=== PATIENT | male | born 1975 | race Hispanic/Latino ===

== ENCOUNTER 2019-01-04 19:00 | Emergency (ER) | payer OTHER ==
--- OUTSIDE RECORDS SUMMARY | 2019-01-04 19:02 | XMS REPORT | Clinical Summary ---
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 Last Filed Vital Signs Not on file Plan of Treatment Health Maintenance Due Date Last Done Comments INFLUENZA VACCINE 12/31/2018 Results Not on fileafter 01/03/2018 RAHEEL Sumner [address] [place], [place] (Home) [id number] (Work) Advance Directives Patient has advance care planning documents on file. For more information, please contact:Tone [id number] SchaeferNew [facility] [address]
--- OUTSIDE RECORDS SUMMARY | 2019-01-04 19:29 | XMS REPORT | Continuity of Care Document ---
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 22:00:00 MARKETING LIAISON, Duration: 30 hr, Stop date: 08/02/18 3:59:00 MARKETING LIAISON, Replace Every: 24 hrNotes: Central line only Must use 1.2 micron filter AND Lipids should not be administered to patients who are allergic to soy, fish, egg or peanuts. Potassium 40 mEq, 2 tab, Inactive [facility] Chloride Route: PO, Drug 2019 Medical form: ERTAB, Center ONCE, Dosing Weight 48.182, kg, Start date: 07/31/18 7:48:00 MARKETING LIAISON, Stop date: 07/31/18 7:48:00 CSTNotes: (Same as: K-Dur 20) "Do Not Crush" Give with food and full glass of water For patients unable to swallow tablet, dissolve in one half glass of water. Allow about 2 minutes for the tablets to disintegrate. Stir before giving to prepare slurry and administer. Please exclude Patients with feeding tube less than 14 [place] (Dobhoff, J-tube etc) and pediatric and patients. NS (Bolus) IV 500 mL, 500 Inactive [facility] ml/hr, Infuse 2019 Medical Over: 1 hr, Center Route: IV, 500, Drug form: INJ, ONCE, Priority: STAT, Dosing Weight 48.182 kg, Start date: 07/30/18 22:22:00 MARKETING LIAISON, Stop date: 07/30/18 22:22:00 MARKETING LIAISON Adult Parenteral 1,800 mL, Rate: No Longer [facility] Nutrition Custom as directed, Active 2019 Medical - Central (TPN) Dosing Weight Center 1,800 mL 48.182, kg, Route: IV, Total Volume: 1,800 mL, Start Date: 07/30/18 22:00:00 MARKETING LIAISON, Duration: 30 hr, Stop date: 08/01/18 3:59:00 MARKETING LIAISON, Replace Every: 24 hrNotes: Central line only Must use 1.2 micron filter AND Lipids should not be administered to patients who are allergic to soy, fish, egg or peanuts. normal saline 1,000 mL, Rate: No Longer [place] 0.9% IV 1,000 mL 75 ml/hr, Active 2019 Medical Infuse over: Center 13.3 hr, Route: IV, Dosing Weight 48.182 kg, Total Volume: 1,000, Start date: 07/30/18 21:07:00 MARKETING LIAISON, Duration: 30 day, Stop date: 08/29/18 21:06:00 CDT, 1.48, m2 Adult Parenteral 1,800 mL, Rate: No Longer [facility] Nutrition Custom as directed, Active 2019 Medical - Central (TPN) Dosing Weight Center 1,800 mL 48.182, kg, Route: IV, Total Volume: 1,800 mL, Start Date: 07/29/18 22:00:00 MARKETING LIAISON, Duration: 30 hr, Stop date: 07/31/18 3:59:00 MARKETING LIAISON, Replace Every: 24 hrNotes: Central line only Must use 1.2 micron filter AND Lipids should not be administered to patients who are allergic to soy, fish, egg or peanuts. Adult Parenteral 1,800 mL, Rate: No Longer [facility] Nutrition Custom as directed, Active 2019 Medical - Central (TPN) Dosing Weight Center 1,800 mL 48.182, kg, Route: IV, Total Volume: 1,800 mL, Start Date: 07/28/18 22:00:00 MARKETING LIAISON, Duration: 30 hr, Stop date: 07/30/18 3:59:00 MARKETING LIAISON, Replace Every: 24 hrNotes: Central line only Must use 1.2 micron filter AND Lipids should not be administered to patients who are allergic to soy, fish, egg or peanuts. Adult Parenteral 1,800 mL, Rate: Inactive [facility] Nutrition Custom as directed, 2019 Medical - Central (TPN) Dosing Weight Center 1800 mL 48.182, kg, Route: IV, Total Volume: 1,800 mL, Start Date: 07/28/18 22:00:00 MARKETING LIAISON, Duration: 30 hr, Stop date: 07/30/18 3:59:00 MARKETING LIAISON Adult Parenteral 1,800 mL, Rate: No Longer [employer] [facility] Nutrition Custom as directed, Active 2019 Medical - Central (TPN) Dosing Weight Center 1,800 mL 48.182, kg, Route: IV, Total Volume: 1,800 mL, Start Date: 07/27/18 22:00:00 MARKETING LIAISON, Duration: 30 hr, Stop date: 07/29/18 3:59:00 MARKETING LIAISON, Replace Every: 24 hrNotes: Central line only Must use 1.2 micron filter AND Lipids should not be administered to patients who are allergic to soy, fish, egg or peanuts. Adult Parenteral 1,800 mL, Rate: No Longer [employer] [facility] Nutrition Custom as directed, Active 2019 Medical - Central (TPN) Dosing Weight Center 1,800 mL 48.182, kg, Route: IV, Total Volume: 1,800 mL, Start Date: 07/26/18 22:00:00 MARKETING LIAISON, Duration: 30 hr, Stop date: 07/28/18 3:59:00 MARKETING LIAISON, Replace Every: 24 hrNotes: Central line only Must use 1.2 micron filter AND Lipids should not be administered to patients who are allergic to soy, fish, egg or peanuts. GI cocktail 30 ml, Route: Inactive [place] (aluminum PO, Drug Form: 2018 Medical hydroxide/magnesi SUSP, Dosing Center um Weight 48.182, hydroxide/lidocai kg, ONCE, ne/simethicone) Routine, Start date: 07/26/18 20:43:00 MARKETING LIAISON, Stop date: 07/26/18 20:43:00 CSTNotes: G.I. Cocktail - aluminum hydroxide/magne sium hydroxide/lidoc giorgio/simethicon e Acetaminophen 325 1 tab, Route: No Longer [place] MG / Hydrocodone PO, Drug Form: Active 2018 Medical Bitartrate 10 MG TAB, Dosing Center Oral Tablet Weight 48.182, [[place] 10/325] kg, Q6H, PRN Pain Score 4-6, Start date: 07/26/18 20:43:00 MARKETING LIAISON, Duration: 30 day, Stop date: 08/25/18 20:42:00 CDTNotes: Do not exceed 4gm/day of acetaminophen. (Same as: [place] 325/10) Adult Parenteral 1,800 mL, Rate: No Longer [place] Nutrition Custom as directed, Active 2019 Medical - Central (TPN) Dosing Weight Center 1,800 mL 48.182, kg, Route: IV, Total Volume: 1,800 mL, Start Date: 07/25/18 22:00:00 MARKETING LIAISON, Duration: 30 hr, Stop date: 07/27/18 3:59:00 MARKETING LIAISON, Replace Every: 24 hrNotes: Central line only Must use 1.2 micron filter AND Lipids should not be administered to patients who are allergic to soy, fish, egg or peanuts. Tylenol 650 mg, 2 tab, No Longer [place] Route: PO, Drug Active 2019 Medical form: TAB, Q6H, Center Dosing Weight 48.182, kg, PRN Pain 1-3/Temp > 100.4 F, Start date: 07/25/18 21:39:00 MARKETING LIAISON, Duration: 30 day, Stop date: 08/24/18 21:38:00 CDTNotes: Do not exceed 4 gm/day. (Same as: Tylenol) Lovenox 40 mg, 0.4 mL, No Longer [place] Route: SUB-Q, Active 2019 Medical Drug form: INJ, Center [id number], Dosing Weight 48.182, kg, Start date: 07/25/18 17:00:00 MARKETING LIAISON, Duration: 30 day, Stop date: 09/22/18 17:00:00 CDTNotes: (Same as: Lovenox) Adult Parenteral 1,800 mL, Rate: No Longer [place] Nutrition Custom as directed, Active 2019 Medical - Central (TPN) Dosing Weight Center 1,800 mL 48.182, kg, Route: IV, Total Volume: 1,800 mL, Start Date: 07/24/18 22:00:00 MARKETING LIAISON, Duration: 30 hr, Stop date: 07/26/18 3:59:00 MARKETING LIAISON, Replace Every: 24 hrNotes: Central line only Must use 1.2 micron filter AND Lipids should not be administered to patients who are allergic to soy, fish, egg or peanuts. Fluoxetine 40 mg, 10 mL, No Longer [place] Route: PO, Drug Active 2019 Medical form: SOLN, Center Daily, Dosing Weight 52.273, kg, Start date: 07/24/18 9:00:00 MARKETING LIAISON, Stop date: 09/04/18 9:00:00 CDTNotes: (Same as: Prozac) Divalproex Sodium 500 mg, 1 tab, No Longer [place] 500 MG Enteric Route: PO, Drug Active 2019 Medical Coated Tablet form: ECTAB, [place] [Depakote] BID, Dosing Weight 52.273, kg, Start date: 07/24/18 9:00:00 MARKETING LIAISON, Duration: 30 day, Stop date: 08/22/18 17:00:00 CDTNotes: (Same as: Depakote Delayed Release) Do not confuse with the extended-releas e tablet. Delayed absorption enteric coated tablet. Do not crush Bupropion 300 mg, 2 tab, No Longer [place] Route: PO, Drug Active 2019 Medical form: ERTAB, [place] QAM, Dosing Weight 52.273, kg, Start date: 07/24/18 9:00:00 MARKETING LIAISON, Stop date: 09/07/18 9:00:00 CDTNotes: (Same as: Wellbutrin XL) "Do Not Crush" Sodium Chloride 1,000 mL, Rate: No Longer [place] 0.9% IV 1,000 mL 75 ml/hr, Active 2019 Medical Infuse over: [place] 13.3 hr, Route: IV, Dosing Weight 52.273 kg, Total Volume: 1,000, Start date: 07/23/18 23:36:00 MARKETING LIAISON, Duration: 30 day, Stop date: 08/22/18 23:35:00 CDT, 1.55, m2 Ketamine 225 mg, 22.5 Inactive [place] mL, Route: IV, 2019 Medical Drug form: Center SOLN, ONCE, Dosing Weight 52.273, kg, Start date: 07/23/18 20:09:00 MARKETING LIAISON, Stop date: 07/23/18 20:09:00 CSTNotes: (Same as: keTALAR) Zofran 4 mg, 2 mL, Inactive [place] Route: IVP, 2019 Medical Drug form: INJ, [place] ONCE, Dosing Weight 52.273, kg, Priority: STAT, Start date: 07/23/18 20:09:00 MARKETING LIAISON, Stop date: 07/23/18 20:09:00 CSTNotes: (Same as: Zofran) MEDICATION WASTE Product Size: 4 mg Product Wasted: ___ mg Aluminum 10 mL, PO, Active Hydroxide 40 QID-After 2019 [facility] MG/ML / Magnesium Meals, shake Hydroxide 40 well before MG/ML / using, # 180 Simethicone 4 mL, 0 Refill(s) MG/ML Oral Suspension [Maalox Plus] ibuprofen 600 mg 600 mg=1 tab, No Longer oral tablet PO, Q6H, PRN Active 2018 [facility] Pain, take with food not to exceed 3200 mg/day, # 30 tab, 0 Refill(s) Maalox Advanced 30 mL, Route: Inactive Regular Strength PO, Drug Form: 2018 [facility] SUSP SUSP, Dosing Weight 52.273, kg, ONCE, STAT, Start date: 07/23/18 13:12:00 MARKETING LIAISON, Stop date: 07/23/18 13:12:00 CSTNotes: (aluminum hydroxide-magne sium hyd-simethicone [id number]/5m l 30 ml ud JUNIOR) Acetaminophen 1,000 mg, 2 Inactive tab, Route: PO, 2018 [facility] Drug form: TAB, ONCE, Dosing Weight 52.273, kg, Priority: STAT, Start date: 07/23/18 12:13:00 MARKETING LIAISON, Stop date: 07/23/18 12:13:00 CSTNotes: Max acetaminophen 4000 mg/day (4 gm/day). (Same as: Tylenol Extra Strength) Potassium 40 mEq, 15 mL, Inactive [place] 1.33 Route: PO, Drug 2019 [place] MEQ/ML Oral form: LIQ, Solution ONCE, Dosing Weight 54.545, kg, Priority: STAT, Start date: 07/23/18 2:59:00 MARKETING LIAISON, Stop date: 07/23/18 2:59:00 MARKETING LIAISON Sodium Chloride 1,000 mL, Inactive 0.9% (Bolus) IV Infuse Over: 2018 [facility] hr, Route: IV, ONCE, Priority: STAT, Dosing Weight 54.545 kg, Start date: 07/23/18 2:49:00 MARKETING LIAISON, Stop date: 07/23/18 2:49:00 MARKETING LIAISON Depakote 1,000 mg, 4 Inactive tab, Route: PO, 2018 [facility] Drug form: ECTAB, ONCE, Dosing Weight 54.545, kg, Start date: 07/23/18 0:16:00 MARKETING LIAISON, Stop date: 07/23/18 0:16:00 CSTNotes: (Same as: Depakote Delayed Release) Do not confuse with the extended-releas e tablet. Delayed absorption, enteric coated tablet. Do not crush Sodium Chloride 1,000 mL, 1000 Inactive 0.9% (Bolus) IV ml/hr, Infuse 2018 [facility] Over: 1 hr, Route: IV, 1,000, Drug form: INJ, ONCE, Priority: STAT, Dosing Weight 54.545 kg, Start date: 07/22/18 19:17:00 MARKETING LIAISON, Stop date: 07/22/18 19:17:00 MARKETING LIAISON Saline Flush 0.9% 10 mL, Route: No Longer IVP, Drug Form: Active 2018 [facility] INJ, Dosing Weight 54.545, kg, PRN, PRN Line Flush, Start date: 07/22/18 19:17:00 MARKETING LIAISON, Duration: 30 day, Stop date: 08/21/18 20:16:00 CDTNotes: (Same as: BD Posiflush) Tylenol 1,000 mg, 2 Inactive tab, Route: PO, 2018 [facility] Drug form: TAB, ONCE, Dosing Weight 72.727, kg, Start date: 07/22/18 0:01:00 MARKETING LIAISON, Stop date: 07/22/18 0:01:00 CSTNotes: Max acetaminophen 4000 mg/day (4 gm/day). (Same as: Tylenol Extra Strength) d50 syringe 12.5 gm, 25 mL, No Longer Route: IVP, Active 2018 [facility] Drug Form: INJ, Dosing Weight 72.727, kg, ONCE, STAT, Start date: 07/21/18 23:51:00 MARKETING LIAISON, Stop date: 07/21/18 23:51:00 MARKETING LIAISON, 25 ml=12.5 gm Dextrose 50% 25 gm, Route: Inactive Syringe IVP, Dosing 2018 [facility] Weight 72.727, kg, ONCE, STAT, Start date: 07/21/18 23:32:00 MARKETING LIAISON, Stop date: 07/21/18 23:32:00 MARKETING LIAISON Depakote 125 mg, 1 tab, No Longer Route: PO, Drug Active 2018 [facility] form: ECTAB, ONCE, Dosing Weight 72.727, kg, Start date: 07/21/18 23:13:00 MARKETING LIAISON, Stop date: 07/21/18 23:13:00 CSTNotes: (Same as: Depakote Delayed Release) Do not confuse with the extended-releas e tablet. Delayed absorption, entereic coated tablet. Do not crush Saline Flush 0.9% 10 mL, Route: No Longer IVP, Drug Form: Active 2018 [facility] INJ, Dosing Weight 72.727, kg, PRN, PRN Line Flush, Start date: 07/21/18 18:35:00 MARKETING LIAISON, Duration: 30 day, Stop date: 08/20/18 19:34:00 CDTNotes: (Same as: BD Posiflush) Depakote 500 mg 500 mg, 1 tab, No Longer [place] oral enteric Route: PO, Drug Active 2018 Medical coated tablet form: ECTAB, Center Bedtime, Dosing Weight 54.545, kg, Start date: 07/16/18 21:00:00 MARKETING LIAISON, Duration: 30 day, Stop date: 08/14/18 21:00:00 CDTNotes: (Same as: Depakote Delayed Release) Do not confuse with the extended-releas e tablet. Delayed absorption enteric coated tablet. Rocephin 1 gm, Route: Inactive [place] IVPB, Drug 2019 Medical form: PDR/INJ, Center [id number], Dosing Weight 54.545, kg, Start date: 07/16/18 12:00:00 MARKETING LIAISON, Duration: 1 day, Stop date: 07/16/18 12:00:00 MARKETING LIAISON, ABX Indication: Urinary Tract InfectionNotes: (Same As: Rocephin). Use with 100 mL NS and infuse over 30 min MEDICATION WASTE Product Size: 1000 mg Product Wasted: ___ mg cefdinir 300 MG 300 mg=1 cap, Active [place] Oral Capsule PO, Q12H, X 7 2019 Medical day, # 14 cap, Center 0 Refill(s), Pharmacy: [place] [id number] Divalproex Sodium 500 mg=1 tab, Active [place] 500 MG Enteric PO, BID, 2019 Medical Coated Tablet Delayed Release [place] [Depakote] tablet, # 60 tab, 0 Refill(s), Pharmacy: [place] [id number] Morphine 2 mg, Route: Inactive [place] IVP, ONCE, 2019 Medical Dosing Weight Center 54.545, kg, Start date: 07/16/18 11:20:00 MARKETING LIAISON, Stop date: 07/16/18 11:20:00 MARKETING LIAISON Fluoxetine 40 mg, 2 cap, No Longer [place] Route: PO, Drug Active 2018 Medical form: CAP, Center Daily, Dosing Weight 54.545, kg, Start date: 07/16/18 9:00:00 MARKETING LIAISON, Duration: 30 day, Stop date: 08/14/18 9:00:00 CDTNotes: (Same as: ProzacJose De Jesusafem) Protonix 40 mg, 1 tab, No Longer [place] Route: PO, Drug Active 2019 Medical form: ECTAB, Center Daily, Dosing Weight 54.545, kg, Start date: 07/16/18 9:00:00 MARKETING LIAISON, Duration: 30 day, Stop date: 08/14/18 9:00:00 CDTNotes: Tablet should not be chewed or crushed. (Same as: Protonix) Divalproex Sodium 500 mg, 1 tab, Inactive [place] 500 MG Enteric Route: PO, Drug 2019 Medical Coated Tablet form: ECTAB, [place] [Depakote] Bedtime, Dosing Weight 54.545, kg, Start date: 07/16/18 0:00:00 MARKETING LIAISON, Duration: 30 day, Stop date: 08/14/18 21:00:00 CDTNotes: (Same as: Depakote Delayed Release) Do not confuse with the extended-releas e tablet. Delayed absorption enteric coated tablet. Protonix 40 mg, Route: Inactive [place] IVP, Drug form: 2019 Medical INJ, ONCE, Center Dosing Weight 54.545, kg, Start date: 07/15/18 23:05:00 MARKETING LIAISON, Stop date: 07/15/18 23:05:00 CSTNotes: For IV push reconstitute with 10 ml 0.9% sodium chloride and push over 2 minutes. (Same as: Protonix) Morphine 2 mg, 0.5 mL, No Longer [facility] Route: IVP, Active 2019 Medical Drug form: Center SOLN, Q4H, Dosing Weight 54.545, kg, PRN Pain Score 7-10, Start date: 07/15/18 23:05:00 MARKETING LIAISON, Duration: 30 day, Stop date: 08/14/18 23:04:00 CDTNotes: (Same as:MORPhine Sulfate) Oxycodone 10 mg, 2 tab, No Longer [facility] Hydrochloride 5 Route: PO, Drug Active 2019 Medical MG Oral Tablet form: TAB, Q6H, Center Dosing Weight 54.545, kg, PRN Pain Score 7-10, Start date: 07/15/18 23:04:00 MARKETING LIAISON, Duration: 30 day, Stop date: 08/14/18 23:03:00 CDTNotes: (Same as: Roxicodone) LR IV 1000 mL 1,000 mL, Rate: Inactive [place] 125 ml/hr, 2019 Medical Infuse over: 8 Center hr, Route: IV, Dosing Weight 54.545 kg, Total Volume: 1,000, Start date: 07/15/18 23:03:00 MARKETING LIAISON, Duration: 30 day, Stop date: 08/15/18 0:02:00 CDT, 1.58, m2 Glucagon 1 mg, Route: No Longer [facility] IM, Drug form: Active 2019 Medical PDR/INJ, PRN, Center Dosing Weight 54.545, kg, PRN Blood Glucose Results, Start date: 07/15/18 23:01:00 MARKETING LIAISON, Duration: 30 day, Stop date: 08/15/18 0:00:00 CDT Dextrose 50% 25 gm, 50 mL, No Longer [facility] Syringe Route: IVP, Active 2019 Medical Drug Form: INJ, Center Dosing Weight 54.545, kg, PRN, PRN Blood Glucose Results, Start date: 07/15/18 23:01:00 MARKETING LIAISON, Duration: 30 day, Stop date: 08/15/18 0:00:00 CDT Ondansetron 4 mg, 2 mL, No Longer [place] Route: IVP, Active 2019 Medical Drug form: INJ, Center Q6H, Dosing Weight 54.545, kg, PRN Nausea & Vomiting, Start date: 07/15/18 23:01:00 MARKETING LIAISON, Duration: 30 day, Stop date: 08/14/18 23:00:00 CDTNotes: (Same as: Julia) MEDICATION WASTE Product Size: 4 mg Product Wasted: ___ mg Valproic Acid 100 1,000 mg, 10 Inactive [place] MG/ML Injectable mL, Route: IV, 2019 Medical Solution ONCE, Dosing Center Weight 54.545, kg, Start date: 07/15/18 21:10:00 MARKETING LIAISON, Stop date: 07/15/18 21:10:00 CSTNotes: Dilute in at least 50ml D5W or NS. Infusion rate=20 mg/min (Same As: Depacon) Isolyte S PH 7.4 1,000 mL, Rate: No Longer [place] 1,000 mL 100 ml/hr, Active 2019 Medical Infuse over: 10 Center hr, Route: IV, Dosing Weight 54.545 kg, Total Volume: 1,000, Start date: 07/15/18 18:52:00 MARKETING LIAISON, Duration: 30 day, Stop date: 08/14/18 18:51:00 CDT, 1.58, d4Dsmge: (Same as: Isolyte S PH 7.4) Isolyte S PH-7.4 1,000 mL, 1000 Inactive [place] (Bolus) IV ml/hr, Infuse 2019 Medical Over: 1 hr, Center Route: IV, 1,000, Drug form: SOLN, ONCE, Dosing Weight 54.545 kg, Start date: 07/15/18 18:25:00 MARKETING LIAISON, Stop date: 07/15/18 18:25:00 CSTNotes: (Same as: Isolyte S PH 7.4) tramadol 50 mg=1 tab, Active [place] hydrochloride 50 PO, Q6H, PRN 2019 Medical MG Oral Tablet Pain, X 7 day, Center # 28 tab, 0 Refill(s) Divalproex Sodium 500 mg=1 tab, Active [place] 500 MG Enteric PO, Bedtime, 2019 Medical Coated Tablet Delayed Release [place] [Depakote] tablet, # 30 tab, 0 Refill(s) 24 HR Bupropion 300 mg=2 tab, Active [place] Hydrochloride 150 PO, QAM, # 60 2019 Medical MG Extended tab, 0 Center Release Tablet Refill(s) Ibuprofen 400 MG 800 mg=2 tab, Active [facility] Oral Tablet PO, Q8H, PRN 2019 Medical Pain Score 1-3, Center X 7 day, # 30 tab, 0 Refill(s) Oxycodone 10 mg=2 tab, Active [facility] Hydrochloride 5 PO, Q6H, PRN 2019 Medical MG Oral Tablet Pain Score Center 7-10, 0 Refill(s) TPN Electrolytes See Active [facility] intravenous Instructions, 2019 Medical solution Daily TPN, # 30 Center bag, 0 Refill(s), other FLUoxetine 20 40 mg=10 mL, Active [facility] mg/5 mL oral PO, Daily, # 2019 Medical solution 300 mL, 0 Center Refill(s) Adult Parenteral 1,800 mL, Rate: No Longer [facility] Nutrition Custom as directed, Active 2018 Medical - Central (TPN) Dosing Weight Center 1,800 mL 64.82, kg, Route: IV, Total Volume: 1,800 mL, Start Date: 07/10/18 22:00:00 MARKETING LIAISON, Duration: 30 hr, Stop date: 07/12/18 3:59:00 MARKETING LIAISON, Replace Every: 24 hrNotes: Central line only Must use 1.2 micron filter AND Lipids should not be administered to patients who are allergic to soy, fish, egg or peanuts. Prozac 40 mg, 10 mL, No Longer [facility] Route: PO, Drug Active 2018 Medical form: SOLN, Center Daily, Dosing Weight 64.82, kg, Start date: 07/10/18 9:00:00 MARKETING LIAISON, Duration: 30 day, Stop date: 08/08/18 9:00:00 CSTNotes: (Same as: Prozac) Adult Parenteral 1,800 mL, Rate: No Longer [facility] Nutrition Custom Titrate, Dosing Active 2019 Medical - Central (TPN) Weight 64.82, Center 1,800 mL kg, Route: IV, Total Volume: 1,800 mL, Start Date: 07/09/18 22:00:00 MARKETING LIAISON, Duration: 30 hr, Stop date: 07/11/18 3:59:00 MARKETING LIAISON, Replace Every: 24 hrNotes: Central line only Must use 1.2 micron filter AND Lipids should not be administered to patients who are allergic to soy, fish, egg or peanuts. Adult Parenteral 1,800 mL, Rate: No Longer [facility] Nutrition Custom Titrate, Dosing Active 2018 Medical - Central (TPN) Weight 64.82, Center 1,800 mL kg, Route: IV, Total Volume: 1,800 mL, Start Date: 07/08/18 22:00:00 MARKETING LIAISON, Duration: 30 hr, Stop date: 07/10/18 3:59:00 MARKETING LIAISON, Replace Every: 24 hrNotes: Central line only Must use 1.2 micron filter AND Lipids should not be administered to patients who are allergic to soy, fish, egg or peanuts. Adult Parenteral 1,800 mL, Rate: No Longer [facility] Nutrition Custom Titrate, Dosing Active 2018 Medical - Central (TPN) Weight 64.82, Center 1,800 mL kg, Route: IV, Total Volume: 1,800 mL, Start Date: 07/07/18 22:00:00 MARKETING LIAISON, Duration: 30 hr, Stop date: 07/09/18 3:59:00 MARKETING LIAISON, Replace Every: 24 hrNotes: Central line only Must use 1.2 micron filter AND Lipids should not be administered to patients who are allergic to soy, fish, egg or peanuts. Iohexol 100 mL, Route: Inactive [facility] IVP, Drug Form: 2019 Medical SOLN, Dosing Center Weight 64.82, kg, ONCALL, STAT, Start date: 07/07/18 21:22:00 MARKETING LIAISON, Duration: 1 doses or times, Dose=2.2ml/kg, Max [id number] -- "To be infused by Radiology Staff ONLY" Loperamide 1 mg, 5 mL, No Longer [facility] Route: PO, Drug Active 2018 Medical form: LIQ, Q8H, Center Dosing Weight 64.82, kg, PRN Loose Stools, Start date: 07/07/18 17:32:00 MARKETING LIAISON, Duration: 30 day, Stop date: 08/06/18 17:31:00 MARKETING LIAISON, 13 to 20 kg; Pediatric DosingNotes: Same as Imodium Saline Flush 0.9% 10 mL, Route: No Longer [place] IVP, Drug Form: Active 2019 Medical INJ, Dosing Center Weight 64.82, kg, Q8H, Start date: 07/07/18 16:00:00 MARKETING LIAISON, Duration: 30 day, Stop date: 08/06/18 8:00:00 CSTNotes: (Same as: BD Posiflush) Lidocaine 5 mL, Route: Inactive [place] Hydrochloride 10 INTRADERM, 2019 Medical MG/ML Injectable Dosing Weight Center Solution 64.82, kg, ONCALL, For PICC line insertion., Start date: 07/07/18 13:00:00 MARKETING LIAISON, Duration: 30 day, Stop date: 08/06/18 12:59:00 MARKETING LIAISON Saline Flush 0.9% 10 mL, Route: No Longer [place] IVP, Drug Form: Active 2019 Medical INJ, Dosing Center Weight 64.82, kg, PRN, PRN Line Flush, Start date: 07/07/18 12:48:00 MARKETING LIAISON, Duration: 30 day, Stop date: 08/06/18 12:47:00 CSTNotes: (Same as: BD Posiflush) Oxycodone 15 mg, 3 tab, No Longer [place] Hydrochloride 5 Route: PO, Drug Active 2019 Medical MG Oral Tablet form: TAB, Q6H, Center Dosing Weight 64.82, kg, PRN Pain Score 7-10, Start date: 07/07/18 12:23:00 MARKETING LIAISON, Duration: 30 day, Stop date: 08/06/18 12:22:00 CSTNotes: (Same as: Roxicodone) normal saline 1,000 mL, Rate: No Longer [place] 0.9% IV 1,000 mL 75 ml/hr, Active 2019 Medical Infuse over: Center 13.3 hr, Route: IV, Dosing Weight 64.82 kg, Total Volume: 1,000, Start date: 07/07/18 10:06:00 MARKETING LIAISON, Duration: 30 day, Stop date: 08/06/18 10:05:00 MARKETING LIAISON, 1.73, m2 Ketorolac 30 mg, 1 mL, Inactive [facility] Route: IVP, 2018 Medical Drug form: INJ, Center ONCE, Dosing Weight 64.82, kg, Start date: 07/07/18 4:05:00 MARKETING LIAISON, Stop date: 07/07/18 4:05:00 CSTNotes: (Same as:Toradol) IV bolus must be given >15 seconds. Give IM administration slowly and deeply into the muscle. Not for use > 4 days MEDICATION WASTE Product Size: 30 mg Product Wasted: 0 mg Saline Flush 0.9% 10 mL, Route: No Longer [facility] IVP, Drug Form: Active 2019 Medical INJ, Dosing Center Weight 64.82, kg, Q8H, Start date: 07/06/18 16:00:00 MARKETING LIAISON, Duration: 30 day, Stop date: 08/05/18 8:00:00 CSTNotes: Same as: BD Posiflush Sterile Magnesium Sulfate 2 gm, 50 mL, Inactive [facility] Route: IVPB, 2018 Medical Drug form: INJ, Center Q2H, Dosing Weight 64.82, kg, Total dose=4 gm, Priority: STAT, Start date: 07/06/18 12:00:00 MARKETING LIAISON, Duration: 2 doses or times, Stop date: 07/06/18 14:00:00 CSTNotes: WASTE: F/P - Sink; E - Municipal Trash Bin Lidocaine 5 mL, Route: Inactive [facility] Hydrochloride 10 INTRADERM, 2019 Medical MG/ML Injectable Dosing Weight Center Solution 64.82, kg, ONCALL, For PICC line insertion., Start date: 07/06/18 11:00:00 MARKETING LIAISON, Duration: 30 day, Stop date: 08/05/18 10:59:00 MARKETING LIAISON Saline Flush 0.9% 10 mL, Route: No Longer [facility] IVP, Drug Form: Active 2019 Medical INJ, Dosing Center Weight 64.82, kg, PRN, PRN Line Flush, Start date: 07/06/18 10:20:00 MARKETING LIAISON, Duration: 30 day, Stop date: 08/05/18 10:19:00 CSTNotes: Same as: BD Posiflush Sterile Calcium Chloride 1,000 mL, 1,000 Inactive [place] 0.0014 MEQ/ML / ml/hr, Infuse 2019 Medical Potassium Over: 1 hr, [place] Chloride 0.004 Route: IV, MEQ/ML / Sodium 1,000, Drug Chloride 0.103 form: INJ, MEQ/ML / Sodium ONCE, Priority: Lactate 0.028 STAT, Dosing MEQ/ML Injectable Weight 64.82 Solution kg, Start date: 07/06/18 6:54:00 MARKETING LIAISON, Stop date: 07/06/18 6:54:00 MARKETING LIAISON Magnesium Oxide 800 mg, 2 tab, Inactive [place] Route: PO, Drug 2019 Medical form: TAB, Center ONCE, Dosing Weight 64.82, kg, Start date: 07/06/18 6:53:00 MARKETING LIAISON, Stop date: 07/06/18 6:53:00 CSTNotes: (Same as: Mag-Ox 400) Magnesium oxide [id number] elemental magnesium Dose=____mg magnesium oxide (___mg elemental magnesium) vancomycin + 1.25 gm, Route: No Longer [place] Sodium Chloride IVPB, [id number], Active 2019 Medical 0.9% IV 250 mL Start date: [place] 07/06/18 5:00:00 MARKETING LIAISON, Duration: 30 day, Stop date: 08/04/18 17:00:00 MARKETING LIAISON, ABX Indication: BacteremiaNotes : TIME CRITICAL MEDICATION (Same As: Vancocin) Infusion rate 2001 mg: infuse over 2.5 hours For adult patients only: Round to nearest 250 mg per Medical Staff approval MEDICATION WASTE Product Size: 1000 mg Product Wasted: ___ mg Levaquin 750 mg, 1 tab, No Longer [place] Route: PO, Drug Active 2019 Medical form: TAB, Center [id number], Dosing Weight 64.82, kg, Start date: 07/05/18 21:00:00 MARKETING LIAISON, Duration: 7 day, Stop date: 07/11/18 21:00:00 MARKETING LIAISON, ABX Indication: Urinary Tract InfectionNotes: Do not give w/antacids, dairy pdt & minerals Take 1 hr before or 2 hr after dairy products Magnesium Oxide 800 mg, 2 tab, Inactive [facility] Route: PO, Drug 2019 Medical form: TAB, Center ONCE, Dosing Weight 64.82, kg, Priority: STAT, Start date: 07/05/18 18:02:00 MARKETING LIAISON, Stop date: 07/05/18 18:02:00 CSTNotes: (Same as: Mag-Ox 400) Magnesium oxide [id number] elemental magnesium Dose=____mg magnesium oxide (___mg elemental magnesium) vancomycin + 1.5 gm, Route: Inactive [facility] Sodium Chloride IVPB, ONCE, 2019 Medical 0.9% IV 250 mL Start date: Center 07/05/18 17:00:00 MARKETING LIAISON, Stop date: 07/05/18 17:00:00 MARKETING LIAISON, ABX Indication: BacteremiaNotes : TIME CRITICAL MEDICATION (Same As: Vancocin) Infusion rate 2001 mg: infuse over 2.5 hours For adult patients only: Round to nearest 250 mg per Medical Staff approval MEDICATION WASTE Product Size: 1000 mg Product Wasted: ___ mg cefepime 1 gm, Route: Inactive [facility] IVP, Drug form: 2019 Medical INJ, [id number], Center Dosing Weight 64.82, kg, (CrCl >/=50 ml/min), Start date: 07/05/18 16:00:00 MARKETING LIAISON, Duration: 7 day, Stop date: 07/12/18 8:00:00 MARKETING LIAISON, ABX Indication: Fever of Unknown Source 0-60 days of ageNotes: (Same As: Maxipime) MEDICATION WASTE Product Size: 1000 mg Product Wasted: ___ mg Flagyl 500 mg, 1 tab, Inactive [facility] Route: PO, Drug 2019 Medical form: TAB, Center ABXQ8H, Dosing Weight 64.82, kg, Start date: 07/05/18 16:00:00 MARKETING LIAISON, Duration: 7 day, Stop date: 07/12/18 8:00:00 MARKETING LIAISON, ABX Indication: Fever of Unknown Source 0-60 days of ageNotes: (Same as: Flagyl) Take with food/ avoid alcohol Vancomycin 1,000 mg, Inactive [facility] Route: IVPB, 2019 Medical Drug form: INJ, Center ONCE, Dosing Weight 64.82, kg, Start date: 07/05/18 15:43:00 MARKETING LIAISON, Stop date: 07/05/18 15:43:00 MARKETING LIAISON, ABX Indication: Fever of Unknown Source 0-60 days of ageNotes: TIME CRITICAL MEDICATION (Same As: Vancocin) Infusion rate 2001 mg: infuse over 2.5 hours For adult patients only: Round to nearest 250 mg per Medical Staff approval MEDICATION WASTE Product Size: 1000 mg Product Wasted: ___ mg Calcium Chloride 1,000 mL, 1,000 Inactive [place] 0.0014 MEQ/ML / ml/hr, Infuse 2019 Medical Potassium Over: 1 hr, [place] Chloride 0.004 Route: IV, MEQ/ML / Sodium 1,000, Drug Chloride 0.103 form: INJ, MEQ/ML / Sodium ONCE, Priority: Lactate 0.028 STAT, Dosing MEQ/ML Injectable Weight 64.82 Solution kg, Start date: 07/05/18 15:34:00 MARKETING LIAISON, Stop date: 07/05/18 15:34:00 MARKETING LIAISON Potassium 40 mEq, 2 tab, Inactive [place] Chloride Route: PO, Drug 2018 Medical form: ERTAB, Center ONCE, Dosing Weight 64.82, kg, Start date: 07/05/18 15:33:00 MARKETING LIAISON, Stop date: 07/05/18 15:33:00 CSTNotes: (Same as: K-Dur 20) "Do Not Crush" Give with food and full glass of water For patients unable to swallow tablet, dissolve in one half glass of water. Allow about 2 minutes for the tablets to disintegrate. Stir before giving to prepare slurry and administer. Please exclude Patients with feeding tube less than 14 [place] (Dobhoff, J-tube etc) and pediatric and patients. Magnesium Sulfate 2 gm, 50 mL, Inactive [place] Route: IVPB, 2019 Medical Drug form: INJ, Center Q2H, Dosing Weight 64.82, kg, Total dose=4 gm, Priority: STAT, Start date: 07/05/18 15:33:00 MARKETING LIAISON, Duration: 2 doses or times, Stop date: 07/05/18 17:53:00 CSTNotes: WASTE: F/P - Sink; E - Municipal Trash Bin Tylenol 325 mg, 1 tab, No Longer [place] Route: PO, Drug Active 2019 Medical form: TAB, Q6H, Center Dosing Weight 64.82, kg, PRN Pain 1-3/Temp > 100.4 F, Start date: 07/05/18 14:39:00 MARKETING LIAISON, Duration: 30 day, Stop date: 08/04/18 14:38:00 CSTNotes: Do not exceed 4 gm/day. (Same as: Tylenol) Wellbutrin XL 300 mg, 2 tab, No Longer [place] Route: PO, Drug Active 2019 Medical form: ERTAB, Center QAM, Dosing Weight 64.82, kg, Start date: 07/03/18 9:00:00 MARKETING LIAISON, Duration: 30 day, Stop date: 08/01/18 9:00:00 CSTNotes: (Same as: Wellbutrin XL) "Do Not Crush" Prozac 40 mg, 2 cap, No Longer [place] Route: PO, Drug Active 2019 Medical form: CAP, Center Daily, Dosing Weight 64.82, kg, Start date: 07/02/18 9:00:00 MARKETING LIAISON, Duration: 30 day, Stop date: 07/31/18 9:00:00 CSTNotes: (Same as: Prozac, Sarafem) Acetaminophen 325 2 tab, Route: No Longer [place] MG / Hydrocodone PO, Drug Form: Active 2019 Medical Bitartrate 10 MG TAB, Dosing Center Oral Tablet Weight 64.82, [[place] 10/325] kg, Q4H, PRN Pain Score 4-6, Start date: 07/01/18 18:19:00 MARKETING LIAISON, Duration: 30 day, Stop date: 07/31/18 18:18:00 CSTNotes: Do not exceed 4gm/day of acetaminophen. (Same as: [place] 325/10) Ibuprofen 400 MG 400 mg, 1 tab, No Longer [place] Oral Tablet Route: PO, Drug Active 2019 Medical form: TAB, Q4H, Center Dosing Weight 64.82, kg, PRN Pain Score 1-3, Start date: 07/01/18 2:16:00 MARKETING LIAISON, Duration: 30 day, Stop date: 07/31/18 2:15:00 CSTNotes: (Same as: Motrin) "Do Not Crush" Give with food. Lamictal 25 mg, 1 tab, No Longer [place] Route: PO, Drug Active 2018 Medical form: TAB, Center Daily, Dosing Weight 63.636, kg, Start date: 06/25/18 9:00:00 MARKETING LIAISON, Duration: 30 day, Stop date: 07/24/18 9:00:00 CSTNotes: (Same as:LaMICtal) Potassium 40 mEq, 30 mL, No Longer [place] Chloride Route: PO, Drug Active 2019 Medical form: LIQ, BID, Center Dosing Weight 63.636, kg, Start date: 06/25/18 9:00:00 MARKETING LIAISON, Duration: 2 day, Stop date: 06/26/18 17:00:00 CSTNotes: (Same as: Potassium Chloride) Risperdal 3 mg, 1 tab, No Longer [place] Route: PO, Drug Active 2018 Medical form: TAB, BID, Center Dosing Weight 63.636, kg, Start date: 06/24/18 17:00:00 MARKETING LIAISON, Duration: 30 day, Stop date: 07/24/18 9:00:00 CSTNotes: (Same as: Risperdal) Benztropine 1 mg, 1 tab, No Longer [place] Route: PO, Drug Active 2018 Medical form: TAB, BID, Center Dosing Weight 63.636, kg, Start date: 06/24/18 17:00:00 MARKETING LIAISON, Duration: 30 day, Stop date: 07/24/18 9:00:00 CSTNotes: (Same As: Cogentin) Zofran 4 mg, 2 mL, No Longer [place] Route: IVP, Active 2019 Medical Drug form: INJ, Center Q8H, Dosing Weight 63.636, kg, PRN Nausea, Start date: 06/24/18 16:12:00 MARKETING LIAISON, Duration: 30 day, Stop date: 07/24/18 16:11:00 CSTNotes: (Same as: Zofran) MEDICATION WASTE Product Size: 4 mg Product Wasted: ___ mg Divalproex Sodium 500 mg, 1 tab, No Longer [place] 500 MG Enteric Route: PO, Drug Active 2019 Medical Coated Tablet form: ECTAB, [place] [Depakote] Bedtime, Dosing Weight 63.636, kg, Start date: 06/23/18 21:00:00 MARKETING LIAISON, Duration: 30 day, Stop date: 07/22/18 21:00:00 MARKETING LIAISON, Delayed Release tabletNotes: (Same as: Depakote Delayed Release) Do not confuse with the extended-releas e tablet. Delayed absorption enteric coated tablet. Do not crush Potassium 20 mEq, 1 tab, Inactive [place] Chlor[facility] Route: PO, Drug 2019 Medical form: ERTAB, [place] ONCE, Dosing Weight 63.636, kg, Start date: 06/22/18 19:20:00 MARKETING LIAISON, Stop date: 06/22/18 19:20:00 CSTNotes: (Same as: K-Dur 20) "Do Not Crush" Give with food and full glass of water For patients unable to swallow tablet, dissolve in one half glass of water. Allow about 2 minutes for the tablets to disintegrate. Stir before giving to prepare slurry and administer. Please exclude Patients with feeding tube less than 14 [place] (Dobhoff, J-tube etc) and pediatric and patients. Dextrose 50% 25 gm, 50 mL, No Longer [place] Syringe Route: IVP, Active 2019 Medical Drug Form: INJ, Center Dosing Weight 63.636, kg, PRN, PRN Blood Glucose Results, Start date: 06/22/18 18:53:00 MARKETING LIAISON, Duration: 30 day, Stop date: 07/22/18 18:52:00 MARKETING LIAISON Glucagon 1 mg, Route: No Longer [place] IM, Drug form: Active 2019 Medical PDR/INJ, PRN, Center Dosing Weight 63.636, kg, PRN Blood Glucose Results, Start date: 06/22/18 18:53:00 MARKETING LIAISON, Duration: 30 day, Stop date: 07/22/18 18:52:00 MARKETING LIAISON Oxycodone 10 mg, 2 tab, No Longer [place] Hydrochloride 5 Route: PO, Drug Active 2019 Medical MG Oral Tablet form: TAB, Q6H, Center Dosing Weight 63.636, kg, PRN Pain Score 7-10, Start date: 06/22/18 16:25:00 MARKETING LIAISON, Duration: 30 day, Stop date: 07/22/18 16:24:00 MARKETING LIAISON Sodium Chloride 1,000 mL, Rate: No Longer [place] 0.9% IV 1,000 mL 75 ml/hr, Active 2019 Medical Infuse over: Center 13.3 hr, Route: IV, Dosing Weight 63.636 kg, Total Volume: 1,000, Start date: 06/22/18 16:13:00 MARKETING LIAISON, Duration: 30 day, Stop date: 07/22/18 16:12:00 MARKETING LIAISON, 1.71, m2 Risperidone 3 MG 3 mg=1 tab, PO, No Longer [place] Oral Tablet BID, # 60 tab, Active 2019 Medical [Risperdal] 0 Refill(s) Center lamotrigine 25 MG 25 mg=1 tab, No Longer [place] Oral Tablet PO, Daily, # 30 Active 2019 Medical [Lamictal] tab, 1 Center Refill(s) benztropine 1 mg 1 mg=1 tab, PO, No Longer [place] oral tablet BID, 0 Active 2019 Medical Refill(s) Center Acetaminophen 325 2 tab, Route: No Longer [place] MG / Hydrocodone PO, Drug Form: Active 2019 Medical Bitartrate 5 MG TAB, Dosing Center Oral Tablet Weight 63.636, [[place] 5/325] kg, Q6H, PRN Pain Score 4-6, Start date: 06/22/18 13:53:00 MARKETING LIAISON, Duration: 30 day, Stop date: 07/22/18 13:52:00 CSTNotes: (Same as: [place] 325/5) Do not exceed 4gm/day of acetaminophen. Isolyte S PH-7.4 1,000 mL, 999 Inactive [place] (Bolus) IV ml/hr, Route: 2019 Medical IV, ONCE, Center Dosing Weight 72.727 kg, Start date: 06/22/18 10:05:00 MARKETING LIAISON, Stop date: 06/22/18 10:05:00 MARKETING LIAISON Isolyte S PH-7.4 1,000 mL, 1000 Inactive [place] (Bolus) IV ml/hr, Infuse 2019 Medical Over: 1 hr, Center Route: IV, 1,000, Drug form: SOLN, ONCE, Dosing Weight 72.727 kg, Start date: 06/22/18 8:09:00 MARKETING LIAISON, Stop date: 06/22/18 8:09:00 CSTNotes: (Same as: Isolyte S PH 7.4) ketOROLAC 30 30 mg, Route: Inactive 09/25[facility] mg/mL injectable IVP, Drug form: 2018 Medical solution INJ, ONCE, Center Dosing Weight 72.727, kg, Priority: STAT, Start date: 09/24/17 23:02:00 CDT, Stop date: 09/24/17 23:02:00 CDT cefepime 1 gm, Route: Inactive 09/25[facility] IVPB, ONCE, 2018 Medical Dosing Weight Center 72.727, kg, Priority: STAT, Start date: 09/24/17 22:07:00 CDT, Stop date: 09/24/17 22:07:00 CDT, ABX Indication: Bacteremia Flagyl 500 mg, Route: Inactive 09/25[facility] IVPB, ONCE, 2018 Medical Dosing Weight Center 72.727, kg, Priority: STAT, Start date: 09/24/17 22:07:00 CDT, Stop date: 09/24/17 22:07:00 CDT, ABX Indication: ED - Suspected Sepsis Vancomycin 1,500 mg, No Longer [facility] Route: IVPB, Active 2018 Medical ONCE, Dosing Center Weight 72.727, kg, Priority: STAT, Start date: 09/24/17 22:07:00 CDT, Stop date: 09/24/17 22:07:00 CDT, ABX Indication: BacteremiaNotes : TIME CRITICAL MEDICATION (Same As: Vancocin) Infusion rate 2001 mg: infuse over 2.5 hours For adult patients only: Round to nearest 250 mg per Medical Staff approval MEDICATION WASTE Product Size: 1000 mg Product Wasted: ___ mg iodixanol 100 mL, Route: Inactive [facility] IVP, Drug Form: 2018 Medical SOLN, Dosing Center Weight 72.727, kg, ONCALL, STAT, Start date: 09/24/17 21:41:00 CDT, Duration: 1 doses or times, Dose=2.2ml/kg, Max [id number] -- "To be infused by Radiology Staff ONLY" Morphine 4 mg, Route: Inactive 09/25[facility] IVP, ONCE, 2018 Medical Dosing Weight Center 72.727, kg, Priority: STAT, Start date: 09/24/17 21:30:00 CDT, Stop date: 09/24/17 21:30:00 CDT naproxen 500 mg 500 mg=1 tab, No Longer [place] oral tablet PO, Q12H, PRN Active 2017 Medical Pain Score Center 6-10, # 40 tab, 0 Refill(s) Levetiracetam 500 500 mg=1 tab, Active [place] MG Oral Tablet PO, Q12H, # 60 2018 Medical tab, 0 Center Refill(s) Divalproex Sodium 500 mg=1 tab, Active [place] 500 MG Enteric PO, Q12H, 2018 Medical Coated Tablet Delayed Release Center [Depakote] tablet, # 60 tab, 0 Refill(s) acetaminophen 500 1,000 mg=2 tab, No Longer [place] mg oral tablet PO, Q6H, PRN Active 2018 Medical Pain Score 4-6, Center # 30 tab, 0 Refill(s) pantoprazole 40 40 mg=1 tab, Active [place] mg oral enteric PO, Before 2018 Medical coated tablet Dinner, # 30 Center tab, 0 Refill(s) gabapentin 300 MG 300 mg=1 cap, Active [place] Oral Capsule PO, Q8H, # 60 2018 Medical cap, 0 Center Refill(s) FLUoxetine 20 mg 40 mg=2 cap, Active [facility] oral capsule PO, Daily, # 60 2018 Medical cap, 0 Center Refill(s) buPROPion 150 300 mg=2 tab, Active [place] mg/24 hours (XL) PO, QAM, # 60 2018 Medical oral tablet, tab, 0 Center extended release Refill(s) Keppra 500 mg, 1 tab, No Longer [place] Route: PO, Drug Active 2018 Medical form: TAB, Center Q12H, Dosing Weight 68.182, kg, Start date: 07/17/17 21:00:00 MARKETING LIAISON, Duration: 30 day, Stop date: 08/16/17 9:00:00 CDTNotes: (Same as:Keppra) Valproic Acid 100 1,363.64 mg, Inactive [place] MG/ML Injectable Route: IM, 2018 Medical Solution ONCE, Dosing Center Weight 68.182, kg, PRN Seizure, Start date: 07/17/17 12:54:00 MARKETING LIAISON Wellbutrin XL 300 mg, 2 tab, No Longer [place] Route: PO, Drug Active 2018 Medical form: ERTAB, Center QAM, Dosing Weight 68.182, kg, Start date: 07/17/17 9:00:00 MARKETING LIAISON, Duration: 30 day, Stop date: 08/15/17 9:00:00 CDT Divalproex Sodium 500 mg, 2 tab, No Longer [place] 500 MG Enteric Route: PO, Drug Active 2018 Medical Coated Tablet form: ECTAB, [place] [Depakote] Q12H, Dosing Weight 68.182, kg, Start date: 07/16/17 21:00:00 MARKETING LIAISON, Duration: 30 day, Stop date: 08/15/17 9:00:00 CDT, Delayed Release tabletNotes: (Same as: Depakote Delayed Release) Do not confuse with the extended-releas e tablet. Delayed absorption, enteric coated tablet. Do not crush PHOS-NaK 1 pkt, Route: No Longer [place] PO, Drug Form: Active 2018 Medical PDR/REC, Dosing Center Weight 68.182, kg, TID-Before Meals, NOW, Start date: 07/16/17 18:16:00 MARKETING LIAISON, Duration: 30 day, Stop date: 08/15/17 16:30:00 CDTNotes: (Same as: Phos-NaK) Each 1.5 gm pkt has 250mg phosphorous. Mix w/2.5oz water and stir. Levetiracetam 1,000 mg, 2 Inactive [place] 1000 MG Oral tab, Route: PO, 2018 Medical Tablet [Keppra] Drug form: TAB, Center ONCE, Dosing Weight 68.182, kg, Start date: 07/16/17 11:26:00 MARKETING LIAISON, Stop date: 07/16/17 11:26:00 CSTNotes: (Same as:Keppra) Keppra 1,000 mg, Inactive [place] Route: IVPB, 2018 Medical ONCE, Dosing Center Weight 68.182, kg, Loading Dose, Start date: 07/16/17 11:05:00 MARKETING LIAISON, Stop date: 07/16/17 11:05:00 CSTNotes: Same as Keppra Mix with 100 mL NS, LR or D5W MEDICATION WASTE Product Size: 500 mg Product Wasted: ___ mg Ativan 1 mg, 0.5 mL, Inactive [place] Route: IM, Drug 2017 Medical form: INJ, Center ONCE, Dosing Weight 68.182, kg, Start date: 07/16/17 10:10:00 MARKETING LIAISON, Stop date: 07/16/17 10:10:00 CSTNotes: (Same as: Ativan) Prozac 40 mg, 2 cap, Inactive [place] Route: PO, Drug 2017 Medical form: CAP, Center Daily, Dosing Weight 68.182, kg, Start date: 07/16/17 9:00:00 MARKETING LIAISON, Duration: 30 day, Stop date: 08/14/17 9:00:00 CDTNotes: (Same as: Prozac, Sarafem) Melatonin 0.25 1 mg, 1 mL, No Longer [place] MG/ML Oral Route: PO, Drug Active 2017 Medical Solution Form: LIQ, Center Dosing Weight 68.182, kg, Bedtime, Start date: 07/16/17 4:00:00 MARKETING LIAISON, Duration: 30 day, Stop date: 08/14/17 21:00:00 CDT Benadryl 25 mg, 1 cap, No Longer [place] Route: PO, Drug Active 2017 Medical form: CAP, Center Bedtime, Dosing Weight 68.182, kg, PRN Insomnia, Start date: 07/16/17 3:28:00 MARKETING LIAISON, Duration: 30 day, Stop date: 08/15/17 3:27:00 CDTNotes: (Same as: Benadryl) Benadryl 10 mg, 0.2 mL, Inactive [place] Route: IVP, 2018 Medical Drug form: INJ, Center ONCE, Dosing Weight 68.182, kg, PRN Insomnia, Start date: 07/16/17 3:16:00 CSTNotes: (Same as: Benadryl) pantoprazole 40 mg, 1 tab, No Longer [place] Route: PO, Drug Active 2018 Medical form: ECTAB, Center Before Dinner, Dosing Weight 72.727, kg, Start date: 07/15/17 16:30:00 MARKETING LIAISON, Duration: 30 day, Stop date: 08/13/17 16:30:00 CDTNotes: Tablet should not be chewed or crushed. (Same as: Protonix) Nystatin 100 1 appl, Route: No Longer [place] UNT/MG Topical TOP, QSHIFT, Active 2017 Medical Powder Drug form: [place] PWDR, Start date: 07/15/17 16:00:00 MARKETING LIAISON, Duration: 30 day, Stop date: 08/14/17 8:00:00 CDTNotes: (Same as:Mycostatin, Nilstat) For external use only. Acetaminophen 325 1 tab, PO, Q6H, No Longer [place] MG / Hydrocodone NEEDED, 0 Active 2017 Medical Bitartrate 5 MG Refill(s) [place] Oral Tablet [[place] 5/325] Fluoxetine 40 mg, 2 cap, No Longer [place] Route: PO, Drug Active 2017 Medical form: CAP, [place] Daily, Dosing Weight 72.727, kg, Start date: 07/15/17 9:00:00 MARKETING LIAISON, Duration: 30 day, Stop date: 08/13/17 9:00:00 CDTNotes: (Same as: Prozac, Sarafem) Bupropion 150 mg, 1 tab, No Longer [place] Route: PO, Drug Active 2017 Medical form: ERTAB, [place] QAM, Dosing Weight 72.727, kg, Start date: 07/15/17 9:00:00 MARKETING LIAISON, Duration: 30 day, Stop date: 08/13/17 9:00:00 CDTNotes: (Do not crush) (Same As: Wellbutrin SR) Enoxaparin 30 mg, 0.3 mL, No Longer [place] Route: SUB-Q, Active 2017 Medical Drug form: INJ, [place] [id number], Dosing Weight 68.182, kg, Start date: 07/15/17 9:00:00 MARKETING LIAISON, Duration: 30 day, Stop date: 08/14/17 4:00:00 CDTNotes: (Same as: Lovenox) Magnesium Sulfate 2 gm, 50 mL, Inactive [facility] Route: IVPB, 2017 Medical Drug form: INJ, Center ONCE, Dosing Weight 68.182, kg, Total dose=2 gm, Start date: 07/15/17 8:11:00 MARKETING LIAISON, Stop date: 07/15/17 8:11:00 CSTNotes: WASTE: F/P - Sink; E - Municipal Trash Bin gabapentin 300 MG 300 mg, 1 cap, No Longer [place] Oral Capsule Route: PO, Drug Active 2018 Medical form: CAP, Q8H, Center Dosing Weight 72.727, kg, Start date: 07/15/17 8:00:00 MARKETING LIAISON, Duration: 30 day, Stop date: 08/14/17 8:00:00 CDTNotes: (Same as: Neurontin) Morphine 6 mg, 1.5 mL, Inactive [facility] Route: IVP, 2017 Medical Drug form: Center SOLN, ONCE, Dosing Weight 72.727, kg, Priority: STAT, Start date: 07/15/17 5:05:00 MARKETING LIAISON, Stop date: 07/15/17 5:05:00 CSTNotes: (Same as:MORPhine Sulfate) Enoxaparin 30 mg, Route: Inactive [place] SUB-Q, Drug 2017 Medical form: INJ, Center [id number], Dosing Weight 72.727, kg, Start date: 07/15/17 4:00:00 MARKETING LIAISON, Duration: 30 day, Stop date: 08/13/17 16:00:00 CDT Ondansetron 4 mg, 2 mL, No Longer [facility] Route: IVP, Active 2018 Medical Drug form: INJ, Center Q8H, Dosing Weight 72.727, kg, PRN Nausea & Vomiting, Start date: 07/15/17 3:22:00 MARKETING LIAISON, Duration: 30 day, Stop date: 08/14/17 3:21:00 CDTNotes: (Same as: Zofran) MEDICATION WASTE Product Size: 4 mg Product Wasted: ___ mg Naproxen 500 mg, 1 tab, No Longer [facility] Route: PO, Drug Active 2017 Medical form: TAB, Center Q12H, Dosing Weight 72.727, kg, Priority: NOW, Start date: 07/15/17 3:18:00 MARKETING LIAISON, Duration: 30 day, Stop date: 08/13/17 21:00:00 CDTNotes: (Same as: Naprosyn) Take with food. Acetaminophen 1,000 mg, 2 No Longer [place] tab, Route: PO, Active 2018 Medical Drug form: TAB, Center Q6H, Dosing Weight 72.727, kg, Priority: NOW, Start date: 07/15/17 3:18:00 MARKETING LIAISON, Stop date: 08/14/17 0:00:00 CDTNotes: Max acetaminophen 4000 mg/day (4 gm/day). (Same as: Tylenol Extra Strength) Isolyte S PH 7.4 1,000 mL, Rate: Inactive [place] 1000 mL 100 ml/hr, 2018 Medical Infuse over: 10 Center hr, Route: IV, Dosing Weight 72.727 kg, Total Volume: 1,000, Start date: 07/15/17 3:14:00 MARKETING LIAISON, Duration: 30 day, Stop date: 08/14/17 3:13:00 CDT, 1.83, m2 Magnesium Sulfate 2 gm, 50 mL, Inactive [place] Route: IVPB, 2018 Medical Drug form: INJ, Center ONCE, Dosing Weight 72.727, kg, Start date: 07/15/17 3:01:00 MARKETING LIAISON, Stop date: 07/15/17 3:01:00 CSTNotes: WASTE: F/P - Sink; E - Municipal Trash Bin Morphine 4 mg, Route: Inactive [place] IVP, ONCE, 2018 Medical Dosing Weight Center 72.727, kg, Priority: STAT, Start date: 07/15/17 2:03:00 MARKETING LIAISON, Stop date: 07/15/17 2:03:00 MARKETING LIAISON Zofran 4 mg, Route: Inactive [facility] IVP, Drug form: 2018 Medical INJ, ONCE, Center Dosing Weight 72.727, kg, Priority: STAT, Start date: 07/15/17 2:03:00 MARKETING LIAISON, Stop date: 07/15/17 2:03:00 MARKETING LIAISON Acetaminophen 325 1 tab, PO, Q6H, Inactive MG / Hydrocodone PRN Pain Score 2018 [facility] Bitartrate 5 MG 1-3, # 40 tab, Oral Tablet 0 Refill(s), [[place] 5/325] called to pharmacy pantoprazole 40 40 mg=1 tab, No Longer mg oral enteric PO, Before Active 2017 [facility] coated tablet Dinner, # 30 tab, 0 Refill(s), Pharmacy: [address] gabapentin 300 MG 300 mg=1 cap, No Longer Oral Capsule PO, Q8H, # 90 Active 2017 [facility] cap, 0 Refill(s), Pharmacy: [address] FLUoxetine 20 mg 40 mg=2 cap, No Longer oral capsule PO, Daily, # 60 Active 2017 [facility] cap, 0 Refill(s), Pharmacy: [address] buPROPion 150 150 mg=1 tab, No Longer mg/12 hours (SR) PO, QAM, 0 Active 2017 [facility] oral tablet, Refill(s) extended release buPROPion 12 hour 150 mg, 1 tab, Inactive sustained release Route: PO, Drug 2017 [facility] form: ERTAB, QAM, Dosing Weight 72.727, kg, Start date: 07/10/17 9:00:00 MARKETING LIAISON, Duration: 30 day, Stop date: 08/08/17 9:00:00 CSTNotes: (Do not crush) (Same As: Wellbutrin SR) Acetaminophen 325 1 tab, Route: No Longer MG / Hydrocodone PO, Drug Form: Active 2018 [facility] Bitartrate 5 MG TAB, Dosing Oral Tablet Weight 72.727, [[place] 5/325] kg, Q6H, PRN Pain Score 1-3, Start date: 07/09/17 10:32:00 MARKETING LIAISON, Duration: 30 day, Stop date: 08/08/17 10:31:00 CSTNotes: (Same as: [place] 325/5) Do not exceed 4gm/day of acetaminophen. Potassium 20 mEq, 15 mL, No Longer Chloride 1.33 Route: PO, Drug Active 2017 [facility] MEQ/ML Oral form: LIQ, BID, Solution Dosing Weight 72.727, kg, Start date: 07/04/17 17:00:00 MARKETING LIAISON, Duration: 3 doses or times, Stop date: 07/05/17 17:00:00 CSTNotes: (Same as: Potassium Chloride) Cathflo Activase 2 mg, 2 mL, Inactive 2 mg injection Route: INJ, 2017 [facility] Drug form: INJ, ONCE, Dosing Weight 72.727, kg, Start date: 07/03/17 16:55:00 MARKETING LIAISON, Stop date: 07/03/17 16:55:00 CSTNotes: "Syringe for catheter clearance or interventional radiology use. Reconstitute each vial of Cathflo Activase with 2.2 ml Sterile Water resulting in a 1 mg/ml solution. (Same as: Activase) MEDICATION WASTE Product Size: 2 mg Product Wasted: ___ mg Maxipime + Sodium 1 gm, Route: No Longer Chloride 0.9% IV IVPB, ABXQ8H, Active 2017 [facility] 100 mL Start date: 07/03/17 15:00:00 MARKETING LIAISON, Stop date: 07/26/17 15:00:00 MARKETING LIAISON, ABX Indication: Surgical ProphylaxisNote s: (Same As: Maxipime) MEDICATION WASTE Product Size: 1000 mg Product Wasted: ___ mg Wellbutrin SR 150 mg, 1 tab, Inactive Route: PO, Drug 2017 [facility] form: ERTAB, ONCE, Dosing Weight 72.727, kg, Start date: 07/03/17 14:26:00 MARKETING LIAISON, Stop date: 07/03/17 14:26:00 CSTNotes: (Do not crush) (Same As: Wellbutrin SR) Bupropion 150 mg, 1 tab, Inactive Route: PO, Drug 2017 [facility] form: ERTAB, ONCE, Dosing Weight 72.727, kg, Start date: 07/03/17 13:03:00 MARKETING LIAISON, Stop date: 07/03/17 13:03:00 CSTNotes: (Same as: Wellbutrin XL) "Do Not Crush" Cathflo Activase 2 mg, 2 mL, Inactive 2 mg injection Route: INJ, 2017 [facility] Drug form: INJ, ONCE, Dosing Weight 72.727, kg, Start date: 07/03/17 9:13:00 MARKETING LIAISON, Stop date: 07/03/17 9:13:00 CSTNotes: "Syringe for catheter clearance or interventional radiology use. Reconstitute each vial of Cathflo Activase with 2.2 ml Sterile Water resulting in a 1 mg/ml solution. (Same as: Activase) MEDICATION WASTE Product Size: 2 mg Product Wasted: ___ mg APAP/butalbital/c 1 tab, Route: No Longer affeine PO, Drug Form: Active 2018 [facility] TAB, Q6H, PRN Headache 1-5, Start date: 07/01/17 9:03:00 MARKETING LIAISON, Duration: 30 day, Stop date: 07/31/17 9:02:00 CSTNotes: (acetaminophen- butalbital-caff eine 325-50-40mg) Do not exceed 4 gm/day of acetaminophen. (Same as: Esgic, Fioricet) Benzocaine 15 MG 1 lozenge, No Longer / Menthol 3.6 MG Route: MUCOUS Active 2017 [facility] Lozenge [Cepacol MEM, Drug Form: Sore Throat Pain TYLOR, Dosing Relief 15/3.6] Weight 72.727, kg, Q4H, PRN Sore Throat, Start date: 07/01/17 8:57:00 MARKETING LIAISON, Duration: 30 day, Stop date: 07/31/17 8:56:00 CSTNotes: Same as: Cepacol Acetaminophen 325 1 tab, Route: No Longer MG / Hydrocodone PO, Drug Form: Active 2017 [facility] Bitartrate 10 MG TAB, Dosing Oral Tablet Weight 72.727, [[place] 10/325] kg, Q6H, PRN Pain Score 6-10, Start date: 07/01/17 8:54:00 MARKETING LIAISON, Duration: 30 day, Stop date: 07/31/17 8:53:00 CSTNotes: Do not exceed 4gm/day of acetaminophen. (Same as: [place] 325/10) Aspirin 325 MG / 1 cap, Route: Inactive butalbital 50 MG PO, Drug Form: 2018 [facility] / Caffeine 40 MG CAP, Dosing Oral Capsule Weight 72.727, [Fiorinal] kg, Q6H, PRN Headache 1-5, Start date: 07/01/17 8:54:00 MARKETING LIAISON, Duration: 30 day, Stop date: 07/31/17 8:53:00 MARKETING LIAISON Cathflo Activase 2 mg, Route: Inactive 2 mg injection INJ, ONCE, 2017 [facility] Dosing Weight 72.727, kg, Start date: 07/01/17 7:22:00 MARKETING LIAISON, Stop date: 07/01/17 7:22:00 MARKETING LIAISON vancomycin + 1,750 mg, No Longer Sodium Chloride Route: IVPB, Active 2017 [facility] 0.9% IV 500 mL [id number], Start date: 06/29/17 23:00:00 MARKETING LIAISON, Duration: 30 day, Stop date: 07/29/17 11:00:00 MARKETING LIAISON, ABX Indication: PneumoniaNotes: TIME CRITICAL MEDICATION (Same As: Vancocin) Infusion rate 2001 mg: infuse over 2.5 hours For adult patients only: Round to nearest 250 mg per Medical Staff approval MEDICATION WASTE Product Size: 1000 mg Product Wasted: ___ mg Ketorolac 15 mg, 1 mL, No Longer Route: IV, Drug Active 2017 [facility] form: INJ, Q6H, Dosing Weight 72.727, kg, Start date: 06/29/17 6:00:00 MARKETING LIAISON, Duration: 4 day, Stop date: 07/03/17 0:00:00 CSTNotes: (Same as:Toradol) IV bolus must be given >15 seconds. Give IM administration slowly and deeply into the muscle. Not for use > 4 days. Saline Flush 0.9% 10 mL, Route: No Longer IVP, Drug Form: Active 2017 [facility] INJ, Dosing Weight 72.727, kg, Q8H, Start date: 06/27/17 16:00:00 MARKETING LIAISON, Duration: 30 day, Stop date: 07/27/17 8:00:00 CSTNotes: (Same as: BD Posiflush) Saline Flush 0.9% 10 mL, Route: No Longer IVP, Drug Form: Active 2017 [facility] INJ, Dosing Weight 72.727, kg, PRN, PRN Line Flush, Start date: 06/27/17 12:50:00 MARKETING LIAISON, Duration: 30 day, Stop date: 07/27/17 12:49:00 CSTNotes: (Same as: BD Posiflush) Bentyl 20 mg, 1 tab, No Longer Route: PO, Drug Active 2017 [facility] form: TAB, QID, Dosing Weight 72.727, kg, PRN Cramps, Start date: 06/27/17 8:52:00 MARKETING LIAISON, Duration: 30 day, Stop date: 07/27/17 8:51:00 CSTNotes: (Same as: Bentyl) Fluconazole 400 mg, 200 mL, No Longer Route: IVPB, Active 2017 [facility] Drug form: INJ, [id number], Dosing Weight 72.727, kg, Priority: STAT, Start date: 06/26/17 20:03:00 MARKETING LIAISON, Duration: 30 day, Stop date: 07/25/17 20:03:00 CSTNotes: (Same as: Diflucan) Flagyl 500 mg, 100 mL, No Longer Route: IVPB, Active 2017 [facility] Drug form: INJ, [id number], Dosing Weight 72.727, kg, Priority: STAT, Start date: 06/26/17 20:03:00 MARKETING LIAISON, Duration: 30 day, Stop date: 07/26/17 12:03:00 MARKETING LIAISON, ABX Indication: Intra-abdominal InfectionNotes: (Same as: Flagyl) Avoid alcohol. cefepime 1 gm, Route: No Longer IVPB, Drug Active 2017 [facility] form: INJ, ABXQ6H, Dosing Weight 72.727, kg, (CrCl >/=50 ml/min), Priority: STAT, Start date: 06/26/17 20:03:00 MARKETING LIAISON, Duration: 30 day, Stop date: 07/26/17 14:03:00 MARKETING LIAISON, ABX Indication: PneumoniaNotes: (Same As: Maxipime) MEDICATION WASTE Product Size: 1000 mg Product Wasted: ___ mg buPROPion 12 hour 150 mg, 1 tab, No Longer sustained release Route: PO, Drug Active 2017 [facility] form: ERTAB, Daily-12N, Dosing Weight 72.727, kg, Start date: 06/26/17 12:00:00 MARKETING LIAISON, Duration: 30 day, Stop date: 07/25/17 12:00:00 CSTNotes: (Do not crush) (Same As: Wellbutrin SR) vancomycin 1.5 gm, 250 mL, No Longer Route: IVPB, Active 2017 [facility] Drug form: INJ, [id number], Start date: 06/26/17 10:00:00 MARKETING LIAISON, Stop date: 07/02/17 22:00:00 MARKETING LIAISON, ABX Indication: PneumoniaNotes: TIME CRITICAL MEDICATION Same as: Vancocin-NS (premixed) Infusion rate 2001 mg: infuse over 2.5 hours Acetaminophen 325 1 tab, Route: No Longer MG / Hydrocodone PO, Drug Form: Active 2017 [facility] Bitartrate 10 MG TAB, Dosing Oral Tablet Weight 72.727, [[place] 10/325] kg, Q8H, PRN Pain Score 6-10, Start date: 06/26/17 9:10:00 MARKETING LIAISON, Duration: 30 day, Stop date: 07/26/17 9:09:00 CSTNotes: Do not exceed 4gm/day of acetaminophen. (Same as: [place] 325/10) Vancomycin 1,000 mg, Inactive Route: IVPB, 2017 [facility] Drug form: INJ, [id number], Dosing Weight 72.727, kg, Start date: 06/26/17 9:00:00 MARKETING LIAISON, Duration: 5 day, Stop date: 06/30/17 21:00:00 MARKETING LIAISON, ABX Indication: Pneumonia Vancomyicn Dosing Vancomyicn No Longer Protocol Dosing Active 2017 [facility] Protocol, 1, Drug form: MISC, Route: MISC, ONCALL, 06/26/17 9:00:00 MARKETING LIAISON, Duration: 5 day, Stop date: 07/01/17 8:59:00 MARKETING LIAISON Sandostatin 100 microgram, No Longer 1 mL, Route: Active 2017 [facility] SUB-Q, Drug form: INJ, BID, Dosing Weight 72.727, kg, Start date: 06/25/17 17:00:00 MARKETING LIAISON, Duration: 30 day, Stop date: 07/25/17 9:00:00 CSTNotes: (Same As: SandoSTATIN). Refrigerate. MEDICATION WASTE Product Size: 100 microgram Product Wasted: ___ microgram olanzapine 5 mg, 1 tab, No Longer Route: PO, Drug Active 2017 [facility] form: TAB, BID, Dosing Weight 72.727, kg, PRN Anxiety, Start date: 06/25/17 13:35:00 MARKETING LIAISON, Duration: 30 day, Stop date: 07/25/17 13:34:00 CSTNotes: (Same as: ZyPREXA) Zosyn 3.375 gm, No Longer Route: IVPB, Active 2017 [facility] ABXQ8H, Dosing Weight 72.727, kg, CrCl >=20 ml/min infuse over 4 hours, Start date: 06/25/17 10:00:00 MARKETING LIAISON, Duration: 10 day, Stop date: 07/05/17 2:00:00 MARKETING LIAISON, ABX Indication: Intra-abdominal InfectionNotes: (Same as: Zosyn) Dosing based on Piperacillin component MEDICATION WASTE Product Size: 3375 mg Product Wasted: ___ mg Lorazepam 0.5 mg, 0.5 Inactive tab, Route: PO, 2017 [facility] Drug form: TAB, ONCE, Dosing Weight 72.727, kg, Priority: NOW, Start date: 06/24/17 22:21:00 MARKETING LIAISON, Stop date: 06/24/17 22:21:00 CSTNotes: (Same as: Ativan) Cathflo Activase 4 mg, 4 mL, Inactive 2 mg injection Route: INJ, 2017 [facility] Drug form: INJ, ONCE, Dosing Weight 72.727, kg, Start date: 06/24/17 15:01:00 MARKETING LIAISON, Stop date: 06/24/17 15:01:00 CSTNotes: "Syringe for catheter clearance or interventional radiology use. Reconstitute each vial of Cathflo Activase with 2.2 ml Sterile Water resulting in a 1 mg/ml solution. (Same as: Activase) MEDICATION WASTE Product Size: 2 mg Product Wasted: ___ mg Ketorolac 15 mg, 1 mL, No Longer Route: IVP, Active 2017 [facility] Drug form: INJ, Q6H, Dosing Weight 72.727, kg, PRN Pain Score 4-6, Start date: 06/24/17 13:51:00 MARKETING LIAISON, Duration: 4 day, Stop date: 06/28/17 13:50:00 CSTNotes: (Same as:Toradol) IV bolus must be given >15 seconds. Give IM administration slowly and deeply into the muscle. Not for use > 4 days. Potassium 20 mEq, 2 tab, Inactive Chloride Route: PO, Drug 2017 [facility] form: ERTAB, ONCE, Dosing Weight 72.727, kg, Start date: 06/24/17 13:24:00 MARKETING LIAISON, Stop date: 06/24/17 13:24:00 CSTNotes: (Same as: K-Dur 10) "Do Not Crush" With food and full glass of water Ativan 1 mg, 1 tab, No Longer Route: PO, Drug Active 2017 [facility] form: TAB, TID, Dosing Weight 72.727, kg, Start date: 06/23/17 13:00:00 MARKETING LIAISON, Duration: 30 day, Stop date: 07/23/17 9:00:00 CSTNotes: (Same as: Ativan) Buprenorphine 2 2 tab, Route: Inactive MG / Naloxone 0.5 SL, Drug Form: 2018 [facility] Sublingual FILM, Dosing Tablet Weight 72.727, kg, Q8H, Start date: 06/22/17 16:00:00 MARKETING LIAISON, Duration: 30 day, Stop date: 07/22/17 8:00:00 CSTNotes: (Same as: Suboxone) Non-formulary buprenorphine-nal 2 ea, Route: No Longer oxone SL, Drug Form: Active 2017 [facility] FILM, Q8H, Start date: 06/22/17 16:00:00 MARKETING LIAISON, Stop date: 07/22/17 8:00:00 CSTNotes: (Same as: Suboxone) Non-formulary Oxycodone 5 mg, 1 tab, No Longer Hydrochloride 5 Route: PO, Drug Active 2017 [facility] Oral Tablet form: TAB, Q6H, Dosing Weight 72.727, kg, Start date: 06/21/17 12:00:00 MARKETING LIAISON, Stop date: 06/23/17 6:00:00 CSTNotes: (Same as: Roxicodone) Haloperidol 5 mg, 1 mL, No Longer Route: IM, Drug Active 2017 [facility] form: INJ, Q6H, Dosing Weight 72.727, kg, PRN Agitation, Start date: 06/21/17 9:58:00 MARKETING LIAISON, Duration: 30 day, Stop date: 07/21/17 9:57:00 CSTNotes: (Same as: Haldol) Ativan 0.5 mg, 0.5 No Longer tab, Route: PO, Active 2017 [facility] Drug form: TAB, TID, Dosing Weight 72.727, kg, Start date: 06/21/17 9:55:00 MARKETING LIAISON, Stop date: 07/21/17 9:00:00 CSTNotes: (Same as: Ativan) Sodium Chloride 1,000 mL, 1,000 Inactive 0.9% (Bolus) IV ml/hr, Infuse 2017 [facility] Over: 1 hr, Route: IV, 1,000, Drug form: INJ, ONCE, Priority: STAT, Dosing Weight 72.727 kg, Start date: 06/20/17 15:13:00 MARKETING LIAISON, Stop date: 06/20/17 15:13:00 MARKETING LIAISON NS (Bolus) IV 1,000 mL, 1,000 No Longer ml/hr, Infuse Active 2017 [facility] Over: 1 hr, Route: IV, 1,000, Drug form: INJ, ONCE, Priority: STAT, Dosing Weight 72.727 kg, Start date: 06/20/17 15:12:00 MARKETING LIAISON, Stop date: 06/20/17 15:12:00 MARKETING LIAISON parenteral 1,610 mL, Rate: No Longer nutrition 65 ml/hr, Active 2017 [facility] solution 1,610 mL Infuse over: 24.8 hr, Route: IV, Dosing Weight 72.727 kg, Total Volume: 1,610, Start date: 06/19/17 22:00:00 MARKETING LIAISON, Duration: 30 day, Stop date: 07/19/17 21:59:00 MARKETING LIAISON, 1.83, [id number]: Per hospital policy, bag must be changed every 24hr. Oxycodone 5 mg, 1 tab, No Longer Hydrochloride 5 Route: PO, Drug Active 2017 [facility] Oral Tablet form: TAB, Q8H, Dosing Weight 72.727, kg, PRN Pain Score 4-6, Start date: 06/19/17 11:19:00 MARKETING LIAISON, Duration: 30 day, Stop date: 07/19/17 11:18:00 CSTNotes: (Same as: Roxicodone) Saline Flush 0.9% 10 mL, Route: No Longer IVP, Drug Form: Active 2017 [facility] INJ, Dosing Weight 72.727, kg, Q8H, Start date: 06/19/17 0:00:00 MARKETING LIAISON, Duration: 30 day, Stop date: 07/18/17 16:00:00 CSTNotes: (Same as: BD Posiflush) parenteral 2,042 mL, Rate: No Longer nutrition 83 ml/hr, Active 2017 [facility] solution 2,042 mL Infuse over: 24.6 hr, Route: IV, Dosing Weight 72.727 kg, Total Volume: 2,042, Start date: 06/18/17 22:00:00 MARKETING LIAISON, Duration: 30 day, Stop date: 07/18/17 21:59:00 MARKETING LIAISON, 1.83, [id number]: Per hospital policy, bag must be changed every 24hr. fat emulsion, 250 mL, 31.25 No Longer intravenous ml/hr, Route: Active 2017 [facility] IV, Drug Form: INJ, Q-M-W-F, Start date: 06/18/17 22:00:00 MARKETING LIAISON, Duration: 30 day, Stop date: 07/16/17 22:00:00 CSTNotes: (Same as: Intralipid, Liposyn) Infuse through a 1.2 micron filter Saline Flush 0.9% 10 mL, Route: No Longer IVP, Drug Form: Active 2017 [facility] INJ, Dosing Weight 72.727, kg, PRN, PRN Line Flush, Start date: 06/18/17 21:16:00 MARKETING LIAISON, Duration: 30 day, Stop date: 07/18/17 21:15:00 CSTNotes: (Same as: BD Posiflush) Lovenox 40 mg, 0.4 mL, No Longer Route: SUB-Q, Active 2017 [facility] Drug form: INJ, [id number], Dosing Weight 72.727, kg, Start date: 06/18/17 17:00:00 MARKETING LIAISON, Duration: 30 day, Stop date: 07/17/17 17:00:00 CSTNotes: (Same as: Lovenox) Ativan 0.5 mg, 0.25 No Longer mL, Route: IVP, 2017 [facility] Drug form: INJ, Q6H, Dosing Weight 72.727, kg, PRN as needed for anxiety, Start date: 06/18/17 12:53:00 MARKETING LIAISON, Duration: 30 day, Stop date: 07/18/17 12:52:00 CSTNotes: (Same as: Ativan) pantoprazole 40 mg, 1 tab, No Longer Route: PO, Drug Active 2017 [facility] form: ECTAB, Before Dinner, Dosing Weight 72.727, kg, Start date: 06/17/17 16:30:00 MARKETING LIAISON, Duration: 30 day, Stop date: 08/15/17 16:30:00 CDTNotes: Tablet should not be chewed or crushed. (Same as: Protonix) Neurontin 300 mg, 1 cap, No Longer Route: PO, Drug Active 2017 [facility] form: CAP, Q8H, Dosing Weight 72.727, kg, (CrCl > 60 ml/min), Start date: 06/17/17 16:00:00 MARKETING LIAISON, Duration: 30 day, Stop date: 08/16/17 8:00:00 CDTNotes: (Same as: Neurontin) Ibuprofen 400 MG 400 mg, 1 tab, No Longer Oral Tablet Route: PO, Drug Active 2017 [facility] form: TAB, Q6H, Dosing Weight 72.727, kg, PRN Pain 1-3/Temp > 100.4 F, Start date: 06/17/17 11:40:00 MARKETING LIAISON, Duration: 30 day, Stop date: 07/17/17 11:39:00 CSTNotes: (Same as: Motrin) "Do Not Crush" Give with food. Ketorolac 15 mg, 1 mL, No Longer Route: IVP, 2017 [facility] Drug form: INJ, Q8H, Dosing Weight 72.727, kg, PRN Pain Score 4-6, Start date: 06/17/17 11:39:00 MARKETING LIAISON, Duration: 4 day, Stop date: 06/21/17 11:38:00 CSTNotes: (Same as:Toradol) IV bolus must be given >15 seconds. Give IM administration slowly and deeply into the muscle. Not for use > 4 days. Barium Sulfate 450 ml, Route: No Longer PO, Drug Form: Active 2017 [facility] SUSP, Dosing Weight 72.727, kg, ONCALL, Start date: 06/16/17 19:00:00 MARKETING LIAISON, Duration: 1 doses or timesNotes: Same as Readi-Cat 2 Morphine 2 mg, 0.5 mL, Inactive Route: IVP, 2017 [facility] Drug form: SOLN, ONCE, Dosing Weight 72.727, kg, Start date: 06/16/17 18:04:00 MARKETING LIAISON, Stop date: 06/16/17 18:04:00 CSTNotes: (Same as:MORPhine Sulfate) D5W 1/2NS 1,000 1,000 mL, Rate: No Longer mL 75 ml/hr, Active 2017 [facility] Infuse over: 13.3 hr, Route: IV, Dosing Weight 72.727 kg, Total Volume: 1,000, Start date: 06/15/17 16:25:00 MARKETING LIAISON, Duration: 30 day, Stop date: 07/15/17 16:24:00 MARKETING LIAISON, 1.83, m2 propofol (ANES) Route: IV, Drug Inactive form: INJ, 2017 [facility] ONCE, Stop date: 06/15/17 10:34:00 MARKETING LIAISON lidocaine (ANES) Route: IV, Drug Inactive form: INJ, 2017 [facility] ONCE, Stop date: 06/15/17 10:34:00 MARKETING LIAISON succinylcholine Route: IV, Drug Inactive (ANES) form: INJ, 2017 [facility] ONCE, Stop date: 06/15/17 10:34:00 MARKETING LIAISON fentaNYL (ANES) Route: IV, Drug Inactive form: INJ, 2017 [facility] ONCE, Stop date: 06/15/17 10:30:00 MARKETING LIAISON midazolam (ANES) Route: IV, Drug Inactive form: SOLN, 2017 [facility] ONCE, Stop date: 06/15/17 10:30:00 MARKETING LIAISON Fentanyl 25 microgram, No Longer 0.5 mL, Route: Active 2017 [facility] IVP, Drug form: INJ, Q5Min, Dosing Weight 72.727, kg, PRN Pain Score 4-6, Priority: Routine, Start date: 06/15/17 10:14:00 MARKETING LIAISON, Duration: 4 doses or times, Stop date: Limited # of timesNotes: (Same as: Sublimaze) Preservative free. Oxycodone 5 mg, 1 tab, No Longer Route: PO, Drug Active 2017 [facility] form: TAB, Q4H, Dosing Weight 72.727, kg, PRN Pain Score 4-6, Start date: 06/15/17 10:14:00 MARKETING LIAISON, Duration: 30 day, Stop date: 07/15/17 10:13:00 CSTNotes: (Same as: Roxicodone) Morphine 2 mg, 0.5 mL, No Longer Route: IVP, [facility] 2017 [facility] Drug form: SOLN, Q5Min, Dosing Weight 72.727, kg, PRN Pain Score 4-6, Start date: 06/15/17 10:14:00 MARKETING LIAISON, Duration: 5 doses or times, Stop date: Limited # of timesNotes: (Same as:MORPhine Sulfate) Naloxone 0.4 mg, 1 mL, No Longer Route: IVP, 2017 [facility] Drug form: INJ, Q2MIN, Dosing Weight 72.727, kg, PRN Narcotic Reversal, Start date: 06/15/17 10:14:00 MARKETING LIAISON, Duration: 8 doses or times, Stop date: Limited # of timesNotes: Same as Narcan Flumazenil 0.2 mg, 2 mL, No Longer Route: IVP, Active 2017 [facility] Drug form: INJ, PRN, Dosing Weight 72.727, kg, PRN Benzodiazepine Reversal, Initial dose, Start date: 06/15/17 10:14:00 MARKETING LIAISON, Duration: 30 day, Stop date: 08/14/17 11:13:00 CDTNotes: (Same as: Romazicon) Lorazepam 0.5 mg, 0.25 No Longer mL, Route: IVP, Active 2017 [facility] Drug form: INJ, Q20Min, Dosing Weight 72.727, kg, PRN Anxiety, Start date: 06/15/17 10:14:00 MARKETING LIAISON, Duration: 3 doses or times, Stop date: Limited # of timesNotes: (Same as: Ativan) Hydromorphone 0.5 mg, 0.25 No Longer mL, Route: IVP, Active 2017 [facility] Drug form: INJ, Q5Min, Dosing Weight 72.727, kg, PRN Pain Score 7-10, Start date: 06/15/17 10:14:00 MARKETING LIAISON, Duration: 4 doses or times, Stop date: Limited # of timesNotes: Same as Dilaudid Ondansetron 4 mg, 2 mL, No Longer Route: IVP, Active 2017 [facility] Drug form: INJ, ONCE, Dosing Weight 72.727, kg, PRN Nausea & Vomiting, Start date: 06/15/17 10:14:00 CSTNotes: (Same as: Zofran) MEDICATION WASTE Product Size: 4 mg Product Wasted: ___ mg Labetalol 10 mg, 2 mL, No Longer Route: IVP, Active 2017 [facility] Drug form: INJ, Q5Min, Dosing Weight 72.727, kg, PRN Elevated BP, Start date: 06/15/17 10:14:00 MARKETING LIAISON, Duration: 5 doses or times, Stop date: Limited # of timesNotes: (Same as: Normodyne, Trandate) Push over 2 minutes Give bolus over 2-3 minutes. Lactated Ringers Route: IV, Inactive Injection IV Total Volume: 2017 [facility] (ANES) 1000 mL 1,000, Start date: 06/15/17 9:57:00 MARKETING LIAISON, Stop date: 06/15/17 10:57:00 MARKETING LIAISON Clindamycin 600 mg, 50 mL, No Longer Route: IVPB, Active 2017 [facility] Drug form: INJ, [id number], Dosing Weight 72.727, kg, Start date: 06/14/17 19:00:00 MARKETING LIAISON, Duration: 5 day, Stop date: 06/19/17 11:00:00 MARKETING LIAISON, ABX Indication: Skin/Soft Tissue Infection Wellbutrin XL 150 mg, 1 tab, No Longer Route: PO, Drug Active 2017 [facility] form: ERTAB, Daily, Dosing Weight 72.727, kg, Start date: 06/14/17 9:00:00 MARKETING LIAISON, Duration: 30 day, Stop date: 07/13/17 9:00:00 CSTNotes: (Same as: Wellbutrin XL) "Do Not Crush" Fluoxetine 40 mg, 2 cap, No Longer Route: PO, Drug Active 2017 [facility] form: CAP, Daily, Dosing Weight 72.727, kg, Start date: 06/14/17 9:00:00 MARKETING LIAISON, Duration: 30 day, Stop date: 08/12/17 9:00:00 CDTNotes: (Same as: Prozac, Sarafem) Ativan 1 mg, 0.5 mL, No Longer Route: IVP, 2017 [facility] Drug form: INJ, ONCE, Dosing Weight 72.727, kg, PRN Anxiety, Start date: 06/13/17 23:42:00 CSTNotes: (Same as: Ativan) ketOROLAC 15 15 mg, 1 mL, No Longer mg/mL injectable Route: IVP, 2017 [facility] solution Drug form: INJ, ONCE, Dosing Weight 72.727, kg, Start date: 06/13/17 23:33:00 MARKETING LIAISON, Stop date: 06/13/17 23:33:00 CSTNotes: (Same as:Toradol) IV bolus must be given >15 seconds. Give IM administration slowly and deeply into the muscle. Not for use > 4 days. Acetaminophen 650 mg, 2 tab, No Longer Route: PO, Drug Active 2017 [facility] form: TAB, Q6H, Dosing Weight 72.727, kg, PRN Pain Score 1-3, Start date: 06/13/17 19:12:00 [employer], Duration: 30 day, Stop date: 07/13/17 19:11:00 CSTNotes: Do not exceed 4 gm/day. (Same as: Tylenol) fentaNYL (ANES) Route: IV, Drug Inactive form: INJ, 2017 [facility] [facility], Stop date: 06/13/17 18:58:00 MARKETING LIAISON succinylcholine Route: IV, Drug Inactive (ANES) form: INJ, 2017 [facility] ONCE, Stop date: 06/13/17 18:58:00 MARKETING LIAISON propofol (ANES) Route: IV, Drug Inactive form: INJ, 2017 [facility] ONCE, Stop date: 06/13/17 18:58:00 MARKETING LIAISON midazolam (ANES) Route: IV, Drug Inactive form: SOLN, 2017 [facility] ONCE, Stop date: 06/13/17 18:58:00 MARKETING LIAISON Lactated Ringers Route: IV, Inactive Injection IV Total Volume: 2017 [facility] (ANES) 1000 mL 1,000, Start date: 06/13/17 18:24:00 MARKETING LIAISON, Stop date: 06/13/17 19:24:00 MARKETING LIAISON Carbamazepine 300 mg, 1 cap, No Longer Route: PO, Drug Active 2017 [facility] form: ERCAP, BID, Dosing Weight 72.727, kg, Start date: 06/13/17 17:00:00 MARKETING LIAISON, Stop date: 07/13/17 9:00:00 CSTNotes: Do not open, chew or crush. (Same As: Carbatrol) Hydroxyzine 25 mg, 1 tab, No Longer Route: PO, Drug Active 2017 [facility] form: TAB, BID, Dosing Weight 72.727, kg, PRN Anxiety, Start date: 06/13/17 16:58:00 MARKETING LIAISON, Duration: 30 day, Stop date: 07/13/17 16:57:00 CSTNotes: (Same as: Atarax) Avoid alcohol. Acetaminophen 325 1 tab, Route: Inactive MG / Hydrocodone PO, Drug Form: 2017 [facility] Bitartrate 5 MG TAB, Dosing Oral Tablet Weight 72.727, [Compton 5/325] kg, Q6H, PRN Pain Score 4-6, Start date: 06/13/17 15:13:00 MARKETING LIAISON, Duration: 1 day, Stop date: 06/14/17 15:12:00 CSTNotes: (Same as: [place] 325/5) Do not exceed 4gm/day of acetaminophen. Acetaminophen 325 1 tab, Route: Inactive MG / Hydrocodone PO, Drug Form: 2017 [facility] Bitartrate 5 MG TAB, Dosing Oral Tablet Weight 72.727, [Compton 5/325] kg, Q4H, PRN Pain Score 4-6, Start date: 06/13/17 11:52:00 MARKETING LIAISON, Duration: 30 day, Stop date: 07/13/17 11:51:00 CSTNotes: (Same as: [place] 325/5) Do not exceed 4gm/day of acetaminophen. Morphine 2 mg, 0.5 mL, Inactive Route: IV, Drug 2017 [facility] form: SOLN, Q6H, Dosing Weight 70.455, kg, PRN Pain Score 6-10, Start date: 06/13/17 8:41:00 MARKETING LIAISON, Duration: 30 day, Stop date: 07/13/17 8:40:00 CSTNotes: (Same as:MORPhine Sulfate) Motrin 400 mg, 1 tab, Inactive Route: PO, Drug 2017 [facility] form: TAB, ONCE, Dosing Weight 70.455, kg, Priority: STAT, Start date: 06/12/17 17:14:00 MARKETING LIAISON, Stop date: 06/12/17 17:14:00 CSTNotes: (Same as: Motrin) "Do Not Crush" Give with food. Lorazepam 0.5 mg, Route: Inactive IVP, Drug form: 2017 [facility] INJ, Q8H, Dosing Weight 70.455, kg, PRN Anxiety, Start date: 06/12/17 17:08:00 MARKETING LIAISON, Duration: 30 day, Stop date: 07/12/17 17:07:00 MARKETING LIAISON Benadryl 25 mg, Route: Inactive IM, ONCE, 2017 [facility] Dosing Weight 70.455, kg, Priority: STAT, Start date: 06/12/17 17:06:00 MARKETING LIAISON, Stop date: 06/12/17 17:06:00 MARKETING LIAISON Ativan 2 mg, Route: Inactive IM, Drug form: 2017 [facility] INJ, ONCE, Dosing Weight 70.455, kg, Priority: STAT, Start date: 06/12/17 17:06:00 MARKETING LIAISON, Stop date: 06/12/17 17:06:00 MARKETING LIAISON Ondansetron 4 mg, 2 mL, No Longer Route: IVP, Active 2017 [facility] Drug form: INJ, Q6H, Dosing Weight 70.455, kg, PRN Nausea & Vomiting, Start date: 06/12/17 16:14:00 MARKETING LIAISON, Duration: 30 day, Stop date: 08/11/17 16:13:00 CDTNotes: (Same as: Zofran) MEDICATION WASTE Product Size: 4 mg Product Wasted: ___ mg Ibuprofen 400 MG 400 mg=1 tab, No Longer Oral Tablet PO, Q6H, PRN Active 2017 [facility] Pain, X 10 day, # 30 tab, 0 Refill(s) clindamycin 150 150 mg=1 cap, No Longer mg oral capsule PO, Q6H, X 7 Active 2017 [facility] day, # 28 cap, 0 Refill(s) Ativan 1 mg, 0.5 mL, Inactive Route: IVP, 2017 [facility] Drug form: INJ, ONCE, Dosing Weight 70.455, kg, Priority: STAT, Start date: 06/12/17 10:28:00 MARKETING LIAISON, Stop date: 06/12/17 10:28:00 CSTNotes: (Same as: Ativan) ketOROLAC 30 30 mg, 1 mL, Inactive mg/mL injectable Route: IVP2017 [facility] solution Drug form: INJ, ONCE, Dosing Weight 70.455, kg, Priority: STAT, Start date: 06/12/17 10:28:00 MARKETING LIAISON, Stop date: 06/12/17 10:28:00 CSTNotes: (Same as:Toradol) IV bolus must be given >15 seconds. Give IM administration slowly and deeply into the muscle. Not for use > 4 days MEDICATION WASTE Product Size: 30 mg Product Wasted: ___ mg Calcium Chloride 1,000 mL, 1,000 Inactive 0.0014 MEQ/ML / ml/hr, Infuse 2017 [facility] Potassium Over: 1 hr, Chloride 0.004 Route: IV, MEQ/ML / Sodium 1,000, Drug Chloride 0.103 form: INJ, MEQ/ML / Sodium ONCE, Priority: Lactate 0.028 STAT, Dosing MEQ/ML Injectable Weight 70.455 Solution kg, Start date: 06/12/17 10:28:00 MARKETING LIAISON, Stop date: 06/12/17 10:28:00 MARKETING LIAISON Clindamycin 600 mg, 50 mL, Inactive Route: IVPB, 2017 [facility] Drug form: INJ, ONCE, Dosing Weight 70.455, kg, Priority: STAT, Start date: 06/12/17 10:27:00 MARKETING LIAISON, Stop date: 06/12/17 10:27:00 MARKETING LIAISON, ABX Indication: Skin/Soft Tissue Infection gabapentin 300 MG 600 mg=2 cap, No Longer [place] Oral Capsule PO, Q8H, # 30 Active 2017 Medical cap, 0 Center Refill(s) 24 HR Bupropion 300 mg=1 tab, No Longer [place] Hydrochloride 300 PO, Daily, do Active 2017 Medical MG Extended not crush or Center Release Tablet chew, # 60 tab, [Wellbutrin] 0 Refill(s) pantoprazole 40 40 mg=1 tab, No Longer [place] mg oral enteric PO, Before Active 2017 Medical coated tablet Dinner, # 30 Center tab, 0 Refill(s) naproxen 500 mg 500 mg=1 tab, No Longer [place] oral tablet PO, BID, with Active 2017 Medical food, # 25 tab, Center 0 Refill(s) FLUoxetine 20 mg 20 mg=1 cap, No Longer [place] oral capsule PO, Daily, # 60 Active 2017 Medical cap, 0 Center Refill(s) Naprosyn 500 mg, 2 tab, Inactive [place] Route: PO, Drug 2017 Medical form: TAB, BID, Center Dosing Weight 68.182, kg, Priority: Routine, Start date: 06/11/17 9:30:00 MARKETING LIAISON, Duration: 30 day, Stop date: 07/11/17 9:00:00 CSTNotes: (Same as: Naprosyn) Take with food. Prozac 20 mg, 1 cap, Inactive [place] Route: PO, Drug 2017 Medical form: CAP, Center Daily, Dosing Weight 68.182, kg, Start date: 06/11/17 9:00:00 MARKETING LIAISON, Duration: 30 day, Stop date: 07/10/17 9:00:00 CSTNotes: (Same as: Prozac, Saraf[place]) Morphine 2 mg, 0.5 mL, Inactive [place] Route: IVP, 2018 Medical Drug form: Center SOLN, Q4H, Dosing Weight 68.182, kg, PRN Pain Score 7-10, Start date: 06/11/17 8:08:00 MARKETING LIAISON, Duration: 30 day, Stop date: 07/11/17 8:07:00 CSTNotes: (Same as:MORPhine Sulfate) gabapentin 300 MG 300 mg, 1 cap, Inactive [facility] Oral Capsule Route: PO, Drug 2018 Medical form: CAP, Q8H, Center Dosing Weight 68.182, kg, (CrCl > 60 ml/min), Priority: NOW, Start date: 06/11/17 8:07:00 MARKETING LIAISON, Duration: 30 day, Stop date: 07/11/17 8:00:00 CSTNotes: (Same as: Neurontin) Naproxen 500 mg, 1 tab, Inactive [facility] Route: PO, Drug 2018 Medical form: TAB, BID, Center Dosing Weight 68.182, kg, Priority: NOW, Start date: 06/11/17 8:07:00 MARKETING LIAISON, Duration: 30 day, Stop date: 07/10/17 17:00:00 CSTNotes: (Same as: Naprosyn) Take with food. sugammadex 500 mg, 5 mL, No Longer [place] Route: IV, Drug Active 2018 Medical form: SOLN, [place] ONCALL, Start date: 06/10/17 15:00:00 MARKETING LIAISON, Duration: 1 doses or times, Stop date: 06/10/17 15:15:00 CSTNotes: (Same as: Bridion) Flumazenil 0.2 mg, Route: Inactive [facility] IVP, PRN, 2018 Medical Dosing Weight Center 68.182, kg, PRN Benzodiazepine Reversal, Initial dose, Start date: 06/10/17 14:59:00 MARKETING LIAISON, Duration: 30 day, Stop date: 07/10/17 14:58:00 MARKETING LIAISON Naloxone 0.4 mg, Route: Inactive [facility] IVP, Q2MIN, 2018 Medical Dosing Weight Center 68.182, kg, PRN Narcotic Reversal, Start date: 06/10/17 14:59:00 MARKETING LIAISON, Duration: 8 doses or times, Stop date: Limited # of times Labetalol 10 mg, Route: Inactive [place] IVP, Q5Min, 2018 Medical Dosing Weight Center 68.182, kg, PRN Elevated BP, Start date: 06/10/17 14:59:00 MARKETING LIAISON, Duration: 5 doses or times, Stop date: Limited # of times Ondansetron 4 mg, Route: Inactive [place] IVP, ONCE, 2017 Medical Dosing Weight Center 68.182, kg, PRN Nausea & Vomiting, Start date: 06/10/17 14:59:00 MARKETING LIAISON Ketorolac 30 mg, Route: Inactive [facility] IVP, ONCE, 2018 Medical Dosing Weight Center 68.182, kg, Start date: 06/10/17 14:59:00 MARKETING LIAISON, Stop date: 06/10/17 14:59:00 MARKETING LIAISON Morphine 2 mg, 1 mL, No Longer [place] Route: IVP, Active 2017 Medical Drug form: INJ, Center Q2H, Dosing Weight 68.182, kg, PRN Pain Score 7-10, Start date: 06/10/17 12:04:00 MARKETING LIAISON, Duration: 30 day, Stop date: 07/10/17 12:03:00 CSTNotes: (Same as:MORPhine Sulfate) Wellbutrin XL 300 mg, 2 tab, No Longer [place] Route: PO, Drug Active 2018 Medical form: ERTAB, Center Daily, Dosing Weight 68.182, kg, Start date: 06/10/17 9:00:00 MARKETING LIAISON, Duration: 30 day, Stop date: 07/09/17 9:00:00 CSTNotes: (Same as: Wellbutrin XL) "Do Not Crush" Dilaudid 0.5 mg, 0.25 Inactive [place] mL, Route: IVP, 2018 Medical Drug form: INJ, Center Q3H, Dosing Weight 68.182, kg, PRN Pain Score 7-10, Start date: 06/10/17 4:21:00 MARKETING LIAISON, Duration: 30 day, Stop date: 07/10/17 4:20:00 CSTNotes: Same as Dilaudid Acetaminophen 325 1 tab, Route: Inactive [place] MG / Hydrocodone PO, Drug Form: 2018 Medical Bitartrate 10 MG TAB, Dosing Center Oral Tablet Weight 68.182, [Com[place] 10/325] kg, Q4H, PRN Pain Score 1-3, Start date: 06/10/17 4:06:00 MARKETING LIAISON, Duration: 30 day, Stop date: 07/10/17 4:05:00 CSTNotes: Do not exceed 4gm/day of acetaminophen. (Same as: [place] 325/10) Oxycodone 5 mg, 1 tab, Inactive [place] Hydrochloride 5 Route: PO, Drug 2018 Medical MG Oral Tablet form: TAB, Q4H, Center Dosing Weight 68.182, kg, PRN Pain Score 4-6, Start date: 06/10/17 1:44:00 MARKETING LIAISON, Duration: 30 day, Stop date: 07/10/17 1:43:00 CSTNotes: (Same as: Roxicodone) Enoxaparin 30 mg, 0.3 mL, No Longer [place] Route: SUB-Q, Active 2018 Medical Drug form: INJ, Center [id number], Dosing Weight 68.182, kg, Start date: 06/10/17 0:00:00 MARKETING LIAISON, Duration: 30 day, Stop date: 07/09/17 12:00:00 CSTNotes: (Same as: Lovenox) Lactated Ringers 1,000 mL, Rate: No Longer [place] IV 1,000 mL 125 ml/hr, Active 2018 Medical Infuse over: 8 Center hr, Route: IV, Dosing Weight 68.182 kg, Total Volume: 1,000, Start date: 06/09/17 23:33:00 MARKETING LIAISON, Duration: 30 day, Stop date: 07/09/17 23:32:00 MARKETING LIAISON, 1.77, m2 Saline Flush 0.9% 10 ml, Route: No Longer [facility] IVP, Drug Form: Active 2018 Medical INJ, Dosing Center Weight 68.182, kg, PRN, PRN Line Flush, Start date: 06/09/17 23:33:00 MARKETING LIAISON, Duration: 30 day, Stop date: 07/09/17 23:32:00 CSTNotes: Same as: BD Posiflush Sterile Morphine 4 mg, Route: Inactive [facility] IVP, ONCE, 2018 Medical Dosing Weight Center 68.182, kg, Priority: STAT, Start date: 06/09/17 21:30:00 MARKETING LIAISON, Stop date: 06/09/17 21:30:00 MARKETING LIAISON Isolyte S PH-7.4 1,000 mL, Inactive [facility] (Bolus) IV Route: IV, Drug 2018 Medical Form: SOLN, Center Dosing Weight 68.182, kg, ONCE, Start date: 06/09/17 20:55:00 MARKETING LIAISON, Stop date: 06/09/17 20:55:00 CSTNotes: (Same as: Isolyte S PH 7.4) Isolyte S PH 7.4 1,000 mL, Rate: Inactive [place] 1,000 mL 100 ml/hr, 2018 Medical Infuse over: 10 Center hr, Route: IV, Dosing Weight 68.182 kg, Total Volume: 1,000, Start date: 06/09/17 20:55:00 MARKETING LIAISON, Duration: 30 day, Stop date: 07/09/17 20:54:00 MARKETING LIAISON, 1.77, f0Itoba: (Same as: Isolyte S PH 7.4) Ketamine 70 mg, 7 mL, Inactive [place] Route: IVP, 2018 Medical Drug form: INJ, Center ONCE, Dosing Weight 68.182, kg, Priority: STAT, Start date: 06/09/17 18:14:00 MARKETING LIAISON, Stop date: 06/09/17 18:14:00 MARKETING LIAISON Ondansetron 4 mg, Route: Inactive [facility] IVP, Drug form: 2018 Medical INJ, ONCE, Center Dosing Weight 68.182, kg, Priority: STAT, Start date: 06/09/17 15:56:00 MARKETING LIAISON, Stop date: 06/09/17 15:56:00 MARKETING LIAISON Morphine 4 mg, Route: Inactive [facility] IVP, ONCE, 2018 Medical Dosing Weight Center 68.182, kg, Priority: STAT, Start date: 06/09/17 15:56:00 MARKETING LIAISON, Stop date: 06/09/17 15:56:00 MARKETING LIAISON Methocarbamol 500 1,000 mg=2 tab, Active [place] MG Oral Tablet PO, QID, PRN 2017 Medical [Robaxin] Muscle Spasms, Center X 7 day, # 56 tab, 0 Refill(s) buPROPion 150 300 mg=2 tab, Active [place] mg/24 hours (XL) PO, Daily, # 60 2017 Medical oral tablet, tab, 0 Center extended release Refill(s) Acetaminophen 300 2 tab, PO, Q6H, Active [facility] MG / Codeine PRN Pain, X 7 2017 Medical Phosphate 30 MG day, # 56 tab, Center Oral Tablet 0 Refill(s) [Tylenol with Codeine #3] Docusate Sodium 100 mg=1 cap, Active [place] 100 MG Oral PO, Q12H, # 28 2017 Medical Capsule cap, 0 Center Refill(s) senna 8.6 mg oral 17.2 mg=2 tab, Active [place] tablet PO, Bedtime, X 2017 Medical 14 day, # 28 Center tab, 0 Refill(s) naproxen 500 mg 500 mg=1 tab, Active [facility] oral tablet PO, BID, 0 2017 Medical Refill(s) Center gabapentin 300 MG 600 mg=2 cap, Active [facility] Oral Capsule PO, Q8H, # 180 2017 Medical cap, 0 Center Refill(s) FLUoxetine 20 mg 20 mg=1 cap, Active [place] oral capsule PO, Daily, # 30 2017 Medical cap, 0 Center Refill(s) pantoprazole 40 40 mg=1 tab, Active [place] mg oral enteric PO, BID-Before 2017 Medical coated tablet Meals, # 60 Center tab, 0 Refill(s) Menactra 0.5 mL, Route: Inactive [place] IM, Dosing 2017 Medical Weight 75, kg, Center ONCALL, Start date: 05/26/17 8:00:00 MARKETING LIAISON, Duration: 30 day, Stop date: 06/25/17 7:59:00 MARKETING LIAISON, Pediatric Dosing Haemophilus 0.5 ml, Route: Inactive [facility] capsular IM, Drug Form: 2017 Medical oligosaccharide SUSP, Dosing Center 0.015 MG/ML / Weight 75, kg, Neisseria ONCE, Start meningitidis 0.25 date: 05/26/17 MG/ML Injectable 7:52:00 MARKETING LIAISON, Suspension Stop date: 05/26/17 7:52:00 MARKETING LIAISON Melatonin 3 mg, 1 tab, No Longer [facility] Route: PO, Drug Active 2017 Medical form: TAB, Center Bedtime, Dosing Weight 75, kg, Start date: 05/25/17 21:00:00 MARKETING LIAISON, Duration: 30 day, Stop date: 06/23/17 21:00:00 CSTNotes: (Same as: Melatonin) Ativan 2 mg, 1 mL, Inactive [facility] Route: IM, Drug 2016 Medical form: INJ, Center ONCE, Dosing Weight 75, kg, PRN Other -See Comment, Start date: 05/25/17 17:42:00 CSTNotes: (Same as: Ativan) Haldol 10 mg, 2 mL, Inactive [facility] Route: IM, Drug 2016 Medical form: INJ, Center ONCE, Dosing Weight 75, kg, PRN Other -See Comment, Start date: 05/25/17 17:42:00 CSTNotes: (Same as: Haldol) Tramadol 100 mg, 2 tab, Inactive [facility] Route: PO, Drug 2016 Medical form: TAB, Q6H, Center Dosing Weight 75, kg, PRN Pain Score 4-6, Start date: 05/25/17 11:45:00 MARKETING LIAISON, Duration: 30 day, Stop date: 06/24/17 11:44:00 CSTNotes: Not to exceed 400mg/day. (Same As: Ultram) Ativan 2 mg, 2 tab, No Longer [facility] Route: PO, Drug Active 2016 Medical form: TAB, TID, Center Dosing Weight 75, kg, PRN Anxiety, Start date: 05/25/17 11:43:00 MARKETING LIAISON, Stop date: 06/24/17 11:42:00 CSTNotes: (Same as: Ativan) Haldol 10 mg, 2 mL, Inactive [facility] Route: IM, Drug 2016 Medical form: INJ, Center ONCE, Dosing Weight 75, kg, Start date: 05/25/17 11:26:00 MARKETING LIAISON, Stop date: 05/25/17 11:26:00 CSTNotes: (Same as: Haldol) Hydroxyzine 50 mg, 1 cap, Inactive [facility] Route: PO, Drug 2016 Medical form: CAP, Center ONCE, Dosing Weight 75, kg, Start date: 05/25/17 10:58:00 MARKETING LIAISON, Stop date: 05/25/17 10:58:00 CSTNotes: (Same as: Vistaril) Levetiracetam 500 500 mg, Route: No Longer [place] MG Oral Tablet PO, Drug form: Active 2017 Medical [Keppra] TAB, Q24H, Center Dosing Weight 75, kg, Start date: 05/25/17 9:00:00 MARKETING LIAISON, Duration: 7 day, Stop date: 05/31/17 9:00:00 MARKETING LIAISON Wellbutrin 300 mg, 2 tab, No Longer [facility] Route: PO, Drug Active 2016 Medical form: ERTAB, Center Daily, Dosing Weight 75, kg, Start date: 05/25/17 9:00:00 MARKETING LIAISON, Stop date: 06/23/17 9:00:00 CSTNotes: (Same as: Wellbutrin XL) "Do Not Crush" Oxycodone 5 mg, 1 tab, Inactive [place] Hydrochloride 5 Route: PO, Drug 2017 Medical MG Oral Tablet form: TAB, Center ONCE, Dosing Weight 75, kg, Start date: 05/24/17 23:26:00 MARKETING LIAISON, Stop date: 05/24/17 23:26:00 CSTNotes: (Same as: Roxicodone) Haloperidol 5 mg, Route: Inactive [place] IV, ONCE, 2017 Medical Dosing Weight Center 75, kg, Start date: 05/24/17 22:09:00 MARKETING LIAISON, Stop date: 05/24/17 22:09:00 MARKETING LIAISON Levetiracetam 500 500 mg, 1 tab, Inactive [place] MG Oral Tablet Route: PO, Drug 2017 Medical [Keppra] form: TAB, Center Q12H, Dosing Weight 75, kg, Start date: 05/24/17 21:00:00 MARKETING LIAISON, Duration: 7 day, Stop date: 05/31/17 9:00:00 CSTNotes: (Same as:Keppra) gabapentin 300 MG 900 mg, 3 cap, No Longer [facility] Oral Capsule Route: PO, Drug Active 2017 Medical form: CAP, Q8H, Center Dosing Weight 75, kg, (CrCl > 60 ml/min), Start date: 05/24/17 16:00:00 MARKETING LIAISON, Duration: 30 day, Stop date: 06/23/17 8:00:00 CSTNotes: (Same as: Neurontin) Hydroxyzine 50 mg, 1 cap, No Longer [place] Route: PO, Drug Active 2016 Medical form: CAP, QID, Center Dosing Weight 75, kg, PRN Anxiety, Start date: 05/24/17 13:09:00 MARKETING LIAISON, Duration: 30 day, Stop date: 06/23/17 13:08:00 CSTNotes: (Same as: Vistaril) Ativan 2 mg, 1 mL, Inactive [place] Route: IVP, 2016 Medical Drug form: INJ, Center ONCE, Dosing Weight 75, kg, PRN Anxiety, Start date: 05/24/17 13:04:00 CSTNotes: (Same as: Ativan) Keppra 1,000 mg, Inactive [place] Route: IVPB, 2016 Medical ONCE, Dosing Center Weight 75, kg, Loading Dose, Start date: 05/24/17 8:05:00 MARKETING LIAISON, Stop date: 05/24/17 8:05:00 CSTNotes: Same as Keppra Mix with 100 mL NS, LR or D5W MEDICATION WASTE Product Size: 500 mg Product Wasted: ___ mg Isolyte S PH 7.4 1,000 mL, Rate: Inactive [place] 1,000 mL 100 ml/hr, 2016 Medical Infuse over: 10 Center hr, Route: IV, Dosing Weight 75 kg, Total Volume: 1,000, Start date: 05/24/17 0:01:00 MARKETING LIAISON, Duration: 30 day, Stop date: 06/23/17 0:00:00 MARKETING LIAISON, 1.86, [id number]: (Same as: Isolyte S PH 7.4) Tramadol 100 mg, 2 tab, No Longer [place] Route: NG, Drug Active 2016 Medical form: TAB, Q6H, Center Dosing Weight 75, kg, PRN Pain Score 6-10, Start date: 05/23/17 8:54:00 MARKETING LIAISON, Duration: 30 day, Stop date: 06/22/17 8:53:00 CSTNotes: Not to exceed 400mg/day. (Same As: Ultram) Acetaminophen 325 1 tab, Route: No Longer [place] MG / Hydrocodone PO, Drug Form: Active 2017 Medical Bitartrate 10 MG TAB, Dosing Center Oral Tablet Weight 75, kg, [[place] 10/325] Q6H, Start date: 05/22/17 14:30:00 MARKETING LIAISON, Duration: 30 day, Stop date: 06/21/17 14:00:00 CSTNotes: Do not exceed 4gm/day of acetaminophen. (Same as: [place] 325/10) Haldol 5 mg, 1 mL, No Longer [place] Route: IV, Drug Active 2016 Medical form: INJ, Q6H, Center Dosing Weight 75, kg, Start date: 05/22/17 12:00:00 MARKETING LIAISON, Stop date: 06/21/17 6:00:00 CSTNotes: (Same as: Haldol) Oxycodone 5 mg, 1 tab, Inactive [place] Hydrochloride 5 Route: PO, Drug 2017 Medical MG Oral Tablet form: TAB, Center ONCE, Dosing Weight 75, kg, PRN Pain Score 4-6, Start date: 05/21/17 19:27:00 CSTNotes: (Same as: Roxicodone) Seroquel 100 mg, 1 tab, No Longer [place] Route: PO, Drug Active 2016 Medical form: TAB, Center Bedtime, Dosing Weight 75, kg, Start date: 05/20/17 21:00:00 MARKETING LIAISON, Duration: 30 day, Stop date: 06/18/17 21:00:00 CSTNotes: (Same as: SEROquel) Fentanyl 50 microgram, 1 Inactive [place] mL, Route: IV, 2016 Medical Drug form: INJ, Center ONCE, Dosing Weight 75, kg, PRN Pain Score 7-10, Start date: 05/20/17 15:55:00 MARKETING LIAISON, Pediatric Dosing; For procedure; > 50 kgNotes: (Same as: Sublimaze) Preservative free. Tramadol 100 mg, 2 tab, No Longer [place] Route: NG, Drug Active 2016 Medical form: TAB, Q6H, Center Dosing Weight 75, kg, Start date: 05/20/17 12:00:00 MARKETING LIAISON, Duration: 30 day, Stop date: 06/19/17 6:00:00 CSTNotes: Not to exceed 400mg/day. (Same As: Ultram) Oxycodone 5 mg, 1 tab, Inactive [place] Hydrochloride 5 Route: NG, Drug 2017 Medical MG Oral Tablet form: TAB, Center ONCE, Dosing Weight 75, kg, Start date: 05/20/17 10:06:00 MARKETING LIAISON, Stop date: 05/20/17 10:06:00 CSTNotes: (Same as: Roxicodone) SEROquel 50 mg, 2 tab, No Longer [place] Route: PO, Drug Active 2016 Medical form: TAB, Center Daily, Start date: 05/20/17 9:00:00 MARKETING LIAISON, Duration: 30 day, Stop date: 06/18/17 9:00:00 CSTNotes: (Same as: SEROquel) cefepime 1 gm, Route: Inactive [place] IVPB, ABXQ8H, 2017 Medical Dosing Weight Center 75, kg, (CrCl >/=50 ml/min), Start date: 05/20/17 9:00:00 MARKETING LIAISON, Duration: 4 day, Stop date: 05/24/17 1:00:00 MARKETING LIAISON, ABX Indication: Intra-abdominal Infection Flagyl 500 mg, 100 mL, No Longer [place] Route: IVPB, Active 2016 Medical Drug form: INJ, Center [id number], Dosing Weight 75, kg, Start date: 05/20/17 9:00:00 MARKETING LIAISON, Duration: 4 day, Stop date: 05/24/17 1:00:00 MARKETING LIAISON, ABX Indication: Intra-abdominal InfectionNotes: (Same as: Flagyl) Avoid alcohol. Seroquel 50 mg, Route: Inactive [place] PO, Drug form: 2017 Medical TAB, QAM, Center Dosing Weight 75, kg, Priority: STAT, Start date: 05/20/17 8:39:00 MARKETING LIAISON, Duration: 30 day, Stop date: 06/18/17 9:00:00 MARKETING LIAISON Haldol 5 mg, 1 mL, No Longer [place] Route: IV, Drug Active 2016 Medical form: INJ, Q6H, Center Dosing Weight 75, kg, PRN Anxiety, Start date: 05/20/17 8:36:00 MARKETING LIAISON, Duration: 30 day, Stop date: 06/19/17 8:35:00 CSTNotes: (Same as: Haldol) PHOS-NaK 2 pkt, Route: No Longer [place] PO, Drug Form: Active 2017 Medical PDR/REC, Dosing Center Weight 75, kg, Q8H, Start date: 05/20/17 8:34:00 MARKETING LIAISON, Duration: 30 day, Stop date: 06/19/17 8:00:00 CSTNotes: (Same as: Phos-NaK) Each 1.5 gm pkt has 250mg phosphorous. Mix w/2.5oz water and stir. Isolyte S PH-7.4 1,000 mL, 1000 Inactive [place] (Bolus) IV ml/hr, Route: 2017 Medical IV, Drug Form: Center SOLN, Dosing Weight 75, kg, ONCE, Start date: 05/20/17 8:33:00 MARKETING LIAISON, Stop date: 05/20/17 8:33:00 CSTNotes: (Same as: Isolyte S PH 7.4) Melatonin 3 mg, 1 tab, No Longer [place] Route: PO, Drug Active 2016 Medical form: TAB, Center Bedtime, Dosing Weight 75, kg, PRN Sleep, Start date: 05/19/17 22:57:00 MARKETING LIAISON, Duration: 30 day, Stop date: 06/18/17 22:56:00 CSTNotes: (Same as: Melatonin) Dilaudid 0.5 mg, 0.25 Inactive [place] mL, Route: IVP, 2017 Medical Drug form: INJ, Center ONCE, Dosing Weight 75, kg, Priority: STAT, Start date: 05/19/17 22:57:00 MARKETING LIAISON, Stop date: 05/19/17 22:57:00 CSTNotes: Same as Dilaudid pantoprazole 40 mg, 1 tab, No Longer [place] Route: PO, Drug Active 2016 Medical form: ECTAB, Center BID-Before Meals, Dosing Weight 75, kg, Start date: 05/19/17 16:30:00 MARKETING LIAISON, Duration: 30 day, Stop date: 06/18/17 8:00:00 CSTNotes: Tablet should not be chewed or crushed. (Same as: Protonix) Valium 5 mg, 1 mL, Inactive [place] Route: IVP2016 Medical Drug form: INJ, Center ONCE, Dosing Weight 75, kg, Priority: Routine, Start date: 05/19/17 16:00:00 MARKETING LIAISON, Stop date: 05/19/17 16:00:00 CSTNotes: (Same as: Valium) WASTE: F/P - Black; E - White/Blue gabapentin 300 MG 600 mg, 2 cap, No Longer [facility] Oral Capsule Route: PO, Drug Active 2016 Medical form: CAP, Q8H, Center Dosing Weight 75, kg, (CrCl > 60 ml/min), Start date: 05/19/17 16:00:00 MARKETING LIAISON, Duration: 30 day, Stop date: 06/18/17 8:00:00 CSTNotes: (Same as: Neurontin) Valium 5 mg, 1 mL, Inactive [place] Route: IVP2016 Medical Drug form: INJ, Center ONCE, Dosing Weight 75, kg, Priority: STAT, Start date: 05/19/17 14:32:00 MARKETING LIAISON, Stop date: 05/19/17 14:32:00 CSTNotes: (Same as: Valium) WASTE: F/P - Black; E - White/Blue Geodon 20 mg, Route: Inactive [place] IM, Drug form: 2017 Medical PDR/INJ, ONCE, Center Dosing Weight 75, kg, Start date: 05/19/17 14:23:00 MARKETING LIAISON, Stop date: 05/19/17 14:23:00 CSTNotes: Reconstitute with 1.2 ml of sterile water. Final concentration=2 0 mg/1ml. Maximum 40 mg/24 hours (Same As: Geodon). MEDICATION WASTE Product Size: 20 mg Product Wasted: ___ mg Valium 5 mg, 1 mL, Inactive [facility] Route: IVP2016 Medical Drug form: INJ, Center ONCE, Dosing Weight 75, kg, Priority: STAT, Start date: 05/19/17 14:22:00 MARKETING LIAISON, Stop date: 05/19/17 14:22:00 CSTNotes: (Same as: Valium) sterile water 20 mL, Route: No Longer [place] MISC, Drug Active 2016 Medical Form: INJ, Center ONCALL, PRN Other -See Comment, Start date: 05/19/17 14:19:00 MARKETING LIAISON, Stop date: 05/20/17 14:18:00 MARKETING LIAISON Ativan 4 mg, 2 mL, Inactive [place] Route: IVP, 2016 Medical Drug form: INJ, Center ONCE, Dosing Weight 75, kg, Priority: STAT, Start date: 05/19/17 14:18:00 MARKETING LIAISON, Stop date: 05/19/17 14:18:00 CSTNotes: (Same as: Ativan) Geodon 40 mg, Route: Inactive [place] IM, Drug form: 2017 Medical PDR/INJ, ONCE, Center Dosing Weight 75, kg, Priority: STAT, Start date: 05/19/17 14:17:00 MARKETING LIAISON, Stop date: 05/19/17 14:17:00 CSTNotes: Reconstitute with 1.2 ml of sterile water. Final concentration=2 0 mg/1ml. Maximum 40 mg/24 hours (Same As: Geodon). MEDICATION WASTE Product Size: 20 mg Product Wasted: ___ mg Haloperidol 5 mg, 1 mL, Inactive [place] Route: IM, Drug 2016 Medical form: INJ, Center ONCE, Dosing Weight 75, kg, Priority: STAT, Start date: 05/19/17 13:59:00 MARKETING LIAISON, Stop date: 05/19/17 13:59:00 CSTNotes: (Same as: Haldol) Ketorolac 15 mg, 1 mL, No Longer [place] Route: IVP, Active 2016 Medical Drug form: INJ, Center Q6H, Dosing Weight 75, kg, Start date: 05/19/17 12:00:00 MARKETING LIAISON, Stop date: 05/20/17 6:00:00 CSTNotes: (Same as:Toradol) IV bolus must be given >15 seconds. Give IM administration slowly and deeply into the muscle. Not for use > 4 days. Tramadol 100 mg, 2 tab, Inactive [place] Route: PO, Drug 2016 Medical form: TAB, Q6H, Center Dosing Weight 75, kg, Start date: 05/19/17 12:00:00 MARKETING LIAISON, Duration: 30 day, Stop date: 06/18/17 6:00:00 CSTNotes: Not to exceed 400mg/day. (Same As: Ultram) Oxycodone 5 mg, 1 tab, Inactive [place] Hydrochloride 5 Route: PO, Drug 2016 Medical MG Oral Tablet form: TAB, Q4H, Center Dosing Weight 75, kg, Priority: NOW, Start date: 05/19/17 9:38:00 MARKETING LIAISON, Duration: 30 day, Stop date: 06/18/17 8:00:00 CSTNotes: (Same as: Roxicodone) Ativan 2 mg, 1 mL, Inactive [place] Route: IVP, 2016 Medical Drug form: INJ, Center ONCE, Dosing Weight 75, kg, Start date: 05/19/17 9:20:00 MARKETING LIAISON, Stop date: 05/19/17 9:20:00 CSTNotes: (Same as: Ativan) Protonix 40 mg, Route: Inactive [place] IVP, Drug form: 2016 Medical INJ, BID, Center Dosing Weight 75, kg, Patient is NPO, Start date: 05/19/17 9:00:00 MARKETING LIAISON, Duration: 30 day, Stop date: 06/17/17 17:00:00 CSTNotes: For IV push reconstitute with 10 ml 0.9% sodium chloride and push over 2 minutes. (Same as: Protonix) Isolyte S PH 7.4 1,000 mL, Rate: No Longer [place] 1,000 mL 100 ml/hr, Active 2016 Medical Infuse over: 10 Center hr, Route: IV, Dosing Weight 75 kg, Total Volume: 1,000, Start date: 05/19/17 7:53:00 MARKETING LIAISON, Duration: 30 day, Stop date: 06/18/17 7:52:00 MARKETING LIAISON, 1.86, [id number]: (Same as: Isolyte S PH 7.4) Isolyte S PH-7.4 1,000 mL, 0 Inactive [place] (Bolus) IV ml/hr, Route: 2016 Medical IV, Drug Form: Center SOLN, Dosing Weight 75, kg, ONCE, STAT, Start date: 05/19/17 7:37:00 MARKETING LIAISON, Stop date: 05/19/17 7:37:00 CSTNotes: (Same as: Isolyte S PH 7.4) Dilaudid 0.5 mg, 0.25 Inactive [place] mL, Route: IVP, 2016 Medical Drug form: INJ, Center ONCE, Dosing Weight 75, kg, Priority: STAT, Start date: 05/19/17 5:25:00 MARKETING LIAISON, Stop date: 05/19/17 5:25:00 CSTNotes: Same as Dilaudid Flagyl 500 mg, 100 mL, Inactive [place] Route: IVPB, 2016 Medical Drug form: INJ, Center [id number], Dosing Weight 75, kg, Start date: 05/19/17 4:00:00 MARKETING LIAISON, Duration: 7 day, Stop date: 05/25/17 20:00:00 MARKETING LIAISON, ABX Indication: Intra-abdominal InfectionNotes: (Same as: Flagyl) Avoid alcohol. cefepime 2 gm, Route: Inactive [place] IVPB, [id number], 2016 Medical Dosing Weight Center 75, kg, (CrCl 30 - 49 ml/min, [employer] infection or neutropenic fever), Start date: 05/19/17 4:00:00 MARKETING LIAISON, Duration: 7 day, Stop date: 05/25/17 16:00:00 MARKETING LIAISON, ABX Indication: Intra-abdominal InfectionNotes: (Same as: Maxipime) MEDICATION WASTE Product Size: 2000 mg Product Wasted: ___ mg Dilaudid 1 mg, 0.5 mL, Inactive [facility] Route: IVP, 2016 Medical Drug form: INJ, Center ONCE, Dosing Weight 75, kg, Priority: STAT, Start date: 05/19/17 3:44:00 MARKETING LIAISON, Stop date: 05/19/17 3:44:00 CSTNotes: Same as Dilaudid Demerol HCl 12.5 mg, Route: Inactive [place] IV, ONCE, 2016 Medical Dosing Weight Center 75, kg, Start date: 05/19/17 3:20:00 MARKETING LIAISON, Stop date: 05/19/17 3:20:00 MARKETING LIAISON Naloxone 0.4 mg, Route: Inactive [place] IVP, Q2MIN, 2016 Medical Dosing Weight Center 75, kg, PRN Narcotic Reversal, Start date: 05/19/17 3:14:00 MARKETING LIAISON, Duration: 8 doses or times, Stop date: Limited # of times Midazolam 1 mg, Route: Inactive [facility] IVP, Q5Min, 2017 Medical Dosing Weight Center 75, kg, PRN Anxiety, Start date: 05/19/17 3:14:00 MARKETING LIAISON, Duration: 2 doses or times, Stop date: Limited # of times Ondansetron 4 mg, Route: Inactive [facility] IVP, ONCE, 2017 Medical Dosing Weight Center 75, kg, PRN Nausea & Vomiting, Start date: 05/19/17 3:14:00 MARKETING LIAISON Fentanyl 25 microgram, Inactive [facility] Route: IVP, 2017 Medical Q5Min, Dosing Center Weight 75, kg, PRN Pain Score 4-6, Priority: Routine, Start date: 05/19/17 3:14:00 MARKETING LIAISON, Duration: 4 doses or times, Stop date: Limited # of times Flumazenil 0.2 mg, Route: Inactive [facility] IVP, PRN, 2016 Medical Dosing Weight Center 75, kg, PRN Benzodiazepine Reversal, Initial dose, Start date: 05/19/17 3:14:00 MARKETING LIAISON, Duration: 30 day, Stop date: 06/18/17 3:13:00 MARKETING LIAISON Hydromorphone 0.5 mg, Route: Inactive [facility] IVP, Q5Min, 2017 Medical Dosing Weight Center 75, kg, PRN Pain Score 7-10, Start date: 05/19/17 3:14:00 MARKETING LIAISON, Duration: 4 doses or times, Stop date: Limited # of times Acetaminophen 1,000 mg, Inactive [facility] Route: PO, Drug 2017 Medical form: TAB, Center ONCE, Dosing Weight 75, kg, PRN Pain Score 1-3, Start date: 05/19/17 3:14:00 MARKETING LIAISON glycopyrrolate Route: IV, Drug Inactive [facility] (ANES) form: INJ, 2017 Medical ONCE, Stop Center date: 05/19/17 3:01:00 MARKETING LIAISON neostigmine Route: IV, Drug Inactive 05/19[facility] (ANES) form: INJ, 2016 Medical ONCE, Stop Center date: 05/19/17 3:01:00 MARKETING LIAISON Isolyte S PH 7.4 1,000 mL, Rate: Inactive [place] 1,000 mL 75 ml/hr, 2016 Medical Infuse over: Center 13.3 hr, Route: IV, Dosing Weight 75 kg, Total Volume: 1,000, Start date: 05/19/17 2:55:00 MARKETING LIAISON, Duration: 30 day, Stop date: 06/18/17 2:54:00 MARKETING LIAISON, 1.86, [id number]: (Same as: Isolyte S PH 7.4) famotidine (ANES) Route: IV, Drug Inactive [place] form: INJ, 2016 Medical ONCE, Stop Center date: 05/19/17 2:45:00 MARKETING LIAISON ondansetron Route: IV, Drug Inactive [place] (ANES) form: INJ, 2016 Medical ONCE, Stop Center date: 05/19/17 2:20:00 MARKETING LIAISON rocuronium (ANES) Route: IV, Drug Inactive [place] form: INJ, 2016 Medical ONCE, Stop Center date: 05/19/17 0:40:00 MARKETING LIAISON dexamethasone Route: IV, Drug Inactive [place] (ANES) form: INJ, 2016 Medical ONCE, Stop Center date: 05/19/17 0:35:00 MARKETING LIAISON lidocaine (ANES) Route: IV, Drug Inactive [place] form: INJ, 2016 Medical ONCE, Stop Center date: 05/19/17 0:15:00 MARKETING LIAISON propofol (ANES) Route: IV, Drug Inactive [place] form: INJ, 2016 Medical ONCE, Stop Center date: 05/19/17 0:15:00 MARKETING LIAISON succinylcholine Route: IV, Drug Inactive [place] (ANES) form: INJ, 2016 Medical ONCE, Stop Center date: 05/19/17 0:15:00 MARKETING LIAISON fentaNYL (ANES) Route: IV, Drug Inactive [place] form: INJ, 2016 Medical ONCE, Stop Center date: 05/19/17 0:15:00 MARKETING LIAISON acetaminophen Route: IV, Drug No Longer [place] (ANES) 10 mg form: INJ, Active 2016 Medical Start date: Center 05/18/17 23:56:00 MARKETING LIAISON, Stop date: 05/19/17 0:56:00 MARKETING LIAISON ceFAZolin (ANES) Route: IV, Drug Inactive [place] form: INJ, 2017 Medical ONCE, Stop Center date: 05/18/17 23:40:00 MARKETING LIAISON metroNIDAZOLE Route: IV, Drug No Longer [place] (ANES) 5 mg form: INJ, Active 2017 Medical Start date: [place] 05/18/17 23:36:00 MARKETING LIAISON, Stop date: 05/19/17 0:36:00 MARKETING LIAISON Sodium Chloride Route: IV, Drug No Longer [place] 0.9% IV (ANES) form: INJ, Active 2016 Medical 100 mL + Start date: [place] dexmedetomidine 05/18/17 (ANES) 200 23:33:00 MARKETING LIAISON, microgram Stop date: 05/19/17 0:33:00 MARKETING LIAISON Sodium Chloride Route: IV, No Longer [place] 0.9% IV (ANES) Total Volume: Active 2017 Medical 1000 mL 1,000, Start Center date: 05/18/17 23:15:00 MARKETING LIAISON, Stop date: 05/19/17 0:15:00 MARKETING LIAISON Lactated Ringers Route: IV, No Longer [place] Injection IV Total Volume: Active 2016 Medical (ANES) 1000 mL 1,000, Start Center date: 05/18/17 23:00:00 MARKETING LIAISON, Stop date: 05/19/17 0:00:00 MARKETING LIAISON Isolyte S PH-7.4 1,000 mL, Inactive [place] (Bolus) IV Route: IV, Drug 2016 Medical Form: SOLN, [place] Dosing Weight 75, kg, ONCE, STAT, Start date: 05/18/17 20:16:00 MARKETING LIAISON, Stop date: 05/18/17 20:16:00 CSTNotes: (Same as: Isolyte S PH 7.4) NS (Bolus) IV 500 mL, 500 Inactive [place] ml/hr, Infuse 2017 Medical Over: 1 hr, Center Route: IV, ONCE, Priority: STAT, Dosing Weight 75 kg, Start date: 05/18/17 20:14:00 MARKETING LIAISON, Stop date: 05/18/17 20:14:00 MARKETING LIAISON Versed 3 mg, 3 mL, No Longer [place] Route: IVP, Active 2017 Medical Drug form: INJ, Center ONCALL, Dosing Weight 75, kg, Start date: 05/18/17 20:00:00 MARKETING LIAISON, Duration: 1 doses or times, Stop date: 05/19/17 6:00:00 CSTNotes: (Same as: Versed) MEDICATION WASTE Product Size: 2 mg Product Wasted: ___ mg Haloperidol 5 mg, 1 mL, No Longer [place] Route: IV, Drug Active 2016 Medical form: INJ, Center ONCALL, Dosing Weight 75, kg, Start date: 05/18/17 19:00:00 MARKETING LIAISON, Duration: 1 doses or times, Stop date: 05/19/17 10:00:00 CSTNotes: (Same as: Haldol) Hydromorphone 1 mg, Route: Inactive [place] IVP, ONCE, 2016 Medical Dosing Weight Center 75, kg, Priority: STAT, Start date: 05/18/17 14:44:00 MARKETING LIAISON, Stop date: 05/18/17 14:44:00 MARKETING LIAISON ondansetron Route: IV, Drug Inactive [place] (ANES) form: INJ, 2016 Medical ONCE, Stop Center date: 05/18/17 13:55:00 MARKETING LIAISON famotidine (ANES) Route: IV, Drug Inactive [place] form: INJ, 2016 Medical ONCE, Stop Center date: 05/18/17 13:55:00 MARKETING LIAISON acetaminophen Route: IV, Drug Inactive [place] (ANES) form: INJ, 2016 Medical ONCE, Stop Center date: 05/18/17 13:55:00 MARKETING LIAISON dexamethasone Route: IV, Drug Inactive [place] (ANES) form: INJ, 2016 Medical ONCE, Stop Center date: 05/18/17 13:34:00 MARKETING LIAISON fentaNYL (ANES) Route: IV, Drug Inactive [place] form: INJ, 2016 Medical ONCE, Stop Center date: 05/18/17 13:34:00 MARKETING LIAISON succinylcholine Route: IV, Drug Inactive [place] (ANES) form: INJ, 2016 Medical ONCE, Stop Center date: 05/18/17 13:34:00 MARKETING LIAISON propofol (ANES) Route: IV, Drug Inactive [place] form: INJ, 2016 Medical ONCE, Stop Center date: 05/18/17 13:34:00 MARKETING LIAISON lidocaine (ANES) Route: IV, Drug Inactive [facility] form: INJ, 2016 Medical ONCE, Stop Center date: 05/18/17 13:34:00 MARKETING LIAISON midazolam (ANES) Route: IV, Drug Inactive [facility] form: SOLN, 2016 Medical ONCE, Stop Center date: 05/18/17 13:34:00 MARKETING LIAISON Ondansetron 4 mg, 2 mL, Inactive [facility] Route: IVP2016 Medical Drug form: INJ, Center ONCE, Dosing Weight 75, kg, PRN Nausea & Vomiting, Start date: 05/18/17 13:12:00 CSTNotes: (Same as: Zofran) MEDICATION WASTE Product Size: 4 mg Product Wasted: ___ mg Meperidine 12.5 mg, 0.25 Inactive [facility] mL, Route: IVP, 2016 Medical Drug form: INJ, Center Q30Min, Dosing Weight 75, kg, PRN Other -See Comment, For shivering, Start date: 05/18/17 13:12:00 MARKETING LIAISON, Duration: 2 doses or times, Stop date: Limited # of timesNotes: (Same as: Demerol) "Use Precaution in Elderly, Seizure disorders, and Renal impairment" Naloxone 0.4 mg, 1 mL, Inactive [facility] Route: IVP2016 Medical Drug form: INJ, Center Q2MIN, Dosing Weight 75, kg, PRN Narcotic Reversal, Start date: 05/18/17 13:12:00 MARKETING LIAISON, Duration: 8 doses or times, Stop date: Limited # of timesNotes: Same as Narcan Flumazenil 0.2 mg, 2 mL, Inactive [facility] Route: IVP2016 Medical Drug form: INJ, Center PRN, Dosing Weight 75, kg, PRN Benzodiazepine Reversal, Initial dose, Start date: 05/18/17 13:12:00 MARKETING LIAISON, Duration: 30 day, Stop date: 06/17/17 13:11:00 CSTNotes: (Same as: Romazicon) Oxycodone 5 mg, 1 tab, Inactive [facility] Route: PO, Drug 2016 Medical form: TAB, Q4H, Center Dosing Weight 75, kg, PRN Pain Score 4-6, Start date: 05/18/17 13:12:00 MARKETING LIAISON, Duration: 30 day, Stop date: 06/17/17 13:11:00 CSTNotes: (Same as: Roxicodone) Labetalol 10 mg, 2 mL, Inactive [facility] Route: IVP, 2016 Medical Drug form: INJ, Center Q5Min, Dosing Weight 75, kg, PRN Elevated BP, Start date: 05/18/17 13:12:00 MARKETING LIAISON, Duration: 5 doses or times, Stop date: Limited # of times Hydralazine 10 mg, 0.5 mL, Inactive [facility] Route: IVP2016 Medical Drug form: INJ, Center Q20Min, Dosing Weight 75, kg, PRN Elevated BP, Start date: 05/18/17 13:12:00 MARKETING LIAISON, Duration: 2 doses or times, Stop date: Limited # of timesNotes: (Same as: Apresoline) Hydromorphone 0.5 mg, 0.25 Inactive [facility] mL, Route: IVP2016 Medical Drug form: INJ, Center Q5Min, Dosing Weight 75, kg, PRN Pain Score 7-10, Start date: 05/18/17 13:12:00 MARKETING LIAISON, Duration: 4 doses or times, Stop date: Limited # of timesNotes: Same as Dilaudid Lactated Ringers Route: IV, Inactive [place] Injection IV Total Volume: 2017 Medical (ANES) 1000 mL 1,000, Start Center date: 05/18/17 12:40:00 MARKETING LIAISON, Stop date: 05/18/17 13:40:00 MARKETING LIAISON Wellbutrin XL 300 mg, 2 tab, No Longer [place] Route: PO, Drug Active 2016 Medical form: ERTAB, Center Daily, Dosing Weight 75, kg, Start date: 05/18/17 9:00:00 MARKETING LIAISON, Duration: 30 day, Stop date: 06/16/17 9:00:00 CSTNotes: (Same as: Wellbutrin XL) "Do Not Crush" Ativan 1 mg, 1 tab, No Longer [place] Route: PO, Drug Active 2016 Medical form: TAB, TID, Center Dosing Weight 75, kg, PRN Anxiety, Start date: 05/17/17 15:22:00 MARKETING LIAISON, Duration: 30 day, Stop date: 06/16/17 15:21:00 CSTNotes: (Same as: Ativan) Naproxen 500 mg, 1 tab, No Longer [place] Route: PO, Drug Active 2016 Medical form: TAB, BID, Center Dosing Weight 75, kg, Start date: 05/16/17 17:00:00 MARKETING LIAISON, Duration: 30 day, Stop date: 06/15/17 9:00:00 CSTNotes: (Same as: Naprosyn) Take with food. gabapentin 300 MG 300 mg, 1 cap, No Longer [place] Oral Capsule Route: PO, Drug Active 2016 Medical form: CAP, Q8H, Center Dosing Weight 75, kg, (CrCl > 60 ml/min), Start date: 05/16/17 16:00:00 MARKETING LIAISON, Duration: 30 day, Stop date: 06/15/17 8:00:00 CSTNotes: (Same as: Neurontin) Tylenol 650 mg, 2 tab, No Longer [place] Route: PO, Drug Active 2016 Medical form: TAB, Q6H, Center Dosing Weight 75, kg, Start date: 05/15/17 18:00:00 MARKETING LIAISON, Duration: 30 day, Stop date: 06/14/17 12:00:00 CSTNotes: Do not exceed 4 gm/day. (Same as: Tylenol) Lovenox 30 mg, 0.3 mL, No Longer [place] Route: SUB-Q, Active 2016 Medical Drug form: INJ, Center [id number], Dosing Weight 75, kg, Start date: 05/15/17 16:00:00 MARKETING LIAISON, Duration: 30 day, Stop date: 06/14/17 4:00:00 CSTNotes: (Same as: Lovenox) Wellbutrin 300 mg, 2 tab, No Longer [place] Route: PO, Drug Active 2016 Medical form: ERTAB, Center Daily, Dosing Weight 75, kg, Start date: 05/15/17 9:00:00 MARKETING LIAISON, Stop date: 06/13/17 9:00:00 CSTNotes: (Same as: Wellbutrin XL) "Do Not Crush" Prozac 20 mg, 1 cap, No Longer [place] Route: PO, Drug Active 2016 Medical form: CAP, Center Daily, Dosing Weight 75, kg, Start date: 05/15/17 9:00:00 MARKETING LIAISON, Stop date: 06/13/17 9:00:00 CSTNotes: (Same as: Prozac, Sarafem) CeleBREX 200 mg, 1 cap, No Longer [place] Route: PO, Drug Active 2016 Medical form: CAP, Center Q12H, Dosing Weight 75, kg, Priority: Routine, Start date: 05/15/17 9:00:00 MARKETING LIAISON, Duration: 48 hr, Stop date: 05/16/17 21:00:00 CSTNotes: NSAID. Please check indication. Not for seizure. (Same As: CeleBREX) remove patch 2 patch, Route: No Longer [place] TOP, Daily, Active 2016 Medical Drug form: Center ERFILM, Start date: 05/15/17 8:00:00 MARKETING LIAISON, Duration: 30 day, Stop date: 06/13/17 8:00:00 CSTNotes: Remove patch 12 hours after application each day. Docusate 100 mg, 1 cap, No Longer [place] Route: PO, Drug Active 2016 Medical form: CAP, Center Q12H, Dosing Weight 75, kg, Start date: 05/14/17 21:00:00 MARKETING LIAISON, Duration: 30 day, Stop date: 06/13/17 9:00:00 CSTNotes: (Same as: Colace) (Do Not Crush) sennosides, GROUP HOME 17.2 mg, 2 tab, No Longer [place] Route: PO, Drug Active 2016 Medical Form: TAB, Center Dosing Weight 75, kg, Bedtime, Start date: 05/14/17 21:00:00 MARKETING LIAISON, Duration: 30 day, Stop date: 06/12/17 21:00:00 CSTNotes: (Same as: Senokot) Lidocaine 1 patch, Route: No Longer [place] Hydrochloride TOP, Q24H, Drug Active 2016 Medical 0.05 MG/MG form: FILM, Center Transdermal Patch Start date: [Lidoderm] 05/14/17 20:00:00 MARKETING LIAISON, Duration: 30 day, Stop date: 06/12/17 20:00:00 CSTNotes: Apply only once for up to 12 hours in a 24-hour period (12 hours on and 12 hours off). (Same as: Lidoderm) Oxycodone 5 mg, 1 tab, No Longer [place] Hydrochloride 5 Route: PO, Drug Active 2016 Medical MG Oral Tablet form: TAB, Q4H, Center Dosing Weight 75, kg, PRN Pain Score 4-6, Start date: 05/14/17 19:30:00 MARKETING LIAISON, Duration: 30 day, Stop date: 06/13/17 19:29:00 CSTNotes: (Same as: Roxicodone) Oxycodone 10 mg, 2 tab, No Longer [place] Hydrochloride 5 Route: PO, Drug Active 2016 Medical MG Oral Tablet form: TAB, Q4H, Center Dosing Weight 75, kg, PRN Pain Score 7-10, Start date: 05/14/17 19:29:00 MARKETING LIAISON, Duration: 30 day, Stop date: 06/13/17 19:28:00 CSTNotes: (Same as: Roxicodone) celecoxib 200 mg, 1 cap, Inactive [place] Route: PO, Drug 2016 Medical form: CAP, Center Q12H, Dosing Weight 75, kg, Priority: NOW, Start date: 05/14/17 19:28:00 MARKETING LIAISON, Duration: 48 hr, Stop date: 05/16/17 9:00:00 CSTNotes: NSAID. Please check indication. Not for seizure. (Same As: CeleBREX) Ketorolac 30 mg, Route: Inactive [place] IVP, ONCE, 2016 Medical Dosing Weight Center 75, kg, Priority: NOW, Start date: 05/14/17 19:28:00 MARKETING LIAISON, Stop date: 05/14/17 19:28:00 MARKETING LIAISON pregabalin 100 mg, 1 cap, No Longer [place] Route: PO, Drug Active 2016 Medical form: CAP, Q8H, Center Dosing Weight 75, kg, Priority: NOW, Start date: 05/14/17 19:28:00 MARKETING LIAISON, Duration: 48 hr, Stop date: 05/16/17 19:00:00 CSTNotes: (Same as: Lyrica) Tramadol 100 mg, 2 tab, No Longer [place] Route: PO, Drug Active 2016 Medical form: TAB, Q6H, Center Dosing Weight 75, kg, Priority: NOW, Start date: 05/14/17 19:28:00 MARKETING LIAISON, Duration: 30 day, Stop date: 06/13/17 14:00:00 CSTNotes: Not to exceed 400mg/day. (Same As: Ultram) Morphine 2 mg, Route: Inactive [facility] IVP, Q5Min, 2016 Medical Dosing Weight Center 75, kg, PRN Pain Score 4-6, Start date: 05/14/17 19:10:00 MARKETING LIAISON, Duration: 5 doses or times, Stop date: Limited # of times Acetaminophen 1,000 mg, Inactive [facility] Route: PO, Drug 2016 Medical form: TAB, Center ONCE, Dosing Weight 75, kg, PRN Pain Score 1-3, Start date: 05/14/17 19:10:00 MARKETING LIAISON Flumazenil 0.2 mg, Route: Inactive [facility] IVP, PRN, 2016 Medical Dosing Weight Center 75, kg, PRN Benzodiazepine Reversal, Initial dose, Start date: 05/14/17 19:10:00 MARKETING LIAISON, Duration: 30 day, Stop date: 06/13/17 19:09:00 MARKETING LIAISON Naloxone 0.4 mg, Route: Inactive 05/15[facility] IVP, Q2MIN, 2016 Medical Dosing Weight Center 75, kg, PRN Narcotic Reversal, Start date: 05/14/17 19:10:00 MARKETING LIAISON, Duration: 8 doses or times, Stop date: Limited # of times Hydromorphone 0.5 mg, Route: Inactive [facility] IVP, Q5Min, 2016 Medical Dosing Weight Center 75, kg, PRN Pain Score 7-10, Start date: 05/14/17 19:10:00 MARKETING LIAISON, Duration: 4 doses or times, Stop date: Limited # of times Ketorolac 30 mg, Route: Inactive 05/15[facility] IVP, ONCE, 2016 Medical Dosing Weight Center 75, kg, Start date: 05/14/17 19:10:00 MARKETING LIAISON, Stop date: 05/14/17 19:10:00 MARKETING LIAISON Meperidine 12.5 mg, Route: Inactive 05/15[facility] IVP, Q30Min, 2016 Medical Dosing Weight Center 75, kg, PRN Other -See Comment, For shivering, Start date: 05/14/17 19:10:00 MARKETING LIAISON, Duration: 2 doses or times, Stop date: Limited # of times Promethazine 6.25 mg, Route: Inactive [place] IVPB, ONCE, 2016 Medical Dosing Weight Center 75, kg, PRN Nausea & Vomiting, Start date: 05/14/17 19:10:00 MARKETING LIAISON Ondansetron 4 mg, Route: Inactive [facility] IVP, ONCE, 2016 Medical Dosing Weight Center 75, kg, PRN Nausea & Vomiting, Start date: 05/14/17 19:10:00 MARKETING LIAISON Dilaudid 0.5 mg, Route: Inactive [facility] IVP, ONCE, 2016 Medical Dosing Weight Center 75, kg, Priority: STAT, Start date: 05/14/17 18:59:00 MARKETING LIAISON, Stop date: 05/14/17 18:59:00 MARKETING LIAISON Hydromorphone 0.5 mg, Route: Inactive [facility] IVP, ONCE, 2016 Medical Dosing Weight Center 75, kg, Priority: STAT, Start date: 05/14/17 18:23:00 MARKETING LIAISON, Stop date: 05/14/17 18:23:00 MARKETING LIAISON Hydromorphone 0.5 mg, Route: Inactive [facility] IVP, ONCE, 2016 Medical Dosing Weight Center 75, kg, Priority: STAT, Start date: 05/14/17 17:51:00 MARKETING LIAISON, Stop date: 05/14/17 17:51:00 MARKETING LIAISON lidocaine (ANES) Route: IV, Drug Inactive [place] form: INJ, 2016 Medical ONCE, Stop Center date: 05/14/17 17:37:00 MARKETING LIAISON propofol (ANES) Route: IV, Drug Inactive [place] form: INJ, 2016 Medical ONCE, Stop Center date: 05/14/17 17:00:00 MARKETING LIAISON fentaNYL (ANES) Route: IV, Drug Inactive [facility] form: INJ, 2016 Medical ONCE, Stop Center date: 05/14/17 17:00:00 MARKETING LIAISON Haldol 5 mg, 1 mL, No Longer [place] Route: IM, Drug Active 2016 Medical form: INJ, Q6H, Center Dosing Weight 75, kg, PRN Anxiety, Start date: 05/14/17 16:37:00 MARKETING LIAISON, Duration: 30 day, Stop date: 06/13/17 16:36:00 CSTNotes: (Same as: Haldol) Sodium Chloride Route: IV, Inactive Chin 0.9% IV (ANES) Total Volume: 2017 Medical 500 mL 500, Start Center date: 05/14/17 15:22:00 MARKETING LIAISON, Stop date: 05/14/17 16:22:00 MARKETING LIAISON D5W 1/2NS + KCL 1,000 mL, Rate: Inactive Chin 20mEq/L 1000ml 100 ml/hr, 2017 Medical ([facility]) 1,000 mL Infuse over: 10 Center hr, Route: IV, Dosing Weight 75 kg, Total Volume: 1,000, Start date: 05/14/17 15:09:00 MARKETING LIAISON, Duration: 30 day, Stop date: 06/13/17 15:08:00 MARKETING LIAISON, 1.86, [id number]: PREMIX IV - Do Not Alter WASTE: F/P - Sink; E - Municipal Trash Bin Iohexol 100 mL, Route: Inactive [facility] IVP, Drug Form: 2016 Medical SOLN, Dosing Center Weight 75, kg, ONCALL, STAT, Start date: 05/14/17 14:31:00 MARKETING LIAISON, Duration: 1 doses or times, Dose=2.2ml/kg, Max [id number]=[id number] -- "To be infused by Radiology Staff ONLY" Ativan 2 mg, 1 mL, Inactive [place] Route: IV, Drug 2016 Medical form: INJ, Center ONCE, Dosing Weight 75, kg, Start date: 05/14/17 13:15:00 MARKETING LIAISON, Stop date: 05/14/17 13:15:00 CSTNotes: (Same as: Ativan) Fentanyl 25 microgram, Inactive [place] 0.5 mL, Route: 2017 Medical IV, Drug form: Center INJ, ONCE, Dosing Weight 75, kg, PRN Pain Score 7-10, Start date: 05/14/17 11:12:00 MARKETING LIAISON, Pediatric Dosing; For procedure; > 50 kgNotes: (Same as: Sublimaze) Preservative free. Protonix 40 mg, 1 tab, No Longer [place] Route: PO, Drug Active 2016 Medical form: ECTAB, Center Daily, Dosing Weight 75, kg, Start date: 05/14/17 9:00:00 MARKETING LIAISON, Duration: 30 day, Stop date: 06/12/17 9:00:00 CSTNotes: Tablet should not be chewed or crushed. (Same as: Protonix) Effexor 150 mg, 2 tab, Inactive [facility] Route: PO, Drug 2016 Medical form: TAB, Center Daily, Dosing Weight 75, kg, Start date: 05/14/17 9:00:00 MARKETING LIAISON, Duration: 30 day, Stop date: 06/12/17 9:00:00 CSTNotes: (Same As: Effexor) Oxycodone 5 mg, 1 tab, No Longer [facility] Hydrochloride 5 Route: PO, Drug Active 2016 Medical MG Oral Tablet form: TAB, Q4H, Center Dosing Weight 75, kg, PRN Pain Score 4-6, Start date: 05/13/17 20:26:00 MARKETING LIAISON, Duration: 30 day, Stop date: 06/12/17 20:25:00 CSTNotes: (Same as: Roxicodone) Versed 1 mg, Route: Inactive [facility] IVP, ONCE, 2016 Medical Dosing Weight Center 75, kg, Priority: STAT, Start date: 05/13/17 17:09:00 MARKETING LIAISON, Stop date: 05/13/17 17:09:00 MARKETING LIAISON Dilaudid 1 mg, Route: Inactive [facility] IVP, ONCE, 2016 Medical Dosing Weight Center 75, kg, Priority: STAT, Start date: 05/13/17 17:09:00 MARKETING LIAISON, Stop date: 05/13/17 17:09:00 MARKETING LIAISON Wellbutrin 150 mg, 2 tab, No Longer [facility] Route: PO, Drug Active 2016 Medical form: TAB, BID, Center Dosing Weight 75, kg, Start date: 05/13/17 17:00:00 MARKETING LIAISON, Duration: 30 day, Stop date: 06/12/17 9:00:00 CSTNotes: (Same As: Wellbutrin) Tramadol 50 mg, 1 tab, No Longer [facility] Route: PO, Drug Active 2016 Medical form: TAB, Q4H, Center Dosing Weight 75, kg, PRN Pain Score 4-6, Start date: 05/13/17 16:49:00 MARKETING LIAISON, Duration: 30 day, Stop date: 06/12/17 16:48:00 CSTNotes: Not to exceed 400mg/day. (Same As: Ultram) Protonix 40 mg, PO, No Longer [facility] Daily, # 30 Active 2017 Medical tab, 0 Center Refill(s) Wellbutrin 150 mg, PO, No Longer [facility] BID, 0 Active 2016 Medical Refill(s) Center Effexor 150 mg, PO, No Longer [facility] Daily, 0 Active 2016 Medical Refill(s) Center Tramadol 50 mg, PO, No Longer [facility] Q4-6H, PRN Active 2017 Medical Pain, # 20 tab, Center 0 Refill(s) Ondansetron 4 mg, 2 mL, No Longer [place] Route: IVP, Active 2016 Medical Drug form: INJ, Center Q6H, Dosing Weight 75, kg, PRN Nausea & Vomiting, Start date: 05/13/17 16:47:00 MARKETING LIAISON, Duration: 30 day, Stop date: 06/12/17 16:46:00 CSTNotes: (Same as: Zofran) MEDICATION WASTE Product Size: 4 mg Product Wasted: ___ mg Acetaminophen 650 mg, 2 tab, No Longer [place] Route: PO, Drug Active 2016 Medical form: TAB, Q4H, Center Dosing Weight 75, kg, PRN Pain 1-3/Temp > 100.4 F, Start date: 05/13/17 16:47:00 MARKETING LIAISON, Duration: 30 day, Stop date: 06/12/17 16:46:00 CSTNotes: Do not exceed 4 gm/day. (Same as: Tylenol) Oxycodone 5 mg, 5 mL, Inactive [place] Hydrochloride 1 Route: PO, Drug 2017 Medical MG/ML Oral form: LIQ, Center Solution ONCE, Dosing Weight 75, kg, Start date: 05/13/17 15:06:00 MARKETING LIAISON, Stop date: 05/13/17 15:06:00 CSTNotes: (Same as: 'Roxicodone) Hydromorphone 0.5 mg, 0.25 Inactive [facility] mL, Route: IV, 2016 Medical Drug form: INJ, Center Q20Min, Dosing Weight 75, kg, PRN Pain Score 7-10, Start date: 05/13/17 15:06:00 MARKETING LIAISON, Duration: 2 doses or times, Stop date: Limited # of timesNotes: Same as Dilaudid Acetaminophen 1,000 mg, Inactive [facility] Route: IVPB2016 Medical Drug form: INJ, Center ONCE, Dosing Weight 75, kg, PRN Pain Score 1-3, Start date: 05/13/17 14:25:00 MARKETING LIAISON Oxycodone 5 mg, 5 mL, Inactive [facility] Route: PO, Drug 2016 Medical form: LIQ, Q4H, Center Dosing Weight 75, kg, PRN Pain Score 4-6, Start date: 05/13/17 14:07:00 MARKETING LIAISON, Stop date: 05/14/17 0:00:00 CSTNotes: (Same as: 'Roxicodone) Ondansetron 4 mg, 2 mL, Inactive [facility] Route: IVP2016 Medical Drug form: INJ, Center ONCE, Dosing Weight 75, kg, PRN Nausea & Vomiting, Start date: 05/13/17 13:34:00 CSTNotes: (Same as: Zofran) MEDICATION WASTE Product Size: 4 mg Product Wasted: ___ mg Hydromorphone 0.5 mg, Route: Inactive [facility] IVP, Q5Min, 2016 Medical Dosing Weight Center 75, kg, PRN Pain Score 7-10, Start date: 05/13/17 13:34:00 MARKETING LIAISON, Duration: 4 doses or times, Stop date: Limited # of times Flumazenil 0.2 mg, 2 mL, Inactive [facility] Route: IVP2016 Medical Drug form: INJ, Center PRN, Dosing Weight 75, kg, PRN Benzodiazepine Reversal, Initial dose, Start date: 05/13/17 13:34:00 MARKETING LIAISON, Stop date: 05/14/17 6:00:00 CSTNotes: (Same as: Romazicon) Naloxone 0.4 mg, 1 mL, Inactive [facility] Route: IVP2016 Medical Drug form: INJ, Center Q2MIN, Dosing Weight 75, kg, PRN Narcotic Reversal, Start date: 05/13/17 13:34:00 MARKETING LIAISON, Duration: 8 doses or times, Stop date: 05/14/17 6:00:00 CSTNotes: Same as Narcan Oxycodone 5 mg, Route: Inactive 05/13[facility] PO, Drug form: 2017 Medical TAB, Q4H, Center Dosing Weight 75, kg, PRN Pain Score 4-6, Start date: 05/13/17 13:34:00 MARKETING LIAISON, Duration: 30 day, Stop date: 06/12/17 13:33:00 MARKETING LIAISON Ondansetron 4 mg, 2 mL, Inactive 05/13[facility] Route: IVP, 2016 Medical Drug form: INJ, Center ONCE, Dosing Weight 75, kg, Priority: STAT, Start date: 05/13/17 10:37:00 MARKETING LIAISON, Stop date: 05/13/17 10:37:00 CSTNotes: (Same as: Julia) MEDICATION WASTE Product Size: 4 mg Product Wasted: _0_ mg Morphine 4 mg, 1 mL, Inactive 05/13[facility] Route: IVP, 2016 Medical Drug form: Center SOLN, ONCE, Dosing Weight 75, kg, Priority: STAT, Start date: 05/13/17 10:37:00 MARKETING LIAISON, Stop date: 05/13/17 10:37:00 CSTNotes: (Same as:MORPhine Sulfate) Protonix 40 mg, Route: Inactive 05/13[facility] IVP, Drug form: 2017 Medical INJ, ONCE, Center Dosing Weight 75, kg, Priority: STAT, Start date: 05/13/17 9:36:00 MARKETING LIAISON, Stop date: 05/13/17 9:36:00 CSTNotes: For IV push reconstitute with 10 ml 0.9% sodium chloride and push over 2 minutes. (Same as: Protonix) Allergies, Adverse Reactions, Alerts Substance Category Reaction Severity Reaction Status Date Comments Source type Reported penicillins Assertion Drug Active [facility] allergy [facility] aspirin Assertion Drug Active [facility] Immunizations Immunization Date Site Status Last Comments Source Given Updated diphtheria/pertus Left completed [facility] sis, acel/tetanus 9 [facility] pneumococcal 12/25/201 Right completed [facility] 13-valent vaccine 7 [facility] haemophilus b Left completed [facility] conjugate (PRP-T) 7 [facility] meningococcal Right completed [facility] conjugate vaccine 7 [facility] pneumococcal Right completed [facility] 23-valent vaccine 7 [facility] Results Order Name Results Value Reference Date Interpretation Comments Source Range CHEM PANEL Phosphorus 3.2 2.5 - 4.5 08/20 [facility]2018 [facility] CHEM PANEL Magnesium 1.8 1.8 - 2.4 08/20 [facility] ELECTROLYT AGAP 11.0 10.0 - 08/20 [facility] 20.0 [facility] ELECTROLYT Calcium Lvl 8.6 8.5 - 10.5 08/[address] ELECTROLYT Sodium Lvl 137 135 - 145 08/20 [facility]2018 [facility] ELECTROLYT Potassium 4.0 3.5 - 5.1 08/20 [facility] ELECTROLYT BUN 18 7 - 22 08/[address] ELECTROLYT Creatinine 0.71 0.50 - 08/20 [facility] Lvl 1.40 [facility] ELECTROLYT Glucose Lvl 52 70 - 99 08/[address] ELECTROLYT Chloride Lvl 105 95 - 109 08/[address] ELECTROLYT CO2 25 24 - 32 08/[address] ELECTROLYT eGFR 117 08/20 Result [facility] Comment: The Medical eGFR is Center calculated using the CKD-EPI formula. In most young, healthy individuals the eGFR will be >90 mL/min/1.73m2 . The eGFR declines with age. An eGFR of 60-89 may be normal in some populations, particularly the elderly, for whom the CKD-EPI formula has not been extensively validated. Use of the eGFR is not recommended in the following populations:< br/>
Tanna viduals with unstable creatinine concentration s, including patients and those with serious co-morbid conditions.<b r/>
Patie nts with extremes in muscle mass or diet.

The data above are obtained from the National Kidney Disease Education Program (NKDEP) which additionally recommends that when the eGFR is used in patients with extremes of body mass index for purposes of drug dosing, the eGFR should be multiplied by the estimated BMI. TOXICOLOGY Vanco Tr TND 0500 08/20 [facility] TOXICOLOGY Vanco Tr 17.7 08/20 [facility] CHEM PANEL Phosphorus 3.4 2.5 - 4.5 08/19 [facility] CHEM PANEL Magnesium 1.8 1.8 - 2.4 08/19 [facility] ELECTROLYT AGAP 10.4 10.0 - 08/19 [facility] 20.0 [facility] ELECTROLYT eGFR 115 08/19 Result [facility] Comment: The Medical eGFR is Center calculated using the CKD-EPI formula. In most young, healthy individuals the eGFR will be >90 mL/min/1.73m2 . The eGFR declines with age. An eGFR of 60-89 may be normal in some populations, particularly the elderly, for whom the CKD-EPI formula has not been extensively validated. Use of the eGFR is not recommended in the following populations:< br/>
Tanna viduals with unstable creatinine concentration s, including patients and those with serious co-morbid conditions.<b r/>
Patie nts with extremes in muscle mass or diet.

The data above are obtained from the National Kidney Disease Education Program (NKDEP) which additionally recommends that when the eGFR is used in patients with extremes of body mass index for purposes of drug dosing, the eGFR should be multiplied by the estimated BMI. ELECTROLYT Calcium Lvl 8.6 8.5 - 10.5 08/19 [facility] ELECTROLYT Sodium Lvl 139 135 - 145 08/19 [facility] ELECTROLYT Creatinine 0.73 0.50 - 08/19 [facility] Lvl 1.40 [facility] ELECTROLYT CO2 29 24 - 32 08/19 [facility]2018 [facility] ELECTROLYT Potassium 3.4 3.5 - 5.1 08/19 [facility] ELECTROLYT Chloride Lvl 103 95 - 109 08/19 [facility] ELECTROLYT Glucose Lvl 80 70 - 99 08/19 [facility] ELECTROLYT BUN 20 7 - 22 08/19 [facility] HEMATOLOGY Segs 55.3 45.0 - 08/19 [place] 75.0 [facility] HEMATOLOGY Lymphocytes 21.7 20.0 - 08/19 [place] 40.0 [facility] HEMATOLOGY Lymphocytes 1.8 1.0 - 5.5 08/19 [facility] HEMATOLOGY Eosinophils 3.8 0.0 - 4.0 08/19 [facility] HEMATOLOGY Basophils 1.7 0.0 - 1.0 08/19 [facility] HEMATOLOGY Neutrophils 4.6 1.5 - 8.1 08/19 [facility] HEMATOLOGY Monocytes 17.5 2.0 - 12.0 08/19 [facility]2018 [facility] HEMATOLOGY Eosinophils 0.3 0.0 - 0.5 08/19 [facility] HEMATOLOGY Basophils # 0.1 0.0 - 0.2 08/19 [facility] HEMATOLOGY Monocytes # 1.4 0.0 - 0.8 08/19 [facility] HEMATOLOGY Hct 20.8 42.0 - 08/19 [place] 54.0 [facility] HEMATOLOGY Hgb 7.0 14.0 - 08/19 Result [facility] . Comment: Medical Critical Center Result(s) called to Jacqui Winslow at 08/19/2018 05:42 by Tata. Read back OK. HEMATOLOGY WBC 8.3 3.7 - 10.4 08/19 [facility] HEMATOLOGY RBC 2.31 4.70 - 08/19 [place] 6.10 [facility] HEMATOLOGY Platelet 496 133 - 450 08/19 [facility] HEMATOLOGY RDW 17.0 11.5 - 08/19 [facility] 14.5 [facility] HEMATOLOGY MCV 90.1 80.0 - 08/19 [facility] 94.0 [facility] HEMATOLOGY MCH 30.2 27.0 - 08/19 [place] 31.0 [facility] HEMATOLOGY MCHC 33.5 32.0 - 08/19 [place] 36.0 2019 [facility] HEMATOLOGY MPV 8.7 7.4 - 10.4 08/19 [facility]2018 [facility] CHEM PANEL Magnesium 1.8 1.8 - 2.4 08/18 [facility] CHEM PANEL Phosphorus 3.6 2.5 - 4.5 08/18 [facility] CHEM PANEL eGFR 116 08/18 Result Comment: The Medical eGFR is Center calculated using the CKD-EPI formula. In most young, healthy individuals the eGFR will be >90 mL/min/1.73m2 . The eGFR declines with age. An eGFR of 60-89 may be normal in some populations, particularly the elderly, for whom the CKD-EPI formula has not been extensively validated. Use of the eGFR is not recommended in the following populations:< br/>
Tanna viduals with unstable creatinine concentration s, including patients and those with serious co-morbid conditions.<b r/>
Patie nts with extremes in muscle mass or diet.

The data above are obtained from the National Kidney Disease Education Program (NKDEP) which additionally recommends that when the eGFR is used in patients with extremes of body mass index for purposes of drug dosing, the eGFR should be multiplied by the estimated BMI. CHEM PANEL AGAP 8.5 10.0 - 08/18 [facility] 20.0 [facility] CHEM PANEL CO2 29 24 - 32 08/18 2018 [facility] CHEM PANEL Chloride Lvl 105 95 - 109 08/18 2018 [facility] CHEM PANEL Calcium Lvl 8.7 8.5 - 10.5 08/18 2018 [facility] CHEM PANEL BUN 19 7 - 22 08/18 2018 [facility] CHEM PANEL Potassium 3.5 3.5 - 5.1 08/18 [facility] CHEM PANEL Sodium Lvl 139 135 - 145 08/18 2018 [facility] CHEM PANEL Glucose Lvl 50 70 - 99 08/18 Result Comment: Medical Critical Center Result(s) called to Danita feng 08/18/2018 06:31 byJP. Read back OK. CHEM PANEL Creatinine 0.72 0.50 - 08/18 [facility] Lvl 1.40 [facility] HEMATOLOGY MCHC 34.7 32.0 - 08/18 [place] 36.0 [facility] HEMATOLOGY MPV 8.6 7.4 - 10.4 08/18 [facility] HEMATOLOGY Platelet 539 133 - 450 08/18 [facility] HEMATOLOGY RDW 17.4 11.5 - 08/18 [place] 14.5 /2019 [facility] HEMATOLOGY Hct 20.1 42.0 - 08/18 [place] 54.0 /2019 [facility] HEMATOLOGY Hgb 7.0 14.0 - 08/18 Result [facility] 18.0 Comment: Medical Critical Center Result(s) called to Taisha feng 08/18/2018 06:07 by RM. Read back OK. HEMATOLOGY RBC 2.22 4.70 - 08/18 [place] 6.10 [facility] HEMATOLOGY MCH 31.5 27.0 - 08/18 [place] 31.0 [facility] HEMATOLOGY MCV 90.7 80.0 - 08/18 [place] 94.0 [facility] HEMATOLOGY WBC 9.7 3.7 - 10.4 08/18 [facility] HEMATOLOGY Segs 61.6 45.0 - 08/18 [place] 75.0 [facility] HEMATOLOGY Eosinophils 3.8 0.0 - 4.0 08/18 [facility] HEMATOLOGY Monocytes 13.7 2.0 - 12.0 08/18 [facility] HEMATOLOGY Lymphocytes 19.1 20.0 - 08/18 [place] 40.0 [facility] HEMATOLOGY Basophils # 0.2 0.0 - 0.2 08/18 [facility] HEMATOLOGY Basophils 1.8 0.0 - 1.0 08/18 [facility] HEMATOLOGY Eosinophils 0.4 0.0 - 0.5 08/18 [facility] /2018 [facility] HEMATOLOGY Monocytes # 1.3 0.0 - 0.8 08/18 [facility] HEMATOLOGY Lymphocytes 1.9 1.0 - 5.5 08/18 [facility] HEMATOLOGY Neutrophils 6.0 1.5 - 8.1 08/18 [facility] TOXICOLOGY Vanco Tr TND 0500 08/18 [facility]2018 [facility] TOXICOLOGY Vanco Tr 11.4 08/18 [facility]2018 [facility] MOLECULAR vanB Not Detected Not 08/17 [facility] DIAGNOSTIC Vancomycin (08/17/18 10:12 AM) [facility] MOLECULAR Stephane Not Detected Not 08/17 [facility] DIAGNOSTIC Vancomycin (08/17/18 10:12 AM) Detected [facility] MOLECULAR mecA Not Detected Not 08/17 [facility] DIAGNOSTIC Methicillin (08/17/18 10:12 AM) Detected [facility] MOLECULAR Listeria Not Detected Not 08/17 [facility] DIAGNOSTIC spp. (08/17/18 10:12 AM) Detected [facility] MOLECULAR Streptococcu Not Detected Not 08/17 [facility] DIAGNOSTIC s spp. (08/17/18 10:12 AM) Detected [facility] MOLECULAR Staphylococc Detected Not 08/17 [facility] DIAGNOSTIC us spp. *ABN* Detected /2018 [facility] (08/17/18 10:12 AM) [place] MOLECULAR E. faecium Not Detected Not 08/17 [facility] DIAGNOSTIC (08/17/18 10:12 AM) Detected [facility] MOLECULAR E. faecalis Not Detected Not 08/17 [facility] DIAGNOSTIC (08/17/18 10:12 AM) Detected [facility] MOLECULAR S. Not Detected Not 08/17 [facility] DIAGNOSTIC lugdunensis (08/17/18 10:12 AM) Detected [facility] MOLECULAR S. pyogenes Not Detected Not 08/17 [facility] DIAGNOSTIC (08/17/18 10:12 AM) Detected [facility] MOLECULAR S. Not Detected Not 08/17 [facility] DIAGNOSTIC pneumoniae (08/17/18 10:12 AM) Detected [facility] MOLECULAR S. Not Detected Not 08/17 [facility] DIAGNOSTIC agalactiae (08/17/18 10:12 AM) Detected [facility] MOLECULAR S. anginosus Not Detected Not 08/17 [facility] DIAGNOSTIC grp (08/17/18 10:12 AM) Detected [facility] MOLECULAR S. Not Detected Not 08/17 [facility] DIAGNOSTIC epidermidis (08/17/18 10:12 AM) Detected [facility] MOLECULAR S. aureus Not Detected Not 08/17 [facility] DIAGNOSTIC (08/17/18 10:12 AM) Detected [facility] HEMATOLOGY MPV 8.9 7.4 - 10.4 08/17 [facility] /2018 [facility] HEMATOLOGY Platelet 578 133 - 450 08/17 [place] /2018 [facility] HEMATOLOGY MCV 91.3 80.0 - 08/17 [place] 94.0 /2018 [facility] HEMATOLOGY MCHC 33.5 32.0 - 08/17 [place] 36.0 [facility] HEMATOLOGY RDW 17.1 11.5 - 08/17 [facility] 14.5 /2019 [facility] HEMATOLOGY MCH 30.6 27.0 - 08/17 [place] 31.0 /2019 [facility] HEMATOLOGY WBC 15.2 3.7 - 10.4 08/17 /2018 [facility] HEMATOLOGY Hct 20.9 42.0 - 08/17 [place] 54.0 /2019 [facility] HEMATOLOGY RBC 2.28 4.70 - 08/17 [place] 6.10 /2019 [facility] HEMATOLOGY Hgb 7.0 14.0 - 08/17 Result [facility] 18.0 Comment: Medical Critical Center Result(s) called to Nick Correa_ ping 08/17/2018 06:17 by . Read back OK. HEMATOLOGY Segs 73.7 45.0 - 08/17 [place] 75.0 /2019 [facility] HEMATOLOGY Lymphocytes 15.4 20.0 - 08/17 [place] 40.0 [facility] HEMATOLOGY Eosinophils 1.4 0.0 - 4.0 08/17 /2018 [facility] HEMATOLOGY Monocytes 8.5 2.0 - 12.0 08/17 [facility] HEMATOLOGY Lymphocytes 2.3 1.0 - 5.5 08/17 [facility] # /2018 [facility] HEMATOLOGY Basophils 1.0 0.0 - 1.0 08/17 [facility] HEMATOLOGY Neutrophils 11.2 1.5 - 8.1 08/17 [facility] /2018 [facility] HEMATOLOGY Basophils # 0.2 0.0 - 0.2 08/17 [facility] HEMATOLOGY Eosinophils 0.2 0.0 - 0.5 08/17 [facility] /2019 [facility] HEMATOLOGY Monocytes # 1.3 0.0 - 0.8 08/17 [facility] URINE AND UA Leuk Est Negative Negative 08/16 [facility] (08/16/18 5:25 PM) [facility] URINE AND UA Nitrite Negative Negative 08/16 [facility] (08/16/18 5:25 PM) /2018 [facility] URINE AND UA WBC 2 0 - 5 08/16 [facility] /2018 [facility] URINE AND UA RBC <1 0 - 2 08/16 [facility] URINE AND UA Sq Epi Occasional Few /LPF 08/16 [facility] STOOL /LPF /2018 [facility] URINE AND UA Ketones Negative Negative 08/16 [facility] STOOL *NA* /2018 [facility] (08/16/18 5:25 PM) Center URINE AND UA Glucose Negative Negative 08/16 [facility] STOOL *NA* [facility] (08/16/18 5:25 PM) Center URINE AND UA Bili Negative Negative 08/16 [facility] *NA* [facility] (08/16/18 5:25 PM) [place] URINE AND UA <1.0 0.1 - 1.0 08/16 [facility] Urobilinogen /2018 [facility] URINE AND UA Blood Negative Negative 08/16 [facility] (08/16/18 5:25 PM) /2018 [facility] URINE AND UA Color Light Yellow Yellow 08/16 [facility] *NA* [facility] (08/16/18 5:25 PM) [place] URINE AND UA pH 8.0 5.0 - 8.0 08/16 [facility] /2018 [facility] URINE AND UA Protein Negative Negative 08/16 [facility] (08/16/18 5:25 PM) [facility] URINE AND UA Turbidity Clear Clear 08/16 [facility] (08/16/18 5:25 PM) [facility] URINE AND UA Spec Grav 1.009 <=1.030 08/16 [facility] /[address] [place] [address] CHEM PANEL Lactic Acid 1.6 0.5 - 2.2 08/16 [facility]2018 [facility] CHEM PANEL Lactic Acid 1.3 0.5 - 2.2 08/[address] CHEM PANEL Lactic Acid 2.5 0.5 - 2.2 08/13 [facility] /[address] [place] [address] HEMATOLOGY PB Smear Peripheral 08/13 [facility] Path blood /2018 Medical smear Center shows hypochromi c normocytic anemia with anisopoiki locytosis, mild polychroma lizbeth, leukocytos is with reactive PMNs, and marked thrombocyt osis (platelet coint 1,059k) Impression : marked thrombocyt osis, most consistent with transient (reactive) thrombocyt osis in this 43 y/o male with candidemia . Platelet count on 08/06/2018 (7 days prior) was 556k CPT: 74698 URINE AND UA Leuk Est Negative Negative 08/05 [facility] (08/05/18 5:54 PM) /2018 [facility] URINE AND UA Hyal Cast 1 0 - 2 08/05 [facility] /2018 [facility] URINE AND UA RBC 14 0 - 2 08/05 [facility] URINE AND UA Mucus Few /LPF None Seen 08/05 [facility] STOOL /LPF /2018 [facility] URINE AND Micro? Performed 08/05 [facility] (08/05/18 5:54 PM) [facility] URINE AND UA WBC 11 0 - 5 08/05 [facility] [address] [place] [address] URINE AND UA Nitrite Negative Negative 08/05 [facility] (08/05/18 5:54 PM) [facility] URINE AND UA <1.0 0.1 - 1.0 08/05 [facility] Urobilinogen /2018 [facility] URINE AND UA Ketones Negative Negative 08/05 [facility] *NA* /2018 [facility] (08/05/18 5:54 PM) [place] URINE AND UA Blood Moderate Negative 08/05 [facility] *ABN* [facility] (08/05/18 5:54 PM) [place] URINE AND UA Bili Negative Negative 08/05 [facility] *NA* /2018 [facility] (08/05/18 5:54 PM) [place] URINE AND UA Glucose Negative Negative 08/05 [facility] *NA* [facility] (08/05/18 5:54 PM) [place] URINE AND UA Protein 30 mg/dL Negative 08/05 [facility] mg/dL [facility] URINE AND UA Spec Grav 1.018 <=1.030 08/05 [facility] [address] [place] [address] URINE AND UA pH 5.0 5.0 - 8.0 08/05 [facility] /[address] [place] [address] URINE AND UA Turbidity Slight Clear 08/05 [facility] *ABN* [facility] (08/05/18 5:54 PM) [place] URINE AND UA Color Yellow Yellow 08/05 [facility] *NA* /2018 [facility] (08/05/18 5:54 PM) [place] HEMATOLOGY Atypical 1.0 <=0.0 % 08/05 [facility] Lymphs [facility] HEMATOLOGY Metamyelocyt 1.0 0.0 - 1.0 08/05 [facility] es [facility] HEMATOLOGY Bands 2.0 0.0 - 11.0 08/[address] CHEM PANEL Procalcitoni 1.29 0.00 - 08/03 [facility] n Lvl 0.10 [facility] URINE CHEM U Osmolality 781 300 - 800 08/03 [facility] [address] [place] [address] CHEM PANEL Osmolality 280 280 - 300 08/[address] URINE CHEM U Sodium 5 08/[address] TOXICOLOGY Valproic 77 50 - 100 07/30 [facility] Acid Lvl /2018 [facility] CHEM PANEL Osmolality 289 280 - 300 07/[address] IMMUNOLOGY Prealbumin 15.9 18.0 - 07/30 [place] 45.0 /2018 [facility] IMMUNOLOGY C-REACTIVE 84.2 <=2.9 mg/L 07/30 [facility] PROTEIN [address] URINE CHEM U Osmolality 962 300 - 800 07/[address] URINE CHEM U Sodium 40 07/[address] IMMUNOLOGY C-REACTIVE 97.6 <=2.9 mg/L 07/[address] CHEM PANEL Bili Total 0.4 0.2 - 1.3 07/[address] CHEM PANEL B/C Ratio 24 6 - 25 07/[address] CHEM PANEL Globulin 4.0 2.7 - 4.2 07/[address] CHEM PANEL A/G Ratio 0.9 0.7 - 1.6 07/[address] CHEM PANEL Total 7.7 6.4 - 8.4 07/[address] CHEM PANEL Albumin Lvl 3.7 3.5 - 5.0 07/[address] CHEM PANEL ALT 51 0 - 65 07/[address] CHEM PANEL AST 28 0 - 37 07/[address] CHEM PANEL Alk Phos 70 39 - 136 07/[address] DRUG U Samira Scr Negative Negative 07/24 [place] SCREEN *NA* Medical (07/23/18 9:17 PM) Center DRUG U Cannab Scr Negative Negative 07/24 [place] SCREEN *NA* Medical (07/23/18 9:17 PM) Center DRUG U Cocaine Positive Negative 07/24 [facility] SCREEN Scr *ABN* Medical (07/23/18 9:17 PM) Center DRUG U Benzodiaz Negative Negative 07/24 [facility] SCREEN Scr *NA* Medical (07/23/18 9:17 PM) Center DRUG U Negative Negative 07/24 [facility] SCREEN Phencyclidin *NA* Medical e Scr (07/23/18 9:17 PM) Center DRUG U Opiate Scr Negative Negative 07/24 [place] SCREEN *NA* /2018 [facility] (07/23/18 9:17 PM) [place] DRUG UDS Note See Note 07/24 [place] SCREEN (07/23/18 9:17 PM) /2018 [facility] DRUG U Amph Scr Negative Negative 07/24 [facility] SCREEN *NA* /2018 [facility] (07/23/18 9:17 PM) [place] CHEM PANEL AST 25 0 - 37 07/[address] CHEM PANEL ALT 49 0 - 65 07/[address] CHEM PANEL Albumin Lvl 4.0 3.5 - 5.0 07/[address] CHEM PANEL Total 8.0 6.4 - 8.4 07/24 [facility] Protein 2018 [facility] CHEM PANEL Bili 0.2 0.0 - 1.0 07/24 [facility] Indirect /[address] [place] [address] CHEM PANEL Alk Phos 67 39 - 136 07/[address] CHEM PANEL Bili Direct 0.1 0.0 - 0.3 07/[address] CHEM PANEL Bili Total 0.3 0.2 - 1.3 07/[address] CHEM PANEL Globulin 4.0 2.7 - 4.2 07/[address] CHEM PANEL A/G Ratio 1.0 0.7 - 1.6 07/[address] TOXICOLOGY Etoh (%) <0.003 % 07/[address] TOXICOLOGY Ethanol Lvl <3.0 mg/dL 07/[address] TOXICOLOGY Salicylate <1.7 0.0 - 30.0 07/24 [facility] /[address] [place] [address] TOXICOLOGY Acetaminoph <2 - 07/24 [facility] (07/23/18 6:41 PM) /2018 [facility] CARDIAC Total CK 129 12 - 191 07/23 [facility] HEMATOLOGY MCHC 32.1 32.0 - 07/23 36.0 /2018 [place] HEMATOLOGY Platelet 584 133 - 450 07/23 [facility] HEMATOLOGY MPV 8.0 7.4 - 10.4 07/23 [facility] HEMATOLOGY RDW 16.2 11.5 - 07/23 14.5 /2018 [facility] HEMATOLOGY WBC 11.2 3.7 - 10.4 07/23 /2018 [facility] HEMATOLOGY RBC 3.40 4.70 - 07/23 MH 6.10 /2018 [facility] HEMATOLOGY Hgb 10.1 14.0 - 07/23 MH 18.0 /2018 [facility] HEMATOLOGY Hct 31.5 42.0 - 07/23 [facility] 54.0 /2018 [facility] HEMATOLOGY MCV 92.8 80.0 - 07/23 [facility] 94.0 /2018 [facility] HEMATOLOGY MCH 29.8 27.0 - 07/23 [facility] 31.0 /2018 [facility] HEMATOLOGY Eosinophils 0.1 0.0 - 0.5 07/23 MH # /2019 [facility] HEMATOLOGY Basophils # 0.1 0.0 - 0.2 07/23 MH /2018 [facility] HEMATOLOGY Segs 73.0 45.0 - 07/23 MH 75.0 /2018 [facility] HEMATOLOGY Eosinophils 0.8 0.0 - 4.0 07/23 /2018 [facility] HEMATOLOGY Monocytes 9.6 2.0 - 12.0 07/23 /2018 [facility] HEMATOLOGY Lymphocytes 15.8 20.0 - 07/23 MH 40.0 [facility] HEMATOLOGY Neutrophils 8.2 1.5 - 8.1 07/23 MH # /2019 [facility] HEMATOLOGY Basophils 0.8 0.0 - 1.0 07/23 MH /2018 [facility] HEMATOLOGY Monocytes # 1.1 0.0 - 0.8 07/23 MH /2018 [facility] HEMATOLOGY Lymphocytes 1.8 1.0 - 5.5 07/23 MH # /2018 [facility] TOXICOLOGY Salicylate <1.7 0.0 - 30.0 07/23 Lvl /2018 [facility] TOXICOLOGY Acetaminoph <2 10 - 20 07/23 Lvl (07/23/18 3:54 AM) [facility] DRUG U Cannab Scr Negative Negative 07/23 SCREEN *NA* /2018 [facility] (07/22/18 10:35 PM) DRUG U Opiate Scr Negative Negative 07/23 SCREEN *NA* [facility] (07/22/18 10:35 PM) DRUG U Cocaine Positive Negative 07/23 SCREEN Scr *ABN* [facility] (07/22/18 10:35 PM) DRUG U Negative Negative 07/23 SCREEN Phencyclidin *NA* [facility] e Scr (07/22/18 10:35 PM) DRUG U Benzodiaz Negative Negative 07/23 SCREEN Scr *NA* [facility] (07/22/18 10:35 PM) DRUG U Samira Scr Negative Negative 07/23 [facility] SCREEN *NA* /2018 [facility] (07/22/18 10:35 PM) DRUG U Amph Scr Positive Negative 07/23 [facility] SCREEN *ABN* [facility] (07/22/18 10:35 PM) DRUG UDS Note See Note 07/23 [facility] SCREEN (07/22/18 10:35 PM) /2018 [facility] URINE AND UA Glucose Negative Negative 07/23 [facility] (07/22/18 10:35 PM) [place] URINE AND UA Hyal Cast 6 0 - 2 07/23 [facility] STOOL /2018 [place] URINE AND UA Mucus Few /LPF None Seen 07/23 [facility] STOOL /LPF /2018 [facility] URINE AND UA RBC 1 0 - 2 07/23 [facility] /2018 [facility] URINE AND UA pH 6.0 5.0 - 8.0 07/23 [facility] /2018 [facility] URINE AND UA Protein Trace Negative 07/23 [facility] *ABN* [place] (07/22/18 10:35 PM) URINE AND UA Turbidity Clear Clear 07/23 [facility] (07/22/18 10:35 PM) [place] URINE AND UA Spec Grav >=1.030 <=1.030 07/23 [facility] *ABN* /2018 [facility] (07/22/18 10:35 PM) URINE AND UA Color Yellow Yellow 07/23 [facility] *NA* /2018 [facility] (07/22/18 10:35 PM) URINE AND UA Nitrite Negative Negative 07/23 [facility] (07/22/18 10:35 PM) [place] URINE AND UA WBC 2 0 - 5 07/23 [facility] [place] URINE AND UA Leuk Est Negative Negative 07/23 [facility] (07/22/18 10:35 PM) [facility] URINE AND UA Sq Epi None Seen Few 07/23 [facility] (07/22/18 10:35 PM) [place] URINE AND UA Ketones Trace Negative 07/23 [facility] *ABN* [place] (07/22/18 10:35 PM) URINE AND UA Bili Small Negative 07/23 [facility] *ABN* [place] (07/22/18 10:35 PM) URINE AND UA 0.2 0.1 - 1.0 07/23 [facility] Urobilinogen /2018 [facility] URINE AND UA Blood Negative Negative 07/23 [facility] (07/22/18 10:35 PM) [facility] ELECTROLYT AGAP 12.1 10.0 - 07/23 ES 20.0 [facility] ELECTROLYT B/C Ratio 24 6 - 25 07/23 [facility] ELECT[facility]OLYT Globulin 4.3 2.7 - 4.2 07/23 [place] [facility] A/G Ratio 1.0 0.7 - 1.6 07/23 [place] ELECT[facility]OLYT Bili Total 0.6 0.2 - 1.3 07/23 [place] ELECTROLYT ALT 48 0 - 65 07/23 [facility] ELECTROLYT AST 20 0 - 37 07/23 [facility] ELECT[facility]OLYT Alk Phos 70 39 - 136 07/23 [facility] ELECTROLYT Total 8.5 6.4 - 8.4 07/23 [facility] ELECTROLYT Albumin Lvl 4.2 3.5 - 5.0 07/23 [facility] ELECTROLYT eGFR 73 07/23 Comment: The [facility] eGFR is calculated using the CKD-EPI formula. In most young, healthy individuals the eGFR will be >90 mL/min/1.73m2 . The eGFR declines with age. An eGFR of 60-89 may be normal in some populations, particularly the elderly, for whom the CKD-EPI formula has not been extensively validated. Use of the eGFR is not recommended in the following populations:< br/>
Tanna viduals with unstable creatinine concentration s, including patients and those with serious co-morbid conditions.<b r/>
Patie nts with extremes in muscle mass or diet.

The data above are obtained from the National Kidney Disease Education Program (NKDEP) which additionally recommends that when the eGFR is used in patients with extremes of body mass index for purposes of drug dosing, the eGFR should be multiplied by the estimated BMI. ELECTROLYT Potassium 3.1 3.5 - 5.1 07/23 ES Lvl [facility] ELECTROLYT Chloride Lvl 102 95 - 109 07/23 [facility] ELECTROLYT CO2 30 24 - 32 07/23 [facility] ELECTROLYT Calcium Lvl 9.4 8.5 - 10.5 07/23 [facility] ELECTROLYT Glucose Lvl 104 70 - 99 07/23 [facility] ELECTROLYT Creatinine 1.22 0.50 - 07/23 ES Lvl 1.40 /2018 [facility] ELECTROLYT BUN 29 7 - 22 07/23 ES /2018 [facility] ELECTROLYT Sodium Lvl 141 135 - 145 07/23 ES [facility] HEMATOLOGY PT 13.3 12.0 - 07/23 MH 14.7 /2018 [place] HEMATOLOGY INR 1.03 0.85 - 07/23 MH 1.17 /2018 [place] HEMATOLOGY MPV 8.4 7.4 - 10.4 07/23 [place] HEMATOLOGY RDW 16.6 11.5 - 07/23 MH 14.5 /2018 [place] HEMATOLOGY Platelet 550 133 - 450 07/23 [place] HEMATOLOGY WBC 16.3 3.7 - 10.4 07/23 [place] HEMATOLOGY Hct 33.4 42.0 - 07/23 54.0 /2018 [place] HEMATOLOGY MCH 30.5 27.0 - 07/23 MH 31.0 /2018 [place] HEMATOLOGY MCV 92.8 80.0 - 07/23 94.0 [place] HEMATOLOGY MCHC 32.9 32.0 - 07/23 36.0 [place] HEMATOLOGY Hgb 11.0 14.0 - 07/23 MH 18.0 /2018 [place] HEMATOLOGY RBC 3.59 4.70 - 07/23 MH 6.10 /2018 [place] HEMATOLOGY PTT 20.4 22.9 - 07/23 35.8 /2018 [facility] HEMATOLOGY Schistocyte 1-3 per HPF None Seen 07/23 (07/22/18 10:29 PM) /2018 [facility] HEMATOLOGY Basophils # 0.1 0.0 - 0.2 07/23 [place] HEMATOLOGY Monocytes # 1.2 0.0 - 0.8 07/23 [place] HEMATOLOGY Segs 81.5 45.0 - 07/23 MH 75.0 /2018 [place] HEMATOLOGY Lymphocytes 10.1 20.0 - 07/23 MH 40.0 [place] HEMATOLOGY Eosinophils 0.3 0.0 - 4.0 07/23 [place] HEMATOLOGY Monocytes 7.5 2.0 - 12.0 07/23 [place] HEMATOLOGY Basophils 0.6 0.0 - 1.0 07/23 [place] HEMATOLOGY Lymphocytes 1.6 1.0 - 5.5 07/23 MH # /2018 [place] HEMATOLOGY Neutrophils 13.3 1.5 - 8.1 07/23 MH # /2018 [facility] TOXICOLOGY Valproic 13 50 - 100 07/23 Acid Lvl /2018 [facility] TOXICOLOGY Valproic <3 50 - 100 07/22 Acid Lvl /2018 [facility] URINE AND UA RBC 1 0 - 2 07/22 STOOL [place] URINE AND UA <=1.0 0.1 - 1.0 07/22 [facility] Urobilinogen mg/dL /2018 [facility] URINE AND UA Blood Negative Negative 07/22 [facility] (07/21/18 8:57 PM) [place] URINE AND UA Bili Negative Negative 07/22 [facility] *NA* /2018 [facility] (07/21/18 8:57 PM) URINE AND UA Nitrite Negative Negative 07/22 [facility] (07/21/18 8:57 PM) [place] URINE AND UA Spec Grav 1.029 <=1.030 07/22 [facility]OL [place] URINE AND UA Turbidity Clear Clear 07/22 [facility] (07/21/18 8:57 PM) [place] URINE AND UA pH 6.0 5.0 - 8.0 07/22 [facility] [place] URINE AND UA Ketones 20 mg/dL Negative 07/22 [facility] mg/dL [place] URINE AND UA Glucose Negative Negative 07/22 [facility] *NA* [facility] (07/21/18 8:57 PM) URINE AND UA Protein 30 mg/dL Negative 07/22 [facility] mg/dL [facility] URINE AND UA WBC 3 0 - 5 07/22 [facility]OL [place] URINE AND UA Leuk Est Negative Negative 07/22 [facility] (07/21/18 8:57 PM) [place] URINE AND UA Sq Epi Few /LPF Few /LPF 07/22 ST[facility]OL [place] URINE AND UA Color Laura 07/22 STOOL [facility] CHEM PANEL Lipase Lvl 97 73 - 393 07/22 [facility] CHEM PANEL A/G Ratio 1.0 0.7 - 1.6 07/22 [facility] CHEM PANEL Globulin 4.3 2.7 - 4.2 07/22 [facility] CHEM PANEL B/C Ratio 21 6 - 25 07/22 [facility] CHEM PANEL AGAP 15.2 10.0 - 07/22 MH 20.0 [facility] CHEM PANEL eGFR 78 07/22 Result Comment: The [facility] eGFR is calculated using the CKD-EPI formula. In most young, healthy individuals the eGFR will be >90 mL/min/1.73m2 . The eGFR declines with age. An eGFR of 60-89 may be normal in some populations, particularly the elderly, for whom the CKD-EPI formula has not been extensively validated. Use of the eGFR is not recommended in the following populations:< br/>
Tanna viduals with unstable creatinine concentration s, including patients and those with serious co-morbid conditions.<b r/>
Patie nts with extremes in muscle mass or diet.

The data above are obtained from the National Kidney Disease Education Program (NKDEP) which additionally recommends that when the eGFR is used in patients with extremes of body mass index for purposes of drug dosing, the eGFR should be multiplied by the estimated BMI. CHEM PANEL AST 24 0 - 37 07/22 [facility] CHEM PANEL Albumin Lvl 4.1 3.5 - 5.0 07/22 [facility] CHEM PANEL Alk Phos 65 39 - 136 07/22 [facility] CHEM PANEL Bili Total 0.4 0.2 - 1.3 07/22 [facility] CHEM PANEL ALT 44 0 - 65 07/22 [facility] CHEM PANEL Total 8.4 6.4 - 8.4 07/22 [facility] CHEM PANEL Creatinine 1.16 0.50 - 07/22 MH Lvl 1.40 [facility] CHEM PANEL Glucose Lvl 66 70 - 99 07/22 [facility] CHEM PANEL BUN 24 7 - 22 07/22 [facility] CHEM PANEL Calcium Lvl 9.2 8.5 - 10.5 07/22 [facility] CHEM PANEL CO2 25 24 - 32 07/22 [facility] CHEM PANEL Chloride Lvl 102 95 - 109 07/22 [facility] CHEM PANEL Potassium 3.2 3.5 - 5.1 07/22 [facility] Lvl /2018 [facility] CHEM PANEL Sodium Lvl 139 135 - 145 07/22 [facility] HEMATOLOGY MPV 8.4 7.4 - 10.4 07/22 [facility] HEMATOLOGY MCV 93.8 80.0 - 07/22 MH 94.0 /2018 [facility] HEMATOLOGY MCH 30.7 27.0 - 07/22 MH 31.0 [facility] HEMATOLOGY Hct 31.4 42.0 - 07/22 MH 54.0 /2019 [facility] Hgb 10.3 14.0 - 07/22 MH 18.0 2019 [facility] Platelet 625 133 - 450 07/22 [facility] RDW 16.1 11.5 - 07/22 14.5 /2018 [facility] MCHC 32.7 32.0 - 07/22 MH 36.0 [facility] RBC 3.35 4.70 - 07/22 MH 6.10 [facility] WBC 10.7 3.7 - 10.4 07/22 [facility] Neutrophils 7.3 1.5 - 8.1 07/22 [facility] HEMATOLOGY Basophils 0.3 0.0 - 1.0 07/22 [facility] Monocytes # 1.6 0.0 - 0.8 07/22 [facility] Lymphocytes 1.8 1.0 - 5.5 07/22 [facility] Eosinophils 0.1 0.0 - 4.0 07/22 [facility] Monocytes 14.5 2.0 - 12.0 07/22 [facility] Segs 68.0 45.0 - 07/22 75.0 [facility] Lymphocytes 17.1 20.0 - 07/22 40.0 [facility] CHEM PANEL eGFR 107 07/17 Result Comment: The Medical eGFR is Center calculated using the CKD-EPI formula. In most young, healthy individuals the eGFR will be >90 mL/min/1.73m2 . The eGFR declines with age. An eGFR of 60-89 may be normal in some populations, particularly the elderly, for whom the CKD-EPI formula has not been extensively validated. Use of the eGFR is not recommended in the following populations:< br/>
Tanna viduals with unstable creatinine concentration s, including patients and those with serious co-morbid conditions.<b r/>
Patie nts with extremes in muscle mass or diet.

The data above are obtained from the National Kidney Disease Education Program (NKDEP) which additionally recommends that when the eGFR is used in patients with extremes of body mass index for purposes of drug dosing, the eGFR should be multiplied by the estimated BMI. CHEM PANEL BUN 23 7 - 22 07/17 [facility] CHEM PANEL Sodium Lvl 138 135 - 145 07/17 [facility] CHEM PANEL Creatinine 0.88 0.50 - 02 [place] Lvl 1.40 /2018 [facility] CHEM PANEL Potassium 3.9 3.5 - 5.1 07/17 [facility] Lvl /2018 [facility] CHEM PANEL Calcium Lvl 7.9 8.5 - 10.5 07/17 [facility]2018 [facility] CHEM PANEL Glucose Lvl 60 70 - 99 07/17 2018 [facility] CHEM PANEL CO2 25 24 - 32 07/17 2018 [facility] CHEM PANEL Chloride Lvl 105 95 - 109 07/17 2018 [facility] CHEM PANEL AGAP 11.9 10.0 - 07/17 [place] 20.0 [facility] CHEM PANEL Magnesium 2.4 1.8 - 2.4 07/17 [facility] Lvl /2018 [facility] CHEM PANEL Phosphorus 3.5 2.5 - 4.5 07/17 2018 [facility] HEMATOLOGY MPV 7.9 7.4 - 10.4 07/17 [facility] HEMATOLOGY RDW 16.2 11.5 - 07/17 [place] 14.5 /2019 [facility] HEMATOLOGY MCHC 33.6 32.0 - 07/17 [place] 36.0 2019 [facility] HEMATOLOGY MCH 30.6 27.0 - 07/17 [place] 31.0 2019 [facility] HEMATOLOGY MCV 91.2 80.0 - 07/17 [place] 94.0 2019 [facility] HEMATOLOGY Platelet 572 133 - 450 07/17 [facility] HEMATOLOGY Hgb 8.4 14.0 - 07/17 [place] 18.0 2019 [facility] HEMATOLOGY RBC 2.74 4.70 - 07/17 [place] 6.10 /2019 [facility] HEMATOLOGY Hct 24.9 42.0 - 02 [place] 54.0 /2019 [facility] HEMATOLOGY WBC 8.4 3.7 - 10.4 07/17 [facility] /2018 [facility] HEMATOLOGY Basophils # 0.1 0.0 - 0.2 07/17 [facility] /2018 [facility] HEMATOLOGY Lymphocytes 1.8 1.0 - 5.5 07/17 [place] # /2019 [facility] HEMATOLOGY Monocytes # 1.0 0.0 - 0.8 07/17 /2018 [facility] HEMATOLOGY Lymphocytes 21.7 20.0 - 07/17 [place] 40.0 /2019 [facility] HEMATOLOGY Segs 64.7 45.0 - 07/17 [facility] 75.0 [facility] HEMATOLOGY Eosinophils 0.4 0.0 - 4.0 07/17 [facility] HEMATOLOGY Basophils 1.6 0.0 - 1.0 07/17 [facility]2018 [facility] HEMATOLOGY Neutrophils 5.4 1.5 - 8.1 07/17 [facility] # [facility] HEMATOLOGY Monocytes 11.6 2.0 - 12.0 07/17 [facility] ANEMIA Ferritin Lvl 9 22 - 275 07/16 [facility] ANEMIA UIBC 355 110 - 370 07/16 [facility] ANEMIA % [place] 9 12 - 57 07/16 [facility] ANEMIA TIBC 388 228 - 428 07/16 [facility] ANEMIA Iron 33 45 - 160 07/16 [facility] ANEMIA Vitamin B12 603 254 - 1320 07/16 [facility] ANEMIA Folate Lvl 28.9 >=3.0 07/16 [facility] ng/mL [facility] CHEM PANEL Magnesium 2.5 1.8 - 2.4 07/16 [facility] CHEM PANEL Phosphorus 4.6 2.5 - 4.5 07/16 [facility] ELECTROLYT AGAP 13.0 10.0 - 07/16 [facility] ES 20.0 [facility] ELECTROLYT eGFR 81 07/16 Result [facility] Comment: The Medical eGFR is Center calculated using the CKD-EPI formula. In most young, healthy individuals the eGFR will be >90 mL/min/1.73m2 . The eGFR declines with age. An eGFR of 60-89 may be normal in some populations, particularly the elderly, for whom the CKD-EPI formula has not been extensively validated. Use of the eGFR is not recommended in the following populations:< br/>
Tanna viduals with unstable creatinine concentration s, including patients and those with serious co-morbid conditions.<b r/>
Patie nts with extremes in muscle mass or diet.

The data above are obtained from the National Kidney Disease Education Program (NKDEP) which additionally recommends that when the eGFR is used in patients with extremes of body mass index for purposes of drug dosing, the eGFR should be multiplied by the estimated BMI. ELECTROLYT Calcium Lvl 8.5 8.5 - 10.5 07/16 [facility] /2018 [facility] ELECTROLYT Chloride Lvl 104 95 - 109 07/16 [facility]2018 [facility] ELECTROLYT CO2 26 24 - 32 07/16 [facility]2018 [facility] ELECTROLYT Potassium 4.0 3.5 - 5.1 07/16 [facility] Lvl /2018 [facility] ELECTROLYT Creatinine 1.12 0.50 - 07/16 [facility] ES Lvl 1.40 /2018 [facility] ELECTROLYT Sodium Lvl 139 135 - 145 07/16 [facility]2018 [facility] ELECTROLYT Glucose Lvl 75 70 - 99 07/16 [facility]2018 [facility] ELECTROLYT BUN 27 7 - 22 07/16 [facility]2018 [facility] HEMATOLOGY MCH 30.8 27.0 - 07/16 [facility] 31.0 [facility] HEMATOLOGY MCHC 33.7 32.0 - 07/16 [facility] 36.0 [facility] HEMATOLOGY Hgb 9.3 14.0 - 07/16 [facility] 18.0 [facility] HEMATOLOGY Hct 27.5 42.0 - 07/16 [facility] 54.0 2019 [facility] HEMATOLOGY MCV 91.4 80.0 - 07/16 [facility] 94.0 2019 [facility] HEMATOLOGY Platelet 651 133 - 450 07/16 [facility]2018 [facility] HEMATOLOGY RDW 16.6 11.5 - 07/16 [place] 14.5 /2019 [facility] HEMATOLOGY MPV 8.3 7.4 - 10.4 07/16 2018 [facility] HEMATOLOGY RBC 3.00 4.70 - 07/16 [place] 6.10 2019 [facility] HEMATOLOGY WBC 11.3 3.7 - 10.4 07/16 [facility]2018 [facility] HEMATOLOGY Basophils # 0.1 0.0 - 0.2 07/16 [facility]2018 [facility] HEMATOLOGY Monocytes # 1.3 0.0 - 0.8 07/16 [facility] Medicine2018 [facility] HEMATOLOGY Lymphocytes 3.3 1.0 - 5.5 07/16 [facility] # /2018 [facility] HEMATOLOGY Neutrophils 6.7 1.5 - 8.1 07/16 [place] # /2018 [facility] HEMATOLOGY Monocytes 11.7 2.0 - 12.0 07/[address] HEMATOLOGY Basophils 0.5 0.0 - 1.0 07/16 [facility] HEMATOLOGY Segs 58.9 45.0 - 07/16 [place] 75.0 [facility] HEMATOLOGY Lymphocytes 28.9 20.0 - 07/16 [facility] 40.0 [facility] DRUG U Opiate Scr Positive Negative 07/16 [place] SCREEN *ABN* /2018 Medical (07/15/18 10:32 PM) Center DRUG U Cannab Scr Negative Negative 07/16 [place] SCREEN *NA* Medical (07/15/18 10:32 PM) Center DRUG U Cocaine Negative Negative 07/16 [facility] SCREEN Scr *NA Medical (07/15/18 10:32 PM) Center DRUG U Benzodiaz Negative Negative 07/16 [facility] SCREEN Scr *NA Medical (07/15/18 10:32 PM) Center DRUG U Samira Scr Negative Negative 07/16 [facility] SCREEN *NA* Medical (07/15/18 10:32 PM) Center DRUG U Amph Scr Positive Negative 07/16 [facility] SCREEN *ABN* [facility] (07/15/18 10:32 PM) Center DRUG UDS Note See Note 07/16 [place] SCREEN (07/15/18 10:32 PM) /2018 [facility] DRUG U Negative Negative 07/16 [facility] SCREEN Phencyclidin *NA Medical e Scr (07/15/18 10:32 PM) [place] URINE AND UA Bacteria Many /HPF None Seen 07/16 [facility] STOOL /HPF [address] [place] [address] URINE AND UA Mucus Few /LPF None Seen 07/16 [facility] STOOL /LPF /2018 [facility] URINE AND UA Sq Epi Rare /LPF Few /LPF 07/16 [facility] STOOL /[address] [place] [address] URINE AND Micro? Performed 07/16 [facility] (07/15/18 9:55 PM) /2018 [facility] URINE AND UA RBC 0-2 /HPF 0 - 2 07/16 [facility] STOOL /2018 [facility] URINE AND UA WBC 21-50 /HPF None Seen 07/16 [facility] STOOL /HPF /[address] [place] [address] URINE AND UA Leuk Est Trace Negative 07/16 [facility] STOOL *ABN* Medical (07/15/18 9:55 PM) Center URINE AND UA Nitrite Positive Negative 07/16 [facility] STOOL *ABN* [facility] (07/15/18 9:55 PM) [place] URINE AND UA Ketones Negative Negative 07/16 [facility] STOOL *NA* [facility] (07/15/18 9:55 PM) [place] URINE AND UA Bili Negative Negative 07/16 [facility] STOOL *NA* [facility] (07/15/18 9:55 PM) [place] URINE AND UA Blood Negative Negative 07/16 [facility] (07/15/18 9:55 PM) [facility] URINE AND UA Spec Grav >=1.030 <=1.030 07/16 [facility] *ABN* [facility] (07/15/18 9:55 PM) [place] URINE AND UA pH 6.0 5.0 - 8.0 07/16 [facility] URINE AND UA Protein Trace Negative 07/16 [facility] *ABN* [facility] (07/15/18 9:55 PM) [place] URINE AND UA 0.2 0.1 - 1.0 07/16 [facility] Urobilinogen /2018 [facility] URINE AND UA Color Dark Yellow Yellow 07/16 [facility] (07/15/18 9:55 PM) [facility] URINE AND UA Glucose Negative Negative 07/16 [facility] (07/15/18 9:55 PM) /2018 [facility] URINE AND UA Turbidity Slight Cloudy Clear 07/16 [facility] (07/15/18 9:55 PM) [facility] CHEM PANEL Lactic Acid 1.0 0.5 - 2.2 07/16 [facility] Lvl [facility] CHEM PANEL Ammonia <10.0 <=45.0 07/16 [facility] uMol/L uMol/L [facility] CARDIAC Total CK 54 12 - 191 07/15 [facility] ENZYMES [facility] CHEM PANEL eGFR 88 07/15 Result [facility] Comment: The Medical eGFR is Center calculated using the CKD-EPI formula. In most young, healthy individuals the eGFR will be >90 mL/min/1.73m2 . The eGFR declines with age. An eGFR of 60-89 may be normal in some populations, particularly the elderly, for whom the CKD-EPI formula has not been extensively validated. Use of the eGFR is not recommended in the following populations:< br/>
Tanna viduals with unstable creatinine concentration s, including patients and those with serious co-morbid conditions.<b r/>
Patie nts with extremes in muscle mass or diet.

The data above are obtained from the National Kidney Disease Education Program (NKDEP) which additionally recommends that when the eGFR is used in patients with extremes of body mass index for purposes of drug dosing, the eGFR should be multiplied by the estimated BMI. CHEM PANEL CO2 25 24 - 32 07/[address] CHEM PANEL Chloride Lvl 102 95 - 109 07/[address] CHEM PANEL Calcium Lvl 9.6 8.5 - 10.5 07/[address] CHEM PANEL Sodium Lvl 140 135 - 145 07/[address] CHEM PANEL Potassium 3.7 3.5 - 5.1 07/15 [facility] /2018 [facility] CHEM PANEL Glucose Lvl 89 70 - 99 07/[address] CHEM PANEL BUN 27 7 - 22 07/[address] CHEM PANEL Creatinine 1.05 0.50 - 07/15 [facility] 1.40 [facility] CHEM PANEL AGAP 16.7 10.0 - 07/15 [facility] 20.0 2018 [facility] CHEM PANEL Lipase Lvl 108 73 - 393 07/[address] CHEM PANEL A/G Ratio 0.9 0.7 - 1.6 07/[address] CHEM PANEL Globulin 4.2 2.7 - 4.2 07/[address] CHEM PANEL Alk Phos 63 39 - 136 07/[address] CHEM PANEL Bili Direct 0.1 0.0 - 0.3 07/[address] CHEM PANEL AST 17 0 - 37 07/[address] CHEM PANEL ALT 22 0 - 65 07/[address] CHEM PANEL Bili Total 0.3 0.2 - 1.3 07/[address] CHEM PANEL Albumin Lvl 3.9 3.5 - 5.0 07/[address] CHEM PANEL Bili 0.2 0.0 - 1.0 07/[address] CHEM PANEL Total 8.1 6.4 - 8.4 07/15 [facility] Protein [address] CHEM PANEL Phosphorus 3.8 2.5 - 4.5 07/15 [facility] /2018 [facility] CHEM PANEL Magnesium 2.3 1.8 - 2.4 07/15 [facility] /2018 [facility] CHEM PANEL Lactic Acid 2.7 0.5 - 2.2 07/15 [facility] WB /2018 [facility] HEMATOLOGY WBC 11.2 3.7 - 10.4 07/15 [facility] /2019 [facility] HEMATOLOGY RBC 3.27 4.70 - 07/15 [place] 6.10 /2018 [facility] HEMATOLOGY Hct 29.7 42.0 - 07/15 [place] 54.0 /2019 [facility] HEMATOLOGY MCV 90.8 80.0 - 07/15 [facility] 94.0 /2019 [facility] HEMATOLOGY MCH 30.3 27.0 - 07/15 [facility] 31.0 /2019 [facility] HEMATOLOGY Hgb 9.9 14.0 - 07/15 [facility] 18.0 /2019 [facility] HEMATOLOGY RDW 16.8 11.5 - 07/15 [facility] 14.5 /2019 [facility] HEMATOLOGY MCHC 33.3 32.0 - 07/15 [facility] 36.0 /2019 [facility] HEMATOLOGY Platelet 680 133 - 450 07/15 [facility] /2019 [facility] HEMATOLOGY MPV 8.2 7.4 - 10.4 07/15 [facility] /[address] [place] [address] HEMATOLOGY Basophils # 0.1 0.0 - 0.2 07/15 [facility] /2019 [facility] HEMATOLOGY Lymphocytes 2.3 1.0 - 5.5 07/15 [facility] /2019 [facility] HEMATOLOGY Monocytes # 1.0 0.0 - 0.8 07/15 [facility] /[address] [place] [address] HEMATOLOGY Neutrophils 7.9 1.5 - 8.1 07/15 [facility] /2018 [facility] HEMATOLOGY Basophils 0.9 0.0 - 1.0 07/15 [facility] /2019 [facility] HEMATOLOGY Segs 70.0 45.0 - 07/15 [facility] 75.0 /2019 [facility] HEMATOLOGY Lymphocytes 20.3 20.0 - 07/15 [facility] 40.0 /2019 [facility] HEMATOLOGY Monocytes 8.8 2.0 - 12.0 07/15 [facility] /[address] [place] [address] TOXICOLOGY Acetaminoph <2 10 - 20 07/15 [facility] (07/15/18 5:46 PM) /2018 [facility] TOXICOLOGY Salicylate <1.7 0.0 - 30.0 07/15 [facility] /2018 [facility] TOXICOLOGY Valproic 44 50 - 100 02/13 [facility] Acid [facility] TOXICOLOGY Ethanol Lvl <3.0 mg/dL 07/15 [facility] TOXICOLOGY Etoh (%) <0.003 % 07/15 [facility]2018 [facility] CHEM PANEL Phosphorus 4.0 2.5 - 4.5 07/08 [facility]2018 [facility] CHEM PANEL Magnesium 2.4 1.8 - 2.4 07/08 [facility] CHEM PANEL eGFR 107 07/08 [facility] Comment: The [facility] eGFR is Center calculated using the CKD-EPI formula. In most young, healthy individuals the eGFR will be >90 mL/min/1.73m2 . The eGFR declines with age. An eGFR of 60-89 may be normal in some populations, particularly the elderly, for whom the CKD-EPI formula has not been extensively validated. Use of the eGFR is not recommended in the following populations:< br/>
Tanna viduals with unstable creatinine concentration s, including patients and those with serious co-morbid conditions.<b r/>
Patie nts with extremes in muscle mass or diet.

The data above are obtained from the National Kidney Disease Education Program (NKDEP) which additionally recommends that when the eGFR is used in patients with extremes of body mass index for purposes of drug dosing, the eGFR should be multiplied by the estimated BMI. CHEM PANEL Potassium 3.9 3.5 - 5.1 07/08 [facility] CHEM PANEL Chloride Lvl 106 95 - 109 07/08 [facility]2018 [facility] CHEM PANEL CO2 27 24 - 32 07/[address] CHEM PANEL Calcium Lvl 8.1 8.5 - 10.5 07/[address] CHEM PANEL Creatinine 0.88 0.50 - 02 [facility] Lvl 1.40 [facility] CHEM PANEL Sodium Lvl 139 135 - 145 07/[address] CHEM PANEL Glucose Lvl 80 70 - 99 07/[address] CHEM PANEL BUN 11 7 - 22 07/[address] CHEM PANEL AGAP 9.9 10.0 - 02 [facility] 20.0 [facility] HEMATOLOGY Basophils # 0.1 0.0 - 0.2 07/08 [facility] /2018 [facility] HEMATOLOGY Lymphocytes 2.4 1.0 - 5.5 02/ [facility] # /2019 [facility] HEMATOLOGY Eosinophils 0.2 0.0 - 0.5 02/ [facility] # /2019 [facility] HEMATOLOGY Monocytes # 0.9 0.0 - 0.8 02/ [facility] /2018 [facility] HEMATOLOGY Basophils 0.7 0.0 - 1.0 02/ [facility] /2018 [facility] HEMATOLOGY Neutrophils 3.9 1.5 - 8.1 02/ [facility] # /2019 [facility] HEMATOLOGY Segs 52.6 45.0 - 02/ [place] 75.0 /2019 [facility] HEMATOLOGY Lymphocytes 32.0 20.0 - 02/06 [place] 40.0 /2019 [facility] HEMATOLOGY Eosinophils 2.1 0.0 - 4.0 02/ [facility] /2018 [facility] HEMATOLOGY Monocytes 12.6 2.0 - 12.0 02/ [facility] /2018 [facility] HEMATOLOGY Platelet 456 133 - 450 02 [facility] /2018 [facility] HEMATOLOGY MPV 9.2 7.4 - 10.4 07/08 [facility] /2018 [facility] HEMATOLOGY MCHC 33.0 32.0 - 02 [place] 36.0 /2019 [facility] HEMATOLOGY RDW 17.1 11.5 - 02/ [place] 14.5 /2019 [facility] HEMATOLOGY Hgb 8.6 14.0 - 02/ [place] 18.0 /2019 [facility] HEMATOLOGY Hct 26.0 42.0 - 02/ [place] 54.0 /2019 [facility] HEMATOLOGY WBC 7.4 3.7 - 10.4 07/08 [facility] HEMATOLOGY RBC 2.83 4.70 - 02 [place] 6.10 /2019 [facility] HEMATOLOGY MCV 92.1 80.0 - 02/ [place] 94.0 /2019 [facility] HEMATOLOGY MCH 30.4 27.0 - 02/06 [place] 31.0 2019 [facility] IMMUNOLOGY Prealbumin 15.7 18.0 - 02/ [place] 45.0 /2019 [facility] CHEM PANEL Magnesium 2.2 1.8 - 2.4 07/07 [facility] Lvl /2019 [facility] CHEM PANEL Phosphorus 3.3 2.5 - 4.5 02 [facility] /2018 [facility] ELECTROLYT AGAP 10.6 10.0 - 02 [facility] ES 20.0 /2019 [facility] ELECTROLYT eGFR 99 02 Result [facility] Comment: The Medical eGFR is Center calculated using the CKD-EPI formula. In most young, healthy individuals the eGFR will be >90 mL/min/1.73m2 . The eGFR declines with age. An eGFR of 60-89 may be normal in some populations, particularly the elderly, for whom the CKD-EPI formula has not been extensively validated. Use of the eGFR is not recommended in the following populations:< br/>
Tanna viduals with unstable creatinine concentration s, including patients and those with serious co-morbid conditions.<b r/>
Patie nts with extremes in muscle mass or diet.

The data above are obtained from the National Kidney Disease Education Program (NKDEP) which additionally recommends that when the eGFR is used in patients with extremes of body mass index for purposes of drug dosing, the eGFR should be multiplied by the estimated BMI. ELECTROLYT CO2 29 24 - 32 07/[address] ELECTROLYT Calcium Lvl 8.0 8.5 - 10.5 07/[address] ELECTROLYT Potassium 3.6 3.5 - 5.1 07/07 [facility] [address] [place] [address] ELECTROLYT Chloride Lvl 103 95 - 109 07/[address] ELECTROLYT Creatinine 0.95 0.50 - 07/07 [facility] Lvl 1.40 [facility] ELECTROLYT Sodium Lvl 139 135 - 145 07/[address] ELECTROLYT BUN 11 7 - 22 07/[address] ELECTROLYT Glucose Lvl 76 70 - 99 07/[address] HEMATOLOGY Monocytes # 1.5 0.0 - 0.8 07/[address] HEMATOLOGY Lymphocytes 1.7 1.0 - 5.5 07/[address] HEMATOLOGY Neutrophils 4.4 1.5 - 8.1 07/[address] HEMATOLOGY Bands 2.0 0.0 - 11.0 07/[address] HEMATOLOGY Segs 54.0 45.0 - 07/07 [facility] 75.0 [facility] HEMATOLOGY Eosinophils 0.1 0.0 - 0.5 07/[address] HEMATOLOGY Basophils # 0.2 0.0 - 0.2 07/07 [facility] HEMATOLOGY Eosinophils 1.0 0.0 - 4.0 07/07 [facility] HEMATOLOGY Atypical 0.0 <=0.0 % 07/07 [facility] Lymphs [facility] HEMATOLOGY Basophils 2.0 0.0 - 1.0 07/07 [facility] HEMATOLOGY Anisocyte 1+ None Seen 07/07 [facility] *ABN* /2018 [facility] (07/07/18 5:27 AM) [place] HEMATOLOGY Schistocyte 1-3 per HPF None Seen 07/07 [facility] (07/07/18 5:27 AM) [facility] HEMATOLOGY Target Cell Slight 07/07 [facility] HEMATOLOGY Lymphocytes 22.0 20.0 - 07/07 [facility] 40.0 [facility] HEMATOLOGY Monocytes 19.0 2.0 - 12.0 07/07 [facility] HEMATOLOGY Plt Morph Normal 07/07 [facility] (07/07/18 5:27 AM) [facility] HEMATOLOGY RBC 2.77 4.70 - 07/07 [facility] 6.10 [facility] HEMATOLOGY MCV 91.1 80.0 - 07/07 [facility] 94.0 [facility] HEMATOLOGY MCH 31.1 27.0 - 07/07 [facility] 31.0 [facility] HEMATOLOGY Hgb 8.6 14.0 - 07/07 [facility] 18.0 [facility] HEMATOLOGY Hct 25.2 42.0 - 07/07 [facility] 54.0 2019 [facility] HEMATOLOGY MCHC 34.1 32.0 - 07/07 [facility] 36.0 [facility] HEMATOLOGY RDW 17.7 11.5 - 02 [facility] 14.5 [facility] HEMATOLOGY Platelet 430 133 - 450 07/07 [facility] HEMATOLOGY MPV 8.9 7.4 - 10.4 07/07 [facility] HEMATOLOGY WBC 7.8 3.7 - 10.4 07/07 [facility] CHEM PANEL Magnesium 0.9 1.8 - 2.4 07/06 Result [facility] Lvl Comment: Medical Critical Center Result(s) called to Maribel Marquez at 07/06/2018 11:59 by NT. Read back OK. CHEM PANEL Phosphorus 2.9 2.5 - 4.5 07/[address] CHEM PANEL eGFR 92 07/06 Result Comment: The Medical eGFR is Center calculated using the CKD-EPI formula. In most young, healthy individuals the eGFR will be >90 mL/min/1.73m2 . The eGFR declines with age. An eGFR of 60-89 may be normal in some populations, particularly the elderly, for whom the CKD-EPI formula has not been extensively validated. Use of the eGFR is not recommended in the following populations:< br/>
Tanna viduals with unstable creatinine concentration s, including patients and those with serious co-morbid conditions.<b r/>
Patie nts with extremes in muscle mass or diet.

The data above are obtained from the National Kidney Disease Education Program (NKDEP) which additionally recommends that when the eGFR is used in patients with extremes of body mass index for purposes of drug dosing, the eGFR should be multiplied by the estimated BMI. CHEM PANEL Calcium Lvl 7.6 8.5 - 10.5 07/[address] CHEM PANEL Potassium 3.4 3.5 - 5.1 07/06 [facility] [address] [place] [address] CHEM PANEL Chloride Lvl 102 95 - 109 07/[address] CHEM PANEL CO2 32 24 - 32 07/[address] CHEM PANEL BUN 14 7 - 22 07/[address] CHEM PANEL Creatinine 1.01 0.50 - 07/06 [facility] 1.40 [facility] CHEM PANEL Sodium Lvl 139 135 - 145 07/[address] CHEM PANEL Glucose Lvl 81 70 - 99 07/[address] CHEM PANEL AGAP 8.4 10.0 - 02 [facility] 20.0 [facility] CHEM PANEL Lactic Acid 1.6 0.5 - 2.2 07/06 [facility]2018 [facility] HEMATOLOGY Platelet 440 133 - 450 07/[address] HEMATOLOGY MPV 9.1 7.4 - 10.4 07/[address] HEMATOLOGY RDW 17.5 11.5 - 02 [facility] 14.5 [facility] HEMATOLOGY MCHC 33.3 32.0 - 02 [facility] [place] 36.0 /2019 [facility] HEMATOLOGY Hct 27.6 42.0 - 07/06 [place] 54.0 /2019 [facility] HEMATOLOGY Hgb 9.2 14.0 - 07/06 [place] 18.0 /2019 [facility] HEMATOLOGY MCH 30.6 27.0 - / [place] 31.0 /2019 [facility] HEMATOLOGY MCV 91.7 80.0 - 07/06 [place] 94.0 /2019 [facility] HEMATOLOGY WBC 9.5 3.7 - 10.4 07/06 [facility] HEMATOLOGY RBC 3.01 4.70 - 07/06 [place] 6.10 /2019 [facility] HEMATOLOGY Basophils # 0.1 0.0 - 0.2 07/06 [facility] HEMATOLOGY Monocytes # 1.5 0.0 - 0.8 07/06 [facility] HEMATOLOGY Lymphocytes 0.5 1.0 - 5.5 07/06 [place] # /2018 [facility] HEMATOLOGY Neutrophils 7.4 1.5 - 8.1 07/06 [place] # /2018 [facility] HEMATOLOGY Eosinophils 0.1 0.0 - 4.0 07/06 [facility] HEMATOLOGY Monocytes 16.1 2.0 - 12.0 07/06 [facility] HEMATOLOGY Basophils 0.8 0.0 - 1.0 07/06 [facility] HEMATOLOGY Lymphocytes 5.5 20.0 - 07/06 [place] 40.0 /2019 [facility] HEMATOLOGY Segs 77.5 45.0 - 07/06 [place] 75.0 /2018 [facility] Culture: No Growth 07/06 [facility] Urine /2018 [facility] MOLECULAR C difficile Negative Negative 07/06 [facility] DIAGNOSTIC DNA (07/05/18 6:43 PM) /2018 [facility] URINE AND UA Blood Negative Negative 07/06 [facility] STOOL (07/05/18 6:43 PM) /2018 [facility] URINE AND UA Protein 50 mg/dL Negative 07/06 [facility] STOOL mg/dL /2018 [facility] URINE AND UA Glucose Negative Negative 07/06 [facility] STOOL mg/dL mg/dL /2018 [facility] URINE AND UA Ketones Trace Negative 07/06 [facility] STOOL mg/dL mg/dL /2018 [facility] URINE AND UA Bili Negative Negative 07/06 [facility] STOOL *NA* /2018 [facility] (07/05/18 6:43 PM) [place] URINE AND UA Color Yellow Yellow 07/06 [facility] STOOL *NA* /2018 [facility] (07/05/18 6:43 PM) [place] URINE AND UA <=1.0 0.1 - 1.0 07/06 [facility] Urobilinogen mg/dL /2018 [facility] URINE AND UA Spec Grav 1.034 <=1.030 07/06 [facility] [address] [place] [address] URINE AND UA Turbidity Clear Clear 07/06 [facility] (07/05/18 6:43 PM) /2018 [facility] URINE AND UA pH 6.5 5.0 - 8.0 07/06 [facility] /[address] [place] [address] URINE AND UA Bacteria Occasional None Seen 07/06 [facility] STOOL /HPF /HPF /2018 [facility] URINE AND UA Leuk Est Moderate Negative 07/06 [facility] *ABN* [facility] (07/05/18 6:43 PM) [place] URINE AND UA RBC 1 0 - 2 07/[address] URINE AND UA Nitrite Negative Negative 07/06 [facility] (07/05/18 6:43 PM) /2018 [facility] URINE AND UA WBC 44 0 - 5 07/[address] URINE AND UA Sq Epi None Seen 07/06 [facility] /[address] [place] [address] URINE AND UA Mucus Many /LPF None Seen 07/06 [facility] /LPF /[address] [place] [address] CHEM PANEL Bili Direct <0.1 0.0 - 0.3 07/[address] CHEM PANEL Bili Total 0.2 0.2 - 1.3 07/[address] CHEM PANEL Bili Unable to 0.0 - 1.0 07/05 [facility] Indirect [facility] [address] [place] [address] CHEM PANEL Globulin 3.0 2.7 - 4.2 07/[address] CHEM PANEL Albumin Lvl 2.9 3.5 - 5.0 07/[address] CHEM PANEL A/G Ratio 1.0 0.7 - 1.6 07/[address] CHEM PANEL AST 13 0 - 37 07/[address] CHEM PANEL ALT 11 0 - 65 07/[address] CHEM PANEL Alk Phos 37 39 - 136 07/[address] CHEM PANEL Total 5.9 6.4 - 8.4 07/05 [facility] Protein [address] HEMATOLOGY Eosinophils 0.2 0.0 - 0.5 07/03 [facility] # /2018 [facility] CHEM PANEL Bili Total 0.3 0.2 - 1.3 06/25 [facility]2018 [facility] CHEM PANEL AST 10 0 - 37 06/[address] CHEM PANEL Alk Phos 59 39 - 136 06/[address] CHEM PANEL Albumin Lvl 3.4 3.5 - 5.0 06/25 [facility]2018 [facility] CHEM PANEL Globulin 3.5 2.7 - 4.2 06/[address] CHEM PANEL A/G Ratio 1.0 0.7 - 1.6 06/25 [facility]2018 [facility] CHEM PANEL Total 6.9 6.4 - 8.4 06/25 [facility] Protein [facility] CHEM PANEL B/C Ratio 12 6 - 25 06/25 [facility]2018 [facility] CHEM PANEL ALT 17 0 - 65 06/[address] MOLECULAR C difficile Negative Negative 06/24 [facility] DIAGNOSTIC DNA (06/24/18 9:54 AM) /[address] [place] [address] URINE AND Fecal None Seen 06/23 [facility] STOOL Leukocyte (06/23/18 1:30 AM) /[address] [place] [address] Culture: Normal Enteric Diya Isolated 06/23 [facility] Stool No Salmonella, Shigella, Or Campylobacter Isolated [facility] DRUG U Cannab Scr Negative Negative 06/22 [facility] SCREEN *NA [facility] (06/22/18 1:10 PM) Center DRUG U Benzodiaz Negative Negative 06/22 [facility] SCREEN Scr *NA [facility] (06/22/18 1:10 PM) Center DRUG U Cocaine Negative Negative 06/22 [facility] SCREEN Scr *NA Medical (06/22/18 1:10 PM) Center DRUG U Opiate Scr Positive Negative 06/22 [facility] SCREEN *ABN* Medical (06/22/18 1:10 PM) Center DRUG U Negative Negative 06/22 [facility] SCREEN Phencyclidin *NA Medical e Scr (06/22/18 1:10 PM) Center DRUG U Samira Scr Negative Negative 06/22 [facility] SCREEN *NA* Medical (06/22/18 1:10 PM) Center DRUG U Amph Scr Negative Negative 06/22 [facility] SCREEN *NA Medical (06/22/18 1:10 PM) Center DRUG UDS Note See Note 06/22 [facility] SCREEN (06/22/18 1:10 PM) /2018 [facility] URINE CHEM U Osmolality 813 300 - 800 06/[address] URINE CHEM U Sodium 33 06/22 39 [address] CHEM PANEL Osmolality 282 280 - 300 06/[address] CARDIAC Total CK 567 12 - 191 06/22 [facility] ENZYMES 2018 [facility] CHEM PANEL Globulin 5.0 2.7 - 4.2 06/[address] CHEM PANEL A/G Ratio 1.0 0.7 - 1.6 06/[address] CHEM PANEL Bili 0.3 0.0 - 1.0 06/22 [facility] Indirect 2018 [facility] CHEM PANEL Bili Direct 0.1 0.0 - 0.3 06/[address] CHEM PANEL Alk Phos 81 39 - 136 06/[address] CHEM PANEL Bili Total 0.4 0.2 - 1.3 06/[address] CHEM PANEL Albumin Lvl 4.8 3.5 - 5.0 06/[address] CHEM PANEL ALT 19 0 - 65 06/[address] CHEM PANEL AST 24 0 - 37 06/[address] CHEM PANEL Total 9.8 6.4 - 8.4 06/[address] TOXICOLOGY Acetaminoph <2 10 - 20 06/22 [facility] Lvl (06/22/18 9:11 AM) /2018 [facility] TOXICOLOGY Etoh (%) <0.003 % 06/[address] TOXICOLOGY Ethanol Lvl <3.0 mg/dL 06/[address] TOXICOLOGY Salicylate 2.5 0.0 - 30.0 06/22 [facility] /[address] [place] [address] IMMUNOLOGY CDC HIV 4th Negative Negative 06/22 [facility] GEN *NA* /2018 [facility] (06/22/18 6:51 AM) [place] BLOOD BANK Antibody Negative 09/25 [facility] RESULTS Scrn (09/24/17 10:50 PM) /2017 [facility] BLOOD BANK ABO/Rh O POS 09/25 [facility] RESULTS /2017 [facility] CHEM PANEL Lactic Acid 1.2 0.5 - 2.2 09/25 [facility] CHEM PANEL eGFR 102 09/25 Result Comment: The Medical eGFR is Center calculated using the CKD-EPI formula. In most young, healthy individuals the eGFR will be >90 mL/min/1.73m2 . The eGFR declines with age. An eGFR of 60-89 may be normal in some populations, particularly the elderly, for whom the CKD-EPI formula has not been extensively validated. Use of the eGFR is not recommended in the following populations:< br/>
Tanna viduals with unstable creatinine concentration s, including patients and those with serious co-morbid conditions.<b r/>
Patie nts with extremes in muscle mass or diet.

The data above are obtained from the National Kidney Disease Education Program (NKDEP) which additionally recommends that when the eGFR is used in patients with extremes of body mass index for purposes of drug dosing, the eGFR should be multiplied by the estimated BMI. CHEM PANEL Creatinine 0.93 0.50 - 09/25 [facility] Lvl 1.40 [facility] CHEM PANEL Chloride Lvl 103 95 - 109 09/[address] CHEM PANEL Sodium Lvl 138 135 - 145 09/[address] CHEM PANEL Calcium Lvl 8.7 8.5 - 10.5 09/[address] CHEM PANEL CO2 25 24 - 32 09/[address] CHEM PANEL Potassium 4.3 3.5 - 5.1 09/25 [facility] CHEM PANEL BUN 14 7 - 22 09/25 [facility]2017 [facility] CHEM PANEL Glucose Lvl 68 70 - 99 09/25 [facility]2017 [facility] CHEM PANEL AGAP 14.3 10.0 - 09/25 [facility] 20.0 [facility] CHEM PANEL Lipase Lvl 253 73 - 393 09/25 [facility]2017 [facility] CHEM PANEL Total 7.6 6.4 - 8.4 09/25 [facility] Protein [facility] CHEM PANEL Bili Direct <0.1 0.0 - 0.3 09/25 [facility]2017 [facility] CHEM PANEL Bili UNABLE TO 0.0 - 1.0 09/25 [facility] Indirect CALCULATE [facility] CHEM PANEL Bili Total 0.2 0.2 - 1.3 09/[address] CHEM PANEL Alk Phos 94 39 - 136 09/25 [facility] CHEM PANEL ALT 49 0 - 65 09/25 [facility] CHEM PANEL AST 34 0 - 37 09/25 2017 [facility] CHEM PANEL A/G Ratio 0.8 0.7 - 1.6 09/25 2017 [facility] CHEM PANEL Albumin Lvl 3.4 3.5 - 5.0 09/25 [facility] CHEM PANEL Globulin 4.2 2.7 - 4.2 09/25 [facility] HEMATOLOGY MPV 7.5 7.4 - 10.4 09/25 [facility] HEMATOLOGY Hct 33.3 42.0 - 09/25 54.0 [facility] HEMATOLOGY Platelet 916 133 - 450 09/25 [facility] HEMATOLOGY Hgb 10.4 14.0 - 09/25 18.0 [facility] HEMATOLOGY WBC 6.9 3.7 - 10.4 09/25 [facility] HEMATOLOGY RBC 4.22 4.70 - 09/25 [place] 6.10 [facility] HEMATOLOGY MCH 24.7 27.0 - 09/25 31.0 [facility] HEMATOLOGY MCHC 31.3 32.0 - 09/25 36.0 [facility] HEMATOLOGY RDW 22.1 11.5 - 09/25 14.5 [facility] HEMATOLOGY MCV 79.0 80.0 - 09/25 94.0 [facility] HEMATOLOGY PTT 28.7 22.9 - 09/25 35.8 [facility] HEMATOLOGY PT 12.7 12.0 - 09/25 [place] 14.7 [facility] HEMATOLOGY INR 0.95 0.85 - 09/25 [place] 1.17 [facility] HEMATOLOGY Estimated % 10.3 0.0 - 7.5 09/25 Result [facility] Lysis Comment: Medical "Significant Center Findings called to Trell Gregorio at 09/25/2017 00:07 by RM. Read Back OK." HEMATOLOGY Max 70 52 - 71 09/25 [facility] Amplitude [facility] HEMATOLOGY G-value 11.6 5.0 - 11.6 09/25 [facility] HEMATOLOGY Angle Rapid 83 64 - 80 09/25 [facility] HEMATOLOGY [place] 0.4 09/25 [facility] HEMATOLOGY ACT (TEG) 97 86 - 118 09/25 [facility] HEMATOLOGY K-time Rapid 0.8 0.6 - 2.3 09/25 [facility] HEMATOLOGY R-time Rapid 0.5 0.4 - 0.7 09/25 2017 [facility] HEMATOLOGY Basophils # 0.1 0.0 - 0.2 09/25 [facility] HEMATOLOGY Eosinophils 0.2 0.0 - 0.5 09/25 [facility] HEMATOLOGY Monocytes # 0.6 0.0 - 0.8 09/25 [facility] HEMATOLOGY Lymphocytes 3.6 1.0 - 5.5 09/25 [facility] HEMATOLOGY Schistocyte 1-3 per HPF None Seen 09/25 [facility] (09/24/17 10:44 PM) [facility] HEMATOLOGY Hypochrom 1+ None Seen 09/25 [facility] (09/24/17 10:44 PM) [facility] HEMATOLOGY Microcyte 1+ None Seen 09/25 [facility] *ABN* /2017 [facility] (09/24/17 10:44 PM) [place] HEMATOLOGY Anisocyte 1+ None Seen 09/25 [facility] *ABN* [facility] (09/24/17 10:44 PM) [place] HEMATOLOGY Monocytes 8.3 2.0 - 12.0 09/25 [facility] HEMATOLOGY Basophils 0.9 0.0 - 1.0 09/25 [facility] HEMATOLOGY Eosinophils 2.7 0.0 - 4.0 09/25 [facility] HEMATOLOGY Segs-Bands # 2.5 1.5 - 8.1 09/25 [facility] HEMATOLOGY Lymphocytes 52.1 20.0 - 09/25 [place] 40.0 [facility] HEMATOLOGY Segs 36.0 45.0 - 09/25 [place] 75.0 [facility] HEMATOLOGY Plt Morph Normal 09/25 [facility] (09/24/17 10:44 PM) /2017 [facility] CHEM PANEL Phosphorus 1.4 2.5 - 4.5 07/16 Result Comment: [facility] Result(s) called to Judy Fields at 07/16/2017 12:47 byRC. Read back OK. CHEM PANEL Magnesium 2.4 1.8 - 2.4 07/16 [facility] ELECTROLYT AGAP 11.2 10.0 - 07/16 [facility] 20.0 [facility] ELECTROLYT eGFR 122 07/16 Result [facility] Comment: The Medical eGFR is Center calculated using the CKD-EPI formula. In most young, healthy individuals the eGFR will be >90 mL/min/1.73m2 . The eGFR declines with age. An eGFR of 60-89 may be normal in some populations, particularly the elderly, for whom the CKD-EPI formula has not been extensively validated. Use of the eGFR is not recommended in the following populations:< br/>
Tanna viduals with unstable creatinine concentration s, including patients and those with serious co-morbid conditions.<b r/>
Patie nts with extremes in muscle mass or diet.

The data above are obtained from the National Kidney Disease Education Program (NKDEP) which additionally recommends that when the eGFR is used in patients with extremes of body mass index for purposes of drug dosing, the eGFR should be multiplied by the estimated BMI. ELECTROLYT Calcium Lvl 8.5 8.5 - 10.5 07/16 [facility] ELECTROLYT CO2 25 24 - 32 07/16 [facility] ELECTROLYT Sodium Lvl 142 135 - 145 07/16 [facility]2017 [facility] ELECTROLYT Potassium 4.2 3.5 - 5.1 07/16 [facility] ELECTROLYT Chloride Lvl 110 95 - 109 07/16 [facility]2017 [facility] ELECTROLYT BUN 8 7 - 22 07/16 [facility] ELECTROLYT Glucose Lvl 96 70 - 99 07/16 [facility] ELECTROLYT Creatinine 0.64 0.50 - 07/16 [facility] Lvl 1.40 [facility] HEMATOLOGY Platelet 719 133 - 450 07/16 [facility]2017 [facility] HEMATOLOGY MPV 7.7 7.4 - 10.4 07/16 [facility]2017 [facility] HEMATOLOGY RDW 18.1 11.5 - 07/16 [facility] 14.5 [facility] HEMATOLOGY MCHC 32.0 32.0 - 07/16 [facility] [place] 36.0 [facility] HEMATOLOGY MCH 26.0 27.0 - 07/16 [place] 31.0 [facility] HEMATOLOGY MCV 81.2 80.0 - 07/16 [place] 94.0 /2017 [facility] HEMATOLOGY Hct 28.3 42.0 - 07/16 [place] 54.0 /2017 [facility] HEMATOLOGY RBC 3.49 4.70 - 07/16 [place] 6.10 /2017 [facility] HEMATOLOGY WBC 10.0 3.7 - 10.4 07/16 /2017 [facility] HEMATOLOGY Hgb 9.1 14.0 - 07/16 [place] 18.0 [facility] HEMATOLOGY Basophils # 0.2 0.0 - 0.2 07/16 [facility] /2017 [facility] HEMATOLOGY Eosinophils 0.5 0.0 - 0.5 07/16 [facility] # /2017 [facility] HEMATOLOGY Lymphocytes 9.3 20.0 - 07/16 [place] 40.0 [facility] HEMATOLOGY Segs 74.3 45.0 - 07/16 [place] 75.0 [facility] HEMATOLOGY Monocytes # 1.0 0.0 - 0.8 07/16 /2017 [facility] HEMATOLOGY Lymphocytes 0.9 1.0 - 5.5 07/16 [facility] # /2017 [facility] HEMATOLOGY Basophils 1.7 0.0 - 1.0 07/16 [facility] HEMATOLOGY Segs-Bands # 7.4 1.5 - 8.1 07/16 [facility] /[address] [place] [address] HEMATOLOGY Eosinophils 5.1 0.0 - 4.0 07/[address] HEMATOLOGY Monocytes 9.6 2.0 - 12.0 07/[address] [place] [address] PARATHYROI Ca Ion WB 1.01 1.05 - 07/16 [facility] D PROFILE . [facility] PARATHYROI Ca Norm WB 1.07 1.05 - 07/16 [facility] D PROFILE . [facility] BLOOD BANK Antibody Negative 07/15 [facility] RESULTS Scrn (07/15/17 2:41 AM) [facility] BLOOD BANK ABO/Rh O POS 07/15 [facility] RESULTS [facility] CHEM PANEL Phosphorus 3.5 2.5 - 4.5 07/[address] CHEM PANEL Magnesium 1.5 1.8 - 2.4 07/15 [facility] Lvl /2017 [facility] CHEM PANEL Lactic Acid 1.1 0.5 - 2.2 07/15 [facility] WB [facility] ELECTROLYT AGAP 12.5 10.0 - 07/15 [facility] 20.0 [facility] ELECTROLYT Calcium Lvl 8.2 8.5 - 10.5 07/[address] ELECTROLYT Creatinine 0.78 0.50 - 07/15 [facility] Lvl 1.40 [facility] ELECTROLYT Sodium Lvl 141 135 - 145 07/[address] ELECTROLYT Potassium 3.5 3.5 - 5.1 07/15 [facility] /2017 [facility] ELECTROLYT Glucose Lvl 100 70 - 99 07/[address] ELECTROLYT BUN 8 7 - 22 07/[address] ELECTROLYT Chloride Lvl 107 95 - 109 07/[address] ELECTROLYT CO2 25 24 - 32 07/[address] ELECTROLYT eGFR 113 07/15 [facility] Comment: The Medical eGFR is Center calculated using the CKD-EPI formula. In most young, healthy individuals the eGFR will be >90 mL/min/1.73m2 . The eGFR declines with age. An eGFR of 60-89 may be normal in some populations, particularly the elderly, for whom the CKD-EPI formula has not been extensively validated. Use of the eGFR is not recommended in the following populations:< br/>
Tanna viduals with unstable creatinine concentration s, including patients and those with serious co-morbid conditions.<b r/>
Patie nts with extremes in muscle mass or diet.

The data above are obtained from the National Kidney Disease Education Program (NKDEP) which additionally recommends that when the eGFR is used in patients with extremes of body mass index for purposes of drug dosing, the eGFR should be multiplied by the estimated BMI. HEMATOLOGY Lymphocytes 16.8 20.0 - 07/15 [facility] 40.0 [facility] HEMATOLOGY Eosinophils 5.4 0.0 - 4.0 07/[address] HEMATOLOGY Monocytes 7.8 2.0 - 12.0 07/[address] HEMATOLOGY Basophils 1.1 0.0 - 1.0 07/[address] HEMATOLOGY Lymphocytes 1.8 1.0 - 5.5 07/15 [place] # /2018 [facility] HEMATOLOGY Segs-Bands # 7.3 1.5 - 8.1 07/15 [facility] HEMATOLOGY Monocytes # 0.8 0.0 - 0.8 07/15 [facility] HEMATOLOGY Eosinophils 0.6 0.0 - 0.5 07/15 [facility] # /2018 [facility] HEMATOLOGY Basophils # 0.1 0.0 - 0.2 07/15 [facility] HEMATOLOGY Segs 68.9 45.0 - 07/15 [place] 75.0 [facility] HEMATOLOGY MCV 80.6 80.0 - 07/15 [place] 94.0 [facility] HEMATOLOGY Hct 27.0 42.0 - 07/15 [place] 54.0 [facility] HEMATOLOGY Hgb 8.8 14.0 - 07/15 [facility] 18.0 [facility] HEMATOLOGY MCH 26.2 27.0 - 07/15 [place] 31.0 [facility] HEMATOLOGY MCHC 32.5 32.0 - 07/15 [place] 36.0 [facility] HEMATOLOGY MPV 6.8 7.4 - 10.4 07/15 [facility] HEMATOLOGY Platelet 805 133 - 450 07/15 [facility] HEMATOLOGY RDW 18.3 11.5 - 07/15 [facility] 14.5 [facility] HEMATOLOGY RBC 3.36 4.70 - 07/15 [place] 6.10 [facility] HEMATOLOGY WBC 10.6 3.7 - 10.4 07/15 [facility] ELECTROLYT AGAP 12.4 10.0 - 07/06 [facility] 20.0 [facility] ELECTROLYT eGFR 126 07/06 Result ES /2017 Comment: The [facility] eGFR is calculated using the CKD-EPI formula. In most young, healthy individuals the eGFR will be >90 mL/min/1.73m2 . The eGFR declines with age. An eGFR of 60-89 may be normal in some populations, particularly the elderly, for whom the CKD-EPI formula has not been extensively validated. Use of the eGFR is not recommended in the following populations:< br/>
Tanna viduals with unstable creatinine concentration s, including patients and those with serious co-morbid conditions.<b r/>
Patie nts with extremes in muscle mass or diet.

The data above are obtained from the National Kidney Disease Education Program (NKDEP) which additionally recommends that when the eGFR is used in patients with extremes of body mass index for purposes of drug dosing, the eGFR should be multiplied by the estimated BMI. ELECTROLYT Calcium Lvl 8.4 8.5 - 10.5 07/06 [facility] ELECTROLYT Sodium Lvl 140 135 - 145 07/06 [facility] ELECTROLYT Creatinine 0.60 0.50 - 02/ [facility] Lvl 1.40 /2017 [facility] ELECTROLYT Potassium 3.4 3.5 - 5.1 07/06 [facility] Lvl /2017 [facility] ELECTROLYT Chloride Lvl 107 95 - 109 07/06 [facility] ELECTROLYT CO2 24 24 - 32 07/06 [facility] ELECTROLYT Glucose Lvl 92 70 - 99 07/06 [facility] ELECTROLYT BUN 6 7 - 22 07/06 [facility] HEMATOLOGY Segs-Bands # 5.3 1.5 - 8.1 07/06 [facility] HEMATOLOGY Lymphocytes 1.5 1.0 - 5.5 07/06 [facility] HEMATOLOGY Monocytes # 1.0 0.0 - 0.8 07/06 [facility] HEMATOLOGY Eosinophils 0.6 0.0 - 0.5 07/06 [facility] HEMATOLOGY Basophils # 0.1 0.0 - 0.2 07/06 [facility] HEMATOLOGY Eosinophils 7.0 0.0 - 4.0 07/06 [facility] HEMATOLOGY Basophils 1.2 0.0 - 1.0 07/06 [facility] HEMATOLOGY Monocytes 11.7 2.0 - 12.0 07/06 [facility] HEMATOLOGY Segs 62.4 45.0 - 02 MH 75.0 /2017 [facility] HEMATOLOGY Lymphocytes 17.7 20.0 - 02 40.0 /2017 [facility] HEMATOLOGY WBC 8.5 3.7 - 10.4 07/06 [facility] HEMATOLOGY RDW 18.4 11.5 - 02 14.5 /2017 [facility] HEMATOLOGY MPV 8.1 7.4 - 10.4 07/06 [facility] Platelet 864 133 - 450 07/06 [facility] HEMATOLOGY MCH 26.0 27.0 - 02 MH 31.0 /2017 [facility] HEMATOLOGY MCV 81.5 80.0 - 02/ MH 94.0 /2017 [facility] HEMATOLOGY Hct 26.1 42.0 - 02/ MH 54.0 /2017 [facility] HEMATOLOGY Hgb 8.3 14.0 - 02/ MH 18.0 /2017 [facility] HEMATOLOGY RBC 3.21 4.70 - 02/ MH 6.10 /2017 [facility] HEMATOLOGY MCHC 31.9 32.0 - 02/ MH 36.0 /2017 [facility] CHEM PANEL eGFR 126 / Result Comment: The [facility] eGFR is calculated using the CKD-EPI formula. In most young, healthy individuals the eGFR will be >90 mL/min/1.73m2 . The eGFR declines with age. An eGFR of 60-89 may be normal in some populations, particularly the elderly, for whom the CKD-EPI formula has not been extensively validated. Use of the eGFR is not recommended in the following populations:< br/>
Tanna viduals with unstable creatinine concentration s, including patients and those with serious co-morbid conditions.<b r/>
Patie nts with extremes in muscle mass or diet.

The data above are obtained from the National Kidney Disease Education Program (NKDEP) which additionally recommends that when the eGFR is used in patients with extremes of body mass index for purposes of drug dosing, the eGFR should be multiplied by the estimated BMI. CHEM PANEL CO2 23 24 - 32 07/05 [facility] CHEM PANEL Chloride Lvl 108 95 - 109 07/05 [facility] CHEM PANEL Calcium Lvl 8.1 8.5 - 10.5 07/05 [facility] CHEM PANEL Potassium 3.4 3.5 - 5.1 / Lvl /2017 [facility] CHEM PANEL Sodium Lvl 139 135 - 145 07/05 [facility] CHEM PANEL Creatinine 0.60 0.50 - 02/ Lvl 1.40 /2017 [facility] CHEM PANEL BUN 5 7 - 22 07/05 [facility] CHEM PANEL Glucose Lvl 93 70 - 99 07/05 [facility] CHEM PANEL AGAP 11.4 10.0 - 07/05 [facility] 20.0 [facility] HEMATOLOGY PTT 33.7 22.9 - 02 MH 35.8 /2017 [facility] HEMATOLOGY INR 1.21 0.85 - 07/05 1.17 [facility] HEMATOLOGY PT 15.4 12.0 - 07/05 [facility] 14.7 /2017 [facility] BLOOD BANK ABO/Rh O POS 07/04 RESULTS /2017 [facility] BLOOD BANK Antibody Negative 07/04 RESULTS Scrn (07/04/17 11:22 AM) [facility] ELECTROLYT Potassium 3.2 3.5 - 5.1 07/04 ES Lvl /2017 [facility] ELECTROLYT Sodium Lvl 140 135 - 145 07/04 ES /2017 [facility] ELECTROLYT Chloride Lvl 109 95 - 109 07/04 ES /2017 [facility] ELECTROLYT Calcium Lvl 8.2 8.5 - 10.5 07/04 ES /2017 [facility] ELECTROLYT CO2 24 24 - 32 07/04 ES /2017 [facility] ELECTROLYT AGAP 10.2 10.0 - 07/04 ES 20.0 [facility] ELECTROLYT eGFR 126 07/04 Result Comment: The [facility] eGFR is calculated using the CKD-EPI formula. In most young, healthy individuals the eGFR will be >90 mL/min/1.73m2 . The eGFR declines with age. An eGFR of 60-89 may be normal in some populations, particularly the elderly, for whom the CKD-EPI formula has not been extensively validated. Use of the eGFR is not recommended in the following populations:< br/>
Tanna viduals with unstable creatinine concentration s, including patients and those with serious co-morbid conditions.<b r/>
Patie nts with extremes in muscle mass or diet.

The data above are obtained from the National Kidney Disease Education Program (NKDEP) which additionally recommends that when the eGFR is used in patients with extremes of body mass index for purposes of drug dosing, the eGFR should be multiplied by the estimated BMI. ELECTROLYT Glucose Lvl 101 70 - 99 07/04 ES /2017 [facility] ELECTROLYT BUN 8 7 - 22 07/04 ES /2017 [facility] ELECTROLYT Creatinine 0.60 0.50 - 07/04 ES Lvl 1.40 [facility] BLOOD BANK RBC product Product available 07/04 RESULTS (07/04/17 8:35 AM) /2017 [facility] HEMATOLOGY Eosinophils 0.7 0.0 - 0.5 07/04 # /2018 [facility] HEMATOLOGY Basophils # 0.2 0.0 - 0.2 /2017 [facility] HEMATOLOGY Basophils 1.6 0.0 - 1.0 07/04 /2017 [facility] HEMATOLOGY Segs-Bands # 6.9 1.5 - 8.1 07/04 /2017 [facility] HEMATOLOGY Lymphocytes 1.0 1.0 - 5.5 07/04 MH # /2017 [facility] HEMATOLOGY Monocytes # 0.5 0.0 - 0.8 07/04 /2017 [facility] HEMATOLOGY Segs 75.2 45.0 - 02/ MH 75.0 /2017 [facility] HEMATOLOGY Eosinophils 7.1 0.0 - 4.0 07/04 /2017 [facility] HEMATOLOGY Lymphocytes 10.4 20.0 - 07/04 MH 40.0 /2017 [facility] HEMATOLOGY Monocytes 5.7 2.0 - 12.0 07/04 [facility] HEMATOLOGY Platelet 652 133 - 450 07/04 /2017 [facility] HEMATOLOGY RDW 18.8 11.5 - 07/04 14.5 /2017 [facility] MPV 8.9 7.4 - 10.4 07/04 /2017 [facility] MCHC 31.7 32.0 - 07/04 36.0 /2017 [facility] HEMATOLOGY RBC 2.70 4.70 - 07/04 6.10 /2017 [facility] WBC 9.1 3.7 - 10.4 07/04 /2017 [facility] HEMATOLOGY Hct 23.2 42.0 - 07/04 54.0 /2017 [facility] HEMATOLOGY Hgb 7.4 14.0 - 07/04 18.0 /2017 [facility] MCV 86.1 80.0 - 07/04 MH 94.0 /2017 [facility] HEMATOLOGY MCH 27.3 27.0 - 07/04 MH 31.0 /2017 [facility] HEMATOLOGY INR 1.37 0.85 - 07/04 1.17 /2017 [facility] HEMATOLOGY PT 16.9 12.0 - 07/04 MH 14.7 /2017 [facility] HEMATOLOGY PTT 35.0 22.9 - 07/04 MH 35.8 /2017 [facility] MOLECULAR C difficile Negative Negative 07/03 DIAGNOSTIC DNA (07/03/17 9:19 AM) /2017 [facility] HEMATOLOGY Segs-Bands # 7.0 1.5 - 8.1 07/01 [facility] HEMATOLOGY Eosinophils 1.0 0.0 - 0.5 07/01 # /2017 [facility] HEMATOLOGY Basophils 1.5 0.0 - 1.0 07/01 [facility] HEMATOLOGY Eosinophils 9.7 0.0 - 4.0 07/01 [facility] HEMATOLOGY Monocytes # 0.4 0.0 - 0.8 07/01 [facility] HEMATOLOGY Lymphocytes 1.3 1.0 - 5.5 07/01 MH # /2017 [facility] HEMATOLOGY Basophils # 0.1 0.0 - 0.2 07/01 [facility] HEMATOLOGY Monocytes 4.1 2.0 - 12.0 07/01 [facility] HEMATOLOGY Lymphocytes 13.4 20.0 - 07/01 MH 40.0 [facility] HEMATOLOGY Segs 71.3 45.0 - 07/01 MH 75.0 /2017 [facility] HEMATOLOGY MPV 8.8 7.4 - 10.4 07/01 [facility] HEMATOLOGY Platelet 497 133 - 450 07/01 [facility] HEMATOLOGY RDW 17.8 11.5 - 07/01 MH 14. [facility] HEMATOLOGY MCHC 32.7 32.0 - 07/01 MH 36.0 [facility] HEMATOLOGY MCH 27.1 27.0 - 07/01 MH 31.0 [facility] HEMATOLOGY MCV 82.9 80.0 - 07/01 MH 94.0 [facility] HEMATOLOGY Hct 25.6 42.0 - 07/01 MH 54.0 [facility] HEMATOLOGY RBC 3.08 4.70 - 07/01 MH 6.10 [facility] HEMATOLOGY Hgb 8.4 14.0 - 07/01 MH 18.0 [facility] HEMATOLOGY WBC 9.8 3.7 - 10.4 07/01 [facility] TOXICOLOGY Vanco Tr TND 1030 07/01 [facility] TOXICOLOGY Vanco Tr 12.9 07/01 [facility] CHEM PANEL ASPARTATE 19 0 - 37 06/30 [facility] CHEM PANEL Alk Phos 82 39 - 136 06/30 [facility] CHEM PANEL Bili Total 0.2 0.2 - 1.3 06/30 [facility] CHEM PANEL Albumin Lvl 2.2 3.5 - 5.0 06/30 [facility] CHEM PANEL Total 6.3 6.4 - 8.4 06/30 [facility] CHEM PANEL ALT 21 0 - 65 06/30 [facility] CHEM PANEL B/C Ratio 16 6 - 25 06/30 [facility] CHEM PANEL Globulin 4.1 2.7 - 4.2 06/30 [facility] CHEM PANEL A/G Ratio 0.5 0.7 - 1.6 06/30 [facility] HEMATOLOGY Bands 6.0 0.0 - 11.0 06/30 [facility] HEMATOLOGY RBC Morph Normal 06/30 (06/30/17 6:45 AM) [facility] HEMATOLOGY Plt Morph Normal 06/30 (06/30/17 6:45 AM) [facility] HEMATOLOGY Atypical 0.0 <=0.0 % 06/30 Lymphs [facility] CHEM PANEL B/C Ratio 16 6 - 25 06/29 [facility] CHEM PANEL Globulin 3.7 2.7 - 4.2 06/29 [facility] CHEM PANEL A/G Ratio 0.6 0.7 - 1.6 06/29 [facility] CHEM PANEL Bili Total 0.3 0.2 - 1.3 06/29 [facility] CHEM PANEL ASPARTATE 26 0 - 37 06/29 TRANSAMINASE [facility] CHEM PANEL Alk Phos 81 39 - 136 06/29 [facility] CHEM PANEL Total 6.0 6.4 - 8.4 06/29 Protein [facility] CHEM PANEL ALANINE 27 0 - 65 06/29 AMINOTRANSFE [facility] RASE CHEM PANEL Albumin Lvl 2.3 3.5 - 5.0 06/29 [facility] HEMATOLOGY HJ Body Slight None Seen 06/29 *ABN* [facility] (06/29/17 5:16 AM) HEMATOLOGY Plt Morph Normal 06/29 (06/29/17 5:16 AM) [facility] HEMATOLOGY RBC Morph Normal 06/29 (06/29/17 5:16 AM) [facility] HEMATOLOGY Bands 21.0 0.0 - 11.0 06/29 [facility] TOXICOLOGY Vanco Tr TND [id number] 06/29 [facility] TOXICOLOGY Vanco Tr 10.8 06/29 [facility] CHEM PANEL Albumin Lvl 2.1 3.5 - 5.0 06/28 [facility] CHEM PANEL ASPARTATE 29 0 - 37 06/28 TRANSAMINASE [facility] CHEM PANEL ALANINE 27 0 - 65 06/28 AMINOTRANSFE [facility] RASE CHEM PANEL Bili Total 0.3 0.2 - 1.3 06/28 [facility] CHEM PANEL Alk Phos 83 39 - 136 06/28 [facility] CHEM PANEL Total 5.9 6.4 - 8.4 06/28 Protein /2017 [facility] CHEM PANEL A/G Ratio 0.6 0.7 - 1.6 06/28 [facility] CHEM PANEL Globulin 3.8 2.7 - 4.2 06/28 [facility] CHEM PANEL B/C Ratio 14 6 - 25 06/28 [facility] HEMATOLOGY RBC Morph Normal 06/28 (06/28/17 5:32 AM) [facility] HEMATOLOGY Bands 20.0 0.0 - 11.0 06/28 [facility] HEMATOLOGY Plt Morph Normal 06/28 (06/28/17 5:32 AM) [facility] MOLECULAR Stephane Not Detected Not 06/28 DIAGNOSTIC Vancomycin (06/27/17 6:09 PM) Detected [facility] Resistance MOLECULAR vanB Not Detected Not 06/28 DIAGNOSTIC Vancomycin (06/27/17 6:09 PM) [facility] Resistance MOLECULAR Streptococcu Not Detected Not 06/28 DIAGNOSTIC s spp. (06/27/17 6:09 PM) Detected [facility] MOLECULAR mecA Detected Not 06/28 DIAGNOSTIC Methicillin *ABN* Detected [facility] Resistance (06/27/17 6:09 PM) MOLECULAR Listeria Not Detected Not 06/28 DIAGNOSTIC spp. (06/27/17 6:09 PM) Detected [facility] MOLECULAR S. Not Detected Not 06/28 DIAGNOSTIC pneumoniae (06/27/17 6:09 PM) [facility] MOLECULAR E. faecalis Not Detected Not 06/28 DIAGNOSTIC (06/27/17 6:09 PM) [facility] MOLECULAR S. pyogenes Not Detected Not 06/28 DIAGNOSTIC (06/27/17 6:09 PM) [facility] MOLECULAR S. Not Detected Not 06/28 DIAGNOSTIC agalactiae (06/27/17 6:09 PM) Detected [facility] MOLECULAR Staphylococc Detected Not 06/28 DIAGNOSTIC us spp. *ABN* Detected [facility] (06/27/17 6:09 PM) MOLECULAR E. faecium Not Detected Not 06/28 DIAGNOSTIC (06/27/17 6:09 PM) Detected [facility] MOLECULAR S. aureus Not Detected Not 06/28 DIAGNOSTIC (06/27/17 6:09 PM) [facility] MOLECULAR S. anginosus Not Detected Not 06/28 DIAGNOSTIC grp (06/27/17 6:09 PM) [facility] MOLECULAR S. Detected Not 06/28 DIAGNOSTIC epidermidis *ABN* Detected [facility] (06/27/17 6:09 PM) MOLECULAR S. Not Detected Not 06/28 DIAGNOSTIC lugdunensis (06/27/17 6:09 PM) [facility] TOXICOLOGY Vanco Tr TND [id number] 06/27 [facility] TOXICOLOGY Vanco Tr <0.8 06/27 [facility] URINE AND UA Sq Epi None Seen 06/25 [facility] [place] URINE AND UA WBC <1 0 - 5 06/25 [facility] [place] URINE AND UA RBC <1 0 - 2 06/25 STOOL [facility] URINE AND UA Mucus Few /LPF None Seen 06/25 STOOL /LPF [facility] URINE AND UA <=1.0 0.1 - 1.0 06/25 ST[facility]OL Urobilinogen [facility] URINE AND UA Color Ltyellow 06/25 STOOL [facility] URINE AND UA Ketones Negative Negative 06/25 STOOL mg/dL mg/dL [facility] URINE AND UA Bili Negative Negative 06/25 STOOL *NA* /2017 [facility] (06/25/17 5:21 AM) URINE AND UA Nitrite Negative Negative 06/25 STOOL (06/25/17 5:21 AM) [facility] URINE AND UA Leuk Est Negative Negative 06/25 STOOL (06/25/17 5:21 AM) [facility] URINE AND UA Blood Negative Negative 06/25 STOOL (06/25/17 5:21 AM) [facility] URINE AND UA Spec Grav 1.005 <=1.030 06/25 STOOL [facility] URINE AND UA Turbidity Clear Clear 06/25 STOOL (06/25/17 5:21 AM) [facility] URINE AND UA Protein Negative Negative 06/25 STOOL mg/dL mg/dL [facility] URINE AND UA pH 6.0 5.0 - 8.0 06/25 STOOL [facility] URINE AND UA Glucose Negative Negative 06/25 STO[facility] mg/dL mg/dL [facility] CHEM PANEL Magnesium 2.2 1.8 - 2.4 06/15 Lvl [facility] CHEM PANEL Phosphorus 4.7 2.5 - 4.5 06/15 [facility] CHEM PANEL Lactic Acid 1.3 0.5 - 2.2 06/12 [facility] HEMATOLOGY Hypochrom 1+ None Seen 06/12 (06/12/17 11:12 AM) [facility] HEMATOLOGY MCHC 31.9 32.0 - 06/11 [place] 36.0 [facility] HEMATOLOGY MCV 86.5 80.0 - 06/11 [place] 94.0 [facility] HEMATOLOGY Hct 35.2 42.0 - 06/11 [place] 54.0 [facility] HEMATOLOGY MPV 7.5 7.4 - 10.4 06/11 [facility] HEMATOLOGY RDW 17.3 11.5 - 06/11 [place] 14.5 [facility] HEMATOLOGY Platelet 808 133 - 450 06/11 [facility] HEMATOLOGY Hgb 11.2 14.0 - 06/11 [place] 18.0 [facility] HEMATOLOGY WBC 7.4 3.7 - 10.4 06/11 [facility] HEMATOLOGY RBC 4.06 4.70 - 06/11 [place] 6.10 [facility] HEMATOLOGY MCH 27.6 27.0 - 06/11 [place] 31.0 [facility] ELECTROLYT AGAP 12.6 10.0 - 06/10 [place] ES 20. [facility] ELECTROLYT eGFR 116 06/10 [facility] Comment: The Medical eGFR is Center calculated using the CKD-EPI formula. In most young, healthy individuals the eGFR will be >90 mL/min/1.73m2 . The eGFR declines with age. An eGFR of 60-89 may be normal in some populations, particularly the elderly, for whom the CKD-EPI formula has not been extensively validated. Use of the eGFR is not recommended in the following populations:< br/>
Tanna viduals with unstable creatinine concentration s, including patients and those with serious co-morbid conditions.<b r/>
Patie nts with extremes in muscle mass or diet.

The data above are obtained from the National Kidney Disease Education Program (NKDEP) which additionally recommends that when the eGFR is used in patients with extremes of body mass index for purposes of drug dosing, the eGFR should be multiplied by the estimated BMI. ELECTROLYT Sodium Lvl 142 135 - 145 06/10 [facility] ELECT[facility]OLYT Glucose Lvl 91 70 - 99 06/10 [facility] ELECTROLYT BUN 11 7 - 22 06/10 [facility] ELECTROLYT Calcium Lvl 9.0 8.5 - 10.5 06/10 [facility] ELECTROLYT Creatinine 0.73 0.50 - 06/10 [facility] ES Lvl 1.40 /2017 [facility] ELECTROLYT Potassium 3.6 3.5 - 5.1 06/10 [facility] ES Lvl /2017 [facility] ELECTROLYT CO2 23 24 - 32 06/10 [facility] /2017 [facility] ELECTROLYT Chloride Lvl 110 95 - 109 06/10 [facility] HEMATOLOGY MCHC 32.9 32.0 - 06/10 [facility] 36.0 [facility] HEMATOLOGY Platelet 894 133 - 450 06/10 [facility] HEMATOLOGY RDW 17.5 11.5 - 06/10 [facility] 14.5 /2017 [facility] HEMATOLOGY MPV 7.0 7.4 - 10.4 06/10 [facility] HEMATOLOGY Hct 32.5 42.0 - 06/10 [place] 54.0 [facility] HEMATOLOGY Hgb 10.7 14.0 - 06/10 [place] 18.0 [facility] HEMATOLOGY MCH 28.3 27.0 - 06/10 [place] 31.0 [facility] HEMATOLOGY MCV 86.0 80.0 - 06/10 [place] 94.0 [facility] HEMATOLOGY WBC 9.8 3.7 - 10.4 06/10 [facility] HEMATOLOGY RBC 3.78 4.70 - 06/10 [place] 6.10 [facility] HEMATOLOGY Segs 56.3 45.0 - 06/10 [place] 75.0 [facility] HEMATOLOGY Lymphocytes 28.1 20.0 - 06/10 [place] 40.0 [facility] HEMATOLOGY Segs-Bands # 5.5 1.5 - 8.1 06/10 [facility] HEMATOLOGY Lymphocytes 2.8 1.0 - 5.5 06/10 [place] # /2017 [facility] HEMATOLOGY Eosinophils 1.3 0.0 - 4.0 06/10 [facility] HEMATOLOGY Basophils 1.3 0.0 - 1.0 06/10 [facility] HEMATOLOGY Monocytes 13.0 2.0 - 12.0 06/10 [facility] HEMATOLOGY Monocytes # 1.3 0.0 - 0.8 06/10 [facility] HEMATOLOGY Eosinophils 0.1 0.0 - 0.5 06/10 [place] # /2017 [facility] HEMATOLOGY Basophils # 0.1 0.0 - 0.2 06/10 [facility] [address] [place] [address] URINE AND UA Color Yellow Yellow 06/09 [facility] STOOL *NA* [facility] (06/09/17 5:58 PM) [place] URINE AND UA Spec Grav 1.010 <=1.030 06/09 [facility] URINE AND UA pH 8.5 5.0 - 8.0 06/09 [facility] [address] [place] [address] URINE AND UA Protein Trace Negative 06/09 [facility] STOOL *ABN* [facility] (06/09/17 5:58 PM) [place] URINE AND UA Turbidity Slight Cloudy Clear 06/09 [facility] (06/09/17 5:58 PM) [facility] URINE AND UA Glucose Negative Negative 06/09 [facility] (06/09/17 5:58 PM) [facility] URINE AND UA 1.0 0.1 - 1.0 06/09 [facility] Urobilinogen /2017 [facility] URINE AND UA Nitrite Negative Negative 06/09 [facility] (06/09/17 5:58 PM) [facility] URINE AND UA Bili Negative Negative 06/09 [facility] STOOL *NA* [facility] (06/09/17 5:58 PM) [place] URINE AND UA Blood Negative Negative 06/09 [facility] (06/09/17 5:58 PM) [facility] URINE AND UA Ketones Negative Negative 06/09 [facility] STOOL *NA* [facility] (06/09/17 5:58 PM) [place] URINE AND UA Leuk Est Negative Negative 06/09 [facility] (06/09/17 5:58 PM) Medical [place] URINE AND UA Mucus Moderate None Seen 06/09 [facility] STOOL /LPF /LPF [facility] URINE AND UA Bacteria Few /HPF None Seen 06/09 [facility] /HPF [facility] URINE AND UA Sq Epi Occasional Few /LPF 06/09 [facility] STOOL /LPF /2017 [facility] URINE AND UA WBC 0-2 /HPF None Seen 06/09 [facility] STOOL /HPF /2017 [facility] URINE AND UA RBC 0-2 /HPF 0 - 2 06/09 [facility] STOOL [facility] BLOOD BANK ABO/Rh O POS 06/09 [facility] RESULTS [facility] BLOOD BANK Antibody Negative 06/09 [facility] RESULTS Scrn (06/09/17 4:54 PM) [facility] CARDIAC CK MB <0.5 0.5 - 3.6 06/09 [facility] ENZYMES /2017 [facility] CARDIAC CK MB Index <0.6 0.0 - 2.5 06/09 [facility] ENZYMES [facility] CARDIAC Total CK 78 12 - 191 06/09 [facility] ENZYMES [facility] CHEM PANEL Lactic Acid 2.0 0.5 - 2.2 06/09 [facility] Lvl [facility] ELECTROLYT AGAP 15.4 10.0 - 06/09 [facility] ES 20. [facility] ELECTROLYT eGFR 110 06/09 Result [facility] Comment: The [facility] eGFR is Center calculated using the CKD-EPI formula. In most young, healthy individuals the eGFR will be >90 mL/min/1.73m2 . The eGFR declines with age. An eGFR of 60-89 may be normal in some populations, particularly the elderly, for whom the CKD-EPI formula has not been extensively validated. Use of the eGFR is not recommended in the following populations:< br/>
Tanna viduals with unstable creatinine concentration s, including patients and those with serious co-morbid conditions.<b r/>
Patie nts with extremes in muscle mass or diet.

The data above are obtained from the National Kidney Disease Education Program (NKDEP) which additionally recommends that when the eGFR is used in patients with extremes of body mass index for purposes of drug dosing, the eGFR should be multiplied by the estimated BMI. ELECTROLYT Chloride Lvl 104 95 - 109 06/09 [facility] ELECTROLYT Sodium Lvl 140 135 - 145 06/09 [facility] ELECTROLYT Potassium 3.4 3.5 - 5.1 06/09 [facility] ELECTROLYT CO2 24 24 - 32 06/09 [facility] ELECTROLYT Calcium Lvl 9.2 8.5 - 10.5 06/09 [facility] ELECTROLYT Glucose Lvl 100 70 - 99 06/09 [facility] ES [facility] ELECTROLYT BUN 8 7 - 22 06/09 [facility] ES /2017 [facility] ELECTROLYT Creatinine 0.84 0.50 - 06/09 [facility] ES Lvl 1.40 [facility] HEMATOLOGY Platelet 995 133 - 450 06/[address] HEMATOLOGY MPV 7.1 7.4 - 10.4 06/09 [facility] /[address] [place] [address] HEMATOLOGY RDW 17.6 11.5 - 06/09 [place] 14.5 [facility] HEMATOLOGY MCV 85.5 80.0 - 06/09 [place] 94.0 /2017 [facility] HEMATOLOGY Hct 34.6 42.0 - 06/09 [place] 54.0 [facility] HEMATOLOGY MCHC 32.8 32.0 - 06/09 [facility] 36.0 [facility] HEMATOLOGY MCH 28.0 27.0 - 06/09 [facility] 31.0 [facility] HEMATOLOGY Hgb 11.3 14.0 - 06/09 [facility] 18.0 [facility] HEMATOLOGY RBC 4.05 4.70 - 06/09 [place] 6.10 [facility] HEMATOLOGY WBC 9.9 3.7 - 10.4 06/09 [facility] HEMATOLOGY Basophils 2.9 0.0 - 1.0 06/09 [facility] HEMATOLOGY Segs 51.8 45.0 - 06/09 [facility] 75.0 [facility] HEMATOLOGY Lymphocytes 30.8 20.0 - 06/09 [facility] 40.0 [facility] HEMATOLOGY Monocytes 13.9 2.0 - 12.0 06/09 [facility] HEMATOLOGY Eosinophils 0.6 0.0 - 4.0 06/09 [facility] HEMATOLOGY Monocytes # 1.4 0.0 - 0.8 06/09 [facility] [address] [place] [address] HEMATOLOGY Eosinophils 0.1 0.0 - 0.5 06/09 [facility] # /2017 [facility] HEMATOLOGY Basophils # 0.3 0.0 - 0.2 06/[address] HEMATOLOGY Segs-Bands # 5.1 1.5 - 8.1 06/[address] HEMATOLOGY Lymphocytes 3.1 1.0 - 5.5 06/09 [facility] # /2017 [facility] CHEM PANEL Magnesium 2.4 1.8 - 2.4 05/25 [facility] CHEM PANEL Lactic Acid 1.0 0.5 - 2.2 05/25 [facility] HEMATOLOGY Segs-Bands # 6.5 1.5 - 8.1 05/25 [facility] HEMATOLOGY Monocytes # 1.0 0.0 - 0.8 05/25 [facility] HEMATOLOGY Basophils 1.3 0.0 - 1.0 05/25 [facility] [address] [place] [address] HEMATOLOGY Eosinophils 3.9 0.0 - 4.0 05/25 [facility] HEMATOLOGY Lymphocytes 2.0 1.0 - 5.5 05/25 [facility] # /2016 [facility] HEMATOLOGY Basophils # 0.1 0.0 - 0.2 05/25 [facility] HEMATOLOGY Eosinophils 0.4 0.0 - 0.5 05/25 [facility] HEMATOLOGY Lymphocytes 19.9 20.0 - 05/25 [place] 40.0 [facility] HEMATOLOGY Segs 64.7 45.0 - 05/25 [place] 75.0 [facility] HEMATOLOGY Monocytes 10.2 2.0 - 12.0 05/25 [facility] HEMATOLOGY MCH 29.1 27.0 - 05/25 [place] 31.0 [facility] HEMATOLOGY RDW 18.0 11.5 - 05/25 [place] 14.5 [facility] HEMATOLOGY Platelet 682 133 - 450 05/25 [facility] HEMATOLOGY MPV 7.3 7.4 - 10.4 05/25 [facility] [address] [place] [address] HEMATOLOGY WBC 10.1 3.7 - 10.4 05/25 [facility] HEMATOLOGY RBC 3.54 4.70 - 05/25 [place] 6.10 [facility] HEMATOLOGY Hgb 10.3 14.0 - 05/25 [place] 18.0 [facility] HEMATOLOGY MCV 86.2 80.0 - 05/25 [place] 94.0 [facility] HEMATOLOGY MCHC 33.8 32.0 - 05/25 [place] 36.0 [facility] HEMATOLOGY Hct 30.5 42.0 - 05/25 [place] 54.0 [facility] DRUG U Propoxyph Negative Negative 05/24 [facility] SCREEN Scr *NA* /2016 [facility] (05/24/17 1:30 PM) Center DRUG UDS Note See Note 05/24 [facility] [place] SCREEN (05/24/17 1:30 PM) /2016 [facility] DRUG U Methadone Negative Negative 05/24 [place] SCREEN Scr *NA* Medical (05/24/17 1:30 PM) Center DRUG U Phencyc Negative Negative 05/24 [facility] SCREEN Scr *NA* Medical (05/24/17 1:30 PM) Center DRUG U Benzodia Positive Negative 05/24 [place] SCREEN Scr *ABN* [facility] (05/24/17 1:30 PM) Center DRUG U Samira Scr Negative Negative 05/24 [place] SCREEN *NA* /2016 [facility] (05/24/17 1:30 PM) Center DRUG U Amph Scr Negative Negative 05/24 [place] SCREEN *NA* Medical (05/24/17 1:30 PM) Center DRUG U Cocaine Negative Negative 05/24 [facility] SCREEN Scr *NA* Medical (05/24/17 1:30 PM) Center DRUG U Opiate Scr Positive Negative 05/24 [place] SCREEN *ABN* [facility] (05/24/17 1:30 PM) Center DRUG U Cannab Scr Negative Negative 05/24 [place] SCREEN *NA* /2016 [facility] (05/24/17 1:30 PM) [place] URINE AND UA Sq Epi None Seen 05/24 [facility] URINE AND UA <=1.0 0.1 - 1.0 05/24 [facility] Urobilinogen mg/dL [facility] URINE AND UA Protein Negative Negative 05/24 [facility] STOOL mg/dL mg/dL [facility] URINE AND UA pH 7.0 5.0 - 8.0 05/24 [facility] URINE AND UA Spec Grav 1.006 <=1.030 05/24 [facility] URINE AND UA Turbidity Clear Clear 05/24 [facility] STOOL (05/24/17 1:30 PM) /2016 [facility] URINE AND UA Color Light Yellow Yellow 05/24 [facility] STOOL *NA* [facility] (05/24/17 1:30 PM) [place] URINE AND UA Hyal Cast 1 0 - 2 05/24 [facility] URINE AND UA Nitrite Negative Negative 05/24 [facility] STOOL (05/24/17 1:30 PM) /2016 [facility] URINE AND UA Blood Negative Negative 05/24 [facility] STOOL (05/24/17 1:30 PM) [facility] URINE AND UA Bili Negative Negative 05/24 [facility] STOOL *NA* /2016 [facility] (05/24/17 1:30 PM) Center URINE AND UA Ketones Negative Negative 05/24 [facility] STOOL mg/dL mg/dL [facility] URINE AND UA Glucose Negative Negative 05/24 [facility] STOOL mg/dL mg/dL [facility] URINE AND UA Amorph Occasional None Seen 05/24 [facility] STOOL Magalys /HPF /HPF /2016 [facility] URINE AND UA Mucus Few /LPF None Seen 05/24 [facility] STOOL /LPF /2016 [facility] URINE AND UA Leuk Est Negative Negative 05/24 [facility] STOOL (05/24/17 1:30 PM) /2016 [facility] URINE AND UA Bacteria Occasional None Seen 05/24 [facility] STOOL /HPF /HPF /2016 [facility] URINE AND UA WBC 1 0 - 5 05/24 [facility] /[address] [place] [address] ENDOCRINOL Prolactin 33.8 05/24 [facility] OGY Lvl [facility] BLOOD BANK ABO/Rh O POS 05/24 [facility] RESULTS /2016 [facility] BLOOD BANK Antibody Negative 05/24 [facility] RESULTS Scrn (05/24/17 8:40 AM) /2016 [facility] CHEM PANEL Lactic Acid 1.0 0.5 - 2.2 05/24 [facility] Lvl [facility] HEMATOLOGY MCHC 33.5 32.0 - 05/24 [place] 36.0 [facility] HEMATOLOGY RDW 18.5 11.5 - 05/24 [place] 14.5 [facility] HEMATOLOGY Platelet 616 133 - 450 05/24 [facility] HEMATOLOGY Hct 31.2 42.0 - 05/24 [place] 54.0 [facility] HEMATOLOGY Hgb 10.4 14.0 - 05/24 [place] 18.0 [facility] HEMATOLOGY RBC 3.49 4.70 - 05/24 [place] 6.10 [facility] HEMATOLOGY MCH 29.9 27.0 - 05/24 [place] 31.0 [facility] HEMATOLOGY MCV 89.3 80.0 - 05/24 [place] 94.0 [facility] HEMATOLOGY MPV 7.0 7.4 - 10.4 05/24 [place] [facility] HEMATOLOGY WBC 10.2 3.7 - 10.4 05/24 [facility] HEMATOLOGY Lymphocytes 23.7 20.0 - 12/23 [place] 40.0 [facility] HEMATOLOGY Segs 58.9 45.0 - 05/24 [place] 75.0 [facility] HEMATOLOGY Monocytes 10.8 2.0 - 12.0 05/24 [facility] HEMATOLOGY Eosinophils 5.4 0.0 - 4.0 05/24 [facility] HEMATOLOGY Segs-Bands # 6.0 1.5 - 8.1 05/24 [facility] HEMATOLOGY Basophils 1.2 0.0 - 1.0 05/24 /2016 [facility] HEMATOLOGY Basophils # 0.1 0.0 - 0.2 05/24 [facility] HEMATOLOGY Eosinophils 0.5 0.0 - 0.5 05/24 [facility] HEMATOLOGY Monocytes # 1.1 0.0 - 0.8 05/24 [facility] HEMATOLOGY Lymphocytes 2.4 1.0 - 5.5 05/24 [facility] CHEM PANEL eGFR 122 05/23 [facility] Comment: The Medical eGFR is Center calculated using the CKD-EPI formula. In most young, healthy individuals the eGFR will be >90 mL/min/1.73m2 . The eGFR declines with age. An eGFR of 60-89 may be normal in some populations, particularly the elderly, for whom the CKD-EPI formula has not been extensively validated. Use of the eGFR is not recommended in the following populations:< br/>
Tanna viduals with unstable creatinine concentration s, including patients and those with serious co-morbid conditions.<b r/>
Patie nts with extremes in muscle mass or diet.

The data above are obtained from the National Kidney Disease Education Program (NKDEP) which additionally recommends that when the eGFR is used in patients with extremes of body mass index for purposes of drug dosing, the eGFR should be multiplied by the estimated BMI. CHEM PANEL Glucose Lvl 100 70 - 99 05/23 [facility] CHEM PANEL Creatinine 0.65 0.50 - 05/23 [facility] Lvl 1.40 [facility] CHEM PANEL BUN 7 7 - 22 05/23 [facility] CHEM PANEL Potassium 3.9 3.5 - 5.1 05/23 [facility] Lvl /2016 [facility] CHEM PANEL Sodium Lvl 138 135 - 145 05/23 [facility] CHEM PANEL Calcium Lvl 8.5 8.5 - 10.5 05/23 2016 [facility] CHEM PANEL CO2 26 24 - 32 05/23 [facility] CHEM PANEL Chloride Lvl 105 95 - 109 05/23 2016 [facility] CHEM PANEL AGAP 10.9 10.0 - 05/23 [place] 20.0 [facility] CHEM PANEL Phosphorus 3.3 2.5 - 4.5 05/23 [facility] HEMATOLOGY RDW 18.4 11.5 - 05/23 [place] 14.5 [facility] HEMATOLOGY Platelet 611 133 - 450 05/23 [facility] HEMATOLOGY MCH 28.9 27.0 - 05/23 [place] 31.0 [facility] HEMATOLOGY MCHC 33.1 32.0 - 05/23 [place] 36.0 [facility] HEMATOLOGY MPV 7.6 7.4 - 10.4 05/23 [facility] HEMATOLOGY RBC 3.32 4.70 - 05/23 [place] 6.10 [facility] HEMATOLOGY Hgb 9.6 14.0 - 05/23 [place] 18.0 [facility] HEMATOLOGY MCV 87.4 80.0 - 05/23 [place] 94.0 [facility] HEMATOLOGY Hct 29.0 42.0 - 05/23 [place] 54.0 [facility] HEMATOLOGY WBC 11.9 3.7 - 10.4 05/23 [facility] HEMATOLOGY Basophils # 0.1 0.0 - 0.2 05/23 [facility] HEMATOLOGY Anisocyte 1+ None Seen 05/23 [place] *ABN* /2016 [facility] (05/23/17 10:00 AM) [place] HEMATOLOGY Lymphocytes 1.6 1.0 - 5.5 05/23 [place] # /2016 [facility] HEMATOLOGY Segs-Bands # 8.6 1.5 - 8.1 05/23 2016 [facility] HEMATOLOGY Monocytes # 1.1 0.0 - 0.8 05/23 2016 [facility] HEMATOLOGY Eosinophils 0.5 0.0 - 0.5 05/23 [place] # /2016 [facility] HEMATOLOGY Segs 72.5 45.0 - 05/23 [place] 75.0 [facility] HEMATOLOGY Lymphocytes 13.6 20.0 - 05/23 [place] 40.0 [facility] HEMATOLOGY Monocytes 9.1 2.0 - 12.0 05/23 [facility] HEMATOLOGY Basophils 0.7 0.0 - 1.0 05/23 [facility] HEMATOLOGY Eosinophils 4.1 0.0 - 4.0 05/23 [facility] CHEM PANEL Lactic Acid 1.2 0.5 - 2.2 05/23 [facility] ELECTROLYT Potassium 5.3 3.5 - 5.1 05/22 [facility] ELECTROLYT Sodium Lvl 141 135 - 145 05/22 [facility] ELECTROLYT Calcium Lvl 8.1 8.5 - 10.5 05/22 [facility] ELECTROLYT CO2 22 24 - 32 05/22 [facility] ELECTROLYT Chloride Lvl 108 95 - 109 05/22 [facility] ELECTROLYT eGFR 119 05/22 [facility] Comment: The Medical eGFR is Center calculated using the CKD-EPI formula. In most young, healthy individuals the eGFR will be >90 mL/min/1.73m2 . The eGFR declines with age. An eGFR of 60-89 may be normal in some populations, particularly the elderly, for whom the CKD-EPI formula has not been extensively validated. Use of the eGFR is not recommended in the following populations:< br/>
Tanna viduals with unstable creatinine concentration s, including patients and those with serious co-morbid conditions.<b r/>
Patie nts with extremes in muscle mass or diet.

The data above are obtained from the National Kidney Disease Education Program (NKDEP) which additionally recommends that when the eGFR is used in patients with extremes of body mass index for purposes of drug dosing, the eGFR should be multiplied by the estimated BMI. ELECTROLYT Creatinine 0.69 0.50 - 05/22 [facility] Lvl 1.40 [facility] ELECTROLYT BUN 5 7 - 22 05/22 [facility] ELECTROLYT Glucose Lvl 81 70 - 99 05/22 [facility] ELECTROLYT AGAP 16.3 10.0 - 05/22 [facility] 20.0 [facility] HEMATOLOGY Anti-Xa Low 0.26 05/20 [facility] CHEM PANEL Phosphorus 1.8 2.5 - 4.5 05/20 [facility] CHEM PANEL Magnesium 2.5 1.8 - 2.4 05/20 [facility] ELECTROLYT AGAP 14.2 10.0 - 05/20 [facility] ES 20.0 [facility] ELECTROLYT eGFR 115 05/20 Result [facility] Comment: The Medical eGFR is Center calculated using the CKD-EPI formula. In most young, healthy individuals the eGFR will be >90 mL/min/1.73m2 . The eGFR declines with age. An eGFR of 60-89 may be normal in some populations, particularly the elderly, for whom the CKD-EPI formula has not been extensively validated. Use of the eGFR is not recommended in the following populations:< br/>
Tanna viduals with unstable creatinine concentration s, including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 likelihood to intentionally create further medical complications. - Recommend 1:1 sitter and careful evaluation of the hospital room to decrease patient's ability to self harm. Today the patient's wound was assessed and deemed stable with proper wet-to- dry dressing care. He was given his post-splenectomy vaccines, wound care teaching and supplies, and minimal narcotic-bas ed pain control and encouraged to follow up with psychiatry for opioid dependence management and his other psychiatric diagnoses. He states that he has confirmed that he can stay with his mother and is ready to go home. He is afebrile and tolerating a diet, therefore he has been deemed ready for discharge. Discharge Medications: 1. Pain: Tylenol #3, Robaxin, Gabapentin 2. Psych: Wellbutrin, Prozac 3. Bowel reg: Docusate, senna 4. Home PPI: Pantoprazole Discharge Diet: Regular Discharge Activity: OOBAT Wound Care Instructions: Wet-to-dry, daily dressings Drain Care Instructions: None Disposition: Home Follow up Appointments: Follow Up 1. Kailyn Guzman, Trauma Surgery, 2 weeks 2. Psychiatry, 1 week Nikolas Currie MD MSO [id number] Page [id number] ATTENDING ADDENDUM: I have personally seen and examined this patient with Dr. Currie. Furthermore I have reviewed the resident's note and I agree with the above exam, assesment, and plan. I have reviewed all relavent imaging and interpretted it myself. Appreciate psychiatry recommendations. Will d/c home as patient remains medically stable. Patient exhibited understanding of dressing changes with wet to dry. Can follow up in our clinic in 1-2 weeks. RamosValdez Iliana [id number] Extracted from:Title: Brief Trauma Progress Note Author: Nikolas Currie MD Date: 05/26/17 Follow Up 1. Kailyn Guzman, Trauma Surgery, 2 weeks 2. Psychiatry, as needed DISPO - Home with mother Extracted from:Title: Neurology consult note Author: Caleb Cabezas MD Date: 05/24/17 Impression and Plan New onset seizure vs pseudoseizure: - No known prior h/o seizures - Post-ictal confusion noted, no focal neurological deficits - Rec full seizure w/u as follows: - MRI without contrast (seizure protocol) - UDS, UA, and CXR - EEG routine - No indication for AED at this time. Even if this was a seizure (rather than a pseudoseizure), there is no indication to start AED after the first seziure, unless anomalies on MRI or EEG). If pt re quires AEDs in the future would avoid Keppra as can provoke psychosis: consider tegretol instead (it will also act as a mood stabilizer) Thank you for this interesting consult. Please page neurology consult service for any further questions or concerns. Neurology will cont to follow at this time Case discussed with neurology attending, Dr. Dori Cabezas MD Internal Medicine PGY3 Neurology attending: I have personally interviewed and examined the patient with the resident. I have personally reviewed the labs and imaging. I agree with the details as presented in the note, including the history, examination and plan, that I edited. I have spent 80 min, more than half on edcuatio abotu seizures and pseudo seizures and in coordinating care for these conditions Extracted from:Title: History and Physical Author: Milagro Valentine MD Date: 05/13/17 42-year-old with history ofpsychiatric disorder requiresmultiple hospitalizations due to ingestion of razors. Most recently hospitalized at an outside facility where he underwent ex lap. Returns post 1 day of discharge due to the recent swallowing of razors. He was successfully had removal through EGD today 1.Foreign body in stomach Removed via EGD. Continue pain medicationweanopioids as tolerated wet to dry dressings to wound. Ordered: Admit/Condition, 05/13/17 16:47:00 MARKETING LIAISON, Status: Out Patient with Observation Services, Acute, Expected LOS: 1 Midnight, Michael Gonzalez MD, Admit MD Review /Approve Yes 2.Suicidal ideation Psych response consulted please follow-up with recommendations 3.Psychiatric disorder Sitter ordered at this time resumption of home meds continued scds pending psych response evaluation Plan of Care No Data Provided for This Section Social History Social History Date Source Social History TypeResponse 07/15/2017 [facility] Substance Abuse Use: Current. Type: Marijuana. Recreational Drug Route: Inhaled. Alcohol Past Smoking Status Current every day smoker; Type: Cigarettes; Previous treatment: None; Exposure to Tobacco Smoke self; Cigarette Smoking Last 365 Days Yes; Reg Smoking Cessation Counseling Yes entered on: 07/23/18 Social History TypeResponse 07/15/2017 [facility] Substance Abuse Use: Current. Type: Marijuana. Recreational Drug Route: Inhaled. Alcohol Past Smoking Status Current every day smoker; Type: Cigarettes; Previous treatment: None; Exposure to Tobacco Smoke self; Cigarette Smoking Last 365 Days Yes; Reg Smoking Cessation Counseling Yes entered on: 07/23/18 Social History TypeResponse 07/15/2017 [facility] Substance Abuse Use: Current. Type: Marijuana. Recreational Drug Route: Inhaled. Alcohol Past Smoking Status Current every day smoker; Type: Cigarettes; Previous treatment: None; Exposure to Tobacco Smoke self; Cigarette Smoking Last 365 Days Yes; Reg Smoking Cessation Counseling Yes entered on: 07/23/18 Family History No Data Provided for This Section Advance Directives No Data Provided for This Section Functional Status No Data Provided for This Section
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
--- OUTSIDE RECORDS SUMMARY | 2019-01-04 19:32 | XMS REPORT | Summary of Care ---
:1975 Author Organization [facility] Address [address] [place], [place] [address]- Encounter HQ Amandantr_nestor(FIN) [phone] Date(s): 07/22/18 - 07/23/18 [facility] [address] [place] [address]- [phone] Discharge Disposition: Home or Self Care Attending Physician: Joey Orozco MD Vital Signs Most recent to oldest 1 2 3 [Reference Range]: Height 162.56 cm (07/22/18 5:18 PM) Temperature Oral [96.4-99.1 98.0 DegF 98.5 DegF 97.9 DegF DegF] (07/23/18 9:40 AM) (07/23/18 6:43 AM) (07/23/18 4:10 AM) Blood Pressure [90-140/60-90 130/90 mmHg 130/86 mmHg 111/72 mmHg mmHg] (07/23/18 9:40 AM) (07/23/18 8:27 AM) (07/23/18 6:43 AM) Respiratory Rate [14-20 BRMIN] 18 BRMIN 18 BRMIN 18 BRMIN (07/23/18 9:40 AM) (07/23/18 8:27 AM) (07/23/18 6:43 AM) Peripheral Pulse Rate [60-100 80 bpm 78 bpm 68 bpm bpm] (07/23/18 9:40 AM) (07/23/18 8:27 AM) (07/23/18 6:43 AM) Weight 54.545 kg (07/22/18 5:18 PM) Body Mass Index 20.64 m2 (07/22/18 5:18 PM) Problem List Condition Effective Dates Status [...] Substance Reaction Severity Status penicillins Active Medications Depakote 1,000 mg, 4 tab, Route: PO, Drug form: ECTAB, ONCE, Dosing Weight 54.545, kg, Start date: 07/23/18 0:16:00 BRAKE SPECIALIST, Stop date: 07/23/18 0:16:00 BRAKE SPECIALIST Notes: (Same as: Depakote Delayed Release) Do not confuse with the extended- release tablet. Delayed absorption, enteric coated tablet. Do not crush Start Date: 07/23/18 Stop Date: 07/23/18 Status: Completedpotassium chloride 20 mEq/15 mL oral liquid 40 mEq, 15 mL, Route: PO, Drug form: LIQ, ONCE, Dosing Weight 54.545, kg, Priority: STAT, Start date: 07/23/18 2:59:00 BRAKE SPECIALIST, Stop date: 07/23/18 2:59:00 BRAKE SPECIALIST Start Date: 07/23/18 Stop Date: 07/23/18 Status: CompletedSaline Flush 0.9% 10 mL, Route: IVP, Drug Form: INJ, Dosing Weight 54.545, kg, PRN, PRN Line Flush , Start date: 07/22/18 19:17:00 BRAKE SPECIALIST, Duration: 30 day, Stop date: 08/21/18 20:16 :00 CDT Notes: (Same as: BD Posiflush) Start Date: 07/22/18 Stop Date: 07/23/18 Status: DiscontinuedSodium Chloride 0.9% (Bolus) IV 1,000 mL, Infuse Over: 1 hr, Route: IV, ONCE, Priority: STAT, Dosing Weight 54.545 kg, Start date: 07/23/18 2:49:00 BRAKE SPECIALIST, Stop date: 07/23/18 2:49:00 BRAKE SPECIALIST Start Date: 07/23/18 Stop Date: 07/23/18 Status: CompletedSodium Chloride 0.9% (Bolus) IV 1,000 mL, 1000 ml/hr, Infuse Over: 1 hr, Route: IV, 1,000, Drug form: INJ, ONCE , Priority: STAT, Dosing Weight 54.545 kg, Start date: 07/22/18 19:17:00 BRAKE SPECIALIST, Stop date: 07/22/18 19:17:00 BRAKE SPECIALIST Start Date: 07/22/18 Stop Date: 07/22/18 Status: Completed Results ELECTROLYTES Most recent to oldest [Reference Range]: 1 2 Sodium Lvl [135-145 mEq/L] 141 mEq/L (07/22/18 10:29 PM) Potassium Lvl [3.5-5.1 mEq/L] 3.1 mEq/L *LOW* (07/22/18 10:29 PM) Chloride Lvl [95-109 mEq/L] 102 mEq/L (07/22/18 10:29 PM) CO2 [24-32 mEq/L] 30 mEq/L (07/22/18 10:29 PM) AGAP [10.0-20.0 mEq/L] 12.1 mEq/L (07/22/18 10:29 PM) CHEM PANEL Most recent to oldest [Reference Range]: 1 2 Creatinine Lvl [0.50-1.40 mg/dL] 1.22 mg/dL (07/22/18 10:29 PM) eGFR 73 mL/min/1.73m2 1 *NA* (07/22/18 10:29 PM) BUN [7-22 mg/dL] 29 mg/dL *HI* (07/22/18 10:29 PM) B/C Ratio [6-25] 24 (07/22/18 10:29 PM) Glucose Lvl [70-99 mg/dL] 104 mg/dL *HI* (07/22/18 10:29 PM) Total Protein [6.4-8.4 g/dL] 8.5 g/dL *HI* (07/22/18 10:29 PM) Albumin Lvl [3.5-5.0 g/dL] 4.2 g/dL (07/22/18 10:29 PM) Globulin [2.7-4.2 g/dL] 4.3 g/dL *HI* (07/22/18 10:29 PM) A/G Ratio [0.7-1.6] 1.0 (07/22/18 10:29 PM) Calcium Lvl [8.5-10.5 mg/dL] 9.4 mg/dL (07/22/18 10:29 PM) ALT [0-65 unit/L] 48 unit/L (07/22/18 10:29 PM) AST [0-37 unit/L] 20 unit/L (07/22/18 10:29 PM) Alk Phos [39-136 unit/L] 70 unit/L (07/22/18 10:29 PM) Bili Total [0.2-1.3 mg/dL] 0.6 mg/dL (07/22/18 10:29 PM) 1Result Comment: The eGFR is calculated [...] eGFR should be multiplied by the estimated BMI.CARDIAC ENZYMES Most recent to oldest [Reference Range]: 1 2 Total CK [12-191 unit/L] 129 unit/L (07/23/18 3:54 AM) DRUG SCREEN Most recent to oldest [Reference Range]: 1 2 U Amph Scr [Negative] Positive *ABN* (07/22/18 10:35 PM) U Samira Scr [Negative] Negative *NA* (07/22/18 10:35 PM) U Benzodiaz Scr [Negative] Negative *NA* (07/22/18 10:35 PM) U Cannab Scr [Negative] Negative *NA* (07/22/18 10:35 PM) U Cocaine Scr [Negative] Positive *ABN* (07/22/18 10:35 PM) U Opiate Scr [Negative] Negative *NA* (07/22/18 10:35 PM) U Phencyclidine Scr [Negative] Negative *NA* (07/22/18 10:35 PM) UDS Note See Note (07/22/18 10:35 PM) TOXICOLOGY Most recent to oldest [Reference Range]: 1 2 Acetaminoph Lvl [10-20] <2 (07/23/18 3:54 AM) Valproic Acid Lvl [50-100 ug/ml] 13 ug/ml *LOW* (07/22/18 10:29 PM) Salicylate Lvl [0.0-30.0 mg/dL] <1.7 mg/dL (07/23/18 3:54 AM) URINE AND STOOL Most recent to oldest [Reference Range]: 1 2 UA Turbidity [Clear] Clear (07/22/18 10:35 PM) UA Color [Yellow] Yellow *NA* (07/22/18 10:35 PM) UA pH [5.0-8.0] 6.0 (07/22/18 10:35 PM) UA Spec Grav [<=1.030] >=1.030 *ABN* (07/22/18 10:35 PM) UA Glucose [Negative] Negative (07/22/18 10:35 PM) UA Blood [Negative] Negative (07/22/18 10:35 PM) UA Ketones [Negative] Trace *ABN* (07/22/18 10:35 PM) UA Protein [Negative] Trace *ABN* (07/22/18 10:35 PM) UA Urobilinogen [0.1-1.0 EU/dL] 0.2 EU/dL (07/22/18 10:35 PM) UA Bili [Negative] Small *ABN* (07/22/18 10:35 PM) UA Leuk Est [Negative] Negative (07/22/18 10:35 PM) UA Nitrite [Negative] Negative (07/22/18 10:35 PM) UA WBC [0-5 /HPF] 2 /HPF (07/22/18 10:35 PM) UA RBC [0-2 /HPF] 1 /HPF (07/22/18 10:35 PM) UA Sq Epi [Few] None Seen (07/22/18 10:35 PM) UA Hyal Cast [0-2 /LPF] 6 /LPF *HI* (07/22/18 10:35 PM) UA Mucus [None Seen /LPF] Few /LPF *NA* (07/22/18 10:35 PM) HEMATOLOGY Most recent to oldest [Reference Range]: 1 2 WBC [3.7-10.4 K/CMM] 11.2 K/CMM 16.3 K/CMM *HI* *HI* (07/23/18 3:54 AM) (07/22/18 10:29 PM) RBC [4.70-6.10 M/CMM] 3.40 M/CMM 3.59 M/CMM *LOW* *LOW* (07/23/18 3:54 AM) (07/22/18 10:29 PM) Hgb [14.0-18.0 g/dL] 10.1 g/dL 11.0 g/dL *LOW* *LOW* (07/23/18 3:54 AM) (07/22/18 10:29 PM) Hct [42.0-54.0 %] 31.5 % 33.4 % *LOW* *LOW* (07/23/18 3:54 AM) (07/22/18 10:29 PM) MCV [80.0-94.0 fL] 92.8 fL 92.8 fL (07/23/18 3:54 AM) (07/22/18 10:29 PM) MCH [27.0-31.0 pg] 29.8 pg 30.5 pg (07/23/18 3:54 AM) (07/22/18 10:29 PM) MCHC [32.0-36.0 g/dL] 32.1 g/dL 32.9 g/dL (07/23/18 3:54 AM) (07/22/18 10:29 PM) RDW [11.5-14.5 %] 16.2 % 16.6 % *HI* *HI* (07/23/18 3:54 AM) (07/22/18 10:29 PM) MPV [7.4-10.4 fL] 8.0 fL 8.4 fL (07/23/18 3:54 AM) (07/22/18 10:29 PM) Platelet [133-450 K/CMM] 584 K/CMM 550 K/CMM *HI* *HI* (07/23/18 3:54 AM) (07/22/18 10:29 PM) Segs [45.0-75.0 %] 73.0 % 81.5 % (07/23/18 3:54 AM) *HI* (07/22/18 10:29 PM) Lymphocytes [20.0-40.0 %] 15.8 % 10.1 % *LOW* *LOW* (07/23/18 3:54 AM) (07/22/18 10:29 PM) Monocytes [2.0-12.0 %] 9.6 % 7.5 % (07/23/18 3:54 AM) (07/22/18 10:29 PM) Eosinophils [0.0-4.0 %] 0.8 % 0.3 % (07/23/18 3:54 AM) (07/22/18 10:29 PM) Basophils [0.0-1.0 %] 0.8 % 0.6 % (07/23/18 3:54 AM) (07/22/18 10:29 PM) Neutrophils # [1.5-8.1 K/CMM] 8.2 K/CMM 13.3 K/CMM *HI* *HI* (07/23/18 3:54 AM) (07/22/18 10:29 PM) Lymphocytes # [1.0-5.5 K/CMM] 1.8 K/CMM 1.6 K/CMM (07/23/18 3:54 AM) (07/22/18 10:29 PM) Monocytes # [0.0-0.8 K/CMM] 1.1 K/CMM 1.2 K/CMM *HI* *HI* (07/23/18 3:54 AM) (07/22/18 10:29 PM) Eosinophils # [0.0-0.5 K/CMM] 0.1 K/CMM (07/23/18 3:54 AM) Basophils # [0.0-0.2 K/CMM] 0.1 K/CMM 0.1 K/CMM (07/23/18 3:54 AM) (07/22/18 10:29 PM) Schistocyte [None Seen] 1-3 per HPF (07/22/18 10:29 PM) PT [12.0-14.7 seconds] 13.3 seconds (07/22/18 10:29 PM) INR [0.85-1.17] 1.03 (07/22/18 10:29 PM) PTT [22.9-35.8 seconds] 20.4 seconds *LOW* (07/22/18 10:29 PM) Immunizations Given and Recorded Vaccine Date [...]
--- OUTSIDE RECORDS SUMMARY | 2019-01-04 19:32 | XMS REPORT | Summary of Care ---
:1975 Author Organization [facility] Address [address] [place] [id number] Encounter HQ Kim_nestor(FIN) [id number] Date(s): 07/23/18 - 07/23/[address] [address]- Encounter Diagnosis Generalized abdominal discomfort (Discharge Diagnosis) - 07/23/18 Colostomy care (Discharge Diagnosis) - 07/23/18 Discharge Disposition: Home or Self Care Attending Physician: Bryant Perry MD Vital Signs Most recent to oldest [Reference Range]: 1 2 Height 162.56 cm (07/23/18 11:46 AM) Temperature Oral [96.4-99.1 DegF] 98.3 DegF 98.1 DegF (07/23/18 2:31 PM) (07/23/18 11:46 AM) Blood Pressure [90-140/60-90 mmHg] 123/86 mmHg 110/76 mmHg (07/23/18 2:31 PM) (07/23/18 11:46 AM) Respiratory Rate [14-20 BRMIN] 18 BRMIN 20 BRMIN (07/23/18 2:31 PM) (07/23/18 11:46 AM) Peripheral Pulse Rate [60-100 bpm] 72 bpm 81 bpm (07/23/18 2:31 PM) (07/23/18 11:46 AM) Weight 52.273 kg (07/23/18 11:46 AM) Body Mass Index 19.78 m2 (07/23/18 11:46 AM) Problem List Condition Effective Dates Status Health [...] Substance Reaction Severity Status penicillins Active Medications acetaminophen 1,000 mg, 2 tab, Route: PO, Drug form: TAB, ONCE, Dosing Weight 52.273, kg, Priority: STAT, 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 (Same as: Tylenol Extra Strength) Start Date: 07/23/18 Stop Date: 07/23/18 Status: Completedibuprofen 600 mg oral tablet 600 mg=1 tab, PO, Q6H, PRN Pain, take with food not to exceed 3200 mg/day, # 30 tab, 0 Refill(s) Start Date: 07/23/18 Stop Date: 07/24/18 Status: DiscontinuedMaalox Advanced Regular Strength oral suspension 10 mL, PO, QID-After Meals, shake well before using, # 180 mL, 0 Refill(s) Start Date: 07/23/18 Stop Date: 08/01/18 Status: OrderedMaalox Advanced Regular Strength SUSP 30 mL, Route: PO, Drug Form: SUSP, Dosing Weight 52.273, kg, ONCE, STAT, Start date: 07/23/18 13:12:00 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
--- OUTSIDE RECORDS SUMMARY | 2019-01-04 19:33 | XMS REPORT | Summary of Care ---
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 date: 05/19/17 10:00: 00 ALMOND SORTER Notes: (Same as: Haldol) Start Date: 05/18/17 Stop Date: 05/20/17 Status: Discontinuedhydromorphone 0.5 mg, Route: IVP, ONCE, Dosing Weight 75, kg, Priority: STAT, Start date: 18:23:00 ALMOND SORTER, Stop date: 05/14/17 18:23:00 ALMOND SORTER Start Date: 05/14/17 Stop Date: 05/14/17 Status: Completedhydromorphone 0.5 mg, 0.25 mL, Route: IV, Drug form: INJ, Q20Min, Dosing Weight 75, kg, PRN Pain Score 7-10, Startdate: 05/13/17 15:06:00 ALMOND SORTER, Duration: 2 doses or times, Stop date: Limited # of times Notes: Same as Dilaudid Start Date: 05/13/17 Stop Date: 05/13/17 Status: Completedhydromorphone 1 mg, Route: IVP, ONCE, Dosing Weight 75, kg, Priority: STAT, Start date: 14:44:00 ALMOND SORTER, Stop date: 05/18/17 14:44:00 ALMOND SORTER Start Date: 05/18/17 Stop Date: 05/18/17 Status: Completedhydromorphone 0.5 mg, Route: IVP, ONCE, Dosing Weight 75, kg, Priority: STAT, Start date: 17:51:00 ALMOND SORTER, Stop date: 05/14/17 17:51:00 ALMOND SORTER Start Date: 05/14/17 Stop Date: 05/14/17 Status: CompletedhydrOXYzine 50 mg, 1 cap, Route: PO, Drug form: CAP, ONCE, Dosing Weight 75, kg, Start date : 05/25/17 10:58:00 ALMOND SORTER, Stop date: 05/25/17 10:58:00 ALMOND SORTER Notes: (Same as: Vistaril) Start Date: 05/25/17 Stop Date: 05/25/17 Status: DiscontinuedhydrOXYzine 50 mg, 1 cap, Route: PO, Drug form: CAP, QID, Dosing Weight 75, kg, PRN Anxiety , Start date: 05/24/17 13:09:00 ALMOND SORTER, Duration: 30 day, Stop date: 06/23/17 13:08 :00 ALMOND SORTER Notes: (Same as: Vistaril) Start Date: 05/24/17 Stop Date: 05/26/17 Status: DiscontinuedIsolyte S PH 7.4 1,000 mL 1,000 mL, Rate: 100 ml/hr, Infuse over: 10 hr, Route: IV, Dosing Weight 75 kg, Total Volume: 1,000, Start date: 05/24/17 0:01:00 ALMOND SORTER, Duration: 30 day, Stop date: 06/23/17 0:00:00 ALMOND SORTER, 1.86, m2 Notes: (Same as: Isolyte S PH 7.4) Start Date: 05/24/17 Stop Date: 05/24/17 Status: DiscontinuedIsolyte S PH 7.4 1,000 mL 1,000 mL, Rate: 75 ml/hr, Infuse over: 13.3 hr, Route: IV, Dosing Weight 75 kg, Total Volume: 1,000,Start date: 05/19/17 2:55:00 ALMOND SORTER, Duration: 30 day, Stop date: 06/18/17 2:54:00 ALMOND SORTER, 1.86, m2 Notes: (Same as: Isolyte S PH 7.4) Start Date: 05/19/17 Stop Date: 05/19/17 Status: DiscontinuedIsolyte S PH 7.4 1,000 mL 1,000 mL, Rate: 100 ml/hr, Infuse over: 10 hr, Route: IV, Dosing Weight 75 kg, Total Volume: 1,000, Start date: 05/19/17 7:53:00 ALMOND SORTER, Duration: 30 day, Stop date: 06/18/17 7:52:00 ALMOND SORTER, 1.86, m2 Notes: (Same as: Isolyte S PH 7.4) Start Date: 05/19/17 Stop Date: 05/20/17 Status: DiscontinuedIsolyte S PH-7.4 (Bolus) IV 1,000 mL, Route: IV, Drug Form: SOLN, Dosing Weight 75, kg, ONCE, STAT, Start date: 05/18/17 20:16:00 ALMOND SORTER, Stop date: 05/18/17 20:16:00 ALMOND SORTER Notes: (Same as: Isolyte S PH 7.4) Start Date: 05/18/17 Stop Date: 05/18/17 Status: CompletedIsolyte S PH-7.4 (Bolus) IV 1,000 mL, 0 ml/hr, Route: IV, Drug Form: SOLN, Dosing Weight 75, kg, ONCE, STAT , Start date: 05/19/17 7:37:00 ALMOND SORTER, Stop date: 05/19/17 7:37:00 ALMOND SORTER Notes: (Same as: Isolyte S PH 7.4) Start Date: 05/19/17 Stop Date: 05/19/17 Status: CompletedIsolyte S PH-7.4 (Bolus) IV 1,000 mL, 1000 ml/hr, Route: IV, Drug Form: SOLN, Dosing Weight 75, kg, ONCE, Start date: 05/20/17 8:33:00 ALMOND SORTER, Stop date: 05/20/17 8:33:00 ALMOND SORTER Notes: (Same as: Isolyte S PH 7.4) Start Date: 05/20/17 Stop Date: 05/20/17 Status: CompletedKeppra + Sodium Chloride 0.9% IV 100 mL 1,000 mg, Route: IVPB, ONCE, Dosing Weight 75, kg, Loading Dose, Start date: 8:05:00 ALMOND SORTER, Stop date: 05/24/17 8:05:00 ALMOND SORTER Notes: Same as KeppraMix with 100 mL NS, LR or D5W MEDICATION WASTE Product Size: 500 mgProduct Wasted: ___ mg Start Date: 05/24/17 Stop Date: 05/24/17 Status: CompletedKeppra 500 mg oral tablet 500 mg, 1 tab, Route: PO, Drug form: TAB, Q12H, Dosing Weight 75, kg, Start date : 05/24/17 21:00:00 ALMOND SORTER, Duration: 7 day, Stop date: 05/31/17 9:00:00 ALMOND SORTER Notes: (Same as:Keppra) Start Date: 05/24/17 Stop Date: 05/24/17 Status: CanceledKeppra 500 mg oral tablet 500 mg, Route: PO, Drug form: TAB, Q24H, Dosing Weight 75, kg, Start date: 05/25 9:00:00 ALMOND SORTER, Duration: 7 day, Stop date: 05/31/17 9:00:00 ALMOND SORTER Start Date: 05/25/17 Stop Date: 05/24/17 Status: CanceledketOROLAC 30 mg, Route: IVP, ONCE, Dosing Weight 75, kg, Priority: NOW, Start date: 19:28:00 ALMOND SORTER, Stop date: 05/14/17 19:28:00 ALMOND SORTER Start Date: 05/14/17 Stop Date: 05/14/17 Status: DeletedketOROLAC 15 mg, 1 mL, Route: IVP, Drug form: INJ, Q6H, Dosing Weight 75, kg, Start date: 05/19/17 12:00:00 ALMOND SORTER, Stop date: 05/20/17 6:00:00 ALMOND SORTER Notes: (Same as:Toradol) IV bolus must be given >15 seconds. Give IM administration slowly and deeply into the muscle. Not for use > 4 days. Start Date: 05/19/17 Stop Date: 05/20/17 Status: CompletedLactated Ringers Injection IV (ANES) 1000 mL Route: IV, Total Volume: 1,000, Start date: 05/18/17 12:40:00 ALMOND SORTER, Stop date: 13:40:00 ALMOND SORTER Start Date: 05/18/17 Stop Date: 05/18/17 Status: CompletedLactated Ringers Injection IV (ANES) 1000 mL Route: IV, Total Volume: 1,000, Start date: 05/18/17 23:00:00 ALMOND SORTER, Stop date: 0:00:00 ALMOND SORTER Start Date: 05/18/17 Stop Date: 05/19/17 Status: Completedlidocaine (ANES) Route: IV, Drug form: INJ, ONCE, Stop date: 05/18/17 13:34:00 ALMOND SORTER Start Date: 05/18/17 Stop Date: 05/18/17 Status: Completedlidocaine (ANES) Route: IV, Drug form: INJ, ONCE, Stop date: 05/19/17 0:15:00 ALMOND SORTER Start Date: 05/19/17 Stop Date: 05/19/17 Status: Completedlidocaine (ANES) Route: IV, Drug form: INJ, ONCE, Stop date: 05/14/17 17:37:00 ALMOND SORTER Start Date: 05/14/17 Stop Date: 05/14/17 Status: CompletedLidoderm 5% topical film (patch) 1 patch, Route: TOP, Q24H, Drug form: FILM, Start date: 05/14/17 20:00:00 ALMOND SORTER, Duration: 30 day, Stop date: 06/12/17 20:00:00 ALMOND SORTER Notes: Apply only once for up to 12 hours in [id number] period (12 hours on and 12 hours off).(Same as: Lidoderm) Start Date: 05/14/17 Stop Date: 05/18/17 Status: DiscontinuedLidoderm 5% topical film (patch) 1 patch, Route: TOP, Q24H, Drug form: FILM, Start date: 05/14/17 20:00:00 ALMOND SORTER, Duration: 30 day, Stop date: 06/12/17 20:00:00 ALMOND SORTER Notes: Apply only once for up to 12 hours in [id number] period (12 hours on and 12 hours off).(Same as: Lidoderm)"Remove old patch before application of new patch" Start Date: 05/14/17 Stop Date: 05/18/17 Status: DiscontinuedLovenox 30 mg, 0.3 mL, Route: SUB-Q, Drug form: INJ, [id number], Dosing Weight 75, kg, Start date: 05/15/17 16:00:00 ALMOND SORTER, Duration: 30 day, Stop date: 06/14/17 4:00: 00 ALMOND SORTER Notes: (Same as: Lovenox) Start Date: 05/15/17 Stop Date: 05/26/17 Status: Discontinuedmelatonin 3 mg, 1 tab, Route: PO, Drug form: TAB, Bedtime, Dosing Weight 75, kg, PRN Sleep , Start date: 05/19/17 22:57:00 ALMOND SORTER, Duration: 30 day, Stop date: 06/18/17 22:56 :00 ALMOND SORTER Notes: (Same as: Melatonin) Start Date: 05/19/17 Stop Date: 05/25/17 Status: Discontinuedmelatonin 3 mg, 1 tab, Route: PO, Drug form: TAB, Bedtime, Dosing Weight 75, kg, Start date: 05/25/17 21:00:00CST, Duration: 30 day, Stop date: 06/23/17 21:00:00 ALMOND SORTER Notes: (Same as: Melatonin) Start Date: 05/25/17 Stop Date: 05/26/17 Status: DiscontinuedMenactra 0.5 mL, Route: IM, Dosing Weight 75, kg, ONCALL, Start date: 05/26/17 8:00:00 ALMOND SORTER, Duration: 30 day,Stop date: 06/25/17 7:59:00 ALMOND SORTER, Pediatric Dosing Start Date: 05/26/17 Stop Date: 05/26/17 Status: DeletedmetroNIDAZOLE (ANES) 5 mg Route: IV, Drug form: INJ, Start date: 05/18/17 23:36:00 ALMOND SORTER, Stop date: 0:36:00 ALMOND SORTER Start Date: 05/18/17 Stop Date: 05/19/17 Status: Completedmidazolam (ANES) Route: IV, Drug form: SOLN, ONCE, Stop date: 05/18/17 13:34:00 ALMOND SORTER Start Date: 05/18/17 Stop Date: 05/18/17 Status: Completedmorphine Sulfate 4 mg, 1 mL, Route: IVP, Drug form: SOLN, ONCE, Dosing Weight 75, kg, Priority: STAT, Start date: 05/13/17 10:37:00 ALMOND SORTER, Stop date: 05/13/17 10:37:00 ALMOND SORTER Notes: (Same as:MORPhine Sulfate) Start Date: 05/13/17 Stop Date: 05/13/17 Status: Completednaproxen 500 mg, 1 tab, Route: PO, Drug form: TAB, BID, Dosing Weight 75, kg, Start date : 05/16/17 17:00:00 ALMOND SORTER, Duration: 30 day, Stop date: 06/15/17 9:00:00 ALMOND SORTER Notes: (Same as: Naprosyn) Take with food. Start Date: 05/16/17 Stop Date: 05/26/17 Status: Discontinuednaproxen 500 mg oral tablet 500 mg=1 tab, PO, BID, 0 Refill(s) Start Date: 05/26/17 Status: Orderedneostigmine (ANES) Route: IV, Drug form: INJ, ONCE, Stop date: 05/19/17 3:01:00 ALMOND SORTER Start Date: 05/19/17 Stop Date: 05/19/17 Status: CompletedNorco 10/325 oral tablet 1 tab, Route: PO, Drug Form: TAB, Dosing Weight 75, kg, Q6H, Start date: 14:30:00 ALMOND SORTER, Duration: 30 day, Stop date: 06/21/17 14:00:00 ALMOND SORTER Notes: Do not exceed 4gm/day of acetaminophen. (Same as: [place] 325/10) Start Date: 05/22/17 Stop Date: 05/26/17 Status: DiscontinuedNS (Bolus) IV 500 mL, 500 ml/hr, Infuse Over: 1 hr, Route: IV, ONCE, Priority: STAT, Dosing Weight 75 kg, Start date: 05/18/17 20:14:00 ALMOND SORTER, Stop date: 05/18/17 20:14:00 ALMOND SORTER Start Date: 05/18/17 Stop Date: 05/18/17 Status: DiscontinuedOmnipaque 350mg/ml 100 mL, Route: IVP, Drug Form: SOLN, Dosing Weight 75, kg, ONCALL, STAT, Start date: 05/14/17 14:31:00 ALMOND SORTER, Duration: 1 doses or times, Dose=2.2ml/kg, Max [id number] -- "To be infused by Radiology Staff ONLY" Start Date: 05/14/17 Stop Date: 05/14/17 Status: Completedondansetron 4 mg, 2 mL, Route: IVP, Drug form: INJ, ONCE, Dosing Weight 75, kg, Priority: STAT, Start date: 05/13/17 10:37:00 ALMOND SORTER, Stop date: 05/13/17 10:37:00 ALMOND SORTER Notes: (Same as: Julia) MEDICATION WASTE Product Size: 4 mgProduct Wasted: _0_ mg Start Date: 05/13/17 Stop Date: 05/13/17 Status: Completedondansetron 4 mg, 2 mL, Route: IVP, Drug form: INJ, Q6H, Dosing Weight 75, kg, PRN Nausea & amp; Vomiting, Start date: 05/13/17 16:47:00 ALMOND SORTER, Duration: 30 day, Stop date: 06/12/17 16:46:00 ALMOND SORTER Notes: (Same as: Julia) MEDICATION WASTE Product Size: 4 mgProduct Wasted: ___ mg Start Date: 05/13/17 Stop Date: 05/26/17 Status: Discontinuedondansetron (ANES) Route: IV, Drug form: INJ, ONCE, Stop date: 05/18/17 13:55:00 ALMOND SORTER Start Date: 05/18/17 Stop Date: 05/18/17 Status: Completedondansetron (ANES) Route: IV, Drug form: INJ, ONCE, Stop date: 05/19/17 2:20:00 ALMOND SORTER Start Date: 05/19/17 Stop Date: 05/19/17 Status: CompletedoxyCODONE 5 mg immediate release 5 mg, 1 tab, Route: PO, Drug form: TAB, Q4H, Dosing Weight 75, kg, PRN Pain Score 4-6, Start date: 05/14/17 19:30:00 ALMOND SORTER, Duration: 30 day, Stop date: 06/13 19:29:00 ALMOND SORTER Notes: (Same as: Roxicodone) Start Date: 05/14/17 Stop Date: 05/21/17 Status: DiscontinuedoxyCODONE 5 mg immediate release 10 mg, 2 tab, Route: PO, Drug form: TAB, Q4H, Dosing Weight 75, kg, PRN Pain Score 7-10, Start date:05/14/17 19:29:00 ALMOND SORTER, Duration: 30 day, Stop date: 06/13 19:28:00 ALMOND SORTER Notes: (Same as: Roxicodone) Start Date: 05/14/17 Stop Date: 05/15/17 Status: DiscontinuedoxyCODONE 5 mg oral tablet 5 mg, 1 tab, Route: PO, Drug form: TAB, ONCE, Dosing Weight 75, kg, PRN Pain Score 4-6, Start date: 05/21/17 19:27:00 ALMOND SORTER Notes: (Same as: Roxicodone) Start Date: 05/21/17 Stop Date: 05/21/17 Status: CompletedoxyCODONE 5 mg oral tablet 5 mg, 1 tab, Route: NG, Drug form: TAB, ONCE, Dosing Weight 75, kg, Start date: 05/20/17 10:06:00 ALMOND SORTER, Stop date: 05/20/17 10:06:00 ALMOND SORTER Notes: (Same as: Roxicodone) Start Date: 05/20/17 Stop Date: 05/20/17 Status: CompletedoxyCODONE 5 mg oral tablet 5 mg, 1 tab, Route: PO, Drug form: TAB, ONCE, Dosing Weight 75, kg, Start date: 05/24/17 23:26:00 ALMOND SORTER, Stop date: 05/24/17 23:26:00 ALMOND SORTER Notes: (Same as: Roxicodone) Start Date: 05/24/17 Stop Date: 05/24/17 Status: CompletedoxyCODONE 5 mg oral tablet 5 mg, 1 tab, Route: PO, Drug form: TAB, Q4H, Dosing Weight 75, kg, PRN Pain Score 4-6, Start date: 05/13/17 20:26:00 ALMOND SORTER, Duration: 30 day, Stop date: 06/12 20:25:00 ALMOND SORTER Notes: (Same as: Roxicodone) Start Date: 05/13/17 Stop Date: 05/14/17 Status: DiscontinuedoxyCODONE 5 mg oral tablet 5 mg, 1 tab, Route: PO, Drug form: TAB, Q4H, Dosing Weight 75, kg, Priority: NOW , Start date: 05/19/17 9:38:00 ALMOND SORTER, Duration: 30 day, Stop date: 06/18/17 8:00: 00 ALMOND SORTER Notes: (Same as: Roxicodone) Start Date: 05/19/17 Stop Date: 05/19/17 Status: DiscontinuedoxyCODONE 5 mg/5 mL oral solution 5 mg, 5 mL, Route: PO, Drug form: LIQ, ONCE, Dosing Weight 75, kg, Start date: 05/13/17 15:06:00 ALMOND SORTER, Stop date: 05/13/17 15:06:00 ALMOND SORTER Notes: (Same as: 'Roxicodone) Start Date: 05/13/17 Stop Date: 05/13/17 Status: Discontinuedpantoprazole 40 mg, 1 tab, Route: PO, Drug form: ECTAB, BID-Before Meals, Dosing Weight 75, kg, Start date: 05/19/17 16:30:00 ALMOND SORTER, Duration: 30 day, Stop date: 06/18/17 8: 00:00 ALMOND SORTER Notes: Tablet should not be chewed or crushed.(Same as: Protonix) Start Date: 05/19/17 Stop Date: 05/26/17 Status: Discontinuedpantoprazole 40 mg oral enteric coated tablet 40 mg=1 tab, PO, BID-Before Meals, # 60 tab, 0 Refill(s) Start Date: 05/26/17 Stop Date: 06/25/17 Status: OrderedPHOS-NaK 2 pkt, Route: PO, Drug Form: PDR/REC, Dosing Weight 75, kg, Q8H, Start date: 8:34:00 ALMOND SORTER, Duration: 30 day, Stop date: 06/19/17 8:00:00 ALMOND SORTER Notes: (Same as: Phos-NaK) Each 1.5 gm pkt has 250mg phosphorous. Mix w/2.5oz water and stir. Start Date: 05/20/17 Stop Date: 05/24/17 Status: Discontinuedpregabalin 100 mg, 1 cap, Route: PO, Drug form: CAP, Q8H, Dosing Weight 75, kg, Priority: NOW, Start date: 05/14/17 19:28:00 ALMOND SORTER, Duration: 48 hr, Stop date: 05/16/17 19: 00:00 ALMOND SORTER Notes: (Same as: Lyrica) Start Date: 05/14/17 Stop Date: 05/16/17 Status: Discontinuedpropofol (ANES) Route: IV, Drug form: INJ, ONCE, Stop date: 05/18/17 13:34:00 ALMOND SORTER Start Date: 05/18/17 Stop Date: 05/18/17 Status: Completedpropofol (ANES) Route: IV, Drug form: INJ, ONCE, Stop date: 05/19/17 0:15:00 ALMOND SORTER Start Date: 05/19/17 Stop Date: 05/19/17 Status: Completedpropofol (ANES) Route: IV, Drug form: INJ, ONCE, Stop date: 05/14/17 17:00:00 ALMOND SORTER Start Date: 05/14/17 Stop Date: 05/14/17 Status: CompletedProtonix 40 mg, PO, Daily, # 30 tab, 0 Refill(s) Start Date: 05/13/17 Stop Date: 05/26/17 Status: DiscontinuedProtonix 40 mg, Route: IVP, Drug form: INJ, ONCE, Dosing Weight 75, kg, Priority: STAT, Start date: 05/13/17 9:36:00 ALMOND SORTER, Stop date: 05/13/17 9:36:00 ALMOND SORTER Notes: For IV push reconstitute with 10 ml 0.9% sodium chloride and push over 2 minutes. (Same as: Protonix) Start Date: 05/13/17 Stop Date: 05/13/17 Status: CompletedProtonix 40 mg, Route: IVP, Drug form: INJ, BID, Dosing Weight 75, kg, Patient is NPO, Start date: 05/19/17 9:00:00 ALMOND SORTER, Duration: 30 day, Stop date: 06/17/17 17:00: 00 ALMOND SORTER Notes: For IV push reconstitute with 10 ml 0.9% sodium chloride and push over 2 minutes. (Same as: Protonix) Start Date: 05/19/17 Stop Date: 05/19/17 Status: DiscontinuedProtonix 40 mg, 1 tab, Route: PO, Drug form: ECTAB, Daily, Dosing Weight 75, kg, Start date: 05/14/17 9:00:00CST, Duration: 30 day, Stop date: 06/12/17 9:00:00 ALMOND SORTER Notes: Tablet should not be chewed or crushed.(Same as: Protonix) Start Date: 05/14/17 Stop Date: 05/19/17 Status: DiscontinuedPROzac 20 mg, 1 cap, Route: PO, Drug form: CAP, Daily, Dosing Weight 75, kg, Start date : 05/15/17 9:00:00 ALMOND SORTER, Stop date: 06/13/17 9:00:00 ALMOND SORTER Notes: (Same as: Prozac, Sarafem) Start Date: 05/15/17 Stop Date: 05/26/17 Status: Discontinuedremove patch 2 patch, Route: TOP, Daily, Drug form: ERFILM, Start date: 05/15/17 8:00:00 ALMOND SORTER , Duration: 30 day, Stop date: 06/13/17 8:00:00 ALMOND SORTER Notes: Remove patch 12 hours after application each day. Start Date: 05/15/17 Stop Date: 05/26/17 Status: DiscontinuedRobaxin 500 mg oral tablet 1,000 mg=2 tab, PO, QID, PRN Muscle Spasms, X 7 day, # 56 tab, 0 Refill(s) Start Date: 05/26/17 Stop Date: 06/02/17 Status: Orderedrocuronium (ANES) Route: IV, Drug form: INJ, ONCE, Stop date: 05/19/17 0:40:00 ALMOND SORTER Start Date: 05/19/17 Stop Date: 05/19/17 Status: Completedsenna 17.2 mg, 2 tab, Route: PO, Drug Form: TAB, Dosing Weight 75, kg, Bedtime, Start date: 05/14/17 21:00:00 ALMOND SORTER, Duration: 30 day, Stop date: 06/12/17 21:00:00 ALMOND SORTER Notes: (Same as: Senokot) Start Date: 05/14/17 Stop Date: 05/26/17 Status: Discontinuedsenna 8.6 mg oral tablet 17.2 mg=2 tab, PO, Bedtime, X 14 day, # 28 tab, 0 Refill(s) Start Date: 05/26/17 Stop Date: 06/09/17 Status: OrderedSEROquel 50 mg, 2 tab, Route: PO, Drug form: TAB, Daily, Start date: 05/20/17 9:00:00 ALMOND SORTER , Duration: 30 day, Stop date: 06/18/17 9:00:00 ALMOND SORTER Notes: (Same as: SEROquel) Start Date: 05/20/17 Stop Date: 05/26/17 Status: DiscontinuedSEROquel 100 mg, 1 tab, Route: PO, Drug form: TAB, Bedtime, Dosing Weight 75, kg, Start date: 05/20/17 21:00:00 ALMOND SORTER, Duration: 30 day, Stop date: 06/18/17 21:00:00 ALMOND SORTER Notes: (Same as: SEROquel) Start Date: 05/20/17 Stop Date: 05/26/17 Status: DiscontinuedSEROquel 50 mg, Route: PO, Drug form: TAB, QAM, Dosing Weight 75, kg, Priority: STAT, Start date: 05/20/17 8:39:00 ALMOND SORTER, Duration: 30 day, Stop date: 06/18/17 9:00:00 ALMOND SORTER Start Date: 05/20/17 Stop Date: 05/20/17 Status: DeletedSodium Chloride 0.9% IV (ANES) 100 mL + dexmedetomidine (ANES) 200 microgram Route: IV, Drug form: INJ, Start date: 05/18/17 23:33:00 ALMOND SORTER, Stop date: 0:33:00 ALMOND SORTER Start Date: 05/18/17 Stop Date: 05/19/17 Status: CompletedSodium Chloride 0.9% IV (ANES) 1000 mL Route: IV, Total Volume: 1,000, Start date: 05/18/17 23:15:00 ALMOND SORTER, Stop date: 0:15:00 ALMOND SORTER Start Date: 05/18/17 Stop Date: 05/19/17 Status: CompletedSodium Chloride 0.9% IV (ANES) 500 mL Route: IV, Total Volume: 500, Start date: 05/14/17 15:22:00 ALMOND SORTER, Stop date: 16:22:00 ALMOND SORTER Start Date: 05/14/17 Stop Date: 05/14/17 Status: Completedsterile water 20 mL, Route: MISC, Drug Form: INJ, ONCALL, PRN Other -See Comment, Start date: 05/19/17 14:19:00 ALMOND SORTER, Stop date: 05/20/17 14:18:00 ALMOND SORTER Start Date: 05/19/17 Stop Date: 05/20/17 Status: Completedsuccinylcholine (ANES) Route: IV, Drug form: INJ, ONCE, Stop date: 05/18/17 13:34:00 ALMOND SORTER Start Date: 05/18/17 Stop Date: 05/18/17 Status: Completedsuccinylcholine (ANES) Route: IV, Drug form: INJ, ONCE, Stop date: 05/19/17 0:15:00 ALMOND SORTER Start Date: 05/19/17 Stop Date: 05/19/17 Status: Completedtramadol 100 mg, 2 tab, Route: PO, Drug form: TAB, Q6H, Dosing Weight 75, kg, PRN Pain Score 4-6, Start date:05/25/17 11:45:00 ALMOND SORTER, Duration: 30 day, Stop date: 11:44:00 ALMOND SORTER Notes: Not to exceed 400mg/day. (Same As: Ultram) Start Date: 05/25/17 Stop Date: 05/25/17 Status: Discontinuedtramadol 100 mg, 2 tab, Route: PO, Drug form: TAB, Q6H, Dosing Weight 75, kg, Priority: NOW, Start date: 05/14/17 19:28:00 ALMOND SORTER, Duration: 30 day, Stop date: 06/13/17 14 :00:00 ALMOND SORTER Notes: Not to exceed 400mg/day. (Same As: Ultram) Start Date: 05/14/17 Stop Date: 05/15/17 Status: Discontinuedtramadol 100 mg, 2 tab, Route: NG, Drug form: TAB, Q6H, Dosing Weight 75, kg, Start date : 05/20/17 12:00:00 ALMOND SORTER, Duration: 30 day, Stop date: 06/19/17 6:00:00 ALMOND SORTER Notes: Not to exceed 400mg/day. (Same As: Ultram) Start Date: 05/20/17 Stop Date: 05/23/17 Status: Discontinuedtramadol 50 mg, 1 tab, Route: PO, Drug form: TAB, Q4H, Dosing Weight 75, kg, PRN Pain Score 4-6, Start date: 05/13/17 16:49:00 ALMOND SORTER, Duration: 30 day, Stop date: 06/12 16:48:00 ALMOND SORTER Notes: Not to exceed 400mg/day. (Same As: Ultram) Start Date: 05/13/17 Stop Date: 05/14/17 Status: Discontinuedtramadol 100 mg, 2 tab, Route: PO, Drug form: TAB, Q6H, Dosing Weight 75, kg, Start date : 05/19/17 12:00:00 ALMOND SORTER, Duration: 30 day, Stop date: 06/18/17 6:00:00 ALMOND SORTER Notes: Not to exceed 400mg/day. (Same As: Ultram) Start Date: 05/19/17 Stop Date: 05/19/17 Status: Discontinuedtramadol 50 mg, PO, Q4-6H, PRN Pain, # 20 tab, 0 Refill(s) Start Date: 05/13/17 Stop Date: 05/26/17 Status: Discontinuedtramadol 100 mg, 2 tab, Route: NG, Drug form: TAB, Q6H, Dosing Weight 75, kg, PRN Pain Score 6-10, Start date: 05/23/17 8:54:00 ALMOND SORTER, Duration: 30 day, Stop date: 06/22 8:53:00 ALMOND SORTER Notes: Not to exceed 400mg/day. (Same As: Ultram) Start Date: 05/23/17 Stop Date: 05/24/17 Status: DiscontinuedTylenol 650 mg, 2 tab, Route: PO, Drug form: TAB, Q6H, Dosing Weight 75, kg, Start date : 05/15/17 18:00:00 ALMOND SORTER, Duration: 30 day, Stop date: 06/14/17 12:00:00 ALMOND SORTER Notes: Do not exceed 4 gm/day. (Same as: Tylenol) Start Date: 05/15/17 Stop Date: 05/26/17 Status: DiscontinuedTylenol with Codeine #3 oral tablet 2 tab, PO, Q6H, PRN Pain, X 7 day, # 56 tab, 0 Refill(s) Start Date: 05/26/17 Stop Date: 06/02/17 Status: OrderedValium 5 mg, 1 mL, Route: IVP, Drug form: INJ, ONCE, Dosing Weight 75, kg, Priority: Routine, Start date: 05/19/17 16:00:00 ALMOND SORTER, Stop date: 05/19/17 16:00:00 ALMOND SORTER Notes: (Same as: Valium)WASTE: F/P - Black; E - White/Blue Start Date: 05/19/17 Stop Date: 05/19/17 Status: DeletedValium 5 mg, 1 mL, Route: IVP, Drug form: INJ, ONCE, Dosing Weight 75, kg, Priority: STAT, Start date: 05/19/17 14:32:00 ALMOND SORTER, Stop date: 05/19/17 14:32:00 ALMOND SORTER Notes: (Same as: Valium)WASTE: F/P - Black; E - White/Blue Start Date: 05/19/17 Stop Date: 05/19/17 Status: CompletedValium 5 mg, 1 mL, Route: IVP, Drug form: INJ, ONCE, Dosing Weight 75, kg, Priority: STAT, Start date: 05/19/17 14:22:00 ALMOND SORTER, Stop date: 05/19/17 14:22:00 ALMOND SORTER Notes: (Same as: Valium) Start Date: 05/19/17 Stop Date: 05/19/17 Status: DeletedVersed 1 mg, Route: IVP, ONCE, Dosing Weight 75, kg, Priority: STAT, Start date: 17:09:00 ALMOND SORTER, Stop date: 05/13/17 17:09:00 ALMOND SORTER Start Date: 05/13/17 Stop Date: 05/13/17 Status: CompletedVersed 3 mg, 3 mL, Route: IVP, Drug form: INJ, ONCALL, Dosing Weight 75, kg, Start date : 05/18/17 20:00:00 ALMOND SORTER, Duration: 1 doses or times, Stop date: 05/19/17 6:00: 00 ALMOND SORTER Notes: (Same as: Farazed) MEDICATION WASTE Product Size: 2 mgProduct Wasted: ___ mg Start Date: 05/18/17 Stop Date: 05/24/17 Status: DiscontinuedWellbutrin 150 mg, PO, BID, 0 Refill(s) Start Date: 05/13/17 Stop Date: 05/26/17 Status: DiscontinuedWellbutrin 300 mg, 2 tab, Route: PO, Drug form: ERTAB, Daily, Dosing Weight 75, kg, Start date: 05/15/17 9:00:00 ALMOND SORTER, Stop date: 06/13/17 9:00:00 ALMOND SORTER Notes: (Same as: Wellbutrin XL)"Do Not Crush" Start Date: 05/15/17 Stop Date: 05/18/17 Status: DiscontinuedWellbutrin 150 mg, 2 tab, Route: PO, Drug form: TAB, BID, Dosing Weight 75, kg, Start date : 05/13/17 17:00:00 ALMOND SORTER, Duration: 30 day, Stop date: 06/12/17 9:00:00 ALMOND SORTER Notes: (Same As: Wellbutrin) Start Date: 05/13/17 Stop Date: 05/14/17 Status: DiscontinuedWellbutrin 300 mg, 2 tab, Route: PO, Drug form: ERTAB, Daily, Dosing Weight 75, kg, Start date: 05/25/17 9:00:00 ALMOND SORTER, Stop date: 06/23/17 9:00:00 ALMOND SORTER Notes: (Same as: Wellbutrin XL)"Do Not Crush" Start Date: 05/25/17 Stop Date: 05/26/17 Status: DiscontinuedWellbutrin XL 300 mg, 2 tab, Route: PO, Drug form: ERTAB, Daily, Dosing Weight 75, kg, Start date: 05/18/17 9:00:00 ALMOND SORTER, Duration: 30 day, Stop date: 06/16/17 9:00:00 ALMOND SORTER Notes: (Same as: Wellbutrin XL)"Do Not Crush" Start Date: 05/18/17 Stop Date: 05/25/17 Status: Discontinued Results BLOOD BANK RESULTS Most recent to oldest [Reference Range]: 1 2 3 ABO/Rh O POS O POS *Unknown* *Unknown* (05/24/17 8:40 AM) (05/13/17 10:12 AM) Antibody Scrn Negative Negative (05/24/17 8:40 AM) (05/13/17 10:12 AM) ELECTROLYTES Most recent to oldest 1 2 3 [Reference Range]: Sodium Lvl [135-145 mEq/L] 138 mEq/L 141 mEq/L 141 mEq/L (05/23/17 10:00 AM) (05/22/17 12:46 AM) (05/20/17 4:28 AM) Potassium Lvl [3.5-5.1 3.9 mEq/L 5.3 mEq/L 4.2 mEq/L mEq/L] (05/23/17 10:00 AM) *HI* (05/20/17 4:28 AM) (05/22/17 12:46 AM) Chloride Lvl [95-109 mEq/L] 105 mEq/L 108 mEq/L 109 mEq/L (05/23/17 10:00 AM) (05/22/17 12:46 AM) (05/20/17 4:28 AM) CO2 [24-32 mEq/L] 26 mEq/L 22 mEq/L 22 mEq/L (05/23/17 10:00 AM) *LOW* *LOW* (05/22/17 12:46 AM) (05/20/17 4:28 AM) AGAP [10.0-20.0 mEq/L] 10.9 mEq/L 16.3 mEq/L 14.2 mEq/L (05/23/17 10:00 AM) (05/22/17 12:46 AM) (05/20/17 4:28 AM) CHEM PANEL Most recent to oldest 1 2 3 [Reference Range]: Creatinine Lvl [0.50-1.40 0.65 mg/dL 0.69 mg/dL 0.74 mg/dL mg/dL] (05/23/17 10:00 AM) (05/22/17 12:46 AM) (05/20/17 4:28 AM) eGFR 122 mL/min/1.73m2 1 119 mL/min/1.73m2 2 115 mL/min/1.73m2 3 *NA* *NA* *NA* (05/23/17 10:00 AM) (05/22/17 12:46 AM) (05/20/17 4:28 AM) BUN [7-22 mg/dL] 7 mg/dL 5 mg/dL 6 mg/dL (05/23/17 10:00 AM) *LOW* *LOW* (05/22/17 12:46 AM) (05/20/17 4:28 AM) B/C Ratio [6-25] 10 (05/15/17 4:12 AM) Glucose Lvl [70-99 mg/dL] 100 mg/dL 81 mg/dL 123 mg/dL *HI* (05/22/17 12:46 AM) *HI* (05/23/17 10:00 AM) (05/20/17 4:28 AM) Total Protein [6.4-8.4 6.5 g/dL g/dL] (05/15/17 4:12 AM) Albumin Lvl [3.5-5.0 g/dL] 3.1 g/dL *LOW* (05/15/17 4:12 AM) Globulin [2.7-4.2 g/dL] 3.4 g/dL (05/15/17 4:12 AM) A/G Ratio [0.7-1.6] 0.9 (05/15/17 4:12 AM) Calcium Lvl [8.5-10.5 8.5 mg/dL 8.1 mg/dL 7.7 mg/dL mg/dL] (05/23/17 10:00 AM) *LOW* *LOW* (05/22/17 12:46 AM) (05/20/17 4:28 AM) Phosphorus [2.5-4.5 mg/dL] 3.3 mg/dL 1.8 mg/dL 2.7 mg/dL (05/23/17 10:00 AM) *LOW* (05/19/17 5:54 AM) (05/20/17 4:28 AM) Magnesium Lvl [1.8-2.4 2.4 mg/dL 2.5 mg/dL 2.0 mg/dL mg/dL] (05/25/17 3:11 AM) *HI* (05/19/17 5:54 AM) (05/20/17 4:28 AM) ALT [0-65 unit/L] 58 unit/L (05/15/17 4:12 AM) AST [0-37 unit/L] 27 unit/L (05/15/17 4:12 AM) Alk Phos [39-136 unit/L] 74 unit/L (05/15/17 4:12 AM) Bili Total [0.2-1.3 mg/dL] 0.3 mg/dL (05/15/17 4:12 AM) Lactic Acid Lvl [0.5-2.2 1.0 mMol/L 1.0 mMol/L 1.2 mMol/L mMol/L] (05/25/17 3:11 AM) (05/24/17 2:07 AM) (05/23/17 2:41 AM) 1Result Comment: The eGFR is calculated using [...] eGFR should be multiplied by the estimated BMI.2Result Comment: The eGFR is calculated using the CKD-EPI formula. In most young, healthy individualsthe eGFR will be >90 mL/min/1.73m2. [...] eGFR should be multiplied by the estimated BMI.3Result Comment: The eGFR is calculated using the CKD-EPI formula. In most young, healthy individualsthe eGFR will be >90 mL/min/1.73m2. [...] eGFR should be multiplied by the estimated BMI.DRUG SCREEN Most recent to oldest [Reference Range]: 1 2 3 U Methadone Scr [Negative] Negative *NA* (05/24/17 1:30 PM) U Propoxyph Scr [Negative] Negative *NA* (05/24/17 1:30 PM) U Amph Scr [Negative] Negative *NA* (05/24/17 1:30 PM) U Samira Scr [Negative] Negative *NA* (05/24/17 1:30 PM) U Benzodia Scr [Negative] Positive *ABN* (05/24/17 1:30 PM) U Cocaine Scr [Negative] Negative *NA* (05/24/17 1:30 PM) U Opiate Scr [Negative] Positive *ABN* (05/24/17 1:30 PM) U Phencyc Scr [Negative] Negative *NA* (05/24/17 1:30 PM) U Cannab Scr [Negative] Negative *NA* (05/24/17 1:30 PM) UDS Note See Note (05/24/17 1:30 PM) TOXICOLOGY Most recent to oldest [Reference Range]: 1 2 3 Acetaminoph Lvl [10-20] <2 (05/13/17 10:12 AM) Salicylate Lvl [0.0-30.0 mg/dL] 1.9 mg/dL (05/13/17 10:12 AM) ENDOCRINOLOGY Most recent to oldest [Reference Range]: 1 2 3 Prolactin Lvl 33.8 ng/mL *NA* (05/24/17 9:18 AM) URINE AND STOOL Most recent to oldest [Reference Range]: 1 2 3 UA Turbidity [Clear] Clear (05/24/17 1:30 PM) UA Color [Yellow] Light Yellow *NA* (05/24/17 1:30 PM) UA pH [5.0-8.0] 7.0 (05/24/17 1:30 PM) UA Spec Grav [<=1.030] 1.006 (05/24/17 1:30 PM) UA Glucose [Negative mg/dL] Negative mg/dL *NA* (05/24/17 1:30 PM) UA Blood [Negative] Negative (05/24/17 1:30 PM) UA Ketones [Negative mg/dL] Negative mg/dL *NA* (05/24/17 1:30 PM) UA Protein [Negative mg/dL] Negative mg/dL (05/24/17 1:30 PM) UA Urobilinogen [0.1-1.0 mg/dL] <=1.0 mg/dL *NA* (05/24/17 1:30 PM) UA Bili [Negative] Negative *NA* (05/24/17 1:30 PM) UA Leuk Est [Negative] Negative (05/24/17 1:30 PM) UA Nitrite [Negative] Negative (05/24/17 1:30 PM) UA WBC [0-5 /HPF] 1 /HPF (05/24/17 1:30 PM) UA Bacteria [None Seen /HPF] Occasional /HPF *NA* (05/24/17 1:30 PM) UA Sq Epi None Seen *NA* (05/24/17 1:30 PM) UA Hyal Cast [0-2 /LPF] 1 /LPF (05/24/17 1:30 PM) UA Amorph Magalys [None Seen /HPF] Occasional /HPF *NA* (05/24/17 1:30 PM) UA Mucus [None Seen /LPF] Few /LPF *NA* (05/24/17 1:30 PM) HEMATOLOGY Most recent to oldest 1 2 3 [Reference Range]: WBC [3.7-10.4 K/CMM] 10.1 K/CMM 10.2 K/CMM 11.9 K/CMM (05/25/17 3:11 AM) (05/24/17 2:07 AM) *HI* (05/23/17 10:00 AM) RBC [4.70-6.10 M/CMM] 3.54 M/CMM 3.49 M/CMM 3.32 M/CMM *LOW* *LOW* *LOW* (05/25/17 3:11 AM) (05/24/17 2:07 AM) (05/23/17 10:00 AM) Hgb [14.0-18.0 g/dL] 10.3 g/dL 10.4 g/dL 9.6 g/dL *LOW* *LOW* *LOW* (05/25/17 3:11 AM) (05/24/17 2:07 AM) (05/23/17 10:00 AM) Hct [42.0-54.0 %] 30.5 % 31.2 % 29.0 % *LOW* *LOW* *LOW* (05/25/17 3:11 AM) (05/24/17 2:07 AM) (05/23/17 10:00 AM) MCV [80.0-94.0 fL] 86.2 fL 89.3 fL 87.4 fL (05/25/17 3:11 AM) (05/24/17 2:07 AM) (05/23/17 10:00 AM) MCH [27.0-31.0 pg] 29.1 pg 29.9 pg 28.9 pg (05/25/17 3:11 AM) (05/24/17 2:07 AM) (05/23/17 10:00 AM) MCHC [32.0-36.0 g/dL] 33.8 g/dL 33.5 g/dL 33.1 g/dL (05/25/17 3:11 AM) (05/24/17 2:07 AM) (05/23/17 10:00 AM) RDW [11.5-14.5 %] 18.0 % 18.5 % 18.4 % *HI* *HI* *HI* (05/25/17 3:11 AM) (05/24/17 2:07 AM) (05/23/17 10:00 AM) Platelet [133-450 K/CMM] 682 K/CMM 616 K/CMM 611 K/CMM *HI* *HI* *HI* (05/25/17 3:11 AM) (05/24/17 2:07 AM) (05/23/17 10:00 AM) MPV [7.4-10.4 fL] 7.3 fL 7.0 fL 7.6 fL *LOW* *LOW* (05/23/17 10:00 AM) (05/25/17 3:11 AM) (05/24/17 2:07 AM) Segs [45.0-75.0 %] 64.7 % 58.9 % 72.5 % (05/25/17 3:11 AM) (05/24/17 2:07 AM) (05/23/17 10:00 AM) Lymphocytes [20.0-40.0 %] 19.9 % 23.7 % 13.6 % *LOW* (05/24/17 2:07 AM) *LOW* (05/25/17 3:11 AM) (05/23/17 10:00 AM) Monocytes [2.0-12.0 %] 10.2 % 10.8 % 9.1 % (05/25/17 3:11 AM) (05/24/17 2:07 AM) (05/23/17 10:00 AM) Eosinophils [0.0-4.0 %] 3.9 % 5.4 % 4.1 % (05/25/17 3:11 AM) *HI* *HI* (05/24/17 2:07 AM) (05/23/17 10:00 AM) Basophils [0.0-1.0 %] 1.3 % 1.2 % 0.7 % *HI* *HI* (05/23/17 10:00 AM) (05/25/17 3:11 AM) (05/24/17 2:07 AM) Segs-Bands # [1.5-8.1 6.5 K/CMM 6.0 K/CMM 8.6 K/CMM K/CMM] (05/25/17 3:11 AM) (05/24/17 2:07 AM) *HI* (05/23/17 10:00 AM) Lymphocytes # [1.0-5.5 2.0 K/CMM 2.4 K/CMM 1.6 K/CMM K/CMM] (05/25/17 3:11 AM) (05/24/17 2:07 AM) (05/23/17 10:00 AM) Monocytes # [0.0-0.8 K/CMM] 1.0 K/CMM 1.1 K/CMM 1.1 K/CMM *HI* *HI* *HI* (05/25/17 3:11 AM) (05/24/17 2:07 AM) (05/23/17 10:00 AM) Eosinophils # [0.0-0.5 0.4 K/CMM 0.5 K/CMM 0.5 K/CMM K/CMM] (05/25/17 3:11 AM) (05/24/17 2:07 AM) (05/23/17 10:00 AM) Basophils # [0.0-0.2 K/CMM] 0.1 K/CMM 0.1 K/CMM 0.1 K/CMM (05/25/17 3:11 AM) (05/24/17 2:07 AM) (05/23/17 10:00 AM) RBC Morph Normal (05/19/17 5:54 AM) Anisocyte [None Seen] 1+ *ABN* (05/23/17 10:00 AM) Plt Morph Normal (05/19/17 5:54 AM) PT [12.0-14.7 seconds] 12.6 seconds (05/13/17 10:12 AM) INR [0.85-1.17] 0.94 (05/13/17 10:12 AM) PTT [22.9-35.8 seconds] 28.8 seconds (05/13/17 10:12 AM) Anti-Xa Low Molecular 0.26 IU/mL Heparin *NA* (05/20/17 10:11 AM) Immunizations Given and Recorded Vaccine Date Status Refusal Reason pneumococcal 13-valent vaccine 05/26/17 Given haemophilus b conjugate (PRP-T) vaccine 05/26/17 Given meningococcal conjugate vaccine 05/26/17 Given pneumococcal 23-valent vaccine 10/09/16 Given Procedures Procedure Date Related Diagnosis Body Site Colonoscopy Social History Social History Type Response Substance Abuse Use: Past. Alcohol Previous treatment: None. Smoking Status Current every day smoker; Type: Cigarettes; Exposure to Tobacco Smoke None; Cigarette Smoking Last 365 Days Yes; Reg Smoking Cessation Counseling No Assessment and Plan Extracted from: Title: Trauma Discharge Summary Author: Nikolas Currie MD Date: 05/26/17 [facility] [place] Discharge Summary Patient Name: Raheel Lee Date [...] by GI with EGD. Recently discharged from [facility] in [facility] after he ingested razor blades and [...] he may be voluntaril y/involuntarily transferred to [facility]. On 05/18, during the night the patient [...] he expressed "seizure-like" activity after he became frustrated with his care and stating that his pain was not being addressed. Neurology was consulted and his workup was negative. He repeatedly became verbally abusive to staff and attempted to leave the facility o n two different occassions. On 05/25 the patient attempted to escape through the ceiling tiles in a breakroom and was retrieved by security back to his room. Psychiatry was called to re-evaluate the patient. On final evaluation psychiatry stated: [...] wound care teaching and supplies, and minimal narcotic-based pa in control and encouraged to follow up with [...] Psychiatry, 1 week Nikolas Currie MD MSO [id number] Page [id number] ATTENDING ADDENDUM: I have personally seen and [...] up in our clinic in 1-2 weeks. Amita Barrientos [id number] Extracted from: Title: Brief Trauma Progress Note Author: Nikolas Currie MD Date: Follow Up 1. Kailyn Guzman, Trauma Surgery, 2 weeks 2. Psychiatry, as needed DISPO - Home with mother Extracted from: Title: Neurology consult note Author: Caleb Cabezas MD [...] anomalies on MRI or EEG). If pt requi res AEDs in the future would avoid Keppra [...] in coordinating care for these conditions Extracted from: Title: History and Physical Author: Milagro Valentine MD [...] dressings to wound. Ordered: Admit/Condition, 05/13/17 16:47:00 ALMOND SORTER, Status: Out Patient with Observation Services, Acute, Expected LOS: 1 Midnight, Michael Gonzalez MD, Admit MD Review /Approve Yes 2.Suicidal ideation Psych response consulted please follow-up with recommendations 3.Psychiatric disorder Sitter ordered at this time resumption of home meds continued scds pending psych response evaluation
--- OUTSIDE RECORDS SUMMARY | 2019-01-04 19:33 | XMS REPORT | Summary of Care ---
:1975 Author Organization [facility] Address [address] [place] [id number]- Encounter HQ Encntr_alirebeca(FIN) [id number] Date(s): 06/09/17 - 06/11/[address] Professional Services provided by [facility] [address]- Discharge Disposition: Home or Self Care Attending Physician: Aung Nguyen MD Admitting Physician: Aung Nguyen MD Vital Signs Most recent to oldest [Reference 1 2 3 Range]: Height 162.56 cm (06/09/17 3:03 PM) Temperature Oral [96.4-99.1 98.1 DegF 98.1 DegF 97.8 DegF DegF] (06/11/17 8:13 AM) (06/10/17 10:47 PM) (06/10/17 7:51 PM) Blood Pressure [90-140/60-90 125/81 mmHg 123/80 mmHg 117/81 mmHg mmHg] (06/11/17 8:13 AM) (06/10/17 10:47 PM) (06/10/17 7:51 PM) Respiratory Rate [14-20 BRMIN] 18 BRMIN 18 BRMIN 18 BRMIN (06/11/17 8:13 AM) (06/10/17 10:47 PM) (06/10/17 7:51 PM) Peripheral Pulse Rate [60-100 81 bpm 87 bpm 90 bpm bpm] (06/11/17 8:13 AM) (06/10/17 10:47 PM) (06/10/17 7:51 PM) Weight 68.182 kg (06/09/17 3:03 PM) Body Mass Index 25.8 m2 (06/09/17 3:03 PM) Problem List Condition Effective Dates Status [...] Substance Reaction Severity Status penicillins Active Medications ANES flumazenil 0.2 mg, Route: IVP, PRN, Dosing Weight 68.182, kg, PRN Benzodiazepine Reversal, Initial dose, Start date: 06/10/17 14:59:00 [employer]OOKER [employer] CHEESE, Duration: 30 day, Stop date: 14:58:00 COOK[employer] CHEESE Start Date: 06/10/17 Stop Date: 06/10/17 Status: DiscontinuedANES ketOROLAC 30 mg, Route: IVP, ONCE, Dosing Weight 68.182, kg, Start date: 06/10/17 14:59: 00 COOKER [employer]ESS CHEESE, Stop date: 06/10/17 14:59:00 COOKER [employer]ESS CHEESE Start Date: 06/10/17 Stop Date: 06/10/17 Status: DiscontinuedANES labetalol 10 mg, Route: IVP, Q5Min, Dosing Weight 68.182, kg, PRN Elevated BP, Start date : 06/10/17 14:59:00 COOKER [employer]ESS CHEESE, Duration: 5 doses or times, Stop date: Limited # of times Start Date: 06/10/17 Stop Date: 06/10/17 Status: DiscontinuedANES naloxone 0.4 mg, Route: IVP, Q2MIN, Dosing Weight 68.182, kg, PRN Narcotic Reversal, Start date: 06/10/17 14:59:00 COOKER PROCESS CHEESE, Duration: 8 doses or times, Stop date: Limited # of times Start Date: 06/10/17 Stop Date: 06/10/17 Status: DiscontinuedANES ondansetron 4 mg, Route: IVP, ONCE, Dosing Weight 68.182, kg, PRN Nausea & Vomiting, Start date: 06/10/17 14:59:00 COOKER [employer] CHEESE Start Date: 06/10/17 Stop Date: 06/10/17 Status: DiscontinuedDilaudid 0.5 mg, 0.25 mL, Route: IVP, Drug form: INJ, Q3H, Dosing Weight 68.182, kg, PRN Pain Score 7-10, Start date: 06/10/17 4:21:00 COOKER PROCESS CHEESE, Duration: 30 day, Stop date: 07/10/17 4:20:00 [employer] CHEESE Notes: Same as Dilaudid Start Date: 06/10/17 Stop Date: 06/10/17 Status: Discontinuedenoxaparin 30 mg, 0.3 mL, Route: SUB-Q, Drug form: INJ, [id number], Dosing Weight 68.182, kg , Start date: 06/10/17 0:00:00 COOKER PROCESS CHEESE, Duration: 30 day, Stop date: 07/09/17 12:00: 00 [employer]ER [employer] CHEESE Notes: (Same as: Lovenox) Start Date: 06/10/17 Stop Date: 06/11/17 Status: DiscontinuedFLUoxetine 20 mg oral capsule 20 mg=1 cap, PO, Daily, # 60 cap, 0 Refill(s) Start Date: 06/11/17 Status: Orderedgabapentin 300 mg oral capsule 300 mg, 1 cap, Route: PO, Drug form: CAP, Q8H, Dosing Weight 68.182, kg, (CrCl & gt; 60 ml/min), Priority: NOW, Start date: 06/11/17 8:07:00 COOKER PROCESS CHEESE, Duration: 30 day, Stop date: 07/11/17 8:00:00 COOKER [employer] CHEESE Notes: (Same as: Neurontin) Start Date: 06/11/17 Stop Date: 06/11/17 Status: Discontinuedgabapentin 300 mg oral capsule 600 mg=2 cap, PO, Q8H, # 30 cap, 0 Refill(s) Start Date: 06/11/17 Stop Date: 07/11/17 Status: OrderedIsolyte S PH 7.4 1,000 mL 1,000 mL, Rate: 100 ml/hr, Infuse over: 10 hr, Route: IV, Dosing Weight 68.182 kg, Total Volume: 1,000, Start date: 06/09/17 20:55:00 COOKER PROCESS CHEESE, Duration: 30 day, Stop date: 07/09/17 20:54:00 COOKER PROCESS CHEESE, 1.77, m2 Notes: (Same as: Isolyte S PH 7.4) Start Date: 06/09/17 Stop Date: 06/09/17 Status: DiscontinuedIsolyte S PH-7.4 (Bolus) IV 1,000 mL, Route: IV, Drug Form: SOLN, Dosing Weight 68.182, kg, ONCE, Start date : 06/09/17 20:55:00 COOKER PROCESS CHEESE, Stop date: 06/09/17 20:55:00 COOKER PROCESS CHEESE Notes: (Same as: Isolyte S PH 7.4) Start Date: 06/09/17 Stop Date: 06/09/17 Status: CompletedketAMINE 70 mg, 7 mL, Route: IVP, Drug form: INJ, ONCE, Dosing Weight 68.182, kg, Priority: STAT, Start date:06/09/17 18:14:00 COOKER PROCESS CHEESE, Stop date: 06/09/17 18:14:00 COOKER PROCESS CHEESE Start Date: 06/09/17 Stop Date: 06/09/17 Status: DiscontinuedLactated Ringers IV 1,000 mL 1,000 mL, Rate: 125 ml/hr, Infuse over: 8 hr, Route: IV, Dosing Weight 68.182 kg , Total Volume: 1,000, Start date: 06/09/17 23:33:00 COOKER PROCESS CHEESE, Duration: 30 day, Stop date: 07/09/17 23:32:00 COOKER PROCESS CHEESE, 1.77, m2 Start Date: 06/09/17 Stop Date: 06/10/17 Status: Discontinuedmorphine Sulfate 2 mg, 0.5 mL, Route: IVP, Drug form: SOLN, Q4H, Dosing Weight 68.182, kg, PRN Pain Score 7-10, Startdate: 06/11/17 8:08:00 COOKER PROCESS CHEESE, Duration: 30 day, Stop date: 07/11/17 8:07:00 COOKER PROCESS CHEESE Notes: (Same as:MORPhine Sulfate) Start Date: 06/11/17 Stop Date: 06/11/17 Status: Discontinuedmorphine Sulfate 4 mg, Route: IVP, ONCE, Dosing Weight 68.182, kg, Priority: STAT, Start date: 21:30:00 COOKER PROCESS CHEESE,Stop date: 06/09/17 21:30:00 COOKER PROCESS CHEESE Start Date: 06/09/17 Stop Date: 06/09/17 Status: Completedmorphine Sulfate 4 mg, Route: IVP, ONCE, Dosing Weight 68.182, kg, Priority: STAT, Start date: 15:56:00 COOKER PROCESS CHEESE,Stop date: 06/09/17 15:56:00 COOKER PROCESS CHEESE Start Date: 06/09/17 Stop Date: 06/09/17 Status: Completedmorphine Sulfate 2 mg, 1 mL, Route: IVP, Drug form: INJ, Q2H, Dosing Weight 68.182, kg, PRN Pain Score 7-10, Start date: 06/10/17 12:04:00 COOKER PROCESS CHEESE, Duration: 30 day, Stop date: 01/17 12:03:00 COOKER PROCESS CHEESE Notes: (Same as:MORPhine Sulfate) Start Date: 06/10/17 Stop Date: 06/11/17 Status: DiscontinuedNaprosyn 500 mg, 2 tab, Route: PO, Drug form: TAB, BID, Dosing Weight 68.182, kg, Priority: Routine, Start date: 06/11/17 9:30:00 COOKER PROCESS CHEESE, Duration: 30 day, Stop date : 07/11/17 9:00:00 COOKER PROCESS CHEESE Notes: (Same as: Naprosyn) Take with food. Start Date: 06/11/17 Stop Date: 06/11/17 Status: Discontinuednaproxen 500 mg, 1 tab, Route: PO, Drug form: TAB, BID, Dosing Weight 68.182, kg, Priority: NOW, Start date: 06/11/17 8:07:00 COOKER PROCESS CHEESE, Duration: 30 day, Stop date: 17:00:00 COOKER PROCESS CHEESE Notes: (Same as: Naprosyn) Take with food. Start Date: 06/11/17 Stop Date: 06/11/17 Status: Deletednaproxen 500 mg oral tablet 500 mg=1 tab, PO, BID, with food, # 25 tab, 0 Refill(s) Start Date: 06/11/17 Stop Date: 06/13/17 Status: CompletedNorco 10/325 oral tablet 1 tab, Route: PO, Drug Form: TAB, Dosing Weight 68.182, kg, Q4H, PRN Pain Score 1-3, Start date: 06/10/17 4:06:00 COOKER PROCESS CHEESE, Duration: 30 day, Stop date: 07/10/17 4: 05:00 COOKER PROCESS CHEESE Notes: Do not exceed 4gm/day of acetaminophen. (Same as: Pickens 325/10) Start Date: 06/10/17 Stop Date: 06/10/17 Status: Discontinuedondansetron 4 mg, Route: IVP, Drug form: INJ, ONCE, Dosing Weight 68.182, kg, Priority: STAT , Start date: 06/09/17 15:56:00 COOKER PROCESS CHEESE, Stop date: 06/09/17 15:56:00 COOKER PROCESS CHEESE Start Date: 06/09/17 Stop Date: 06/09/17 Status: CompletedoxyCODONE 5 mg oral tablet 5 mg, 1 tab, Route: PO, Drug form: TAB, Q4H, Dosing Weight 68.182, kg, PRN Pain Score 4-6, Start date: 06/10/17 1:44:00 COOKER PROCESS CHEESE, Duration: 30 day, Stop date: 1:43:00 COOKER PROCESS CHEESE Notes: (Same as: Roxicodone) Start Date: 06/10/17 Stop Date: 06/10/17 Status: Discontinuedpantoprazole 40 mg oral enteric coated tablet 40 mg=1 tab, PO, Before Dinner, # 30 tab, 0 Refill(s) Start Date: 06/11/17 Stop Date: 07/11/17 Status: OrderedPROzac 20 mg, 1 cap, Route: PO, Drug form: CAP, Daily, Dosing Weight 68.182, kg, Start date: 06/11/17 9:00:00 COOKER PROCESS CHEESE, Duration: 30 day, Stop date: 07/10/17 9:00:00 COOKER PROCESS CHEESE Notes: (Same as: Prozac, Sarafem) Start Date: 06/11/17 Stop Date: 06/11/17 Status: DiscontinuedSaline Flush 0.9% 10 ml, Route: IVP, Drug Form: INJ, Dosing Weight 68.182, kg, PRN, PRN Line Flush , Start date: 06/09/17 23:33:00 COOKER PROCESS CHEESE, Duration: 30 day, Stop date: 07/09/17 23:32 :00 COOKER PROCESS CHEESE Notes: Same as: BD Posiflush Sterile Start Date: 06/09/17 Stop Date: 06/11/17 Status: Discontinuedsugammadex 500 mg, 5 mL, Route: IV, Drug form: SOLN, ONCALL, Start date: 06/10/17 15:00:00 COOKER PROCESS CHEESE, Duration: 1 doses or times, Stop date: 06/10/17 15:15:00 COOKER PROCESS CHEESE Notes: (Same as: Bridion) Start Date: 06/10/17 Stop Date: 06/11/17 Status: DiscontinuedWellbutrin XL 300 mg, 2 tab, Route: PO, Drug form: ERTAB, Daily, Dosing Weight 68.182, kg, Start date: 06/10/17 9:00:00 COOKER PROCESS CHEESE, Duration: 30 day, Stop date: 07/09/17 9:00:00 COOKER PROCESS CHEESE Notes: (Same as: Wellbutrin XL)"Do Not Crush" Start Date: 06/10/17 Stop Date: 06/11/17 Status: DiscontinuedWellbutrin XL 300 mg/24 hours oral tablet, extended release 300 mg=1 tab, PO, Daily, do not crush or chew, # 60 tab, 0 Refill(s) Start Date: 06/11/17 Stop Date: 07/11/17 Status: Ordered Results BLOOD BANK RESULTS Most recent to oldest [Reference Range]: 1 2 3 ABO/Rh O POS *Unknown* (06/09/17 4:54 PM) Antibody Scrn Negative (06/09/17 4:54 PM) ELECTROLYTES Most recent to oldest [Reference Range]: 1 2 3 Sodium Lvl [135-145 mEq/L] 142 mEq/L 140 mEq/L (06/10/17 6:18 AM) (06/09/17 4:54 PM) Potassium Lvl [3.5-5.1 mEq/L] 3.6 mEq/L 3.4 mEq/L (06/10/17 6:18 AM) *LOW* (06/09/17 4:54 PM) Chloride Lvl [95-109 mEq/L] 110 mEq/L 104 mEq/L *HI* (06/09/17 4:54 PM) (06/10/17 6:18 AM) CO2 [24-32 mEq/L] 23 mEq/L 24 mEq/L *LOW* (06/09/17 4:54 PM) (06/10/17 6:18 AM) AGAP [10.0-20.0 mEq/L] 12.6 mEq/L 15.4 mEq/L (06/10/17 6:18 AM) (06/09/17 4:54 PM) CHEM PANEL Most recent to oldest [Reference Range]: 1 2 3 Creatinine Lvl [0.50-1.40 mg/dL] 0.73 mg/dL 0.84 mg/dL (06/10/17 6:18 AM) (06/09/17 4:54 PM) eGFR 116 mL/min/1.73m2 1 110 mL/min/1.73m2 2 *NA* *NA* (06/10/17 6:18 AM) (06/09/17 4:54 PM) BUN [7-22 mg/dL] 11 mg/dL 8 mg/dL (06/10/17 6:18 AM) (06/09/17 4:54 PM) Glucose Lvl [70-99 mg/dL] 91 mg/dL 100 mg/dL (06/10/17 6:18 AM) *HI* (06/09/17 4:54 PM) Calcium Lvl [8.5-10.5 mg/dL] 9.0 mg/dL 9.2 mg/dL (06/10/17 6:18 AM) (06/09/17 4:54 PM) Lactic Acid Lvl [0.5-2.2 mMol/L] 2.0 mMol/L (06/09/17 4:54 PM) 1Result Comment: The eGFR is calculated [...] to oldest [Reference Range]: 1 2 3 Total CK [12-191 unit/L] 78 unit/L (06/09/17 4:54 PM) CK MB [0.5-3.6 ng/mL] <0.5 ng/mL (06/09/17 4:54 PM) CK MB Index [0.0-2.5] <0.6 (06/09/17 4:54 PM) URINE AND STOOL Most recent to oldest [Reference Range]: 1 2 3 UA Turbidity [Clear] Slight Cloudy (06/09/17 5:58 PM) UA Color [Yellow] Yellow *NA* (06/09/17 5:58 PM) UA pH [5.0-8.0] 8.5 *HI* (06/09/17 5:58 PM) UA Spec Grav [<=1.030] 1.010 (06/09/17 5:58 PM) UA Glucose [Negative] Negative (06/09/17 5:58 PM) UA Blood [Negative] Negative (06/09/17 5:58 PM) UA Ketones [Negative] Negative *NA* (06/09/17 5:58 PM) UA Protein [Negative] Trace *ABN* (06/09/17 5:58 PM) UA Urobilinogen [0.1-1.0 EU/dL] 1.0 EU/dL (06/09/17 5:58 PM) UA Bili [Negative] Negative *NA* (06/09/17 5:58 PM) UA Leuk Est [Negative] Negative (06/09/17 5:58 PM) UA Nitrite [Negative] Negative (06/09/17 5:58 PM) UA WBC [None Seen /HPF] 0-2 /HPF (06/09/17 5:58 PM) UA RBC [0-2 /HPF] 0-2 /HPF (06/09/17 5:58 PM) UA Bacteria [None Seen /HPF] Few /HPF (06/09/17 5:58 PM) UA Sq Epi [Few /LPF] Occasional /LPF (06/09/17 5:58 PM) UA Mucus [None Seen /LPF] Moderate /LPF *ABN* (06/09/17 5:58 PM) HEMATOLOGY Most recent to oldest 1 2 3 [Reference Range]: WBC [3.7-10.4 K/CMM] 7.4 K/CMM 9.8 K/CMM 9.9 K/CMM (06/11/17 10:30 AM) (06/10/17 6:18 AM) (06/09/17 4:54 PM) RBC [4.70-6.10 M/CMM] 4.06 M/CMM 3.78 M/CMM 4.05 M/CMM *LOW* *LOW* *LOW* (06/11/17 10:30 AM) (06/10/17 6:18 AM) (06/09/17 4:54 PM) Hgb [14.0-18.0 g/dL] 11.2 g/dL 10.7 g/dL 11.3 g/dL *LOW* *LOW* *LOW* (06/11/17 10:30 AM) (06/10/17 6:18 AM) (06/09/17 4:54 PM) Hct [42.0-54.0 %] 35.2 % 32.5 % 34.6 % *LOW* *LOW* *LOW* (06/11/17 10:30 AM) (06/10/17 6:18 AM) (06/09/17 4:54 PM) MCV [80.0-94.0 fL] 86.5 fL 86.0 fL 85.5 fL (06/11/17 10:30 AM) (06/10/17 6:18 AM) (06/09/17 4:54 PM) MCH [27.0-31.0 pg] 27.6 pg 28.3 pg 28.0 pg (06/11/17 10:30 AM) (06/10/17 6:18 AM) (1/8/18 4:54 PM) MCHC [32.0-36.0 g/dL] 31.9 g/dL 32.9 g/dL 32.8 g/dL *LOW* (06/10/17 6:18 AM) (06/09/17 4:54 PM) (06/11/17 10:30 AM) RDW [11.5-14.5 %] 17.3 % 17.5 % 17.6 % *HI* *HI* *HI* (06/11/17 10:30 AM) (06/10/17 6:18 AM) (06/09/17 4:54 PM) Platelet [133-450 K/CMM] 808 K/CMM 894 K/CMM 995 K/CMM *HI* *HI* *HI* (06/11/17 10:30 AM) (06/10/17 6:18 AM) (06/09/17 4:54 PM) MPV [7.4-10.4 fL] 7.5 fL 7.0 fL 7.1 fL (06/11/17 10:30 AM) *LOW* *LOW* (06/10/17 6:18 AM) (06/09/17 4:54 PM) Segs [45.0-75.0 %] 56.3 % 51.8 % (06/10/17 6:18 AM) (06/09/17 4:54 PM) Lymphocytes [20.0-40.0 %] 28.1 % 30.8 % (06/10/17 6:18 AM) (06/09/17 4:54 PM) Monocytes [2.0-12.0 %] 13.0 % 13.9 % *HI* *HI* (06/10/17 6:18 AM) (06/09/17 4:54 PM) Eosinophils [0.0-4.0 %] 1.3 % 0.6 % (06/10/17 6:18 AM) (06/09/17 4:54 PM) Basophils [0.0-1.0 %] 1.3 % 2.9 % *HI* *HI* (06/10/17 6:18 AM) (06/09/17 4:54 PM) Segs-Bands # [1.5-8.1 K/CMM] 5.5 K/CMM 5.1 K/CMM (06/10/17 6:18 AM) (06/09/17 4:54 PM) Lymphocytes # [1.0-5.5 K/CMM] 2.8 K/CMM 3.1 K/CMM (06/10/17 6:18 AM) (06/09/17 4:54 PM) Monocytes # [0.0-0.8 K/CMM] 1.3 K/CMM 1.4 K/CMM *HI* *HI* (06/10/17 6:18 AM) (06/09/17 4:54 PM) Eosinophils # [0.0-0.5 K/CMM] 0.1 K/CMM 0.1 K/CMM (06/10/17 6:18 AM) (06/09/17 4:54 PM) Basophils # [0.0-0.2 K/CMM] 0.1 K/CMM 0.3 K/CMM (06/10/17 6:18 AM) *HI* (06/09/17 4:54 PM) Immunizations Given and Recorded Vaccine Date Status Refusal Reason pneumococcal 13-valent vaccine 05/26/17 Given haemophilus b conjugate (PRP-T) vaccine 05/26/17 Given meningococcal conjugate vaccine 05/26/17 Given pneumococcal 23-valent vaccine 10/09/16 Given Procedures Procedure Date Related Diagnosis Body Site Status Exploration of abdomen 05/18/17 Completed Colonoscopy Completed Social History Social History Type Response Substance Abuse Use: Current. Alcohol Never, Previous treatment: None. Smoking Status Current every day smoker; Type: Cigarettes; Previous treatment : None; Exposure to Tobacco Smoke self; Cigarette Smoking Last 365 Days Yes; Reg Smoking Cessation Counseling Yes entered on: 06/12/17 Assessment and Plan Extracted from: Title: Trauma Surgery Discharge Author: Lidia Real DNP Date: 06/11/17 Trauma [...] 1. Esophagogastroduodenoscopy (EGD), 06/09 and 06/10 History & Hospital Course: Patient is a 42 year [...] discharge. He has been instructed to notify [facility] physicians if he develops fever, shortness of breath, pain that is not controlled on prescription pain medications, severe or worsening headache, numbness or tingling in his extremities, nausea or vom iting, signs of infection, or unexplained swelling. Patient's mother was been contacted to assist in discharge and refused. Patient provided social research assistant with a facility in [place], [place] and transportation was provided to the facility. Discharge Disposition: Home, with recommended outpatient resources Pending Surgeries: None Discharge Condition: Good Discharge Diet: Regular Discharge Activity: As tolerated Discharge Medications: See eHMAR Special Instructions: Keep all wounds dry Avoid [...] 1. Outpatient Psychiatry Services as provided by [facility]. It is not necessary for you to followup at trauma service; however, please call [facility] at [phone] for any questions or concerns or should problems arise. Extracted from: Title: Psychiatry Consult Author: Corbin Salas MD Date: [...] PO Daily 06/10/17 enoxaparin 30 mg SUB-Q [id number] 06/11/17 gabapentin (gabapentin 300 mg oral capsule) [...] Vitals Tmp(F) Pulse BP RR SpO2 FIO2 06/11 08:13 98.1 81 125/81 18 100 --- [...] things. 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 Second i s a regular outpatient psychiatrist [...] hospital discharge information. Printed information for the [facility] walk-in Crisis Clinics also left in paper chart. Reaching out to patient's mother at time of discharge for coordination may help avoid immediate readmission. 8. I also reached out to the [facility] Psychiatric Response Team for possible enrollment in [...] in assessment and recommendations. Corbin Salas M.D. [id number]
--- OUTSIDE RECORDS SUMMARY | 2019-01-04 19:33 | XMS REPORT | Summary of Care ---
:1975 Author Organization [facility] Address [address] [place] [id number] Encounter HQ Sinan(FIN) [id number] Date(s): 07/15/17 - 07/18/[address] Professional Services provided by [facility] [place] [id number]- Encounter Diagnosis Fistula of intestine (Final) - 07/24/17 Allergy status to penicillin (Final) - Acute posthemorrhagic anemia (Final) - Acute pain due to trauma (Final) - Bipolar disorder, unspecified (Final) - Post-traumatic stress disorder, unspecified (Final) - Unspecified viral hepatitis C without hepatic coma (Final) - Unspecified cirrhosis of liver (Final) - Other detention (current) drug therapy (Final) - Epilepsy, unspecified, not intractable, without status epilepticus (Final) - Discharge Disposition: Home Care with Home Health Attending Physician: Terri Munoz MD Admitting Physician: Terri Munoz MD Referring Physician: Osei Medina MD Vital Signs Most recent to oldest 1 2 3 [Reference Range]: Height 162.56 cm (07/15/17 6:17 AM) Temperature Oral [96.4-99.1 98.6 DegF 98.8 DegF 98.8 DegF DegF] (07/17/17 7:15 PM) (07/17/17 3:40 PM) (07/17/17 12:41 PM) Blood Pressure [90-140/60-90 113/71 mmHg 110/80 mmHg 112/66 mmHg mmHg] (07/17/17 7:15 PM) (07/17/17 3:40 PM) (07/17/17 12:41 PM) Respiratory Rate [14-20 BRMIN] 20 BRMIN 18 BRMIN 20 BRMIN (07/17/17 7:15 PM) (07/17/17 3:40 PM) (07/17/17 12:41 PM) Peripheral Pulse Rate [60-100 75 bpm 80 bpm 76 bpm bpm] (07/17/17 7:15 PM) (07/17/17 3:40 PM) (07/17/17 12:41 PM) Weight 68.182 kg (07/15/17 6:17 AM) Body Mass Index 25.8 m2 (07/15/17 6:17 AM) Problem List Condition Effective Dates Status [...] PO, Drug form: TAB, Q6H, Dosing Weight 72.727, kg, Priority: NOW, Start date: 07/15/17 3:18:00 PEDIATRIC CNS, Stop date: 08/14/17 0:00:00 CDT Notes: Max acetaminophen 4000 mg/day (4 gm/day). (Same as: Tylenol Extra Strength) Start Date: 07/15/17 Stop Date: 07/18/17 Status: Discontinuedacetaminophen 500 mg oral tablet 1,000 mg=2 tab, PO, Q6H, PRN Pain Score 4-6, # 30 tab, 0 Refill(s) Start Date: 07/18/17 Stop Date: 08/01/17 Status: CompletedAtivan 1 mg, 0.5 mL, Route: IM, Drug form: INJ, ONCE, Dosing Weight 68.182, kg, Start date: 07/16/17 10:10:00 PEDIATRIC CNS, Stop date: 07/16/17 10:10:00 PEDIATRIC CNS Notes: (Same as: Ativan) Start Date: 07/16/17 Stop Date: 07/16/17 Status: CompletedBenadryl 25 mg, 1 cap, Route: PO, Drug form: CAP, Bedtime, Dosing Weight 68.182, kg, PRN Insomnia, Start date: 07/16/17 3:28:00 PEDIATRIC CNS, Duration: 30 day, Stop date: 3:27:00 CDT Notes: (Same as: Benadryl) Start Date: 07/16/17 Stop Date: 07/18/17 Status: DiscontinuedBenadryl 10 mg, 0.2 mL, Route: IVP, Drug form: INJ, ONCE, Dosing Weight 68.182, kg, PRN Insomnia, Start date:07/16/17 3:16:00 PEDIATRIC CNS Notes: (Same as: Benadryl) Start Date: 07/16/17 Stop Date: 07/16/17 Status: DiscontinuedbuPROPion 150 mg, 1 tab, Route: PO, Drug form: ERTAB, QAM, Dosing Weight 72.727, kg, Start date: 07/15/17 9:00:00 PEDIATRIC CNS, Duration: 30 day, Stop date: 08/13/17 9:00:00 CDT Notes: (Do not crush) (Same As: Wellbutrin SR) Start Date: 07/15/17 Stop Date: 07/16/17 Status: DiscontinuedbuPROPion 150 mg/24 hours (XL) oral tablet, extended release 300 mg=2 tab, PO, QAM, # 60 tab, 0 Refill(s) Start Date: 07/18/17 Status: OrderedDepakote 500 mg oral enteric coated tablet 500 mg, 2 tab, Route: PO, Drug form: ECTAB, Q12H, Dosing Weight 68.182, kg, Start date: 07/16/17 21:00:00 PEDIATRIC CNS, Duration: 30 day, Stop date: 08/15/17 9:00: 00 CDT, Delayed Release tablet Notes: (Same as: Depakote Delayed Release) Do not confuse with the extended- release tablet. Delayed absorption, enteric coated tablet. Do not crush Start Date: 07/16/17 Stop Date: 07/18/17 Status: DiscontinuedDepakote 500 mg oral enteric coated tablet 500 mg=1 tab, PO, Q12H, Delayed Release tablet, # 60 tab, 0 Refill(s) Start Date: 07/18/17 Status: Orderedenoxaparin 30 mg, Route: SUB-Q, Drug form: INJ, [id number], Dosing Weight 72.727, kg, Start date: 07/15/17 4:00:00 PEDIATRIC CNS, Duration: 30 day, Stop date: 08/13/17 16:00:00 CDT Start Date: 07/15/17 Stop Date: 07/15/17 Status: Deletedenoxaparin 30 mg, 0.3 mL, Route: SUB-Q, Drug form: INJ, [id number], Dosing Weight 68.182, kg , Start date: 07/15/17 9:00:00 PEDIATRIC CNS, Duration: 30 day, Stop date: 08/14/17 4:00: 00 CDT Notes: (Same as: Lovenox) Start Date: 07/15/17 Stop Date: 07/18/17 Status: DiscontinuedFLUoxetine 40 mg, 2 cap, Route: PO, Drug form: CAP, Daily, Dosing Weight 72.727, kg, Start date: 07/15/17 9:00:00 PEDIATRIC CNS, Duration: 30 day, Stop date: 08/13/17 9:00:00 CDT Notes: (Same as: Prozac Sarafem) Start Date: 07/15/17 Stop Date: 07/18/17 Status: DiscontinuedFLUoxetine 20 mg oral capsule 40 mg=2 cap, PO, Daily, # 60 cap, 0 Refill(s) Start Date: 07/18/17 Status: Orderedgabapentin 300 mg oral capsule 300 mg, 1 cap, Route: PO, Drug form: CAP, Q8H, Dosing Weight 72.727, kg, Start date: 07/15/17 8:00:00 PEDIATRIC CNS, Duration: 30 day, Stop date: 08/14/17 8:00:00 CDT Notes: (Same as: Neurontin) Start Date: 07/15/17 Stop Date: 07/18/17 Status: Discontinuedgabapentin 300 mg oral capsule 300 mg=1 cap, PO, Q8H, # 60 cap, 0 Refill(s) Start Date: 07/18/17 Status: OrderedIsolyte S PH 7.4 1000 mL 1,000 mL, Rate: 100 ml/hr, Infuse over: 10 hr, Route: IV, Dosing Weight 72.727 kg, Total Volume: 1,000, Start date: 07/15/17 3:14:00 PEDIATRIC CNS, Duration: 30 day, Stop date: 08/14/17 3:13:00 CDT, 1.83, m2 Start Date: 07/15/17 Stop Date: 07/15/17 Status: DiscontinuedKeppra 500 mg, 1 tab, Route: PO, Drug form: TAB, Q12H, Dosing Weight 68.182, kg, Start date: 07/17/17 21:00:00 PEDIATRIC CNS, Duration: 30 day, Stop date: 08/16/17 9:00:00 CDT Notes: (Same as:Keppra) Start Date: 07/17/17 Stop Date: 07/18/17 Status: DiscontinuedKeppra + Sodium Chloride 0.9% IV 100 mL 1,000 mg, Route: IVPB, ONCE, Dosing Weight 68.182, kg, Loading Dose, Start date : 07/16/17 11:05:00 PEDIATRIC CNS, Stop date: 07/16/17 11:05:00 PEDIATRIC CNS Notes: Same as KeppraMix with 100 mL NS, LR or D5W MEDICATION WASTE Product Size: 500 mgProduct Wasted: ___ mg Start Date: 07/16/17 Stop Date: 07/16/17 Status: DiscontinuedKeppra 1000 mg oral tablet 1,000 mg, 2 tab, Route: PO, Drug form: TAB, ONCE, Dosing Weight 68.182, kg, Start date: 07/16/17 11:26:00 PEDIATRIC CNS, Stop date: 07/16/17 11:26:00 PEDIATRIC CNS Notes: (Same as:Keppra) Start Date: 07/16/17 Stop Date: 07/16/17 Status: CompletedlevETIRAcetam 500 mg oral tablet 500 mg=1 tab, PO, Q12H, # 60 tab, 0 Refill(s) Start Date: 07/18/17 Status: Orderedmagnesium sulfate 2 gm, 50 mL, Route: IVPB, Drug form: INJ, ONCE, Dosing Weight 68.182, kg, Total dose=2 gm, Start date: 07/15/17 8:11:00 PEDIATRIC CNS, Stop date: 07/15/17 8:11:00 PEDIATRIC CNS Notes: WASTE: F/P - Sink; E - Municipal Trash Bin Start Date: 07/15/17 Stop Date: 07/15/17 Status: Completedmagnesium sulfate 2 gm in Water 50 ml 2 gm, 50 mL, Route: IVPB, Drug form: INJ, ONCE, Dosing Weight 72.727, kg, Start date: 07/15/17 3:01:00 PEDIATRIC CNS, Stop date: 07/15/17 3:01:00 PEDIATRIC CNS Notes: WASTE: F/P - Sink; E - Municipal Trash Bin Start Date: 07/15/17 Stop Date: 07/15/17 Status: Completedmelatonin 1 mg/mL oral solution 1 mg, 1 mL, Route: PO, Drug Form: LIQ, Dosing Weight 68.182, kg, Bedtime, Start date: 07/16/17 4:00:00 PEDIATRIC CNS, Duration: 30 day, Stop date: 08/14/17 21:00:00 CDT Start Date: 07/16/17 Stop Date: 07/18/17 Status: Discontinuedmorphine Sulfate 6 mg, 1.5 mL, Route: IVP, Drug form: SOLN, ONCE, Dosing Weight 72.727, kg, Priority: STAT, Start date: 07/15/17 5:05:00 PEDIATRIC CNS, Stop date: 07/15/17 5:05:00 PEDIATRIC CNS Notes: (Same as:MORPhine Sulfate) Start Date: 07/15/17 Stop Date: 07/15/17 Status: Completedmorphine Sulfate 4 mg, Route: IVP, ONCE, Dosing Weight 72.727, kg, Priority: STAT, Start date: 2:03:00 PEDIATRIC CNS, Stop date: 07/15/17 2:03:00 PEDIATRIC CNS Start Date: 07/15/17 Stop Date: 07/15/17 Status: Completednaproxen 500 mg, 1 tab, Route: PO, Drug form: TAB, Q12H, Dosing Weight 72.727, kg, Priority: NOW, Start date:07/15/17 3:18:00 PEDIATRIC CNS, Duration: 30 day, Stop date: 21:00:00 CDT Notes: (Same as: Naprosyn) Take with food. Start Date: 07/15/17 Stop Date: 07/18/17 Status: Discontinuednaproxen 500 mg oral tablet 500 mg=1 tab, PO, Q12H, PRN Pain Score 6-10, # 40 tab, 0 Refill(s) Start Date: 07/18/17 Stop Date: 08/01/17 Status: CompletedNorco 5/325 oral tablet 1 tab, PO, Q6H, NEEDED, 0 Refill(s) Start Date: 07/15/17 Stop Date: 07/18/17 Status: Discontinuednystatin topical 100,000 units/g powder 1 appl, Route: TOP, QSHIFT, Drug form: PWDR, Start date: 07/15/17 16:00:00 PEDIATRIC CNS, Duration: 30 day, Stop date: 08/14/17 8:00:00 CDT Notes: (Same as:Mycostatin, Nilstat) For external use only. Start Date: 07/15/17 Stop Date: 07/18/17 Status: Discontinuedondansetron 4 mg, 2 mL, Route: IVP, Drug form: INJ, Q8H, Dosing Weight 72.727, kg, PRN Nausea & Vomiting, Start date: 07/15/17 3:22:00 PEDIATRIC CNS, Duration: 30 day, Stop date: 08/14/17 3:21:00 CDT Notes: (Same as: Zofran) MEDICATION WASTE Product Size: 4 mgProduct Wasted: ___ mg Start Date: 07/15/17 Stop Date: 07/18/17 Status: Discontinuedpantoprazole 40 mg, 1 tab, Route: PO, Drug form: ECTAB, Before Dinner, Dosing Weight 72.727, kg, Start date: 07/15/17 16:30:00 PEDIATRIC CNS, Duration: 30 day, Stop date: 08/13/17 16: 30:00 CDT Notes: Tablet should not be chewed or crushed.(Same as: Protonix) Start Date: 07/15/17 Stop Date: 07/18/17 Status: Discontinuedpantoprazole 40 mg oral enteric coated tablet 40 mg=1 tab, PO, Before Dinner, # 30 tab, 0 Refill(s) Start Date: 07/18/17 Status: OrderedPHOS-NaK 1 pkt, Route: PO, Drug Form: PDR/REC, Dosing Weight 68.182, kg, TID-Before Meals , NOW, Start date: 07/16/17 18:16:00 PEDIATRIC CNS, Duration: 30 day, Stop date: 08/15/17 16:30:00 CDT Notes: (Same as: Demian) Each 1.5 gm pkt has 250mg phosphorous. Mix w/2.5oz water and stir. Start Date: 07/16/17 Stop Date: 07/18/17 Status: DiscontinuedPROzac 40 mg, 2 cap, Route: PO, Drug form: CAP, Daily, Dosing Weight 68.182, kg, Start date: 07/16/17 9:00:00 PEDIATRIC CNS, Duration: 30 day, Stop date: 08/14/17 9:00:00 CDT Notes: (Same as: Prozac, Sarafem) Start Date: 07/16/17 Stop Date: 07/16/17 Status: Discontinuedvalproic acid 100 mg/mL intravenous solution 1,363.64 mg, Route: IM, ONCE, Dosing Weight 68.182, kg, PRN Seizure, Start date : 07/17/17 12:54:00 PEDIATRIC CNS Start Date: 07/17/17 Stop Date: 07/17/17 Status: DiscontinuedWellbutrin XL 300 mg, 2 tab, Route: PO, Drug form: ERTAB, QAM, Dosing Weight 68.182, kg, Start date: 07/17/17 9:00:00 PEDIATRIC CNS, Duration: 30 day, Stop date: 08/15/17 9:00:00 CDT Start Date: 07/17/17 Stop Date: 07/18/17 Status: DiscontinuedZofran 4 mg, Route: IVP, Drug form: INJ, ONCE, Dosing Weight 72.727, kg, Priority: STAT , Start date: 07/15/17 2:03:00 PEDIATRIC CNS, Stop date: 07/15/17 2:03:00 PEDIATRIC CNS Start Date: 07/15/17 Stop Date: 07/15/17 Status: Completed Results BLOOD BANK RESULTS Most recent to oldest [Reference Range]: 1 2 ABO/Rh O POS *Unknown* (07/15/17 2:41 AM) Antibody Scrn Negative (07/15/17 2:41 AM) ELECTROLYTES Most recent to oldest [Reference Range]: 1 2 Sodium Lvl [135-145 mEq/L] 142 mEq/L 141 mEq/L (07/16/17 11:41 AM) (07/15/17 2:30 AM) Potassium Lvl [3.5-5.1 mEq/L] 4.2 mEq/L 3.5 mEq/L (07/16/17 11:41 AM) (07/15/17 2:30 AM) Chloride Lvl [95-109 mEq/L] 110 mEq/L 107 mEq/L *HI* (07/15/17 2:30 AM) (07/16/17 11:41 AM) CO2 [24-32 mEq/L] 25 mEq/L 25 mEq/L (07/16/17 11:41 AM) (07/15/17 2:30 AM) AGAP [10.0-20.0 mEq/L] 11.2 mEq/L 12.5 mEq/L (07/16/17 11:41 AM) (07/15/17 2:30 AM) CHEM PANEL Most recent to oldest [Reference Range]: 1 2 Creatinine Lvl [0.50-1.40 mg/dL] 0.64 mg/dL 0.78 mg/dL (07/16/17 11:41 AM) (07/15/17 2:30 AM) eGFR 122 mL/min/1.73m2 1 113 mL/min/1.73m2 2 *NA* *NA* (07/16/17 11:41 AM) (07/15/17 2:30 AM) BUN [7-22 mg/dL] 8 mg/dL 8 mg/dL (07/16/17 11:41 AM) (07/15/17 2:30 AM) Glucose Lvl [70-99 mg/dL] 96 mg/dL 100 mg/dL (07/16/17 11:41 AM) *HI* (07/15/17 2:30 AM) Calcium Lvl [8.5-10.5 mg/dL] 8.5 mg/dL 8.2 mg/dL (07/16/17 11:41 AM) *LOW* (07/15/17 2:30 AM) Phosphorus [2.5-4.5 mg/dL] 1.4 mg/dL 3 3.5 mg/dL *CRIT* (07/15/17 2:30 AM) (07/16/17 11:41 AM) Magnesium Lvl [1.8-2.4 mg/dL] 2.4 mg/dL 1.5 mg/dL (07/16/17 11:41 AM) *LOW* (07/15/17 2:30 AM) Lactic Acid WB [0.5-2.2 mmol/L] 1.1 mmol/L (07/15/17 2:30 AM) 1Result Comment: The eGFR is calculated [...] be multiplied by the estimated BMI.3Result Comment: Critical Result(s) called to Judy Fields at 07/16/2017 12:47 byRC. Read back OK.PARATHYROID PROFILE Most recent to oldest [Reference Range]: 1 2 Ca Ion WB [1.05-1.25 mMol/L] 1.01 mMol/L *LOW* (07/16/17 11:41 AM) Ca Norm WB [1.05-1.25 mMol/L] 1.07 mMol/L (07/16/17 11:41 AM) HEMATOLOGY Most recent to oldest [Reference Range]: 1 2 WBC [3.7-10.4 K/CMM] 10.0 K/CMM 10.6 K/CMM (07/16/17 11:41 AM) *HI* (07/15/17 2:30 AM) RBC [4.70-6.10 M/CMM] 3.49 M/CMM 3.36 M/CMM *LOW* *LOW* (07/16/17 11:41 AM) (07/15/17 2:30 AM) Hgb [14.0-18.0 g/dL] 9.1 g/dL 8.8 g/dL *LOW* *LOW* (07/16/17 11:41 AM) (07/15/17 2:30 AM) Hct [42.0-54.0 %] 28.3 % 27.0 % *LOW* *LOW* (07/16/17 11:41 AM) (07/15/17 2:30 AM) MCV [80.0-94.0 fL] 81.2 fL 80.6 fL (07/16/17 11:41 AM) (07/15/17 2:30 AM) MCH [27.0-31.0 pg] 26.0 pg 26.2 pg *LOW* *LOW* (07/16/17 11:41 AM) (07/15/17 2:30 AM) MCHC [32.0-36.0 g/dL] 32.0 g/dL 32.5 g/dL (07/16/17 11:41 AM) (07/15/17 2:30 AM) RDW [11.5-14.5 %] 18.1 % 18.3 % *HI* *HI* (07/16/17 11:41 AM) (07/15/17 2:30 AM) MPV [7.4-10.4 fL] 7.7 fL 6.8 fL (07/16/17 11:41 AM) *LOW* (07/15/17 2:30 AM) Platelet [133-450 K/CMM] 719 K/CMM 805 K/CMM *HI* *HI* (07/16/17 11:41 AM) (07/15/17 2:30 AM) Segs [45.0-75.0 %] 74.3 % 68.9 % (07/16/17 11:41 AM) (07/15/17 2:30 AM) Lymphocytes [20.0-40.0 %] 9.3 % 16.8 % *LOW* *LOW* (07/16/17 11:41 AM) (07/15/17 2:30 AM) Monocytes [2.0-12.0 %] 9.6 % 7.8 % (07/16/17 11:41 AM) (07/15/17 2:30 AM) Eosinophils [0.0-4.0 %] 5.1 % 5.4 % *HI* *HI* (07/16/17 11:41 AM) (07/15/17 2:30 AM) Basophils [0.0-1.0 %] 1.7 % 1.1 % *HI* *HI* (07/16/17 11:41 AM) (07/15/17 2:30 AM) Segs-Bands # [1.5-8.1 K/CMM] 7.4 K/CMM 7.3 K/CMM (07/16/17 11:41 AM) (07/15/17 2:30 AM) Lymphocytes # [1.0-5.5 K/CMM] 0.9 K/CMM 1.8 K/CMM *LOW* (07/15/17 2:30 AM) (07/16/17 11:41 AM) Monocytes # [0.0-0.8 K/CMM] 1.0 K/CMM 0.8 K/CMM *HI* (07/15/17 2:30 AM) (07/16/17 11:41 AM) Eosinophils # [0.0-0.5 K/CMM] 0.5 K/CMM 0.6 K/CMM (07/16/17 11:41 AM) *HI* (07/15/17 2:30 AM) Basophils # [0.0-0.2 K/CMM] 0.2 K/CMM 0.1 K/CMM (07/16/17 11:41 AM) (07/15/17 2:30 AM) Immunizations Given and Recorded Vaccine Date [...] Reg Smoking Cessation Counseling Yes entered on: 09/24/17 Assessment and Plan Extracted from: Title: Clinical Document Author: Jailene Winchester NP Date: 07/18/17 Date [...] h as been worsening. He went to [facility] to be evaluated and then transferred here [...] agreed patient was safe for discharge ho il. He was instructed to notify all treating [...] Moody.Please have him visit the epilepsy clinic [facility] Trauma- Follow up in 1 week.Call IN Trauma at [phone] Epilepsy Clinic- Please have him visit the epilepsy clinic [facility] ) . Discharge Time >30 minutes Jailene Winchester [facility] [id number] Addendum by Siomara Calvert MD on ATTENDING ATTESTATION: 07/20/2017 20:58 I saw and examined the above patient with Jailene Winchester on and I agree with the above note and plan Siomara Calvert MD [id number] Extracted from: Title: Clinical Document Author: Ranulfo Jailene NP Date: 07/18/17 Trauma Surgery Floor Progress [...] 15:40 24 Hr Tmin: 98.6F (37.00c) at 07/17 19:15 36 Hr Tmax: 98.8F (37.11c) at 07/17 15:40 36 Hr Tmin: 98.2F (36.78c) at 07/16 22:45 Pain: 0 Location: Constitutional/Neuro/Psych: GCS: Eye [...] Q12H 07/15/17 9:00 enoxaparin 30 mg SUB-Q [id number] 07/15/17 8:00 gabapentin (gabapentin 300 mg oral [...] prophylaxis: 07/15/17 9:00 enoxaparin 30 mg SUB-Q [id number]- Patient refusing lovenox Endocrine: Glucose range: not [...] Please have him visit the epilepsy clinic [facility] ). Trauma- Abby hui in 1 week.Call IN Trauma at Assessment and Plan: 42 year [...] signing off. Discharge Home today. Jailene Winchester [facility] [id number] Extracted from: Title: neurology consultation note Author: Sara Marley MD Date: 07/16/17 General Neurology Consultation Note Patient: Beverley Rae Primary team/number: [id number] Reason for Consultation: seizure Chief Complaint: seizure [...] witnessed generalized tonic cloni c seizure activity. RN INTAKE witnessed it; says it lasted 1-3 minutes and self- resolved. She gave the patient Ativan IV after it resolved. Stated he was in a postictal state after the episode. Per review of jul, patient received a dose of Benadryl at [...] He does not remember having additional seizures u p until today. He says he also has [...] QAM 07/15/17 9:00 enoxaparin 30 mg SUB-Q [id number] 07/15/17 8:00 gabapentin (gabapentin 300 mg oral [...] documented routine EEG (normal) was in the c ontext of self harm and negative head CTA [...] f/u in our clinic after discharge, call [phone] for appointment. We will follow with you. Sara Marley PGY3 [id number] Neurology This patient was seen and discussed [...] smear- look for acanthocytes. Misa Moody MD #[id number] Professor of Neurology Extracted from: Title: Trauma Surgery History and Physical Author: Rasheed Galvez MD Date: [facility] Trauma Surgery History and Physical Date of [...] that has been worsening. He went to [facility] to be evaluated and then transferred here [...] while in the ER. Terri Munoz MD [id number] DOS: 07/15/17
--- OUTSIDE RECORDS SUMMARY | 2019-01-04 19:34 | XMS REPORT | Summary of Care ---
:1975 Author Organization [facility] Address [address] [place] [id number]- Encounter HQ Encntr_alias(FIN) [id number] Date(s): 09/24/17 - 09/25/[address] Professional Services provided by The [facility] [place] [address]- Encounter Diagnosis Penetrating flank injury (Discharge Diagnosis) - 09/25/17 Discharge Disposition: Home or Self Care Attending Physician: Manuel Angel MD Vital Signs Most recent to oldest 1 2 3 [Reference Range]: Height 162.56 cm (09/24/17 9:05 PM) Temperature Oral [96.4-99.1 99.4 DegF 99.7 DegF DegF] *HI* *HI* (09/24/17 9:40 PM) (09/24/17 9:05 PM) Blood Pressure [90-140/60-90 139/88 mmHg 133/74 mmHg 136/87 mmHg mmHg] (09/25/17 12:56 AM) (09/24/17 11:00 PM) (09/24/17 9:40 PM) Respiratory Rate [14-20 20 BRMIN 19 BRMIN 16 BRMIN BRMIN] (09/25/17 12:56 AM) (09/25/17 12:02 AM) (09/24/17 11:30 PM) Peripheral Pulse Rate 130 bpm [60-100 bpm] *HI* (09/24/17 9:05 PM) Weight 72.727 kg (09/24/17 9:05 PM) Body Mass Index 27.52 m2 (09/24/17 9:05 PM) Problem List Condition Effective Dates Status [...] Substance Reaction Severity Status penicillins Active Medications cefepime 1 gm, Route: IVPB, ONCE, Dosing Weight 72.727, kg, Priority: STAT, Start date: 09/24/17 22:07:00 CDT, Stop date: 09/24/17 22:07:00 CDT, ABX Indication: Bacteremia Start Date: 09/24/17 Stop Date: 09/24/17 Status: CompletedFlagyl 500 mg, Route: IVPB, ONCE, Dosing Weight 72.727, kg, Priority: STAT, Start date : 09/24/17 22:07:00 CDT, Stop date: 09/24/17 22:07:00 CDT, ABX Indication: ED - Suspected Sepsis Start Date: 09/24/17 Stop Date: 09/24/17 Status: CompletedketOROLAC 30 mg/mL injectable solution 30 mg, Route: IVP, Drug form: INJ, ONCE, Dosing Weight 72.727, kg, Priority: STAT, Start date: 09/24/17 23:02:00 CDT, Stop date: 09/24/17 23:02:00 CDT Start Date: 09/24/17 Stop Date: 09/24/17 Status: Completedmorphine Sulfate 4 mg, Route: IVP, ONCE, Dosing Weight 72.727, kg, Priority: STAT, Start date: 21:30:00 CDT,Stop date: 09/24/17 21:30:00 CDT Start Date: 09/24/17 Stop Date: 09/24/17 Status: Completedvancomycin + Sodium Chloride 0.9% IV 250 mL 1,500 mg, Route: IVPB, ONCE, Dosing Weight 72.727, kg, Priority: STAT, Start date: 09/24/17 22:07:00CDT, Stop date: 09/24/17 22:07:00 CDT, ABX Indication: Bacteremia Notes: TIME CRITICAL MEDICATION(Same As: Vancocin)Infusion rate< 1000 mg: infuse over 1 [id number] - 1500 mg: infuse over 1.5 hoursVancomycin FOR IV SET [id number] - 2000 mg: infuse over 2 hours>2001 mg: infuse over 2.5 hoursFor adult patients only: Round to nearest 250 mg per Medical Staff approval MEDICATION WASTE Product Size: 1000 mgProduct Wasted: ___ mg Start Date: 09/24/17 Stop Date: 09/25/17 Status: CompletedVisipaque 320mg/ml 100 mL, Route: IVP, Drug Form: SOLN, Dosing Weight 72.727, kg, ONCALL, STAT, Start date: 09/24/17 21:41:00 CDT, Duration: 1 doses or times, Dose=2.2ml/kg, Max lgrd=[id number] -- "To be infused by RadiologyStaff ONLY" Start Date: 09/24/17 Stop Date: 09/24/17 Status: Completed Results BLOOD BANK RESULTS Most recent to oldest [Reference Range]: 1 ABO/Rh O POS *Unknown* (09/24/17 10:50 PM) Antibody Scrn Negative (09/24/17 10:50 PM) ELECTROLYTES Most recent to oldest [Reference Range]: 1 Sodium Lvl [135-145 mEq/L] 138 mEq/L (09/24/17 10:44 PM) Potassium Lvl [3.5-5.1 mEq/L] 4.3 mEq/L (09/24/17 10:44 PM) Chloride Lvl [95-109 mEq/L] 103 mEq/L (09/24/17 10:44 PM) CO2 [24-32 mEq/L] 25 mEq/L (09/24/17 10:44 PM) AGAP [10.0-20.0 mEq/L] 14.3 mEq/L (09/24/17 10:44 PM) CHEM PANEL Most recent to oldest [Reference Range]: 1 Creatinine Lvl [0.50-1.40 mg/dL] 0.93 mg/dL (09/24/17 10:44 PM) eGFR 102 mL/min/1.73m2 1 *NA* (09/24/17 10:44 PM) BUN [7-22 mg/dL] 14 mg/dL (09/24/17 10:44 PM) Glucose Lvl [70-99 mg/dL] 68 mg/dL *LOW* (09/24/17 10:44 PM) Total Protein [6.4-8.4 g/dL] 7.6 g/dL (09/24/17 10:44 PM) Albumin Lvl [3.5-5.0 g/dL] 3.4 g/dL *LOW* (09/24/17 10:44 PM) Globulin [2.7-4.2 g/dL] 4.2 g/dL (09/24/17 10:44 PM) A/G Ratio [0.7-1.6] 0.8 (09/24/17 10:44 PM) Calcium Lvl [8.5-10.5 mg/dL] 8.7 mg/dL (09/24/17 10:44 PM) ALT [0-65 unit/L] 49 unit/L (09/24/17 10:44 PM) AST [0-37 unit/L] 34 unit/L (09/24/17 10:44 PM) Alk Phos [39-136 unit/L] 94 unit/L (09/24/17 10:44 PM) Bili Total [0.2-1.3 mg/dL] 0.2 mg/dL (09/24/17 10:44 PM) Bili Direct [0.0-0.3 mg/dL] <0.1 mg/dL (09/24/17 10:44 PM) Bili Indirect [0.0-1.0] UNABLE TO CALCULATE *NA* (09/24/17 10:44 PM) Lipase Lvl [73-393 unit/L] 253 unit/L (09/24/17 10:44 PM) Lactic Acid WB [0.5-2.2 mmol/L] 1.2 mmol/L (09/24/17 10:44 PM) 1Result Comment: The eGFR is calculated [...] eGFR should be multiplied by the estimated BMI.HEMATOLOGY Most recent to oldest [Reference Range]: 1 WBC [3.7-10.4 K/CMM] 6.9 K/CMM (09/24/17 10:44 PM) RBC [4.70-6.10 M/CMM] 4.22 M/CMM *LOW* (09/24/17 10:44 PM) Hgb [14.0-18.0 g/dL] 10.4 g/dL *LOW* (09/24/17 10:44 PM) Hct [42.0-54.0 %] 33.3 % *LOW* (09/24/17 10:44 PM) MCV [80.0-94.0 fL] 79.0 fL *LOW* (09/24/17 10:44 PM) MCH [27.0-31.0 pg] 24.7 pg *LOW* (09/24/17 10:44 PM) MCHC [32.0-36.0 g/dL] 31.3 g/dL *LOW* (09/24/17 10:44 PM) RDW [11.5-14.5 %] 22.1 % *HI* (09/24/17 10:44 PM) MPV [7.4-10.4 fL] 7.5 fL (09/24/17 10:44 PM) Platelet [133-450 K/CMM] 916 K/CMM *HI* (09/24/17 10:44 PM) Segs [45.0-75.0 %] 36.0 % *LOW* (09/24/17 10:44 PM) Lymphocytes [20.0-40.0 %] 52.1 % *HI* (09/24/17 10:44 PM) Monocytes [2.0-12.0 %] 8.3 % (09/24/17 10:44 PM) Eosinophils [0.0-4.0 %] 2.7 % (09/24/17 10:44 PM) Basophils [0.0-1.0 %] 0.9 % (09/24/17 10:44 PM) Segs-Bands # [1.5-8.1 K/CMM] 2.5 K/CMM (09/24/17 10:44 PM) Lymphocytes # [1.0-5.5 K/CMM] 3.6 K/CMM (09/24/17 10:44 PM) Monocytes # [0.0-0.8 K/CMM] 0.6 K/CMM (09/24/17 10:44 PM) Eosinophils # [0.0-0.5 K/CMM] 0.2 K/CMM (09/24/17 10:44 PM) Basophils # [0.0-0.2 K/CMM] 0.1 K/CMM (09/24/17 10:44 PM) Anisocyte [None Seen] 1+ *ABN* (09/24/17 10:44 PM) Hypochrom [None Seen] 1+ (09/24/17 10:44 PM) Microcyte [None Seen] 1+ *ABN* (09/24/17 10:44 PM) Schistocyte [None Seen] 1-3 per HPF (09/24/17 10:44 PM) Plt Morph Normal (09/24/17 10:44 PM) PT [12.0-14.7 seconds] 12.7 seconds (09/24/17 10:44 PM) INR [0.85-1.17] 0.95 (09/24/17 10:44 PM) PTT [22.9-35.8 seconds] 28.7 seconds (09/24/17 10:44 PM) ACT (TEG) Rapid [86-118 seconds] 97 seconds (09/24/17 10:44 PM) Split Point Rapid 0.4 minutes *NA* (09/24/17 10:44 PM) R-time Rapid [0.4-0.7 minutes] 0.5 minutes (09/24/17 10:44 PM) K-time Rapid [0.6-2.3 minutes] 0.8 minutes (09/24/17 10:44 PM) Angle Rapid [64-80 degrees] 83 degrees *HI* (09/24/17 10:44 PM) Max Amplitude Rapid [52-71 mm] 70 mm (09/24/17 10:44 PM) G-value Rapid [5.0-11.6 K d/sc] 11.6 K d/sc (09/24/17 10:44 PM) Estimated % Lysis Rapid [0.0-7.5 %] 10.3 % 1 *HI* (09/24/17 10:44 PM) 1Result Comment: "Significant Findings called to Trell Gregorio at 09/25/2017 00:07 by RM. Read BackOK." Immunizations Given and Recorded Vaccine Date Status [...] Yes entered on: 09/24/17 Assessment and Plan No data available for this section
--- OUTSIDE RECORDS SUMMARY | 2019-01-04 19:34 | XMS REPORT | Summary of Care ---
:1975 Author Organization [facility] Address [address] [place] [address]- Encounter HQ Sinan(FIN) [id number] Date(s): 07/28/17 - 07/28/[address] [address]- Encounter Diagnosis Abdominal fistula (Discharge Diagnosis) - 07/28/17 Fistula of intestine (Final) - 08/05/17 Unspecified cirrhosis of liver (Final) - Major depressive disorder, single episode, unspecified (Final) - Unspecified viral hepatitis C without hepatic coma (Final) - Post-traumatic stress disorder, unspecified (Final) - Nicotine dependence, cigarettes, uncomplicated (Final) - Homelessness (Final) - Allergy status to penicillin (Final) - Discharge Disposition: Home or Self Care Attending Physician: Fidel Waller MD Vital Signs Most recent to oldest [Reference Range]: 1 2 Temperature Oral [96.4-99.1 DegF] 99.4 DegF 98.2 DegF *HI* (07/28/17 12:18 PM) (07/28/17 1:46 PM) Blood Pressure [90-140/60-90 mmHg] 152/111 mmHg 147/106 mmHg *HI* *HI* (07/28/17 1:46 PM) (07/28/17 12:18 PM) Respiratory Rate [14-20 BRMIN] 20 BRMIN 20 BRMIN (07/28/17 1:46 PM) (07/28/17 12:18 PM) Peripheral Pulse Rate [60-100 bpm] 105 bpm 99 bpm *HI* (07/28/17 12:18 PM) (07/28/17 1:46 PM) Weight 81.818 kg (07/28/17 12:18 PM) Problem List Condition Effective Dates Status [...] Substance Reaction Severity Status penicillins Active Medications No data available for this section Results No data available for this section [...]
--- OUTSIDE RECORDS SUMMARY | 2019-01-04 19:34 | XMS REPORT | Summary of Care ---
:1975 Author Organization [facility] Address [address] [place] [phone]- Encounter HQ Stephier_nestor(FIN) [id number] Date(s): 06/09/17 - 06/11/[address] Professional Services provided by [facility] [place] [address]- Encounter Diagnosis Other foreign object in esophagus causing other injury, initial encounter (Final ) - 06/17/17 Bipolar disorder, unspecified (Final) - Opioid dependence, uncomplicated (Final) - Acquired absence of spleen (Final) - Discharge Disposition: Home or Self [...] Alerts Substance Reaction Severity Status penicillins Active aspirin Active Medications ANES flumazenil 0.2 mg, Route: IVP, PRN, Dosing Weight 68.182, kg, PRN Benzodiazepine Reversal, Initial dose, Start date: 06/10/17 14:59:00 FERMENTATION MANAGER, Duration: 30 day, Stop date: 14:58:00 FERMENTATION MANAGER Start Date: 06/10/17 Stop Date: 06/10/17 Status: DiscontinuedANES ketOROLAC 30 mg, Route: IVP, ONCE, Dosing Weight 68.182, kg, Start date: 06/10/17 14:59: 00 FERMENTATION MANAGER, Stop date: 06/10/17 14:59:00 FERMENTATION MANAGER Start Date: 06/10/17 Stop Date: 06/10/17 Status: DiscontinuedANES labetalol 10 mg, Route: IVP, Q5Min, Dosing Weight 68.182, kg, PRN Elevated BP, Start date : 06/10/17 14:59:00 FERMENTATION MANAGER, Duration: 5 doses or times, Stop date: Limited # of times Start Date: 06/10/17 Stop Date: 06/10/17 Status: DiscontinuedANES naloxone 0.4 mg, Route: IVP, Q2MIN, Dosing Weight 68.182, kg, PRN Narcotic Reversal, Start date: 06/10/17 14:59:00 FERMENTATION MANAGER, Duration: 8 doses or times, Stop date: Limited # of times Start Date: 06/10/17 Stop Date: 06/10/17 Status: DiscontinuedANES ondansetron 4 mg, Route: IVP, ONCE, Dosing Weight 68.182, kg, PRN Nausea & Vomiting, Start date: 06/10/17 14:59:00 FERMENTATION MANAGER Start Date: 06/10/17 Stop Date: 06/10/17 Status: DiscontinuedDilaudid 0.5 mg, 0.25 mL, Route: IVP, Drug form: INJ, Q3H, Dosing Weight 68.182, kg, PRN Pain Score 7-10, Start date: 06/10/17 4:21:00 FERMENTATION MANAGER, Duration: 30 day, Stop date: 07/10/17 4:20:00 FERMENTATION MANAGER Notes: Same as Dilaudid Start Date: 06/10/17 Stop Date: 06/10/17 Status: Discontinuedenoxaparin 30 mg, 0.3 mL, Route: SUB-Q, Drug form: INJ, [id number], Dosing Weight 68.182, kg , Start date: 06/10/17 0:00:00 FERMENTATION MANAGER, Duration: 30 day, Stop date: 07/09/17 12:00: 00 FERMENTATION MANAGER Notes: (Same as: Lovenox) Start Date: 06/10/17 Stop Date: 06/11/17 Status: DiscontinuedFLUoxetine 20 mg oral capsule 20 mg=1 cap, PO, Daily, # 60 cap, 0 Refill(s) Start Date: 06/11/17 Stop Date: 07/10/17 Status: Discontinuedgabapentin 300 mg oral capsule 300 mg, 1 cap, Route: PO, Drug form: CAP, Q8H, Dosing Weight 68.182, kg, (CrCl & gt; 60 ml/min), Priority: NOW, Start date: 06/11/17 8:07:00 FERMENTATION MANAGER, Duration: 30 day, Stop date: 07/11/17 8:00:00 FERMENTATION MANAGER Notes: (Same as: Neurontin) Start Date: 06/11/17 Stop Date: 06/11/17 Status: Discontinuedgabapentin 300 mg oral capsule 600 mg=2 cap, PO, Q8H, # 30 cap, 0 Refill(s) Start Date: 06/11/17 Stop Date: 07/10/17 Status: DiscontinuedIsolyte S PH 7.4 1,000 mL 1,000 mL, Rate: 100 ml/hr, Infuse over: 10 hr, Route: IV, Dosing Weight 68.182 kg, Total Volume: 1,000, Start date: 06/09/17 20:55:00 FERMENTATION MANAGER, Duration: 30 day, Stop date: 07/09/17 20:54:00 FERMENTATION MANAGER, 1.77, m2 Notes: (Same as: Isolyte S PH 7.4) Start Date: 06/09/17 Stop Date: 06/09/17 Status: DiscontinuedIsolyte S PH-7.4 (Bolus) IV 1,000 mL, Route: IV, Drug Form: SOLN, Dosing Weight 68.182, kg, ONCE, Start date : 06/09/17 20:55:00 FERMENTATION MANAGER, Stop date: 06/09/17 20:55:00 FERMENTATION MANAGER Notes: (Same as: Isolyte S PH 7.4) Start Date: 06/09/17 Stop Date: 06/09/17 Status: CompletedketAMINE 70 mg, 7 mL, Route: IVP, Drug form: INJ, ONCE, Dosing Weight 68.182, kg, Priority: STAT, Start date:06/09/17 18:14:00 FERMENTATION MANAGER, Stop date: 06/09/17 18:14:00 FERMENTATION MANAGER Start Date: 06/09/17 Stop Date: 06/09/17 Status: DiscontinuedLactated Ringers IV 1,000 mL 1,000 mL, Rate: 125 ml/hr, Infuse over: 8 hr, Route: IV, Dosing Weight 68.182 kg , Total Volume: 1,000, Start date: 06/09/17 23:33:00 FERMENTATION MANAGER, Duration: 30 day, Stop date: 07/09/17 23:32:00 FERMENTATION MANAGER, 1.77, m2 Start Date: 06/09/17 Stop Date: 06/10/17 Status: Discontinuedmorphine Sulfate 2 mg, 0.5 mL, Route: IVP, Drug form: SOLN, Q4H, Dosing Weight 68.182, kg, PRN Pain Score 7-10, Startdate: 06/11/17 8:08:00 FERMENTATION MANAGER, Duration: 30 day, Stop date: 07/11/17 8:07:00 FERMENTATION MANAGER Notes: (Same as:MORPhine Sulfate) Start Date: 06/11/17 Stop Date: 06/11/17 Status: Discontinuedmorphine Sulfate 4 mg, Route: IVP, ONCE, Dosing Weight 68.182, kg, Priority: STAT, Start date: 21:30:00 FERMENTATION MANAGER,Stop date: 06/09/17 21:30:00 FERMENTATION MANAGER Start Date: 06/09/17 Stop Date: 06/09/17 Status: Completedmorphine Sulfate 4 mg, Route: IVP, ONCE, Dosing Weight 68.182, kg, Priority: STAT, Start date: 15:56:00 FERMENTATION MANAGER,Stop date: 06/09/17 15:56:00 FERMENTATION MANAGER Start Date: 06/09/17 Stop Date: 06/09/17 Status: Completedmorphine Sulfate 2 mg, 1 mL, Route: IVP, Drug form: INJ, Q2H, Dosing Weight 68.182, kg, PRN Pain Score 7-10, Start date: 06/10/17 12:04:00 FERMENTATION MANAGER, Duration: 30 day, Stop date: 01/17 12:03:00 FERMENTATION MANAGER Notes: (Same as:MORPhine Sulfate) Start Date: 06/10/17 Stop Date: 06/11/17 Status: DiscontinuedNaprosyn 500 mg, 2 tab, Route: PO, Drug form: TAB, BID, Dosing Weight 68.182, kg, Priority: Routine, Start date: 06/11/17 9:30:00 FERMENTATION MANAGER, Duration: 30 day, Stop date : 07/11/17 9:00:00 FERMENTATION MANAGER Notes: (Same as: Naprosyn) Take with food. Start Date: 06/11/17 Stop Date: 06/11/17 Status: Discontinuednaproxen 500 mg, 1 tab, Route: PO, Drug form: TAB, BID, Dosing Weight 68.182, kg, Priority: NOW, Start date: 06/11/17 8:07:00 FERMENTATION MANAGER, Duration: 30 day, Stop date: 17:00:00 FERMENTATION MANAGER Notes: (Same as: Naprosyn) Take with food. Start Date: 06/11/17 Stop Date: 06/11/17 Status: Deletednaproxen 500 mg oral tablet 500 mg=1 tab, PO, BID, with food, # 25 tab, 0 Refill(s) Start Date: 06/11/17 Stop Date: 06/13/17 Status: CompletedNorco 10/325 oral tablet 1 tab, Route: PO, Drug Form: TAB, Dosing Weight 68.182, kg, Q4H, PRN Pain Score 1-3, Start date: 06/10/17 4:06:00 FERMENTATION MANAGER, Duration: 30 day, Stop date: 07/10/17 4: 05:00 FERMENTATION MANAGER Notes: Do not exceed 4gm/day of acetaminophen. (Same as: [place] 325/10) Start Date: 06/10/17 Stop Date: 06/10/17 Status: Discontinuedondansetron 4 mg, Route: IVP, Drug form: INJ, ONCE, Dosing Weight 68.182, kg, Priority: STAT , Start date: 06/09/17 15:56:00 FERMENTATION MANAGER, Stop date: 06/09/17 15:56:00 FERMENTATION MANAGER Start Date: 06/09/17 Stop Date: 06/09/17 Status: CompletedoxyCODONE 5 mg oral tablet 5 mg, 1 tab, Route: PO, Drug form: TAB, Q4H, Dosing Weight 68.182, kg, PRN Pain Score 4-6, Start date: 06/10/17 1:44:00 FERMENTATION MANAGER, Duration: 30 day, Stop date: 1:43:00 FERMENTATION MANAGER Notes: (Same as: Roxicodone) Start Date: 06/10/17 Stop Date: 06/10/17 Status: Discontinuedpantoprazole 40 mg oral enteric coated tablet 40 mg=1 tab, PO, Before Dinner, # 30 tab, 0 Refill(s) Start Date: 06/11/17 Stop Date: 07/10/17 Status: DiscontinuedPROzac 20 mg, 1 cap, Route: PO, Drug form: CAP, Daily, Dosing Weight 68.182, kg, Start date: 06/11/17 9:00:00 FERMENTATION MANAGER, Duration: 30 day, Stop date: 07/10/17 9:00:00 FERMENTATION MANAGER Notes: (Same as: Prozac, Sarafem) Start Date: 06/11/17 Stop Date: 06/11/17 Status: DiscontinuedSaline Flush 0.9% 10 ml, Route: IVP, Drug Form: INJ, Dosing Weight 68.182, kg, PRN, PRN Line Flush , Start date: 06/09/17 23:33:00 FERMENTATION MANAGER, Duration: 30 day, Stop date: 07/09/17 23:32 :00 FERMENTATION MANAGER Notes: Same as: BD Posiflush Sterile Start Date: 06/09/17 Stop Date: 06/11/17 Status: Discontinuedsugammadex 500 mg, 5 mL, Route: IV, Drug form: SOLN, ONCALL, Start date: 06/10/17 15:00:00 FERMENTATION MANAGER, Duration: 1 doses or times, Stop date: 06/10/17 15:15:00 FERMENTATION MANAGER Notes: (Same as: Bridion) Start Date: 06/10/17 Stop Date: 06/11/17 Status: DiscontinuedWellbutrin XL 300 mg, 2 tab, Route: PO, Drug form: ERTAB, Daily, Dosing Weight 68.182, kg, Start date: 06/10/17 9:00:00 FERMENTATION MANAGER, Duration: 30 day, Stop date: 07/09/17 9:00:00 FERMENTATION MANAGER Notes: (Same as: Wellbutrin XL)"Do Not Crush" Start Date: 06/10/17 Stop Date: 06/11/17 Status: DiscontinuedWellbutrin XL 300 mg/24 hours oral tablet, extended release 300 mg=1 tab, PO, Daily, do not crush or chew, # 60 tab, 0 Refill(s) Start Date: 06/11/17 Stop Date: 07/10/17 Status: Discontinued Results BLOOD BANK RESULTS Most [...] pg (06/11/17 10:30 AM) (06/10/17 6:18 AM) (06/09/17 4:54 PM) MCHC [32.0-36.0 g/dL] 31.9 g/dL 32.9 g/dL 32.8 g/dL *LOW* (06/10/17:18 AM) (06/09/17 4:54 PM) (06/11/17 10:30 AM) RDW [11.5-14.5 %] 17.3 % 17.5 % 17.6 % *HI* *HI* *HI* (06/11/17 10:30 AM) (06/10/17 6:18 AM) (06/09/17 4:54 PM) MPV [7.4-10.4 fL] 7.5 fL 7.0 fL 7.1 fL (06/11/17 10:30 AM) *LOW* *LOW* (06/10/17 6:18 AM) (06/09/17 4:54 PM) Platelet [133-450 K/CMM] 808 K/CMM 894 K/CMM 995 K/CMM *HI* *HI* *HI* (06/11/17 10:30 AM) (06/10/17 6:18 AM) (06/09/17 4:54 PM) Segs [...] Reg Smoking Cessation Counseling Yes entered on: 07/28/17 Assessment and Plan Extracted from: Title: Trauma [...] discharge. He has been instructed to notify sc s physicians if he develops fever, shortness of breath, pain that is not controlled on prescription pain medications, severe or worsening headache, numbness or tingling in his extremities, nausea or vom iting, signs of infection, or unexplained swelling. Patient's mother was been contacted to assist in discharge and refused. Patient provided social work administrator with a facility in [place], [place] and transportation was provided to the [...] 1. Outpatient Psychiatry Services as provided by [place] [facility] team. It is not necessary for you to followup at trauma service; however, please call [place] [facility] at [phone] for any questions or concerns or should problems arise. Addendum by Terri Munoz MD on ATTENDING DISCHARGE ATTESTATION: 06/22/2017 09:08 I saw and examined the patient on the day of discharge, and agree with the assessment and plan as noted above. Terri Munoz MD [id number] DOS: 06/11/17 Extracted from: Title: Psychiatry Consult Author: Corbin [...] PO Daily 06/10/17 enoxaparin 30 mg SUB-Q [id number] 06/11/17 gabapentin (gabapentin 300 mg oral capsule) [...] main things. 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 Second i s a regular outpatient psychiatrist [...] hospital discharge information. Printed information for the [facility] walk-in Crisis Clinics also left in paper chart. Reaching out to patient's mother at time of discharge for coordination may help avoid immediate readmission. 8. I also reached out to the [facility] Psychiatric Response Team for possible [...] in assessment and recommendations. Corbin Salas M.D. [id number] Extracted from: Title: Trauma History and Physical Author: Raina Bates MD Date: 06/09/17 [facility] [place] Trauma Surgery Consultation Date of Admission: 06/09/2017 [...] hospital (04/2017). During his last admission to [facility], he had placed a plastic knife [...] of foreign body Jh Bates MD MSO [id number] Trauma Attending Attestation I have personally seen and examined the patient. I agree with the resident's assessment and plan, except as noted below. 42-year-old male with extensive psychiatric history, well-known to Trauma Surgery service, presented to the [facility] ED after swallowing a razor blade. He [...] manipulation techniques could be utilized. The pat lisandra was admitted to [address] [place] [address] with a bedside sitter. I personally oversaw [...] Hemal Nguyen MD, MS Staff Surgeon MSO #[id number]
--- OUTSIDE RECORDS SUMMARY | 2019-01-04 19:34 | XMS REPORT | Summary of Care ---
:1975 Author Organization [facility] Address [address] [place] [id number]- Encounter [facility] Sinan(FIN) [phone] Date(s): 06/12/17 - 07/10/[address] [address]- Encounter Diagnosis Visit for wound check (Discharge Diagnosis) - 06/12/17 Hx of self-harm (Discharge Diagnosis) - 06/12/17 Infected open wound (Discharge Diagnosis) - 06/12/17 Foreign body in stomach, initial encounter (Final) - 07/15/17 Major depressive disorder, single episode, unspecified (Final) - Epilepsy, unspecified, not intractable, without status epilepticus (Final) - Personal history of self-harm (Final) - Bipolar disorder, unspecified (Final) - Factitious disorder, unspecified (Final) - Anxiety disorder, unspecified (Final) - Persistent postprocedural fistula, initial encounter (Final) - Anemia in other chronic diseases classified elsewhere (Final) - Patient's noncompliance with other medical treatment and regimen (Final) - Hyperkalemia (Final) - Moderate protein-calorie malnutrition (Final) - Hypokalemia (Final) - Unspecified bacterial pneumonia (Final) - Peritonitis, unspecified (Final) - Chronic pain syndrome (Final) - Severe sepsis without septic shock (Final) - Other streptococcal sepsis (Final) - Sepsis due to other specified staphylococcus (Final) - Peritoneal abscess (Final) - Borderline personality disorder (Final) - Other psychoactive substance dependence, uncomplicated (Final) - Chronic viral hepatitis C (Final) - Discharge Disposition: Home or Self Care Attending Physician: Roque Ventura MD Admitting Physician: Roque Ventura MD Vital Signs Most recent to oldest 1 2 3 [Reference Range]: Height 162.56 cm (06/13/17 8:42 AM) Temperature Oral [96.4-99.1 97.7 DegF 98.0 DegF 98.4 DegF DegF] (07/10/17 4:00 AM) (07/08/17 7:30 AM) (07/07/17 4:00 PM) Blood Pressure [90-140/60-90 113/70 mmHg 96/61 mmHg 113/67 mmHg mmHg] (07/10/17 4:00 AM) (07/08/17 7:30 AM) (07/07/17 4:00 PM) Respiratory Rate [14-20 BRMIN] 18 BRMIN 18 BRMIN 18 BRMIN (07/08/17 7:30 AM) (07/07/17 4:00 PM) (07/07/17 12:00 AM) Peripheral Pulse Rate [60-100 70 bpm 63 bpm 71 bpm bpm] (07/10/17 4:00 AM) (07/08/17 7:30 AM) (07/07/17 4:00 PM) Weight 72.727 kg 70.455 kg 70.455 kg (06/13/17 8:42 AM) (06/13/17 4:35 AM) (06/12/17 10:16 AM) Body Mass Index 27.52 m2 (06/13/17 8:42 AM) Problem List Condition Effective Dates Status [...] Pain Score 1-3, Start date: 06/13/17 19:12:00 CHILD DEVELOPMENT SPECIALIST, Duration: 30 day, Stop date: 07/13/17 19:11:00 CHILD DEVELOPMENT SPECIALIST Notes: Do not exceed 4 gm/day. (Same as: Tylenol) Start Date: 06/13/17 Stop Date: 06/24/17 Status: DiscontinuedANES fentaNYL 25 microgram, 0.5 mL, Route: IVP, Drug form: INJ, Q5Min, Dosing Weight 72.727, kg, PRN Pain Score 4-6, Priority: Routine, Start date: 06/15/17 10:14:00 CHILD DEVELOPMENT SPECIALIST, Duration: 4 doses or times, Stop date: Limited # of times Notes: (Same as: Sublimaze) Preservative free. Start Date: 06/15/17 Stop Date: 06/16/17 Status: DiscontinuedANES flumazenil 0.2 mg, 2 mL, Route: IVP, Drug form: INJ, PRN, Dosing Weight 72.727, kg, PRN Benzodiazepine Reversal, Initial dose, Start date: 06/15/17 10:14:00 CHILD DEVELOPMENT SPECIALIST, Duration: 30 day, Stop date: 08/14/17 11:13:00 CDT Notes: (Same as: Romazicon) Start Date: 06/15/17 Stop Date: 07/10/17 Status: DiscontinuedANES HYDROmorphone 0.5 mg, 0.25 mL, Route: IVP, Drug form: INJ, Q5Min, Dosing Weight 72.727, kg, PRN Pain Score 7-10, Start date: 06/15/17 10:14:00 CHILD DEVELOPMENT SPECIALIST, Duration: 4 doses or times, Stop date: Limited # of times Notes: Same as Dilaudid Start Date: 06/15/17 Stop Date: 06/16/17 Status: DiscontinuedANES labetalol 10 mg, 2 mL, Route: IVP, Drug form: INJ, Q5Min, Dosing Weight 72.727, kg, PRN Elevated BP, Start date: 06/15/17 10:14:00 CHILD DEVELOPMENT SPECIALIST, Duration: 5 doses or times, Stop date: Limited # of times Notes: (Same as: Normodyne, Trandate)Push over 2 minutes Give bolus over 2-3 minutes. Start Date: 06/15/17 Stop Date: 07/10/17 Status: DiscontinuedANES LORazepam 0.5 mg, 0.25 mL, Route: IVP, Drug form: INJ, Q20Min, Dosing Weight 72.727, kg, PRN Anxiety, Start date: 06/15/17 10:14:00 CHILD DEVELOPMENT SPECIALIST, Duration: 3 doses or times, Stop date: Limited # of times Notes: (Same as: Ativan) Start Date: 06/15/17 Stop Date: 06/16/17 Status: DiscontinuedANES morphine Sulfate 2 mg, 0.5 mL, Route: IVP, Drug form: SOLN, Q5Min, Dosing Weight 72.727, kg, PRN Pain Score 4-6, Start date: 06/15/17 10:14:00 CHILD DEVELOPMENT SPECIALIST, Duration: 5 doses or times, Stop date: Limited # of times Notes: (Same as:MORPhine Sulfate) Start Date: 06/15/17 Stop Date: 06/16/17 Status: DiscontinuedANES naloxone 0.4 mg, 1 mL, Route: IVP, Drug form: INJ, Q2MIN, Dosing Weight 72.727, kg, PRN Narcotic Reversal, Start date: 06/15/17 10:14:00 CHILD DEVELOPMENT SPECIALIST, Duration: 8 doses or times , Stop date: Limited # of times Notes: Same as Narcan Start Date: 06/15/17 Stop Date: 07/10/17 Status: DiscontinuedANES ondansetron 4 mg, 2 mL, Route: IVP, Drug form: INJ, ONCE, Dosing Weight 72.727, kg, PRN Nausea & Vomiting, Start date: 06/15/17 10:14:00 CHILD DEVELOPMENT SPECIALIST Notes: (Same as: Julia) MEDICATION WASTE Product Size: 4 mgProduct Wasted: ___ mg Start Date: 06/15/17 Stop Date: 06/25/17 Status: CompletedANES oxyCODONE 5 mg, 1 tab, Route: PO, Drug form: TAB, Q4H, Dosing Weight 72.727, kg, PRN Pain Score 4-6, Start date: 06/15/17 10:14:00 CHILD DEVELOPMENT SPECIALIST, Duration: 30 day, Stop date: 07/15 10:13:00 CHILD DEVELOPMENT SPECIALIST Notes: (Same as: Roxicodone) Start Date: 06/15/17 Stop Date: 06/16/17 Status: DiscontinuedANES oxyCODONE 10 mg, 2 tab, Route: PO, Drug form: TAB, Q4H, Dosing Weight 72.727, kg, PRN Pain Score 7-10, Start date: 06/15/17 10:14:00 CHILD DEVELOPMENT SPECIALIST, Duration: 30 day, Stop date : 07/15/17 10:13:00 CHILD DEVELOPMENT SPECIALIST Notes: (Same as: Roxicodone) Start Date: 06/15/17 Stop Date: 06/16/17 Status: DiscontinuedAPAP/butalbital/caffeine 1 tab, Route: PO, Drug Form: TAB, Q6H, PRN Headache 1-5, Start date: 07/01/17 9: 03:00 CHILD DEVELOPMENT SPECIALIST, Duration:30 day, Stop date: 07/31/17 9:02:00 CHILD DEVELOPMENT SPECIALIST Notes: (ewlcpidztjmqk-ajrygrwvbg-xjcnobsu 325-50-40mg) Do not exceed 4 gm/day of acetaminophen. (Same as: Esgic, Fioricet) Start Date: 07/01/17 Stop Date: 07/10/17 Status: DiscontinuedAtivan 1 mg, 1 tab, Route: PO, Drug form: TAB, TID, Dosing Weight 72.727, kg, Start date: 06/23/17 13:00:00CST, Duration: 30 day, Stop date: 07/23/17 9:00:00 CHILD DEVELOPMENT SPECIALIST Notes: (Same as: Ativan) Start Date: 06/23/17 Stop Date: 06/26/17 Status: DiscontinuedAtivan 1 mg, 0.5 mL, Route: IVP, Drug form: INJ, ONCE, Dosing Weight 70.455, kg, Priority: STAT, Start date: 06/12/17 10:28:00 CHILD DEVELOPMENT SPECIALIST, Stop date: 06/12/17 10:28:00 CHILD DEVELOPMENT SPECIALIST Notes: (Same as: Ativan) Start Date: 06/12/17 Stop Date: 06/12/17 Status: CompletedAtivan 2 mg, Route: IM, Drug form: INJ, ONCE, Dosing Weight 70.455, kg, Priority: STAT , Start date: 06/12/17 17:06:00 CHILD DEVELOPMENT SPECIALIST, Stop date: 06/12/17 17:06:00 CHILD DEVELOPMENT SPECIALIST Start Date: 06/12/17 Stop Date: 06/12/17 Status: CompletedAtivan 0.5 mg, 0.25 mL, Route: IVP, Drug form: INJ, Q6H, Dosing Weight 72.727, kg, PRN as needed for anxiety, Start date: 06/18/17 12:53:00 CHILD DEVELOPMENT SPECIALIST, Duration: 30 day, Stop date: 07/18/17 12:52:00 CHILD DEVELOPMENT SPECIALIST Notes: (Same as: Ativan) Start Date: 06/18/17 Stop Date: 06/24/17 Status: DiscontinuedAtivan 0.5 mg, 0.5 tab, Route: PO, Drug form: TAB, TID, Dosing Weight 72.727, kg, Start date: 06/21/17 9:55:00 CHILD DEVELOPMENT SPECIALIST, Stop date: 07/21/17 9:00:00 CHILD DEVELOPMENT SPECIALIST Notes: (Same as: Ativan) Start Date: 06/21/17 Stop Date: 06/23/17 Status: DiscontinuedAtivan 1 mg, 0.5 mL, Route: IVP, Drug form: INJ, ONCE, Dosing Weight 72.727, kg, PRN Anxiety, Start date: 06/13/17 23:42:00 CHILD DEVELOPMENT SPECIALIST Notes: (Same as: Ativan) Start Date: 06/13/17 Stop Date: 06/14/17 Status: Discontinuedbarium sulfate 450 ml, Route: PO, Drug Form: SUSP, Dosing Weight 72.727, kg, ONCALL, Start date : 06/16/17 19:00:00 CHILD DEVELOPMENT SPECIALIST, Duration: 1 doses or times Notes: Same as Readi-Cat 2 Start Date: 06/16/17 Stop Date: 07/10/17 Status: DiscontinuedBenadryl 25 mg, Route: IM, ONCE, Dosing Weight 70.455, kg, Priority: STAT, Start date: 17:06:00 CHILD DEVELOPMENT SPECIALIST,Stop date: 06/12/17 17:06:00 CHILD DEVELOPMENT SPECIALIST Start Date: 06/12/17 Stop Date: 06/12/17 Status: CompletedBentyl 20 mg, 1 tab, Route: PO, Drug form: TAB, QID, Dosing Weight 72.727, kg, PRN Cramps, Start date: 06/27/17 8:52:00 CHILD DEVELOPMENT SPECIALIST, Duration: 30 day, Stop date: 07/27/17 8:51:00 CHILD DEVELOPMENT SPECIALIST Notes: (Same as: Bentyl) Start Date: 06/27/17 Stop Date: 07/10/17 Status: Discontinuedbuprenorphine-naloxone 2 ea, Route: SL, Drug Form: FILM, Q8H, Start date: 06/22/17 16:00:00 CHILD DEVELOPMENT SPECIALIST, Stop date: 07/22/17 8:00:00 CHILD DEVELOPMENT SPECIALIST Notes: (Same as: Suboxone)Non-formulary Start Date: 06/22/17 Stop Date: 06/26/17 Status: Discontinuedbuprenorphine-naloxone 2 mg-0.5 mg sublingual tablet, disintegrating 2 tab, Route: SL, Drug Form: FILM, Dosing Weight 72.727, kg, Q8H, Start date: 16:00:00 CHILD DEVELOPMENT SPECIALIST,Duration: 30 day, Stop date: 07/22/17 8:00:00 CHILD DEVELOPMENT SPECIALIST Notes: (Same as: Suboxone)Non-formulary Start Date: 06/22/17 Stop Date: 06/22/17 Status: DiscontinuedbuPROPion 150 mg, 1 tab, Route: PO, Drug form: ERTAB, ONCE, Dosing Weight 72.727, kg, Start date: 07/03/17 13:03:00 CHILD DEVELOPMENT SPECIALIST, Stop date: 07/03/17 13:03:00 CHILD DEVELOPMENT SPECIALIST Notes: (Same as: Wellbutrin XL)"Do Not Crush" Start Date: 07/03/17 Stop Date: 07/03/17 Status: DeletedbuPROPion 12 hour sustained release 150 mg, 1 tab, Route: PO, Drug form: ERTAB, QAM, Dosing Weight 72.727, kg, Start date: 07/10/17 9:00:00 CHILD DEVELOPMENT SPECIALIST, Duration: 30 day, Stop date: 08/08/17 9:00:00 CHILD DEVELOPMENT SPECIALIST Notes: (Do not crush) (Same As: Wellbutrin SR) Start Date: 07/10/17 Stop Date: 07/10/17 Status: DiscontinuedbuPROPion 12 hour sustained release 150 mg, 1 tab, Route: PO, Drug form: ERTAB, Daily-12N, Dosing Weight 72.727, kg , Start date: 06/26/17 12:00:00 CHILD DEVELOPMENT SPECIALIST, Duration: 30 day, Stop date: 07/25/17 12:00 :00 CHILD DEVELOPMENT SPECIALIST Notes: (Do not crush) (Same As: Wellbutrin SR) Start Date: 06/26/17 Stop Date: 07/10/17 Status: DiscontinuedbuPROPion 150 mg/12 hours (SR) oral tablet, extended release 150 mg=1 tab, PO, QAM, 0 Refill(s) Start Date: 07/10/17 Stop Date: 07/18/17 Status: DiscontinuedcarBAMazepine 300 mg, 1 cap, Route: PO, Drug form: ERCAP, BID, Dosing Weight 72.727, kg, Start date: 06/13/17 17:00:00 CHILD DEVELOPMENT SPECIALIST, Stop date: 07/13/17 9:00:00 CHILD DEVELOPMENT SPECIALIST Notes: Do not open, chew or crush. (Same As: Carbatrol) Start Date: 06/13/17 Stop Date: 07/09/17 Status: DiscontinuedCathflo Activase 2 mg injection 2 mg, Route: INJ, ONCE, Dosing Weight 72.727, kg, Start date: 07/01/17 7:22:00 CHILD DEVELOPMENT SPECIALIST, Stop date: 07/01/17 7:22:00 CHILD DEVELOPMENT SPECIALIST Start Date: 07/01/17 Stop Date: 07/01/17 Status: CompletedCathflo Activase 2 mg injection 2 mg, 2 mL, Route: INJ, Drug form: INJ, ONCE, Dosing Weight 72.727, kg, Start date: 07/03/17 16:55:00 CHILD DEVELOPMENT SPECIALIST, Stop date: 07/03/17 16:55:00 CHILD DEVELOPMENT SPECIALIST Notes: "Syringe for catheter clearance or interventional radiology use.Reconstitute each vial of Cathflo Activase with 2.2 ml Sterile Water resulting in a 1 mg/ml solution. (Same as: Activase) MEDICATION WASTE Product Size: 2 mgProduct Wasted: ___ mg Start Date: 07/03/17 Stop Date: 07/03/17 Status: CompletedCathflo Activase 2 mg injection 2 mg, 2 mL, Route: INJ, Drug form: INJ, ONCE, Dosing Weight 72.727, kg, Start date: 07/03/17 9:13:00CST, Stop date: 07/03/17 9:13:00 CHILD DEVELOPMENT SPECIALIST Notes: "Syringe for catheter clearance or interventional radiology use.Reconstitute each vial of Cathflo Activase with 2.2 ml Sterile Water resulting in a 1 mg/ml solution. (Same as: Activase) MEDICATION WASTE Product Size: 2 mgProduct Wasted: ___ mg Start Date: 07/03/17 Stop Date: 07/03/17 Status: CompletedCathflo Activase 2 mg injection 2 mg, Route: INJ, ONCE, Dosing Weight 72.727, kg, Start date: 07/01/17 7:22:00 CHILD DEVELOPMENT SPECIALIST, Stop date: 07/01/17 7:22:00 CHILD DEVELOPMENT SPECIALIST Start Date: 07/01/17 Stop Date: 07/01/17 Status: CompletedCathflo Activase 2 mg injection 4 mg, 4 mL, Route: INJ, Drug form: INJ, ONCE, Dosing Weight 72.727, kg, Start date: 06/24/17 15:01:00 CHILD DEVELOPMENT SPECIALIST, Stop date: 06/24/17 15:01:00 CHILD DEVELOPMENT SPECIALIST Notes: "Syringe for catheter clearance or interventional radiology use.Reconstitute each vial of Cathflo Activase with 2.2 ml Sterile Water resulting in a 1 mg/ml solution. (Same as: Activase) MEDICATION WASTE Product Size: 2 mgProduct Wasted: ___ mg Start Date: 06/24/17 Stop Date: 06/24/17 Status: Completedcefepime + sterile water 10 mL 1 gm, Route: IVPB, Drug form: INJ, ABXQ6H, Dosing Weight 72.727, kg, (CrCl >/ =50 ml/min), Priority: STAT, Start date: 06/26/17 20:03:00 CHILD DEVELOPMENT SPECIALIST, Duration: 30 day , Stop date: 07/26/17 14:03:00 CHILD DEVELOPMENT SPECIALIST, ABX Indication: Pneumonia Notes: (Same As: Maxipime) MEDICATION WASTE Product Size: 1000 mgProduct Wasted: ___ mg Start Date: 06/26/17 Stop Date: 07/03/17 Status: DiscontinuedCepacol Sore Throat 15 mg-3.6 mg mucous membrane lozenge 1 lozenge, Route: MUCOUS MEM, Drug Form: TYLOR, Dosing Weight 72.727, kg, Q4H, PRN Sore Throat, Start date: 07/01/17 8:57:00 CHILD DEVELOPMENT SPECIALIST, Duration: 30 day, Stop date: 07/31/17 8:56:00 CHILD DEVELOPMENT SPECIALIST Notes: Same as: Cepacol Start Date: 07/01/17 Stop Date: 07/10/17 Status: Discontinuedclindamycin 600 mg, 50 mL, Route: IVPB, Drug form: INJ, ONCE, Dosing Weight 70.455, kg, Priority: STAT, Start date: 06/12/17 10:27:00 CHILD DEVELOPMENT SPECIALIST, Stop date: 06/12/17 10:27:00 CHILD DEVELOPMENT SPECIALIST, ABX Indication: Skin/Soft Tissue Infection Start Date: 06/12/17 Stop Date: 06/12/17 Status: Completedclindamycin 600 mg, 50 mL, Route: IVPB, Drug form: INJ, ABXQ8H, Dosing Weight 72.727, kg, Start date: 06/14/17 19:00:00 CHILD DEVELOPMENT SPECIALIST, Duration: 5 day, Stop date: 06/19/17 11:00: 00 CHILD DEVELOPMENT SPECIALIST, ABX Indication: Skin/Soft Tissue Infection Start Date: 06/14/17 Stop Date: 06/19/17 Status: Completedclindamycin 150 mg oral capsule 150 mg=1 cap, PO, Q6H, X 7 day, # 28 cap, 0 Refill(s) Start Date: 06/12/17 Stop Date: 06/19/17 Status: TpcioadylV8U 1/2NS 1,000 mL 1,000 mL, Rate: 75 ml/hr, Infuse over: 13.3 hr, Route: IV, Dosing Weight 72.727 kg, Total Volume: 1,000, Start date: 06/15/17 16:25:00 CHILD DEVELOPMENT SPECIALIST, Duration: 30 day, Stop date: 07/15/17 16:24:00 CHILD DEVELOPMENT SPECIALIST, 1.83, m2 Start Date: 06/15/17 Stop Date: 07/08/17 Status: Discontinuedfat emulsion, intravenous 250 mL, 31.25 ml/hr, Route: IV, Drug Form: INJ, Q-M-W-F, Start date: 06/18/17 22 :00:00 CHILD DEVELOPMENT SPECIALIST, Duration: 30 day, Stop date: 07/16/17 22:00:00 CHILD DEVELOPMENT SPECIALIST Notes: (Same as: Intralipid, Liposyn)Infuse through a 1.2 micron filter Start Date: 06/18/17 Stop Date: 07/09/17 Status: DiscontinuedfentaNYL (ANES) Route: IV, Drug form: INJ, ONCE, Stop date: 06/15/17 10:30:00 CHILD DEVELOPMENT SPECIALIST Start Date: 06/15/17 Stop Date: 06/15/17 Status: CompletedfentaNYL (ANES) Route: IV, Drug form: INJ, ONCE, Stop date: 06/13/17 18:58:00 CHILD DEVELOPMENT SPECIALIST Start Date: 06/13/17 Stop Date: 06/13/17 Status: CompletedFiorinal oral capsule 1 cap, Route: PO, Drug Form: CAP, Dosing Weight 72.727, kg, Q6H, PRN Headache 1- 5, Start date: 07/01/17 8:54:00 CHILD DEVELOPMENT SPECIALIST, Duration: 30 day, Stop date: 07/31/17 8:53: 00 CHILD DEVELOPMENT SPECIALIST Start Date: 07/01/17 Stop Date: 07/01/17 Status: DeletedFlagyl 500 mg, 100 mL, Route: IVPB, Drug form: INJ, ABXQ8H, Dosing Weight 72.727, kg, Priority: STAT, Startdate: 06/26/17 20:03:00 CHILD DEVELOPMENT SPECIALIST, Duration: 30 day, Stop date: 07/26/17 12:03:00 CHILD DEVELOPMENT SPECIALIST, ABX Indication: Intra-abdominal Infection Notes: (Same as: Flagyl) Avoid alcohol. Start Date: 06/26/17 Stop Date: 07/03/17 Status: Discontinuedfluconazole 400 mg, 200 mL, Route: IVPB, Drug form: INJ, [id number], Dosing Weight 72.727, kg, Priority: STAT, Start date: 06/26/17 20:03:00 CHILD DEVELOPMENT SPECIALIST, Duration: 30 day, Stop date: 07/25/17 20:03:00 CHILD DEVELOPMENT SPECIALIST Notes: (Same as: Diflucan) Start Date: 06/26/17 Stop Date: 07/02/17 Status: DiscontinuedFLUoxetine 40 mg, 2 cap, Route: PO, Drug form: CAP, Daily, Dosing Weight 72.727, kg, Start date: 06/14/17 9:00:00 CHILD DEVELOPMENT SPECIALIST, Duration: 30 day, Stop date: 08/12/17 9:00:00 CDT Notes: (Same as: Prozac Sarafem) Start Date: 06/14/17 Stop Date: 07/10/17 Status: DiscontinuedFLUoxetine 20 mg oral capsule 40 mg=2 cap, PO, Daily, # 60 cap, 0 Refill(s), Pharmacy: [place] [id number]/ [facility] Start Date: 07/10/17 Stop Date: 07/18/17 Status: Discontinuedgabapentin 300 mg oral capsule 300 mg=1 cap, PO, Q8H, # 90 cap, 0 Refill(s), Pharmacy: [place] [id number]/ [facility] Start Date: 07/10/17 Stop Date: 07/18/17 Status: Discontinuedhaloperidol 5 mg, 1 mL, Route: IM, Drug form: INJ, Q6H, Dosing Weight 72.727, kg, PRN Agitation, Start date: 06/21/17 9:58:00 CHILD DEVELOPMENT SPECIALIST, Duration: 30 day, Stop date: 9:57:00 CHILD DEVELOPMENT SPECIALIST Notes: (Same as: Haldol) Start Date: 06/21/17 Stop Date: 07/10/17 Status: DiscontinuedhydrOXYzine 25 mg, 1 tab, Route: PO, Drug form: TAB, BID, Dosing Weight 72.727, kg, PRN Anxiety, Start date: 06/13/17 16:58:00 CHILD DEVELOPMENT SPECIALIST, Duration: 30 day, Stop date: 16:57:00 CHILD DEVELOPMENT SPECIALIST Notes: (Same as: Atarax) Avoid alcohol. Start Date: 06/13/17 Stop Date: 06/25/17 Status: Discontinuedibuprofen 400 mg oral tablet 400 mg=1 tab, PO, Q6H, PRN Pain, X 10 day, # 30 tab, 0 Refill(s) Start Date: 06/12/17 Stop Date: 06/22/17 Status: Completedibuprofen 400 mg oral tablet 400 mg, 1 tab, Route: PO, Drug form: TAB, Q6H, Dosing Weight 72.727, kg, PRN Pain 1-3/Temp > 100.4 F, Start date: 06/17/17 11:40:00 CHILD DEVELOPMENT SPECIALIST, Duration: 30 day , Stop date: 07/17/17 11:39:00 CHILD DEVELOPMENT SPECIALIST Notes: (Same as: Motrin)"Do Not Crush" Give with food. Start Date: 06/17/17 Stop Date: 07/10/17 Status: DiscontinuedketOROLAC 15 mg, 1 mL, Route: IVP, Drug form: INJ, Q6H, Dosing Weight 72.727, kg, PRN Pain Score 4-6, Start date: 06/24/17 13:51:00 CHILD DEVELOPMENT SPECIALIST, Duration: 4 day, Stop date: 06/28/17 13:50:00 CHILD DEVELOPMENT SPECIALIST Notes: (Same as:Toradol) IV bolus must be given >15 seconds. Give IM administration slowly and deeply into the muscle. Not for use > 4 days. Start Date: 06/24/17 Stop Date: 06/28/17 Status: CompletedketOROLAC 15 mg, 1 mL, Route: IVP, Drug form: INJ, Q8H, Dosing Weight 72.727, kg, PRN Pain Score 4-6, Start date: 06/17/17 11:39:00 CHILD DEVELOPMENT SPECIALIST, Duration: 4 day, Stop date: 06/21/17 11:38:00 CHILD DEVELOPMENT SPECIALIST Notes: (Same as:Toradol) IV bolus must be given >15 seconds. Give IM administration slowly and deeply into the muscle. Not for use > 4 days. Start Date: 06/17/17 Stop Date: 06/21/17 Status: CompletedketOROLAC 15 mg, 1 mL, Route: IV, Drug form: INJ, Q6H, Dosing Weight 72.727, kg, Start date: 06/29/17 6:00:00 CHILD DEVELOPMENT SPECIALIST, Duration: 4 day, Stop date: 07/03/17 0:00:00 CHILD DEVELOPMENT SPECIALIST Notes: (Same as:Toradol) IV bolus must be given >15 seconds. Give IM administration slowly and deeply into the muscle. Not for use > 4 days. Start Date: 06/29/17 Stop Date: 07/03/17 Status: CompletedketOROLAC 15 mg/mL injectable solution 15 mg, 1 mL, Route: IVP, Drug form: INJ, ONCE, Dosing Weight 72.727, kg, Start date: 06/13/17 23:33:00 CHILD DEVELOPMENT SPECIALIST, Stop date: 06/13/17 23:33:00 CHILD DEVELOPMENT SPECIALIST Notes: (Same as:Toradol) IV bolus must be given >15 seconds. Give IM administration slowly and deeply into the muscle. Not for use > 4 days. Start Date: 06/13/17 Stop Date: 06/14/17 Status: CompletedketOROLAC 30 mg/mL injectable solution 30 mg, 1 mL, Route: IVP, Drug form: INJ, ONCE, Dosing Weight 70.455, kg, Priority: STAT, Start date:06/12/17 10:28:00 CHILD DEVELOPMENT SPECIALIST, Stop date: 06/12/17 10:28:00 CHILD DEVELOPMENT SPECIALIST Notes: (Same as:Toradol) IV bolus must be given >15 seconds. Give IM administration slowly and deeply into the muscle.Not for use > 4 days MEDICATION WASTE Product Size: 30 mgProduct Wasted: ___ mg Start Date: 06/12/17 Stop Date: 06/12/17 Status: CompletedLactated Ringers (Bolus) IV 1,000 mL, 1,000 ml/hr, Infuse Over: 1 hr, Route: IV, 1,000, Drug form: INJ, ONCE , Priority: STAT, Dosing Weight 70.455 kg, Start date: 06/12/17 10:28:00 CHILD DEVELOPMENT SPECIALIST, Stop date: 06/12/17 10:28:00 CHILD DEVELOPMENT SPECIALIST Start Date: 06/12/17 Stop Date: 06/12/17 Status: CompletedLactated Ringers Injection IV (ANES) 1000 mL Route: IV, Total Volume: 1,000, Start date: 06/15/17 9:57:00 CHILD DEVELOPMENT SPECIALIST, Stop date: 10:57:00 CHILD DEVELOPMENT SPECIALIST Start Date: 06/15/17 Stop Date: 06/15/17 Status: CompletedLactated Ringers Injection IV (ANES) 1000 mL Route: IV, Total Volume: 1,000, Start date: 06/13/17 18:24:00 CHILD DEVELOPMENT SPECIALIST, Stop date: 19:24:00 CHILD DEVELOPMENT SPECIALIST Start Date: 06/13/17 Stop Date: 06/13/17 Status: Completedlidocaine (ANES) Route: IV, Drug form: INJ, ONCE, Stop date: 06/15/17 10:34:00 CHILD DEVELOPMENT SPECIALIST Start Date: 06/15/17 Stop Date: 06/15/17 Status: CompletedLORazepam 0.5 mg, Route: IVP, Drug form: INJ, Q8H, Dosing Weight 70.455, kg, PRN Anxiety, Start date: 06/12/1816:08:00 CHILD DEVELOPMENT SPECIALIST, Duration: 30 day, Stop date: 07/12/17 17:07: 00 CHILD DEVELOPMENT SPECIALIST Start Date: 06/12/17 Stop Date: 06/12/17 Status: DiscontinuedLORazepam 0.5 mg, 0.5 tab, Route: PO, Drug form: TAB, ONCE, Dosing Weight 72.727, kg, Priority: NOW, Start date: 06/24/17 22:21:00 CHILD DEVELOPMENT SPECIALIST, Stop date: 06/24/17 22:21:00 CHILD DEVELOPMENT SPECIALIST Notes: (Same as: Ativan) Start Date: 06/24/17 Stop Date: 06/24/17 Status: CompletedLovenox 40 mg, 0.4 mL, Route: SUB-Q, Drug form: INJ, [id number], Dosing Weight 72.727, kg , Start date: 06/18/17 17:00:00 CHILD DEVELOPMENT SPECIALIST, Duration: 30 day, Stop date: 07/17/17 17:00 :00 CHILD DEVELOPMENT SPECIALIST Notes: (Same as: Lovenox) Start Date: 06/18/17 Stop Date: 07/10/17 Status: DiscontinuedMaxipime + Sodium Chloride 0.9% IV 100 mL 1 gm, Route: IVPB, [id number], Start date: 07/03/17 15:00:00 CHILD DEVELOPMENT SPECIALIST, Stop date: 15:00:00 CHILD DEVELOPMENT SPECIALIST, ABX Indication: Surgical Prophylaxis Notes: (Same As: Maxipime) MEDICATION WASTE Product Size: 1000 mgProduct Wasted: ___ mg Start Date: 07/03/17 Stop Date: 07/05/17 Status: Discontinuedmidazolam (ANES) Route: IV, Drug form: SOLN, ONCE, Stop date: 06/15/17 10:30:00 CHILD DEVELOPMENT SPECIALIST Start Date: 06/15/17 Stop Date: 06/15/17 Status: Completedmidazolam (ANES) Route: IV, Drug form: SOLN, ONCE, Stop date: 06/13/17 18:58:00 CHILD DEVELOPMENT SPECIALIST Start Date: 06/13/17 Stop Date: 06/13/17 Status: Completedmorphine Sulfate 2 mg, 0.5 mL, Route: IV, Drug form: SOLN, Q6H, Dosing Weight 70.455, kg, PRN Pain Score 6-10, Start date: 06/13/17 8:41:00 CHILD DEVELOPMENT SPECIALIST, Duration: 30 day, Stop date: 07/13/17 8:40:00 CHILD DEVELOPMENT SPECIALIST Notes: (Same as:MORPhine Sulfate) Start Date: 06/13/17 Stop Date: 06/13/17 Status: Discontinuedmorphine Sulfate 2 mg, 0.5 mL, Route: IVP, Drug form: SOLN, ONCE, Dosing Weight 72.727, kg, Start date: 06/16/17 18:04:00 CHILD DEVELOPMENT SPECIALIST, Stop date: 06/16/17 18:04:00 CHILD DEVELOPMENT SPECIALIST Notes: (Same as:MORPhine Sulfate) Start Date: 06/16/17 Stop Date: 06/16/17 Status: CompletedMotrin 400 mg, 1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 Resolved. Hepatitis C (12976905): Resolved. Cirrhosis (70744592): Resolved. Family History: History is unknown. Procedure history: Exploration of abdomen ([id number]) on 05/18/2017 at 42 Years. Colonoscopy ([id number]). Social History Social & Psychosocial Habits Alcohol 05/13/2017 Previous treatment: None [...] Last Charted Temp Oral 97.6 DegF (JUN 12) Heart Rate Peripheral 98 bpm (JUN 12) [...] to be continued. Plan to [facility] once foreign body is removed successfully by EGD. Patient is seen in ER on 06/12/2017 and plan discussed with Addendum by Sneha Cehng [employer] on discharge notes 06/12/2017 18:56 This is a 42-year-old male patient came [...] discharged as he is medically stable to [facility]. At this time he need more psychiatric management and evaluation. campaign worker is consulted for safe transfer to the facility. Addendum by Roque Ventura pt seen and examined, agree with [employer] notes on 06/13/2017 10:17 PE: chronic abdominal and right arm wound, dry and healed Issues with chronic ingestion of foreign objects and suicidal ideations, requiring multiple procedures- needs inpt psychiatric hospitalization - chronic well healing abdominal wounds- no need for any anitbiotics, needs local wound care await d/c to inpt psych facility when arranged
--- OUTSIDE RECORDS SUMMARY | 2019-01-04 19:35 | XMS REPORT | Summary of Care ---
:1975 Author Organization [facility] Address [address] [place] [id number]- Encounter HQ Encntr_[id number](FIN) [id number] Date(s): 06/22/18 - 07/11/[address] Professional Services provided by [facility] [place] [address]- Encounter Diagnosis Acute kidney failure, unspecified (Final) - Discharge Disposition: DC/TF HOME/ORG [facility] Attending Physician: Irvin Neville MD Admitting Physician: Dmitriy Cheng MD Vital Signs Most recent to oldest 1 2 3 [Reference Range]: Height 162.56 cm 162.56 cm (07/05/18 3:46 PM) (06/22/18 12:33 PM) Temperature Oral [96.4-99.1 98.4 DegF 98.3 DegF 98.7 DegF DegF] (07/11/18 11:58 AM) (07/11/18 10:12 AM) (07/10/18 11:22 PM) Blood Pressure [90-140/60-90 111/70 mmHg 107/68 mmHg 114/68 mmHg mmHg] (07/11/18 11:41 AM) (07/11/18 10:12 AM) (07/10/18 11:22 PM) Respiratory Rate [14-20 18 BRMIN 18 BRMIN 18 BRMIN BRMIN] (07/11/18 10:12 AM) (07/10/18 11:22 PM) (07/10/18 7:00 PM) Peripheral Pulse Rate 102 bpm 88 bpm 73 bpm [60-100 bpm] *HI* (07/11/18 10:12 AM) (07/10/18 11:22 PM) (07/11/18 11:41 AM) Weight 64.82 kg 64.82 kg 63.636 kg (07/05/18 3:46 PM) (06/27/18 9:00 AM) (06/22/18 12:33 PM) Body Mass Index 24.08 m2 (06/22/18 12:33 PM) Problem List Condition Effective Dates Status [...] Substance Reaction Severity Status penicillins Active Medications Adult Parenteral Nutrition Custom - Central (TPN) 1,800 mL 1,800 mL, Rate: Titrate, Dosing Weight 64.82, kg, Route: IV, Total Volume: 1, 800 mL, Start Date: 07/07/18 22:00:00 ORTHOPAEDIC PHYSICIAN ASSISTANT, Duration: 30 hr, Stop date: 07/09/18 3:59:00 ORTHOPAEDIC PHYSICIAN ASSISTANT, Replace Every: 24 hr Notes: Central line only Must use 1.2 micron filter AND Lipids should not be administered to patients who are allergic to soy, fish, egg or peanuts. Start Date: 07/07/18 Stop Date: 07/09/18 Status: CompletedAdult Parenteral Nutrition Custom - Central (TPN) 1,800 mL 1,800 mL, Rate: Titrate, Dosing Weight 64.82, kg, Route: IV, Total Volume: 1, 800 mL, Start Date: 07/08/18 22:00:00 ORTHOPAEDIC PHYSICIAN ASSISTANT, Duration: 30 hr, Stop date: 07/10/18 3:59:00 ORTHOPAEDIC PHYSICIAN ASSISTANT, Replace Every: 24 hr Notes: Central line only Must use 1.2 micron filter AND Lipids should not be administered to patients who are allergic to soy, fish, egg or peanuts. Start Date: 07/08/18 Stop Date: 07/10/18 Status: CompletedAdult Parenteral Nutrition Custom - Central (TPN) 1,800 mL 1,800 mL, Rate: as directed, Dosing Weight 64.82, kg, Route: IV, Total Volume: 1 ,800 mL, Start Date:07/10/18 22:00:00 ORTHOPAEDIC PHYSICIAN ASSISTANT, Duration: 30 hr, Stop date: 07/12/18 3:59:00 ORTHOPAEDIC PHYSICIAN ASSISTANT, Replace Every: 24 hr Notes: Central line only Must use 1.2 micron filter AND Lipids should not be administered to patients who are allergic to soy, fish, egg or peanuts. Start Date: 07/10/18 Stop Date: 07/11/18 Status: DiscontinuedAdult Parenteral Nutrition Custom - Central (TPN) 1,800 mL 1,800 mL, Rate: Titrate, Dosing Weight 64.82, kg, Route: IV, Total Volume: 1, 800 mL, Start Date: 07/09/18 22:00:00 ORTHOPAEDIC PHYSICIAN ASSISTANT, Duration: 30 hr, Stop date: 07/11/18 3:59:00 ORTHOPAEDIC PHYSICIAN ASSISTANT, Replace Every: 24 hr Notes: Central line only Must use 1.2 micron filter AND Lipids should not be administered to patients who are allergic to soy, fish, egg or peanuts. Start Date: 07/09/18 Stop Date: 07/11/18 Status: Completedbenztropine 1 mg, 1 tab, Route: PO, Drug form: TAB, BID, Dosing Weight 63.636, kg, Start date: 06/24/18 17:00:00CST, Duration: 30 day, Stop date: 07/24/18 9:00:00 ORTHOPAEDIC PHYSICIAN ASSISTANT Notes: (Same As: Stanislaw) Start Date: 06/24/18 Stop Date: 07/01/18 Status: Discontinuedbenztropine 1 mg oral tablet 1 mg=1 tab, PO, BID, 0 Refill(s) Start Date: 06/22/18 Stop Date: 07/11/18 Status: DiscontinuedbuPROPion 150 mg/24 hours (XL) oral tablet, extended release 300 mg=2 tab, PO, QAM, # 60 tab, 0 Refill(s) Start Date: 07/11/18 Stop Date: 08/10/18 Status: Orderedcefepime 1 gm, Route: IVP, Drug form: INJ, ABXQ8H, Dosing Weight 64.82, kg, (CrCl >/= 50 ml/min), Start date: 07/05/18 16:00:00 ORTHOPAEDIC PHYSICIAN ASSISTANT, Duration: 7 day, Stop date: 07/12 8:00:00 ORTHOPAEDIC PHYSICIAN ASSISTANT, ABX Indication: Fever of Unknown Source 0-60 days of age Notes: (Same As: Marilyn) MEDICATION WASTE Product Size: 1000 mgProduct Wasted: ___ mg Start Date: 07/05/18 Stop Date: 07/05/18 Status: DiscontinuedDepakote 500 mg oral enteric coated tablet 500 mg=1 tab, PO, Bedtime, Delayed Release tablet, # 30 tab, 0 Refill(s) Start Date: 07/11/18 Stop Date: 08/10/18 Status: OrderedDepakote 500 mg oral enteric coated tablet 500 mg, 1 tab, Route: PO, Drug form: ECTAB, Bedtime, Dosing Weight 63.636, kg, Start date: 06/23/18 21:00:00 ORTHOPAEDIC PHYSICIAN ASSISTANT, Duration: 30 day, Stop date: 07/22/18 21:00: 00 ORTHOPAEDIC PHYSICIAN ASSISTANT, Delayed Release tablet Notes: (Same as: Depakote Delayed Release) Do not confuse with the extended- release tablet. Delayed absorption enteric coated tablet. Do not crush Start Date: 06/23/18 Stop Date: 07/11/18 Status: DiscontinuedDextrose 50% Syringe 25 gm, 50 mL, Route: IVP, Drug Form: INJ, Dosing Weight 63.636, kg, PRN, PRN Blood Glucose Results, Start date: 06/22/18 18:53:00 ORTHOPAEDIC PHYSICIAN ASSISTANT, Duration: 30 day, Stop date: 07/22/18 18:52:00 ORTHOPAEDIC PHYSICIAN ASSISTANT Start Date: 06/22/18 Stop Date: 07/11/18 Status: DiscontinuedDextrose 50% Syringe 12.5 gm, 25 mL, Route: IVP, Drug Form: INJ, Dosing Weight 63.636, kg, PRN, PRN Blood Glucose Results, Start date: 06/22/18 18:53:00 ORTHOPAEDIC PHYSICIAN ASSISTANT, Duration: 30 day, Stop date: 07/22/18 18:52:00 ORTHOPAEDIC PHYSICIAN ASSISTANT Start Date: 06/22/18 Stop Date: 07/11/18 Status: DiscontinuedFlagyl 500 mg, 1 tab, Route: PO, Drug form: TAB, [id number], Dosing Weight 64.82, kg, Start date: 07/05/18 16:00:00 ORTHOPAEDIC PHYSICIAN ASSISTANT, Duration: 7 day, Stop date: 07/12/18 8:00:00 ORTHOPAEDIC PHYSICIAN ASSISTANT, ABX Indication: Fever of Unknown Source 0-60 days of age Notes: (Same as: Flagyl) Take with food/ avoid alcohol Start Date: 07/05/18 Stop Date: 07/05/18 Status: DiscontinuedFLUoxetine 20 mg/5 mL oral solution 40 mg=10 mL, PO, Daily, # 300 mL, 0 Refill(s) Start Date: 07/11/18 Stop Date: 08/10/18 Status: Orderedglucagon 1 mg, Route: IM, Drug form: PDR/INJ, PRN, Dosing Weight 63.636, kg, PRN Blood Glucose Results, Startdate: 06/22/18 18:53:00 ORTHOPAEDIC PHYSICIAN ASSISTANT, Duration: 30 day, Stop date: 07/22/18 18:52:00 ORTHOPAEDIC PHYSICIAN ASSISTANT Start Date: 06/22/18 Stop Date: 07/11/18 Status: Discontinuedibuprofen 400 mg oral tablet 800 mg=2 tab, PO, Q8H, PRN Pain Score 1-3, X 7 day, # 30 tab, 0 Refill(s) Start Date: 07/11/18 Stop Date: 07/18/18 Status: Orderedibuprofen 400 mg oral tablet 400 mg, 1 tab, Route: PO, Drug form: TAB, Q4H, Dosing Weight 64.82, kg, PRN Pain Score 1-3, Start date: 07/01/18 2:16:00 ORTHOPAEDIC PHYSICIAN ASSISTANT, Duration: 30 day, Stop date: 07/31/18 2:15:00 ORTHOPAEDIC PHYSICIAN ASSISTANT Notes: (Same as: Motrin)"Do Not Crush" Give with food. Start Date: 07/01/18 Stop Date: 07/11/18 Status: DiscontinuedIsolyte S PH-7.4 (Bolus) IV 1,000 mL, 999 ml/hr, Route: IV, ONCE, Dosing Weight 72.727 kg, Start date: 06/22 10:05:00 ORTHOPAEDIC PHYSICIAN ASSISTANT, Stop date: 06/22/18 10:05:00 ORTHOPAEDIC PHYSICIAN ASSISTANT Start Date: 06/22/18 Stop Date: 06/22/18 Status: CompletedIsolyte S PH-7.4 (Bolus) IV 1,000 mL, 1000 ml/hr, Infuse Over: 1 hr, Route: IV, 1,000, Drug form: SOLN, ONCE , Dosing Weight 72.727 kg, Start date: 06/22/18 8:09:00 ORTHOPAEDIC PHYSICIAN ASSISTANT, Stop date: 8:09:00 ORTHOPAEDIC PHYSICIAN ASSISTANT Notes: (Same as: Isolyte S PH 7.4) Start Date: 06/22/18 Stop Date: 06/22/18 Status: CompletedketOROLAC 30 mg, 1 mL, Route: IVP, Drug form: INJ, ONCE, Dosing Weight 64.82, kg, Start date: 07/07/18 4:05:00CST, Stop date: 07/07/18 4:05:00 ORTHOPAEDIC PHYSICIAN ASSISTANT Notes: (Same as:Toradol) IV bolus must be given >15 seconds. Give IM administration slowly and deeply into the muscle.Not for use > 4 days MEDICATION WASTE Product Size: 30 mgProduct Wasted: 0 mg Start Date: 07/07/18 Stop Date: 07/07/18 Status: CompletedLactated Ringers (Bolus) IV 1,000 mL, 1,000 ml/hr, Infuse Over: 1 hr, Route: IV, 1,000, Drug form: INJ, ONCE , Priority: STAT, Dosing Weight 64.82 kg, Start date: 07/06/18 6:54:00 ORTHOPAEDIC PHYSICIAN ASSISTANT, Stop date: 07/06/18 6:54:00 ORTHOPAEDIC PHYSICIAN ASSISTANT Start Date: 07/06/18 Stop Date: 07/06/18 Status: CompletedLactated Ringers (Bolus) IV 1,000 mL, 1,000 ml/hr, Infuse Over: 1 hr, Route: IV, 1,000, Drug form: INJ, ONCE , Priority: STAT, Dosing Weight 64.82 kg, Start date: 07/05/18 15:34:00 ORTHOPAEDIC PHYSICIAN ASSISTANT, Stop date: 07/05/18 15:34:00 ORTHOPAEDIC PHYSICIAN ASSISTANT Start Date: 07/05/18 Stop Date: 07/05/18 Status: CompletedLaMICtal 25 mg, 1 tab, Route: PO, Drug form: TAB, Daily, Dosing Weight 63.636, kg, Start date: 06/25/18 9:00:00 ORTHOPAEDIC PHYSICIAN ASSISTANT, Duration: 30 day, Stop date: 07/24/18 9:00:00 ORTHOPAEDIC PHYSICIAN ASSISTANT Notes: (Same as:LaMICtal) Start Date: 06/25/18 Stop Date: 07/01/18 Status: DiscontinuedLaMICtal 25 mg oral tablet 25 mg=1 tab, PO, Daily, # 30 tab, 1 Refill(s) Start Date: 06/22/18 Stop Date: 07/11/18 Status: DiscontinuedLevaquin 750 mg, 1 tab, Route: PO, Drug form: TAB, [id number], Dosing Weight 64.82, kg, Start date: 07/05/18 21:00:00 ORTHOPAEDIC PHYSICIAN ASSISTANT, Duration: 7 day, Stop date: 07/11/18 21:00: 00 ORTHOPAEDIC PHYSICIAN ASSISTANT, ABX Indication: Urinary Tract Infection Notes: Do not give w/antacids, dairy pdt & mineralsTake 1 hr before or 2 hr after dairy products Start Date: 07/05/18 Stop Date: 07/11/18 Status: Discontinuedlidocaine 1% 5 mL, Route: INTRADERM, Dosing Weight 64.82, kg, ONCALL, For PICC line insertion., Start date: 07/07/18 13:00:00 ORTHOPAEDIC PHYSICIAN ASSISTANT, Duration: 30 day, Stop date: 12/18 12:59:00 ORTHOPAEDIC PHYSICIAN ASSISTANT Start Date: 07/07/18 Stop Date: 07/07/18 Status: Completedlidocaine 1% 5 mL, Route: INTRADERM, Dosing Weight 64.82, kg, ONCALL, For PICC line insertion., Start date: 07/06/18 11:00:00 ORTHOPAEDIC PHYSICIAN ASSISTANT, Duration: 30 day, Stop date: 11/18 10:59:00 ORTHOPAEDIC PHYSICIAN ASSISTANT Start Date: 07/06/18 Stop Date: 07/06/18 Status: Completedloperamide 1 mg, 5 mL, Route: PO, Drug form: LIQ, Q8H, Dosing Weight 64.82, kg, PRN Loose Stools, Start date: 07/07/18 17:32:00 ORTHOPAEDIC PHYSICIAN ASSISTANT, Duration: 30 day, Stop date: 17:31:00 ORTHOPAEDIC PHYSICIAN ASSISTANT, 13 to 20 kg; Pediatric Dosing Notes: Same as Imodium Start Date: 07/07/18 Stop Date: 07/11/18 Status: Discontinuedmagnesium oxide 800 mg, 2 tab, Route: PO, Drug form: TAB, ONCE, Dosing Weight 64.82, kg, Priority: STAT, Start date:07/05/18 18:02:00 ORTHOPAEDIC PHYSICIAN ASSISTANT, Stop date: 07/05/18 18:02:00 ORTHOPAEDIC PHYSICIAN ASSISTANT Notes: (Same as: Mag-Ox 400)Magnesium oxide [id number] elemental magnesiumDose= ____mg magnesium oxide (___mg elemental magnesium) Start Date: 07/05/18 Stop Date: 07/05/18 Status: Completedmagnesium oxide 800 mg, 2 tab, Route: PO, Drug form: TAB, ONCE, Dosing Weight 64.82, kg, Start date: 07/06/18 6:53:00 ORTHOPAEDIC PHYSICIAN ASSISTANT, Stop date: 07/06/18 6:53:00 ORTHOPAEDIC PHYSICIAN ASSISTANT Notes: (Same as: Mag-Ox 400)Magnesium oxide [id number] elemental magnesiumDose= ____mg magnesium oxide (___mg elemental magnesium) Start Date: 07/06/18 Stop Date: 07/06/18 Status: Completedmagnesium sulfate 2 gm, 50 mL, Route: IVPB, Drug form: INJ, Q2H, Dosing Weight 64.82, kg, Total dose=4 gm, Priority: STAT, Start date: 07/06/18 12:00:00 ORTHOPAEDIC PHYSICIAN ASSISTANT, Duration: 2 doses or times, Stop date: 07/06/18 14:00:00 ORTHOPAEDIC PHYSICIAN ASSISTANT Notes: WASTE: F/P - Sink; E - Municipal Trash Bin Start Date: 07/06/18 Stop Date: 07/06/18 Status: Completedmagnesium sulfate 2 gm, 50 mL, Route: IVPB, Drug form: INJ, Q2H, Dosing Weight 64.82, kg, Total dose=4 gm, Priority: STAT, Start date: 07/05/18 15:33:00 ORTHOPAEDIC PHYSICIAN ASSISTANT, Duration: 2 doses or times, Stop date: 07/05/18 17:53:00 ORTHOPAEDIC PHYSICIAN ASSISTANT Notes: WASTE: F/P - Sink; E - Municipal Trash Bin Start Date: 07/05/18 Stop Date: 07/05/18 Status: CompletedNorco 10/325 oral tablet 2 tab, Route: PO, Drug Form: TAB, Dosing Weight 64.82, kg, Q4H, PRN Pain Score 4 -6, Start date: 07/01/18 18:19:00 ORTHOPAEDIC PHYSICIAN ASSISTANT, Duration: 30 day, Stop date: 07/31/18 18: 18:00 ORTHOPAEDIC PHYSICIAN ASSISTANT Notes: Do not exceed 4gm/day of acetaminophen. (Same as: Pullman 325/10) Start Date: 07/01/18 Stop Date: 07/11/18 Status: DiscontinuedNorco 5/325 oral tablet 2 tab, Route: PO, Drug Form: TAB, Dosing Weight 63.636, kg, Q6H, PRN Pain Score 4-6, Start date: 06/22/18 13:53:00 ORTHOPAEDIC PHYSICIAN ASSISTANT, Duration: 30 day, Stop date: 07/22/18 13 :52:00 ORTHOPAEDIC PHYSICIAN ASSISTANT Notes: (Same as: Pullman 325/5) Do not exceed 4gm/day of acetaminophen. Start Date: 06/22/18 Stop Date: 07/01/18 Status: Discontinuednormal saline 0.9% IV 1,000 mL 1,000 mL, Rate: 75 ml/hr, Infuse over: 13.3 hr, Route: IV, Dosing Weight 64.82 kg, Total Volume: 1,000, Start date: 07/07/18 10:06:00 ORTHOPAEDIC PHYSICIAN ASSISTANT, Duration: 30 day, Stop date: 08/06/18 10:05:00 ORTHOPAEDIC PHYSICIAN ASSISTANT, 1.73, m2 Start Date: 07/07/18 Stop Date: 07/08/18 Status: DiscontinuedOmnipaque 350mg/ml 100 mL, Route: IVP, Drug Form: SOLN, Dosing Weight 64.82, kg, ONCALL, STAT, Start date: 07/07/18 21:22:00 ORTHOPAEDIC PHYSICIAN ASSISTANT, Duration: 1 doses or times, Dose=2.2ml/kg, Max xmol=955il -- "To be infused by Radiology Staff ONLY" Start Date: 07/07/18 Stop Date: 07/07/18 Status: CompletedoxyCODONE 5 mg oral tablet 10 mg, 2 tab, Route: PO, Drug form: TAB, Q6H, Dosing Weight 63.636, kg, PRN Pain Score 7-10, Start date: 06/22/18 16:25:00 ORTHOPAEDIC PHYSICIAN ASSISTANT, Duration: 30 day, Stop date : 07/22/18 16:24:00 ORTHOPAEDIC PHYSICIAN ASSISTANT Start Date: 06/22/18 Stop Date: 07/07/18 Status: DiscontinuedoxyCODONE 5 mg oral tablet 10 mg=2 tab, PO, Q6H, PRN Pain Score 7-10, 0 Refill(s) Start Date: 07/11/18 Status: OrderedoxyCODONE 5 mg oral tablet 15 mg, 3 tab, Route: PO, Drug form: TAB, Q6H, Dosing Weight 64.82, kg, PRN Pain Score 7-10, Start date: 07/07/18 12:23:00 ORTHOPAEDIC PHYSICIAN ASSISTANT, Duration: 30 day, Stop date: 12/18 12:22:00 ORTHOPAEDIC PHYSICIAN ASSISTANT Notes: (Same as: Roxicodone) Start Date: 07/07/18 Stop Date: 07/11/18 Status: Discontinuedpotassium chloride 40 mEq, 2 tab, Route: PO, Drug form: ERTAB, ONCE, Dosing Weight 64.82, kg, Start date: 07/05/18 15:33:00 ORTHOPAEDIC PHYSICIAN ASSISTANT, Stop date: 07/05/18 15:33:00 ORTHOPAEDIC PHYSICIAN ASSISTANT Notes: (Same as: K-Angelique 20)"Do Not Crush" Give with food and full glass of waterFor patients unable to swallow tablet, dissolve in one half glass of water. Allow about 2 minutes for the tablets to disintegrate. Stir before giving to prepare slurry and administer.Please exclude Patients with feedingtube less than 14 [place] (Dobhoff, J-tube etc) and pediatric and patients. Start Date: 07/05/18 Stop Date: 07/05/18 Status: Completedpotassium chloride 40 mEq, 30 mL, Route: PO, Drug form: LIQ, BID, Dosing Weight 63.636, kg, Start date: 06/25/18 9:00:00 ORTHOPAEDIC PHYSICIAN ASSISTANT, Duration: 2 day, Stop date: 06/26/18 17:00:00 ORTHOPAEDIC PHYSICIAN ASSISTANT Notes: (Same as: Potassium Chloride) Start Date: 06/25/18 Stop Date: 06/26/18 Status: Completedpotassium chloride 20 mEq, 1 tab, Route: PO, Drug form: ERTAB, ONCE, Dosing Weight 63.636, kg, Start date: 06/22/18 19:20:00 ORTHOPAEDIC PHYSICIAN ASSISTANT, Stop date: 06/22/18 19:20:00 ORTHOPAEDIC PHYSICIAN ASSISTANT Notes: (Same as: K-Dur 20)"Do Not Crush" Give with food and full glass of waterFor patients unable to swallow tablet, dissolve in one half glass of water. Allow about 2 minutes for the tablets to disintegrate. Stir before giving to prepare slurry and administer.Please exclude Patients with feedingtube less than 14 [place] (Dobhoff, J-tube etc) and pediatric and patients. Start Date: 06/22/18 Stop Date: 06/22/18 Status: CompletedPROzac 40 mg, 2 cap, Route: PO, Drug form: CAP, Daily, Dosing Weight 64.82, kg, Start date: 07/02/18 9:00:00 ORTHOPAEDIC PHYSICIAN ASSISTANT, Duration: 30 day, Stop date: 07/31/18 9:00:00 ORTHOPAEDIC PHYSICIAN ASSISTANT Notes: (Same as: Prozac, Sarafem) Start Date: 07/02/18 Stop Date: 07/09/18 Status: DiscontinuedPROzac 40 mg, 10 mL, Route: PO, Drug form: SOLN, Daily, Dosing Weight 64.82, kg, Start date: 07/10/18 9:00:00 ORTHOPAEDIC PHYSICIAN ASSISTANT, Duration: 30 day, Stop date: 08/08/18 9:00:00 ORTHOPAEDIC PHYSICIAN ASSISTANT Notes: (Same as: Prozac) Start Date: 07/10/18 Stop Date: 07/11/18 Status: DiscontinuedRisperdal 3 mg, 1 tab, Route: PO, Drug form: TAB, BID, Dosing Weight 63.636, kg, Start date: 06/24/18 17:00:00CST, Duration: 30 day, Stop date: 07/24/18 9:00:00 ORTHOPAEDIC PHYSICIAN ASSISTANT Notes: (Same as: Risperdal) Start Date: 06/24/18 Stop Date: 07/01/18 Status: DiscontinuedRisperdal 3 mg oral tablet 3 mg=1 tab, PO, BID, # 60 tab, 0 Refill(s) Start Date: 06/22/18 Stop Date: 07/11/18 Status: DiscontinuedSaline Flush 0.9% 10 mL, Route: IVP, Drug Form: INJ, Dosing Weight 64.82, kg, PRN, PRN Line Flush , Start date: 07/07/18 12:48:00 ORTHOPAEDIC PHYSICIAN ASSISTANT, Duration: 30 day, Stop date: 08/06/18 12:47 :00 ORTHOPAEDIC PHYSICIAN ASSISTANT Notes: (Same as: BD Posiflush) Start Date: 07/07/18 Stop Date: 07/11/18 Status: DiscontinuedSaline Flush 0.9% 10 mL, Route: IVP, Drug Form: INJ, Dosing Weight 64.82, kg, Q8H, Start date: 10/18 16:00:00 ORTHOPAEDIC PHYSICIAN ASSISTANT, Duration: 30 day, Stop date: 08/06/18 8:00:00 ORTHOPAEDIC PHYSICIAN ASSISTANT Notes: (Same as: BD Posiflush) Start Date: 07/07/18 Stop Date: 07/11/18 Status: DiscontinuedSaline Flush 0.9% 10 mL, Route: IVP, Drug Form: INJ, Dosing Weight 64.82, kg, Q8H, Start date: 09/18 16:00:00 ORTHOPAEDIC PHYSICIAN ASSISTANT, Duration: 30 day, Stop date: 08/05/18 8:00:00 ORTHOPAEDIC PHYSICIAN ASSISTANT Notes: Same as: BD Posiflush Sterile Start Date: 07/06/18 Stop Date: 07/08/18 Status: DiscontinuedSaline Flush 0.9% 10 mL, Route: IVP, Drug Form: INJ, Dosing Weight 64.82, kg, PRN, PRN Line Flush , Start date: 07/06/18 10:20:00 ORTHOPAEDIC PHYSICIAN ASSISTANT, Duration: 30 day, Stop date: 08/05/18 10:19 :00 ORTHOPAEDIC PHYSICIAN ASSISTANT Notes: Same as: BD Posiflush Sterile Start Date: 07/06/18 Stop Date: 07/08/18 Status: DiscontinuedSodium Chloride 0.9% IV 1,000 mL 1,000 mL, Rate: 75 ml/hr, Infuse over: 13.3 hr, Route: IV, Dosing Weight 63.636 kg, Total Volume: 1,000, Start date: 06/22/18 16:13:00 ORTHOPAEDIC PHYSICIAN ASSISTANT, Duration: 30 day, Stop date: 07/22/18 16:12:00 ORTHOPAEDIC PHYSICIAN ASSISTANT, 1.71, m2 Start Date: 06/22/18 Stop Date: 07/01/18 Status: DiscontinuedTPN Electrolytes intravenous solution See Instructions, Daily TPN, # 30 bag, 0 Refill(s), other Start Date: 07/11/18 Status: Orderedtramadol 50 mg oral tablet 50 mg=1 tab, PO, Q6H, PRN Pain, X 7 day, # 28 tab, 0 Refill(s) Start Date: 07/11/18 Stop Date: 07/18/18 Status: OrderedTylenol 325 mg, 1 tab, Route: PO, Drug form: TAB, Q6H, Dosing Weight 64.82, kg, PRN Pain 1-3/Temp > 100.4F, Start date: 07/05/18 14:39:00 ORTHOPAEDIC PHYSICIAN ASSISTANT, Duration: 30 day, Stop date: 08/04/18 14:38:00 ORTHOPAEDIC PHYSICIAN ASSISTANT Notes: Do not exceed 4 gm/day. (Same as: Tylenol) Start Date: 07/05/18 Stop Date: 07/07/18 Status: Discontinuedvancomycin 1,000 mg, Route: IVPB, Drug form: INJ, ONCE, Dosing Weight 64.82, kg, Start date : 07/05/18 15:43:00 ORTHOPAEDIC PHYSICIAN ASSISTANT, Stop date: 07/05/18 15:43:00 ORTHOPAEDIC PHYSICIAN ASSISTANT, ABX Indication: Fever of Unknown Source 0-60 days of age Notes: TIME CRITICAL MEDICATION(Same As: Vancocin)Infusion rate< 1000 mg: infuse over 1 [id number] - 1500 mg: infuse over 1.5 [id number] - 2000 mg: infuse over 2 hours> 2001 mg: infuse over 2.5 hoursFor adult patients only: Round to nearest 250 mg per Medical Staff approval MEDICATION WASTE Product Size: 1000 mgProduct Wasted: ___ mg Start Date: 07/05/18 Stop Date: 07/05/18 Status: Discontinuedvancomycin + Sodium Chloride 0.9% IV 250 mL 1.25 gm, Route: IVPB, [id number], Start date: 07/06/18 5:00:00 ORTHOPAEDIC PHYSICIAN ASSISTANT, Duration: 30 day, Stop date: 08/04/18 17:00:00 ORTHOPAEDIC PHYSICIAN ASSISTANT, ABX Indication: Bacteremia Notes: TIME CRITICAL MEDICATION(Same As: Vancocin)Infusion rate< 1000 mg: infuse over 1 [id number] - 1500 mg: infuse over 1.5 hoursVancomycin FOR IV SET ONLY1501 - 2000 mg: infuse over 2 hours>2001 mg: infuse over 2.5 hoursFor adult patients only: Round to nearest 250 mg per Medical Staff approval MEDICATION WASTE Product Size: 1000 mgProduct Wasted: ___ mg Start Date: 07/06/18 Stop Date: 07/05/18 Status: Canceledvancomycin + Sodium Chloride 0.9% IV 250 mL 1.5 gm, Route: IVPB, ONCE, Start date: 07/05/18 17:00:00 ORTHOPAEDIC PHYSICIAN ASSISTANT, Stop date: 17:00:00 ORTHOPAEDIC PHYSICIAN ASSISTANT, ABX Indication: Bacteremia Notes: TIME CRITICAL MEDICATION(Same As: Vancocin)Infusion rate< 1000 mg: infuse over 1 [id number] - 1500 mg: infuse over 1.5 hoursVancomycin FOR IV SET ONLY1501 - 2000 mg: infuse over 2 hours>2001 mg: infuse over 2.5 hoursFor adult patients only: Round to nearest 250 mg per Medical Staff approval MEDICATION WASTE Product Size: 1000 mgProduct Wasted: ___ mg Start Date: 07/05/18 Stop Date: 07/05/18 Status: DiscontinuedWellbutrin XL 300 mg, 2 tab, Route: PO, Drug form: ERTAB, QAM, Dosing Weight 64.82, kg, Start date: 07/03/18 9:00:00 ORTHOPAEDIC PHYSICIAN ASSISTANT, Duration: 30 day, Stop date: 08/01/18 9:00:00 ORTHOPAEDIC PHYSICIAN ASSISTANT Notes: (Same as: Wellbutrin XL)"Do Not Crush" Start Date: 07/03/18 Stop Date: 07/11/18 Status: DiscontinuedZofran 4 mg, 2 mL, Route: IVP, Drug form: INJ, Q8H, Dosing Weight 63.636, kg, PRN Nausea, Start date: 06/24/18 16:12:00 ORTHOPAEDIC PHYSICIAN ASSISTANT, Duration: 30 day, Stop date: 16:11:00 ORTHOPAEDIC PHYSICIAN ASSISTANT Notes: (Same as: Zofran) MEDICATION WASTE Product Size: 4 mgProduct Wasted: ___ mg Start Date: 06/24/18 Stop Date: 07/11/18 Status: Discontinued Results ELECTROLYTES Most recent to oldest 1 2 3 [Reference Range]: Sodium Lvl [135-145 mEq/L] 139 mEq/L 139 mEq/L 139 mEq/L (07/08/18 3:14 AM) (07/07/18 5:27 AM) (07/06/18 10:46 AM) Potassium Lvl [3.5-5.1 mEq/L] 3.9 mEq/L 3.6 mEq/L 3.4 mEq/L (07/08/18 3:14 AM) (07/07/18 5:27 AM) *LOW* (07/06/18 10:46 AM) Chloride Lvl [95-109 mEq/L] 106 mEq/L 103 mEq/L 102 mEq/L (07/08/18 3:14 AM) (07/07/18 5:27 AM) (07/06/18 10:46 AM) CO2 [24-32 mEq/L] 27 mEq/L 29 mEq/L 32 mEq/L (07/08/18 3:14 AM) (07/07/18 5:27 AM) (07/06/18 10:46 AM) AGAP [10.0-20.0 mEq/L] 9.9 mEq/L 10.6 mEq/L 8.4 mEq/L *LOW* (07/07/18 5:27 AM) *LOW* (07/08/18 3:14 AM) (07/06/18 10:46 AM) CHEM PANEL Most recent to oldest 1 2 3 [Reference Range]: Creatinine Lvl [0.50-1.40 0.88 mg/dL 0.95 mg/dL 1.01 mg/dL mg/dL] (07/08/18 3:14 AM) (07/07/18 5:27 AM) (07/06/18 10:46 AM) eGFR 107 mL/min/1.73m2 1 99 mL/min/1.73m2 2 92 mL/min/1.73m2 3 *NA* *NA* *NA* (07/08/18 3:14 AM) (07/07/18 5:27 AM) (07/06/18 10:46 AM) BUN [7-22 mg/dL] 11 mg/dL 11 mg/dL 14 mg/dL (07/08/18 3:14 AM) (07/07/18 5:27 AM) (07/06/18 10:46 AM) B/C Ratio [6-25] 12 (06/24/18 6:15 PM) Glucose Lvl [70-99 mg/dL] 80 mg/dL 76 mg/dL 81 mg/dL (07/08/18 3:14 AM) (07/07/18 5:27 AM) (07/06/18 10:46 AM) Total Protein [6.4-8.4 5.9 g/dL 6.9 g/dL 9.8 g/dL g/dL] *LOW* (06/24/18 6:15 PM) *HI* (07/05/18 2:54 PM) (06/22/18 9:11 AM) Albumin Lvl [3.5-5.0 g/dL] 2.9 g/dL 3.4 g/dL 4.8 g/dL *LOW* *LOW* (06/22/18 9:11 AM) (07/05/18 2:54 PM) (06/24/18 6:15 PM) Globulin [2.7-4.2 g/dL] 3.0 g/dL 3.5 g/dL 5.0 g/dL (07/05/18 2:54 PM) (06/24/18 6:15 PM) *HI* (06/22/18 9:11 AM) A/G Ratio [0.7-1.6] 1.0 1.0 1.0 (07/05/18 2:54 PM) (06/24/18 6:15 PM) (06/22/18 9:11 AM) Calcium Lvl [8.5-10.5 8.1 mg/dL 8.0 mg/dL 7.6 mg/dL mg/dL] *LOW* *LOW* *LOW* (07/08/18 3:14 AM) (07/07/18 5:27 AM) (07/06/18 10:46 AM) Phosphorus [2.5-4.5 mg/dL] 4.0 mg/dL 3.3 mg/dL 2.9 mg/dL (07/08/18 3:14 AM) (07/07/18 5:27 AM) (07/06/18 10:46 AM) Magnesium Lvl [1.8-2.4 2.4 mg/dL 2.2 mg/dL 0.9 mg/dL 4 mg/dL] (07/08/18 3:14 AM) (07/07/18 5:27 AM) *CRIT* (07/06/18 10:46 AM) ALT [0-65 unit/L] 11 unit/L 17 unit/L 19 unit/L (07/05/18 2:54 PM) (06/24/18 6:15 PM) (06/22/18 9:11 AM) AST [0-37 unit/L] 13 unit/L 10 unit/L 24 unit/L (07/05/18 2:54 PM) (06/24/18 6:15 PM) (06/22/18 9:11 AM) Alk Phos [39-136 unit/L] 37 unit/L 59 unit/L 81 unit/L *LOW* (06/24/18 6:15 PM) (06/22/18 9:11 AM) (07/05/18 2:54 PM) Bili Total [0.2-1.3 mg/dL] 0.2 mg/dL 0.3 mg/dL 0.4 mg/dL (07/05/18 2:54 PM) (06/24/18 6:15 PM) (06/22/18 9:11 AM) Bili Direct [0.0-0.3 mg/dL] <0.1 mg/dL 0.1 mg/dL (07/05/18 2:54 PM) (06/22/18 9:11 AM) Bili Indirect [0.0-1.0] Unable to Calculate *NA* (07/05/18 2:54 PM) Bili Indirect [0.0-1.0 0.3 mg/dL mg/dL] (06/22/18 9:11 AM) Lactic Acid Lvl [0.5-2.2 1.6 mMol/L mMol/L] (07/06/18 10:46 AM) Osmolality [280-300 282 mOsm/kg mOsm/kg] (06/22/18 10:06 AM) 1Result Comment: The eGFR is calculated [...] eGFR should be multiplied by the estimated BMI.4Result Comment: Critical Result(s) called to Maribel Marquez at 07/06/2018 11:59 by NT. Read back OK.CARDIAC ENZYMES Most recent to oldest [Reference Range]: 1 2 3 Total CK [12-191 unit/L] 567 unit/L *HI* (06/22/18 9:11 AM) DRUG SCREEN Most recent to oldest [Reference Range]: 1 2 3 U Amph Scr [Negative] Negative *NA* (06/22/18 1:10 PM) U Samira Scr [Negative] Negative *NA* (06/22/18 1:10 PM) U Benzodiaz Scr [Negative] Negative *NA* (06/22/18 1:10 PM) U Cannab Scr [Negative] Negative *NA* (06/22/18 1:10 PM) U Cocaine Scr [Negative] Negative *NA* (06/22/18 1:10 PM) U Opiate Scr [Negative] Positive *ABN* (06/22/18 1:10 PM) U Phencyclidine Scr [Negative] Negative *NA* (06/22/18 1:10 PM) UDS Note See Note (06/22/18 1:10 PM) TOXICOLOGY Most recent to oldest [Reference Range]: 1 2 3 Acetaminoph Lvl [10-20] <2 (06/22/18 9:11 AM) Salicylate Lvl [0.0-30.0 mg/dL] 2.5 mg/dL (06/22/18 9:11 AM) Etoh (%) <0.003 % (06/22/18 9:11 AM) Ethanol Lvl <3.0 mg/dL (06/22/18 9:11 AM) URINE CHEM Most recent to oldest [Reference Range]: 1 2 3 U Sodium 33 mEq/L *NA* (06/22/18 1:10 PM) U Osmolality [300-800 mOsm/kg] 813 mOsm/kg *HI* (06/22/18 1:10 PM) URINE AND STOOL Most recent to oldest [Reference Range]: 1 2 3 UA Turbidity [Clear] Clear (07/05/18 6:43 PM) UA Color [Yellow] Yellow *NA* (07/05/18 6:43 PM) UA pH [5.0-8.0] 6.5 (07/05/18 6:43 PM) UA Spec Grav [<=1.030] 1.034 *HI* (07/05/18 6:43 PM) UA Glucose [Negative mg/dL] Negative mg/dL *NA* (07/05/18 6:43 PM) UA Blood [Negative] Negative (07/05/18 6:43 PM) UA Ketones [Negative mg/dL] Trace mg/dL *ABN* (07/05/18 6:43 PM) UA Protein [Negative mg/dL] 50 mg/dL *ABN* (07/05/18 6:43 PM) UA Urobilinogen [0.1-1.0 mg/dL] <=1.0 mg/dL *NA* (07/05/18 6:43 PM) UA Bili [Negative] Negative *NA* (07/05/18 6:43 PM) UA Leuk Est [Negative] Moderate *ABN* (07/05/18 6:43 PM) UA Nitrite [Negative] Negative (07/05/18 6:43 PM) UA WBC [0-5 /HPF] 44 /HPF *HI* (07/05/18 6:43 PM) UA RBC [0-2 /HPF] 1 /HPF (07/05/18 6:43 PM) UA Bacteria [None Seen /HPF] Occasional /HPF *NA* (07/05/18 6:43 PM) UA Sq Epi None Seen *NA* (07/05/18 6:43 PM) UA Mucus [None Seen /LPF] Many /LPF *ABN* (07/05/18 6:43 PM) Fecal Leukocyte None Seen (06/23/18 1:30 AM) IMMUNOLOGY Most recent to oldest [Reference Range]: 1 2 3 Prealbumin [18.0-45.0 mg/dL] 15.7 mg/dL *LOW* (07/08/18 3:14 AM) CDC HIV 4th GEN [Negative] Negative *NA* (06/22/18 6:51 AM) HEMATOLOGY Most recent to oldest 1 2 3 [Reference Range]: WBC [3.7-10.4 K/CMM] 7.4 K/CMM 7.8 K/CMM 9.5 K/CMM (07/08/18 3:14 AM) (07/07/18 5:27 AM) (07/06/18 10:46 AM) RBC [4.70-6.10 M/CMM] 2.83 M/CMM 2.77 M/CMM 3.01 M/CMM *LOW* *LOW* *LOW* (07/08/18 3:14 AM) (07/07/18 5:27 AM) (07/06/18 10:46 AM) Hgb [14.0-18.0 g/dL] 8.6 g/dL 8.6 g/dL 9.2 g/dL *LOW* *LOW* *LOW* (07/08/18 3:14 AM) (07/07/18 5:27 AM) (07/06/18 10:46 AM) Hct [42.0-54.0 %] 26.0 % 25.2 % 27.6 % *LOW* *LOW* *LOW* (07/08/18 3:14 AM) (07/07/18 5:27 AM) (07/06/18 10:46 AM) MCV [80.0-94.0 fL] 92.1 fL 91.1 fL 91.7 fL (07/08/18 3:14 AM) (07/07/18 5:27 AM) (07/06/18 10:46 AM) MCH [27.0-31.0 pg] 30.4 pg 31.1 pg 30.6 pg (07/08/18 3:14 AM) *HI* (07/06/18 10:46 AM) (07/07/18 5:27 AM) MCHC [32.0-36.0 g/dL] 33.0 g/dL 34.1 g/dL 33.3 g/dL (07/08/18 3:14 AM) (07/07/18 5:27 AM) (07/06/18 10:46 AM) RDW [11.5-14.5 %] 17.1 % 17.7 % 17.5 % *HI* *HI* *HI* (07/08/18 3:14 AM) (07/07/18 5:27 AM) (07/06/18 10:46 AM) MPV [7.4-10.4 fL] 9.2 fL 8.9 fL 9.1 fL (07/08/18 3:14 AM) (07/07/18 5:27 AM) (07/06/18 10:46 AM) Platelet [133-450 K/CMM] 456 K/CMM 430 K/CMM 440 K/CMM *HI* (07/07/18 5:27 AM) (07/06/18 10:46 AM) (07/08/18 3:14 AM) Segs [45.0-75.0 %] 52.6 % 54.0 % 77.5 % (07/08/18 3:14 AM) (07/07/18 5:27 AM) *HI* (07/06/18 10:46 AM) Bands [0.0-11.0 %] 2.0 % (07/07/18 5:27 AM) Lymphocytes [20.0-40.0 %] 32.0 % 22.0 % 5.5 % (07/08/18 3:14 AM) (07/07/18 5:27 AM) *LOW* (07/06/18 10:46 AM) Atypical Lymphs [<=0.0 %] 0.0 % (07/07/18 5:27 AM) Monocytes [2.0-12.0 %] 12.6 % 19.0 % 16.1 % *HI* *HI* *HI* (07/08/18 3:14 AM) (07/07/18 5:27 AM) (07/06/18 10:46 AM) Eosinophils [0.0-4.0 %] 2.1 % 1.0 % 0.1 % (07/08/18 3:14 AM) (07/07/18 5:27 AM) (07/06/18 10:46 AM) Basophils [0.0-1.0 %] 0.7 % 2.0 % 0.8 % (07/08/18 3:14 AM) *HI* (07/06/18 10:46 AM) (07/07/18 5:27 AM) Neutrophils # [1.5-8.1 K/CMM] 3.9 K/CMM 4.4 K/CMM 7.4 K/CMM (07/08/18 3:14 AM) (07/07/18 5:27 AM) (07/06/18 10:46 AM) Lymphocytes # [1.0-5.5 K/CMM] 2.4 K/CMM 1.7 K/CMM 0.5 K/CMM (07/08/18 3:14 AM) (07/07/18 5:27 AM) *LOW* (07/06/18 10:46 AM) Monocytes # [0.0-0.8 K/CMM] 0.9 K/CMM 1.5 K/CMM 1.5 K/CMM *HI* *HI* *HI* (07/08/18 3:14 AM) (07/07/18 5:27 AM) (07/06/18 10:46 AM) Eosinophils # [0.0-0.5 K/CMM] 0.2 K/CMM 0.1 K/CMM 0.2 K/CMM (07/08/18 3:14 AM) (07/07/18 5:27 AM) (07/03/18 2:25 PM) Basophils # [0.0-0.2 K/CMM] 0.1 K/CMM 0.2 K/CMM 0.1 K/CMM (07/08/18 3:14 AM) (07/07/18 5:27 AM) (07/06/18 10:46 AM) Anisocyte [None Seen] 1+ *ABN* (07/07/18 5:27 AM) Target Cell Slight *Unknown* (07/07/18 5:27 AM) Schistocyte [None Seen] 1-3 per HPF (07/07/18 5:27 AM) Plt Morph Normal (07/07/18 5:27 AM) MOLECULAR DIAGNOSTIC Most recent to oldest [Reference Range]: 1 2 3 C difficile DNA [Negative] Negative Negative (07/05/18 6:43 PM) (06/24/18 9:54 AM) Microbiology Reports TEST:Culture: Urine STATUS:Auth (Verified) BODY SITE: SOURCE:Urine, Clean Catch COLLECTED DATE/TIME:07/05/18 7:14 PMFINAL REPORTNo GrowthTEST:Culture: Stool STATUS:Auth (Verified) BODY SITE: SOURCE:Stool COLLECTED DATE/TIME:06/23/18 1:30 AMFINAL REPORTNormal Enteric Diya Isolated No Salmonella, Shigella, Or Campylobacter Isolated Immunizations Given and Recorded Vaccine Date Status [...] Reg Smoking Cessation Counseling Yes entered on: 06/22/18 Assessment and Plan Extracted from: Title: Progress Note Author: Irvin Neville MD Date: 07/10/18 1. [...] surgery, no changes in recs 3.Depression(F32.9) - [facility] psych consulted. No current changes - c/w [...] 9.Fall(W19.XXXA) Prophylaxis low risk/SCD Disposition DC to [facility] if TPN set up and set up with MD to follow as OP HHC orders in Extracted from: Title: Trauma Consult Note Author: Chai Hendricks DO Date: 07/06/18 [facility] [place] Tra[facility] Surgery History and Physical Date: 07/06/2018 [...] EC fistula site and seizure episodes at [facility]. Patient arrived 06/22 with KATHRIN which has [...] 07/05/18 21:00 levofloxacin (Levaquin) 750 mg PO [id number] 07/06/18 16:00 sodium chloride (Saline Flush 0.9%) 10 mL IVP Q8H Unscheduled Meds: None PRN Meds (9): 06/22/18 18:53 Dextrose 50% in Water IV (Dextrose 50% Syringe) 12.5 gm IVP PRN 06/22/18 18:53 Dextrose 50% in Water IV (Dextrose 50% Syringe) 25 gm IVP PRN 07/01/18 18:19 acetaminophen-hydrocodone ([place] 10/325 oral tablet) 2 tab PO Q4H [...] EC fistula site and seizure episodes at [facility]. Patient arrived 06/22 with KATHRIN which has [...] amount. Chai Hendricks DO PGY-II, Trauma Surgery [id number] Trauma Surgery Faculty Addendum I have seen and evaluated the patient/films with Dr. Hendricks and agree with the assessment and plan. Assessment and Plan: Mr. 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 The patient has a history of pshychiat adriane and medical non-compliance and self-harming behavior under the watch of medical personell which has necessitated multiple [place] [facility] (EGD, EUA and foreign body removal, and RUQ subcostal expl oration with gastrotomy and removal of ingested scissors). Patient also has a history of visiting multiple hospitals and physicians for care. Patient received a majority of surgical and medical care a [facility] following the trauma admission in May 2017. [...] must be demonstrated for six months. Mr. Gallagher also has established relationships with surgeons in [place] and [facility] and is welcome to seek a second opinion. Thank you for this consultation. The trauma service will follow while in the hospital with attention to I&O balance to quantify the fistula output. Extracted from: Title: History and Physical Author: Dmitriy Cheng MD Date: 06/22/18 43-year-old male with PMH ofdepression,enterocutaneous fistula status post colostomy, seizurecame in with history of increasedfrom hisostomy bag. Also have SI and last seizure episode was [...]
--- OUTSIDE RECORDS SUMMARY | 2019-01-04 19:35 | XMS REPORT | Summary of Care ---
:[address] [facility] Address [address] [place] [id number]- Encounter HQ Encntr_alias(FIN) [id number] Date(s): 07/23/18 - 08/20/[address] Professional Services provided by [facility] [place] [address]- Discharge Disposition: Home or Self Care Attending Physician: Perez Zamora MD Admitting Physician: Perez Zamora MD Vital Signs Most recent to oldest 1 2 3 [Reference Range]: Height 162.56 cm 162.56 cm (07/24/18 12:11 AM) (07/23/18 4:13 PM) Temperature Oral [96.4-99.1 99.0 DegF 99.1 DegF 98.7 DegF DegF] (08/20/18 11:10 AM) (08/20/18 6:53 AM) (08/20/18 5:19 AM) Blood Pressure [90-140/60-90 116/79 mmHg 122/73 mmHg 113/76 mmHg mmHg] (08/20/18 11:10 AM) (08/20/18 6:53 AM) (08/20/18 5:19 AM) Respiratory Rate [14-20 BRMIN] 18 BRMIN 18 BRMIN 18 BRMIN (08/20/18 11:10 AM) (08/20/18 6:53 AM) (08/20/18 5:19 AM) Peripheral Pulse Rate [60-100 98 bpm 90 bpm 100 bpm bpm] (08/20/18 11:10 AM) (08/20/18 6:53 AM) (08/20/18 5:19 AM) Weight 48.182 kg 52.273 kg (07/24/18 12:11 AM) (07/23/18 4:13 PM) Body Mass Index 18.23 m2 19.78 m2 (07/24/18 12:11 AM) (07/23/18 4:13 PM) Problem List Condition Effective Dates Status [...] Status penicillins Active Medications acetaminophen 1,000 mg, Route: PO, Drug form: TAB, Q6H, Dosing Weight 48.182, kg, Start date: 08/14/18 6:00:00 CDT, Duration: 30 day, Stop date: 09/13/18 0:00:00 CDT Start Date: 08/14/18 Stop Date: 08/14/18 Status: Canceledacetaminophen 650 mg, 2 tab, Route: PO, Drug form: TAB, Q6H, Dosing Weight 48.182, kg, Start date: 08/04/18 0:00:00 FINANCIAL SALES ADVISOR, Duration: 30 day, Stop date: 09/02/18 18:00:00 CDT Notes: Do not exceed 4 gm/day. (Same as: Tylenol) Start Date: 08/04/18 Stop Date: 08/14/18 Status: DiscontinuedAdult Parenteral Nutrition Custom - Central (TPN) 1,800 mL 1,800 mL, Rate: as directed, Dosing Weight 48.182, kg, Route: IV, Total Volume: 1,800 mL, Start Date: 08/02/18 22:00:00 FINANCIAL SALES ADVISOR, Duration: 30 hr, Stop date: 3:59:00 FINANCIAL SALES ADVISOR, Replace Every: 24 hr Notes: Central line only Must use 1.2 micron filter AND Lipids should not be administered to patients who are allergic to soy, fish, egg or peanuts. Start Date: 08/02/18 Stop Date: 08/04/18 Status: CompletedAdult Parenteral Nutrition Custom - Central (TPN) 1,800 mL 1,800 mL, Rate: as directed, Dosing Weight 48.182, kg, Route: IV, Total Volume: 1,800 mL, Start Date: 07/25/18 22:00:00 FINANCIAL SALES ADVISOR, Duration: 30 hr, Stop date: 3:59:00 FINANCIAL SALES ADVISOR, Replace Every: 24 hr Notes: Central line only Must use 1.2 micron filter AND Lipids should not be administered to patients who are allergic to soy, fish, egg or peanuts. Start Date: 07/25/18 Stop Date: 07/26/18 Status: DiscontinuedAdult Parenteral Nutrition Custom - Central (TPN) 1,800 mL 1,800 mL, Rate: as directed, Dosing Weight 48.182, kg, Route: IV, Total Volume: 1,800 mL, Start Date: 07/28/18 22:00:00 FINANCIAL SALES ADVISOR, Duration: 30 hr, Stop date: 3:59:00 FINANCIAL SALES ADVISOR, Replace Every: 24 hr Notes: Central line only Must use 1.2 micron filter AND Lipids should not be administered to patients who are allergic to soy, fish, egg or peanuts. Start Date: 07/28/18 Stop Date: 07/29/18 Status: DiscontinuedAdult Parenteral Nutrition Custom - Central (TPN) 1,800 mL 1,800 mL, Rate: as directed, Dosing Weight 48.182, kg, Route: IV, Total Volume: 1,800 mL, Start Date: 07/27/18 22:00:00 FINANCIAL SALES ADVISOR, Duration: 30 hr, Stop date: 3:59:00 FINANCIAL SALES ADVISOR, Replace Every: 24 hr Notes: Central line only Must use 1.2 micron filter AND Lipids should not be administered to patients who are allergic to soy, fish, egg or peanuts. Start Date: 07/27/18 Stop Date: 07/28/18 Status: DiscontinuedAdult Parenteral Nutrition Custom - Central (TPN) 1,800 mL 1,800 mL, Rate: as directed, Dosing Weight 48.182, kg, Route: IV, Total Volume: 1,800 mL, Start Date: 08/03/18 22:00:00 FINANCIAL SALES ADVISOR, Duration: 30 hr, Stop date: 3:59:00 FINANCIAL SALES ADVISOR, Replace Every: 24 hr Notes: Central line only Must use 1.2 micron filter AND Lipids should not be administered to patients who are allergic to soy, fish, egg or peanuts. Start Date: 08/03/18 Stop Date: 08/04/18 Status: DiscontinuedAdult Parenteral Nutrition Custom - Central (TPN) 1,800 mL 1,800 mL, Rate: as directed, Dosing Weight 48.182, kg, Route: IV, Total Volume: 1,800 mL, Start Date: 07/26/18 22:00:00 FINANCIAL SALES ADVISOR, Duration: 30 hr, Stop date: 3:59:00 FINANCIAL SALES ADVISOR, Replace Every: 24 hr Notes: Central line only Must use 1.2 micron filter AND Lipids should not be administered to patients who are allergic to soy, fish, egg or peanuts. Start Date: 07/26/18 Stop Date: 07/28/18 Status: CompletedAdult Parenteral Nutrition Custom - Central (TPN) 1,800 mL 1,800 mL, Rate: as directed, Dosing Weight 48.182, kg, Route: IV, Total Volume: 1,800 mL, Start Date: 08/01/18 22:00:00 FINANCIAL SALES ADVISOR, Duration: 30 hr, Stop date: 3:59:00 FINANCIAL SALES ADVISOR, Replace Every: 24 hr Notes: Central line only Must use 1.2 micron filter AND Lipids should not be administered to patients who are allergic to soy, fish, egg or peanuts. Start Date: 08/01/18 Stop Date: 08/02/18 Status: DiscontinuedAdult Parenteral Nutrition Custom - Central (TPN) 1,800 mL 1,800 mL, Rate: as directed, Dosing Weight 48.182, kg, Route: IV, Total Volume: 1,800 mL, Start Date: 07/29/18 22:00:00 FINANCIAL SALES ADVISOR, Duration: 30 hr, Stop date: 3:59:00 FINANCIAL SALES ADVISOR, Replace Every: 24 hr Notes: Central line only Must use 1.2 micron filter AND Lipids should not be administered to patients who are allergic to soy, fish, egg or peanuts. Start Date: 07/29/18 Stop Date: 07/31/18 Status: CompletedAdult Parenteral Nutrition Custom - Central (TPN) 1,800 mL 1,800 mL, Rate: as directed, Dosing Weight 48.182, kg, Route: IV, Total Volume: 1,800 mL, Start Date: 07/30/18 22:00:00 FINANCIAL SALES ADVISOR, Duration: 30 hr, Stop date: 3:59:00 FINANCIAL SALES ADVISOR, Replace Every: 24 hr Notes: Central line only Must use 1.2 micron filter AND Lipids should not be administered to patients who are allergic to soy, fish, egg or peanuts. Start Date: 07/30/18 Stop Date: 08/01/18 Status: CompletedAdult Parenteral Nutrition Custom - Central (TPN) 1,800 mL 1,800 mL, Rate: as directed, Dosing Weight 48.182, kg, Route: IV, Total Volume: 1,800 mL, Start Date: 07/31/18 22:00:00 FINANCIAL SALES ADVISOR, Duration: 30 hr, Stop date: 3:59:00 FINANCIAL SALES ADVISOR, Replace Every: 24 hr Notes: Central line only Must use 1.2 micron filter AND Lipids should not be administered to patients who are allergic to soy, fish, egg or peanuts. Start Date: 07/31/18 Stop Date: 08/01/18 Status: DiscontinuedAdult Parenteral Nutrition Custom - Central (TPN) 1,800 mL 1,800 mL, Rate: as directed, Dosing Weight 48.182, kg, Route: IV, Total Volume: 1,800 mL, Start Date: 07/24/18 22:00:00 FINANCIAL SALES ADVISOR, Duration: 30 hr, Stop date: 3:59:00 FINANCIAL SALES ADVISOR, Replace Every: 24 hr Notes: Central line only Must use 1.2 micron filter AND Lipids should not be administered to patients who are allergic to soy, fish, egg or peanuts. Start Date: 07/24/18 Stop Date: 07/25/18 Status: DiscontinuedAdult Parenteral Nutrition Custom - Central (TPN) 1,920 mL 1,920 mL, Rate: Titrate, Dosing Weight 48.182, kg, Route: IV, Total Volume: 1, 920 mL, Start Date: 08/13/18 22:00:00 CDT, Duration: 30 hr, Stop date: 08/15/18 3:59:00 CDT, Replace Every: 24 hr Notes: Central line only Must use 1.2 micron filter AND Lipids should not be administered to patients who are allergic to soy, fish, egg or peanuts. Start Date: 08/13/18 Stop Date: 08/15/18 Status: CompletedAdult Parenteral Nutrition Custom - Central (TPN) 1,950 mL 1,950 mL, Rate: Titrate, Dosing Weight 48.182, kg, Route: IV, Total Volume: 1, 950 mL, Start Date: 08/16/18 22:00:00 CDT, Duration: 30 hr, Stop date: 08/18/18 3:59:00 CDT, Replace Every: 24 hr Notes: Central line only Must use 1.2 micron filter AND Lipids should not be administered to patients who are allergic to soy, fish, egg or peanuts. Start Date: 08/16/18 Stop Date: 08/18/18 Status: CompletedAdult Parenteral Nutrition Custom - Central (TPN) 1,950 mL 1,950 mL, Rate: Titrate, Dosing Weight 48.182, kg, Route: IV, Total Volume: 1, 950 mL, Start Date: 08/14/18 22:00:00 CDT, Duration: 30 hr, Stop date: 08/16/18 3:59:00 CDT, Replace Every: 24 hr Notes: Central line only Must use 1.2 micron filter AND Lipids should not be administered to patients who are allergic to soy, fish, egg or peanuts. Start Date: 08/14/18 Stop Date: 08/15/18 Status: DiscontinuedAdult Parenteral Nutrition Custom - Central (TPN) 1,950 mL 1,950 mL, Rate: Titrate, Dosing Weight 48.182, kg, Route: IV, Total Volume: 1, 950 mL, Start Date: 08/17/18 22:00:00 CDT, Duration: 30 hr, Stop date: 08/19/18 3:59:00 CDT, Replace Every: 24 hr Notes: Central line only Must use 1.2 micron filter AND Lipids should not be administered to patients who are allergic to soy, fish, egg or peanuts. Start Date: 08/17/18 Stop Date: 08/17/18 Status: CanceledAdult Parenteral Nutrition Custom - Central (TPN) 1,950 mL 1,950 mL, Rate: Titrate, Dosing Weight 48.182, kg, Route: IV, Total Volume: 1, 950 mL, Start Date: 08/04/18 22:00:00 FINANCIAL SALES ADVISOR, Duration: 30 hr, Stop date: 08/06/18 3:59:00 FINANCIAL SALES ADVISOR, Replace Every: 24 hr Notes: Central line only Must use 1.2 micron filter AND Lipids should not be administered to patients who are allergic to soy, fish, egg or peanuts. Start Date: 08/04/18 Stop Date: 08/05/18 Status: DiscontinuedAdult Parenteral Nutrition Custom - Central (TPN) 1,950 mL 1,950 mL, Rate: Titrate, Dosing Weight 48.182, kg, Route: IV, Total Volume: 1, 950 mL, Start Date: 08/05/18 22:00:00 FINANCIAL SALES ADVISOR, Duration: 30 hr, Stop date: 08/07/18 3:59:00 FINANCIAL SALES ADVISOR, Replace Every: 24 hr Notes: Central line only Must use 1.2 micron filter AND Lipids should not be administered to patients who are allergic to soy, fish, egg or peanuts. Start Date: 08/05/18 Stop Date: 08/07/18 Status: CompletedAdult Parenteral Nutrition Custom - Central (TPN) 1,950 mL 1,950 mL, Rate: Titrate, Dosing Weight 48.182, kg, Route: IV, Total Volume: 1, 950 mL, Start Date: 08/19/18 22:00:00 CDT, Duration: 30 hr, Stop date: 08/21/18 3:59:00 CDT, Replace Every: 24 hr Notes: Central line only Must use 1.2 micron filter AND Lipids should not be administered to patients who are allergic to soy, fish, egg or peanuts. Start Date: 08/19/18 Stop Date: 08/20/18 Status: DiscontinuedAdult Parenteral Nutrition Custom - Central (TPN) 1,950 mL 1,950 mL, Rate: Titrate, Dosing Weight 48.182, kg, Route: IV, Total Volume: 1, 950 mL, Start Date: 08/18/18 22:00:00 CDT, Duration: 30 hr, Stop date: 08/20/18 3:59:00 CDT, Replace Every: 24 hr Notes: Central line only Must use 1.2 micron filter AND Lipids should not be administered to patients who are allergic to soy, fish, egg or peanuts. Start Date: 08/18/18 Stop Date: 08/20/18 Status: CompletedAdult Parenteral Nutrition Custom - Central (TPN) 1,950 mL 1,950 mL, Rate: Titrate, Dosing Weight 48.182, kg, Route: IV, Total Volume: 1, 950 mL, Start Date: 08/17/18 22:00:00 CDT, Duration: 30 hr, Stop date: 08/19/18 3:59:00 CDT, Replace Every: 24 hr Notes: Central line only Must use 1.2 micron filter AND Lipids should not be administered to patients who are allergic to soy, fish, egg or peanuts. Start Date: 08/17/18 Stop Date: 08/19/18 Status: CompletedAdult Parenteral Nutrition Custom - Central (TPN) 1,950 mL 1,950 mL, Rate: Titrate, Dosing Weight 48.182, kg, Route: IV, Total Volume: 1, 950 mL, Start Date: 08/15/18 22:00:00 CDT, Duration: 30 hr, Stop date: 08/17/18 3:59:00 CDT, Replace Every: 24 hr Notes: Central line only Must use 1.2 micron filter AND Lipids should not be administered to patients who are allergic to soy, fish, egg or peanuts. Start Date: 08/15/18 Stop Date: 08/17/18 Status: CompletedAdult Parenteral Nutrition Custom - Central (TPN) 1800 mL 1,800 mL, Rate: as directed, Dosing Weight 48.182, kg, Route: IV, Total Volume: 1,800 mL, Start Date: 07/28/18 22:00:00 FINANCIAL SALES ADVISOR, Duration: 30 hr, Stop date: 3:59:00 FINANCIAL SALES ADVISOR Start Date: 07/28/18 Stop Date: 07/28/18 Status: CanceledAdult Parenteral Nutrition Custom - Central (TPN) 1950 mL 1,950 mL, Rate: Titrate, Dosing Weight 48.182, kg, Route: IV, Total Volume: 1, 950 mL, Start Date: 08/20/18 22:00:00 CDT, Duration: 30 hr, Stop date: 08/22/18 3:59:00 CDT Start Date: 08/20/18 Stop Date: 08/20/18 Status: CanceledAdult Parenteral Nutrition Custom - Peripheral (PPN not TPN) 2, 040 mL 2,040 mL, Rate: as directed, Dosing Weight 48.182, kg, Route: IV, Total Volume: 2,040 mL, Start Date: 08/07/18 22:00:00 FINANCIAL SALES ADVISOR, Duration: 30 hr, Stop date: 3:59:00 CDT, Replace Every: 24 hr Notes: Must use 1.2 micron filter AND Lipids should not be administered to patients who are allergicto soy, fish, egg or peanuts. Start Date: 08/07/18 Stop Date: 08/08/18 Status: DiscontinuedBenadryl 25 mg, 1 cap, Route: PO, Drug form: CAP, TID, Dosing Weight 48.182, kg, PRN Itching, Start date: 08/08/18 8:57:00 FINANCIAL SALES ADVISOR, Duration: 30 day, Stop date: 8:56:00 CDT Notes: (Same as: Benadryl) Start Date: 08/08/18 Stop Date: 08/20/18 Status: DiscontinuedbuPROPion 300 mg, 2 tab, Route: PO, Drug form: ERTAB, QAM, Dosing Weight 52.273, kg, Start date: 07/24/18 9:00:00 FINANCIAL SALES ADVISOR, Stop date: 09/07/18 9:00:00 CDT Notes: (Same as: Wellbutrin XL)"Do Not Crush" Start Date: 07/24/18 Stop Date: 08/20/18 Status: Discontinuedcefepime 1 gm, Route: IVPB, [id number], Dosing Weight 48.182, kg, (CrCl >/=50 ml/min), Start date: 08/16/18 16:00:00 CDT, Duration: 5 day, Stop date: 08/21/18 8:00:00 CDT, ABX Indication: Bacteremia Notes: (Same As: Maxipime) MEDICATION WASTE Product Size: 1000 mgProduct Wasted: ___ mg Start Date: 08/16/18 Stop Date: 08/20/18 Status: DiscontinuedDepakote 500 mg oral enteric coated tablet 500 mg, 1 tab, Route: PO, Drug form: ECTAB, BID, Dosing Weight 52.273, kg, Start date: 07/24/18 9:00:00 FINANCIAL SALES ADVISOR, Duration: 30 day, Stop date: 08/22/18 17:00: 00 CDT Notes: (Same as: Depakote Delayed Release) Do not confuse with the extended- release tablet. Delayed absorption enteric coated tablet. Do not crush Start Date: 07/24/18 Stop Date: 08/06/18 Status: DiscontinuedDextrose 50% Syringe 12.5 gm, 25 mL, Route: IVP, Drug Form: INJ, Dosing Weight 48.182, kg, PRN, PRN Blood Glucose Results, Start date: 08/07/18 11:32:00 FINANCIAL SALES ADVISOR, Duration: 30 day, Stop date: 09/06/18 12:31:00 CDT Start Date: 08/07/18 Stop Date: 08/20/18 Status: DiscontinuedDextrose 50% Syringe 25 gm, 50 mL, Route: IVP, Drug Form: INJ, Dosing Weight 48.182, kg, PRN, PRN Blood Glucose Results, Start date: 08/07/18 11:32:00 FINANCIAL SALES ADVISOR, Duration: 30 day, Stop date: 09/06/18 12:31:00 CDT Start Date: 08/07/18 Stop Date: 08/20/18 Status: DiscontinuedDilaudid 0.5 mg, 0.25 mL, Route: IVP, Drug form: INJ, ONCE, Dosing Weight 48.182, kg, Priority: STAT, Start date: 08/13/18 16:59:00 CDT, Stop date: 08/13/18 16:59:00 CDT Start Date: 08/13/18 Stop Date: 08/13/18 Status: Completedfluconazole 400 mg, 200 mL, Route: IVPB, Drug form: INJ, [id number], Dosing Weight 48.182, kg, Start date: 08/14/1911:00:00 CDT, Duration: 14 day, Stop date: 08/26/18 12:00: 00 CDT, ABX Indication: Bacteremia Start Date: 08/13/18 Stop Date: 08/20/18 Status: Discontinuedfluconazole 400 mg/200 mL-NaCl 0.9% intravenous solution 400 qn=194 mL, IVPB, [id number], X 3 day, # 600 mL, 0 Refill(s), given to patient Start Date: 08/20/18 Stop Date: 08/23/18 Status: OrderedFLUoxetine 40 mg, 10 mL, Route: PO, Drug form: SOLN, Daily, Dosing Weight 52.273, kg, Start date: 07/24/18 9:00:00 FINANCIAL SALES ADVISOR, Stop date: 09/04/18 9:00:00 CDT Notes: (Same as: Prozac) Start Date: 07/24/18 Stop Date: 08/20/18 Status: DiscontinuedGI cocktail (aluminum hydroxide/magnesium hydroxide/ lidocaine/simethicone) 30 ml, Route: PO, Drug Form: SUSP, Dosing Weight 48.182, kg, ONCE, Routine, Start date: 07/26/18 20:43:00 FINANCIAL SALES ADVISOR, Stop date: 07/26/18 20:43:00 FINANCIAL SALES ADVISOR Notes: G.I. Cocktail - aluminum hydroxide/magnesium hydroxide/lidocaine/ simethicone Start Date: 07/26/18 Stop Date: 07/26/18 Status: Completedglucagon 1 mg, Route: IM, Drug form: PDR/INJ, PRN, Dosing Weight 48.182, kg, PRN Blood Glucose Results, Startdate: 08/07/18 11:32:00 FINANCIAL SALES ADVISOR, Duration: 30 day, Stop date: 09/06/18 12:31:00 CDT Start Date: 08/07/18 Stop Date: 08/20/18 Status: DiscontinuedIsolyte S PH-7.4 (Bolus) IV 1,000 mL, 1000 ml/hr, Infuse Over: 1 hr, Route: IV, 1,000, Drug form: SOLN, ONCE , Dosing Weight 48.182 kg, Start date: 08/16/18 13:00:00 CDT, Stop date: 13:00:00 CDT Notes: (Same as: Isolyte S PH 7.4) Start Date: 08/16/18 Stop Date: 08/16/18 Status: CompletedketAMINE 225 mg, 22.5 mL, Route: IV, Drug form: SOLN, ONCE, Dosing Weight 52.273, kg, Start date: 07/23/18 20:09:00 FINANCIAL SALES ADVISOR, Stop date: 07/23/18 20:09:00 FINANCIAL SALES ADVISOR Notes: (Same as: keTALAR) Start Date: 07/23/18 Stop Date: 07/23/18 Status: Completedlidocaine 1% 50 mg, 5 mL, Route: INTRADERM, Drug Form: INJ, Dosing Weight 48.182, kg, ONCALL , For PICC line insertion., Start date: 08/08/18 8:00:00 FINANCIAL SALES ADVISOR, Duration: 1 doses or times, Stop date: 08/09/18 0:00:00 FINANCIAL SALES ADVISOR Notes: (Same as: Xylocaine) Start Date: 08/08/18 Stop Date: 08/20/18 Status: Discontinuedlidocaine 1% 50 mg, 5 mL, Route: INTRADERM, Drug Form: INJ, Dosing Weight 48.182, kg, ONCALL , For PICC line insertion., Start date: 08/10/18 11:00:00 CDT, Duration: 1 doses or times, Stop date: 08/11/18 0:00:00 CDT Notes: (Same as: Xylocaine) Start Date: 08/10/18 Stop Date: 08/20/18 Status: DiscontinuedLovenox 40 mg, 0.4 mL, Route: SUB-Q, Drug form: INJ, [id number], Dosing Weight 48.182, kg , Start date: 07/25/18 17:00:00 FINANCIAL SALES ADVISOR, Duration: 30 day, Stop date: 09/22/18 17:00 :00 CDT Notes: (Same as: Lovenox) Start Date: 07/25/18 Stop Date: 08/20/18 Status: DiscontinuedMegace 400 mg, 10 mL, Route: PO, Drug form: SUSP, BID, Dosing Weight 48.182, kg, Start date: 08/04/18 9:00:00 FINANCIAL SALES ADVISOR, Duration: 30 day, Stop date: 09/02/18 17:00:00 CDT Notes: WASTE: F/P - Black; E - Yellow Start Date: 08/04/18 Stop Date: 08/13/18 Status: Discontinuedmicafungin + Sodium Chloride 0.9% IV 100 mL 100 mg, Route: IV, [id number], Dosing Weight 48.182, kg, Start date: 08/06/18 6:00: 00 FINANCIAL SALES ADVISOR, Duration: 7 day, Stop date: 08/12/18 10:00:00 CDT, ABX Indication: Bacteremia Notes: Same as MycamineProtect from light MEDICATION WASTE Product Size : 100 mgProduct Wasted: ___ mg Start Date: 08/06/18 Stop Date: 08/12/18 Status: CompletedNorco 10/325 oral tablet 1 tab, Route: PO, Drug Form: TAB, Dosing Weight 48.182, kg, Q6H, PRN Pain Score 4-6, Start date: 07/26/18 20:43:00 FINANCIAL SALES ADVISOR, Duration: 30 day, Stop date: 08/25/18 20 :42:00 CDT Notes: Do not exceed 4gm/day of acetaminophen. (Same as: Hillman 325/10) Start Date: 07/26/18 Stop Date: 08/04/18 Status: DiscontinuedNorco 10/325 oral tablet 1 tab, Route: PO, Drug Form: TAB, Dosing Weight 48.182, kg, Q6H, PRN Pain Score 6-10, Start date: 08/04/18 14:26:00 FINANCIAL SALES ADVISOR, Duration: 30 day, Stop date: 09/03/18 14:25:00 CDT Notes: Do not exceed 4gm/day of acetaminophen. (Same as: Hillman 325/10) Start Date: 08/04/18 Stop Date: 08/14/18 Status: DiscontinuedNorco 7.5/325 oral tablet 1 tab, Route: PO, Drug Form: TAB, Dosing Weight 48.182, kg, Q6H, PRN Pain Score 6-10, Start date: 08/04/18 9:14:00 FINANCIAL SALES ADVISOR, Duration: 30 day, Stop date: 09/03/18 9: 13:00 CDT Notes: Same as Hillman 325-7.5mg Do not exceed 4gm/day of acetaminophen. Start Date: 08/04/18 Stop Date: 08/04/18 Status: Discontinuednormal saline 0.9% IV 1,000 mL 1,000 mL, Rate: 75 ml/hr, Infuse over: 13.3 hr, Route: IV, Dosing Weight 48.182 kg, Total Volume: 1,000, Start date: 07/30/18 21:07:00 FINANCIAL SALES ADVISOR, Duration: 30 day, Stop date: 08/29/18 21:06:00 CDT, 1.48, m2 Start Date: 07/30/18 Stop Date: 08/20/18 Status: DiscontinuedNS (Bolus) IV 500 mL, 500 ml/hr, Infuse Over: 1 hr, Route: IV, 500, Drug form: INJ, ONCE, Priority: STAT, Dosing Weight 48.182 kg, Start date: 07/30/18 22:22:00 FINANCIAL SALES ADVISOR, Stop date: 07/30/18 22:22:00 FINANCIAL SALES ADVISOR Start Date: 07/30/18 Stop Date: 07/30/18 Status: CompletedNS (Bolus) IV 500 mL, 500 ml/hr, Infuse Over: 1 hr, Route: IV, 500, Drug form: INJ, ONCE, Priority: STAT, Dosing Weight 48.182 kg, Start date: 08/01/18 18:49:00 FINANCIAL SALES ADVISOR, Stop date: 08/01/18 18:49:00 FINANCIAL SALES ADVISOR Start Date: 08/01/18 Stop Date: 08/01/18 Status: CompletedOmnipaque 350mg/ml 85 mL, Route: IVP, Drug Form: SOLN, Dosing Weight 48.182, kg, ONCALL, STAT, Start date: 08/02/18 21:15:00 FINANCIAL SALES ADVISOR, Duration: 1 doses or times, Dose=2.2ml/kg, Max [id number] -- "To be infused by Radiology Staff ONLY" Start Date: 08/02/18 Stop Date: 08/02/18 Status: CompletedOmnipaque 350mg/ml 86 mL, Route: IVP, Drug Form: SOLN, Dosing Weight 48.182, kg, ONCALL, STAT, Start date: 08/13/18 17:20:00 CDT, Duration: 1 doses or times, Dose=2.2ml/kg, Max [id number] -- "To be infused by Radiology Staff ONLY" Start Date: 08/13/18 Stop Date: 08/13/18 Status: CompletedoxyCODONE 5 mg oral tablet, immediate release 5 mg, 1 tab, Route: PO, Drug form: TAB, Q4H, Dosing Weight 48.182, kg, PRN Pain Score 6-10, Start date: 08/16/18 7:13:00 CDT, Duration: 30 day, Stop date: 09/15 7:12:00 CDT Notes: (Same as: Roxicodone) Start Date: 08/16/18 Stop Date: 08/16/18 Status: DiscontinuedoxyCODONE 5 mg oral tablet, immediate release 10 mg, 2 tab, Route: PO, Drug form: TAB, Q4H, Dosing Weight 48.182, kg, PRN Pain Score 6-10, Start date: 08/14/18 2:49:00 CDT, Duration: 30 day, Stop date: 09/13/18 2:48:00 CDT Notes: (Same as: Roxicodone) Start Date: 08/14/18 Stop Date: 08/16/18 Status: DiscontinuedoxyCODONE 5 mg oral tablet, immediate release 10 mg, 2 tab, Route: PO, Drug form: TAB, Q4H, Dosing Weight 48.182, kg, PRN Pain Score 6-10, Start date: 08/16/18 12:59:00 CDT, Duration: 30 day, Stop date : 09/15/18 12:58:00 CDT Notes: (Same as: Roxicodone) Start Date: 08/16/18 Stop Date: 08/20/18 Status: DiscontinuedPlasmaLyte A PH-7.4 500 mL 500 mL, Rate: 1000 ml/hr, Infuse over: 0.5 hr, Route: IV, Dosing Weight 48.182 kg, Total Volume: 500, Start date: 08/13/18 19:54:00 CDT, Duration: 1 doses or times, Stop date: 08/13/18 20:23:00 CDT, 1.48, m2 Notes: WASTE: F/P - Sink; E - Municipal Trash Bin Start Date: 08/13/18 Stop Date: 08/13/18 Status: Completedpotassium chloride 40 mEq, 2 tab, Route: PO, Drug form: ERTAB, ONCE, Dosing Weight 48.182, kg, Start date: 07/31/18 7:48:00 FINANCIAL SALES ADVISOR, Stop date: 07/31/18 7:48:00 FINANCIAL SALES ADVISOR Notes: (Same as: K-Dur 20)"Do Not Crush" Give with food and full glass of waterFor patients unable to swallow tablet, dissolve in one half glass of water. Allow about 2 minutes for the tablets to disintegrate. Stir before giving to prepare slurry and administer.Please exclude Patients with feedingtube less than 14 [place] (Dobhoff, J-tube etc) and pediatric and patients. Start Date: 07/31/18 Stop Date: 07/31/18 Status: Completedpotassium chloride 20 mEq, 1 tab, Route: PO, Drug form: ERTAB, ONCE, Dosing Weight 48.182, kg, Start date: 08/02/18 8:51:00 FINANCIAL SALES ADVISOR, Stop date: 08/02/18 8:51:00 FINANCIAL SALES ADVISOR Notes: (Same as: K-Dur 20)"Do Not Crush" Give with food and full glass of waterFor patients unable to swallow tablet, dissolve in one half glass of water. Allow about 2 minutes for the tablets to disintegrate. Stir before giving to prepare slurry and administer.Please exclude Patients with feedingtube less than 14 [place] (Dobhoff, J-tube etc) and pediatric and patients. Start Date: 08/02/18 Stop Date: 08/02/18 Status: CompletedProtonix 40 mg, 1 tab, Route: PO, Drug form: ECTAB, ONCE, Dosing Weight 48.182, kg, Start date: 08/08/18 3:10:00 FINANCIAL SALES ADVISOR, Stop date: 08/08/18 3:10:00 FINANCIAL SALES ADVISOR Notes: Tablet should not be chewed or crushed.(Same as: Protonix) Start Date: 08/08/18 Stop Date: 08/08/18 Status: CompletedProtonix 40 mg, Route: IV, Drug form: INJ, ONCE, Dosing Weight 48.182, kg, Start date: 2:06:00 FINANCIAL SALES ADVISOR, Stop date: 08/08/18 2:06:00 FINANCIAL SALES ADVISOR Notes: For IV push reconstitute with 10 ml 0.9% sodium chloride and push over 2 minutes. (Same as: Protonix) Start Date: 08/08/18 Stop Date: 08/08/18 Status: DiscontinuedSaline Flush 0.9% 10 mL, Route: IVP, Drug Form: INJ, Dosing Weight 48.182, kg, Q8H, Start date: 8:00:00 FINANCIAL SALES ADVISOR, Duration: 30 day, Stop date: 09/07/18 0:00:00 CDT Notes: (Same as: BD Posiflush) Start Date: 08/08/18 Stop Date: 08/10/18 Status: DiscontinuedSaline Flush 0.9% 10 mL, Route: IVP, Drug Form: INJ, Dosing Weight 48.182, kg, PRN, PRN Line Flush , Start date: 08/08/18 7:37:00 FINANCIAL SALES ADVISOR, Duration: 30 day, Stop date: 09/07/18 8:36: 00 CDT Notes: (Same as: BD Posiflush) Start Date: 08/08/18 Stop Date: 08/10/18 Status: DiscontinuedSaline Flush 0.9% 10 mL, Route: IVP, Drug Form: INJ, Dosing Weight 48.182, kg, Q8H, Start date: 16:00:00 CDT,Duration: 30 day, Stop date: 09/09/18 8:00:00 CDT Notes: (Same as: BD Posiflush) Start Date: 08/10/18 Stop Date: 08/20/18 Status: DiscontinuedSaline Flush 0.9% 10 mL, Route: IVP, Drug Form: INJ, Dosing Weight 48.182, kg, PRN, PRN Line Flush , Start date: 08/10/18 10:53:00 CDT, Duration: 30 day, Stop date: 09/09/18 10:52 :00 CDT Notes: (Same as: BD Posiflush) Start Date: 08/10/18 Stop Date: 08/20/18 Status: DiscontinuedSodium Chloride 0.9% IV 1,000 mL 1,000 mL, Rate: 75 ml/hr, Infuse over: 13.3 hr, Route: IV, Dosing Weight 52.273 kg, Total Volume: 1,000, Start date: 07/23/18 23:36:00 FINANCIAL SALES ADVISOR, Duration: 30 day, Stop date: 08/22/18 23:35:00 CDT, 1.55, m2 Start Date: 07/23/18 Stop Date: 07/29/18 Status: Discontinuedsodium chloride 1 gm oral tablet 1 gm, 1 tab, Route: PO, Drug form: TAB, BID-Meals, Dosing Weight 48.182, kg, Start date: 08/02/18 8:00:00 FINANCIAL SALES ADVISOR, Duration: 30 day, Stop date: 08/31/18 17:00: 00 CDT Start Date: 08/02/18 Stop Date: 08/17/18 Status: DiscontinuedTylenol 650 mg, 2 tab, Route: PO, Drug form: TAB, Q6H, Dosing Weight 48.182, kg, Start date: 08/14/18 6:00:00 CDT, Duration: 30 day, Stop date: 09/13/18 0:00:00 CDT Notes: Do not exceed 4 gm/day. (Same as: Tylenol) Start Date: 08/14/18 Stop Date: 08/15/18 Status: DiscontinuedTylenol 650 mg, 2 tab, Route: PO, Drug form: TAB, Q6H, Dosing Weight 48.182, kg, PRN Pain Score 4-6, Start date: 08/15/18 7:06:00 CDT, Duration: 30 day, Stop date: 09/14/18 7:05:00 CDT Notes: Do not exceed 4 gm/day. (Same as: Tylenol) Start Date: 08/15/18 Stop Date: 08/20/18 Status: DiscontinuedTylenol 650 mg, 2 tab, Route: PO, Drug form: TAB, ONCE, Dosing Weight 48.182, kg, Start date: 08/16/18 12:59:00 CDT, Stop date: 08/16/18 12:59:00 CDT Notes: Do not exceed 4 gm/day. (Same as: Tylenol) Start Date: 08/16/18 Stop Date: 08/16/18 Status: CompletedTylenol 650 mg, 2 tab, Route: PO, Drug form: TAB, Q6H, Dosing Weight 48.182, kg, PRN Pain 1-3/Temp > 100.4 F, Start date: 07/25/18 21:39:00 FINANCIAL SALES ADVISOR, Duration: 30 day , Stop date: 08/24/18 21:38:00 CDT Notes: Do not exceed 4 gm/day. (Same as: Tylenol) Start Date: 07/25/18 Stop Date: 08/14/18 Status: Discontinuedvalproic acid 500 mg, 10 mL, Route: PO, Drug form: SYRP, BID, Start date: 08/06/18 17:00:00 FINANCIAL SALES ADVISOR, Duration: 30 day,Stop date: 09/05/18 9:00:00 CDT Notes: (Same As: Depakene) Start Date: 08/06/18 Stop Date: 08/20/18 Status: Discontinuedvalproic acid 250 mg/5 mL oral syrup (Depakene) 500 mg=10 mL, PO, BID, # 600 mL, 0 Refill(s), Pharmacy: [facility] [id number]/ [facility] Start Date: 08/20/18 Stop Date: 09/19/18 Status: Orderedvancomycin 1 gm, Route: IVPB, Drug form: INJ, [id number], Start date: 08/06/18 16:00:00 FINANCIAL SALES ADVISOR, Duration: 30 day, Stop date: 09/05/18 4:00:00 CDT, ABX Indication: Bacteremia Notes: TIME CRITICAL MEDICATION(Same As: Vancocin)Infusion rate< 1000 mg: infuse over 1 [id number] - 1500 mg: infuse over 1.5 [id number] - 2000 mg: infuse over 2 hours> 2001 mg: infuse over 2.5 hoursFor adult patients only: Round to nearest 250 mg per Medical Staff approval MEDICATION WASTE Product Size: 1000 mgProduct Wasted: ___ mg Start Date: 08/06/18 Stop Date: 08/09/18 Status: Discontinuedvancomycin 1 gm, Route: IVPB, Drug form: INJ, [id number], Dosing Weight 48.182, kg, Start date : 08/16/18 16:00:00 CDT, Stop date: 08/26/18 5:00:00 CDT, ABX Indication: Bacteremia Notes: TIME CRITICAL MEDICATION(Same As: Vancocin)Infusion rate< 1000 mg: infuse over 1 [id number] - 1500 mg: infuse over 1.5 [id number] - 2000 mg: infuse over 2 hours> 2001 mg: infuse over 2.5 hoursFor adult patients only: Round to nearest 250 mg per Medical Staff approval MEDICATION WASTE Product Size: 1000 mgProduct Wasted: ___ mg Start Date: 08/16/18 Stop Date: 08/20/18 Status: Discontinuedvancomycin 1.25 gm, 250 mL, Route: IV, Drug form: INJ, ONCE, Dosing Weight 48.182, kg, Start date: 08/06/18 5:59:00 FINANCIAL SALES ADVISOR, Stop date: 08/06/18 5:59:00 FINANCIAL SALES ADVISOR, ABX Indication: Bacteremia Notes: TIME CRITICAL MEDICATIONSame as: Vancocin-NS (premixed)Infusion rate< 1000 mg: infuse over1 [id number] - 1500 mg: infuse over 1.5 [id number] - 2000 mg: infuse over 2 hours> 2001 mg: infuse over 2.5 hours Start Date: 08/06/18 Stop Date: 08/06/18 Status: CompletedZofran 4 mg, 2 mL, Route: IVP, Drug form: INJ, ONCE, Dosing Weight 52.273, kg, Priority : STAT, Start date: 07/23/18 20:09:00 FINANCIAL SALES ADVISOR, Stop date: 07/23/18 20:09:00 FINANCIAL SALES ADVISOR Notes: (Same as: Zofran) MEDICATION WASTE Product Size: 4 mgProduct Wasted: ___ mg Start Date: 07/23/18 Stop Date: 07/23/18 Status: Completed Results ELECTROLYTES Most recent to oldest 1 2 3 [Reference Range]: Sodium Lvl [135-145 mEq/L] 137 mEq/L 139 mEq/L 139 mEq/L (08/20/18 4:39 AM) (08/19/18 5:09 AM) (08/18/18 4:30 AM) Potassium Lvl [3.5-5.1 4.0 mEq/L 3.4 mEq/L 3.5 mEq/L mEq/L] (08/20/18 4:39 AM) *LOW* (08/18/18 4:30 AM) (08/19/18 5:09 AM) Chloride Lvl [95-109 mEq/L] 105 mEq/L 103 mEq/L 105 mEq/L (08/20/18 4:39 AM) (08/19/18 5:09 AM) (08/18/18 4:30 AM) CO2 [24-32 mEq/L] 25 mEq/L 29 mEq/L 29 mEq/L (08/20/18 4:39 AM) (08/19/18 5:09 AM) (08/18/18 4:30 AM) AGAP [10.0-20.0 mEq/L] 11.0 mEq/L 10.4 mEq/L 8.5 mEq/L (08/20/18 4:39 AM) (08/19/18 5:09 AM) *LOW* (08/18/18 4:30 AM) CHEM PANEL Most recent to oldest 1 2 3 [Reference Range]: Creatinine Lvl [0.50-1.40 0.71 mg/dL 0.73 mg/dL 0.72 mg/dL mg/dL] (08/20/18 4:39 AM) (08/19/18 5:09 AM) (08/18/18 4:30 AM) eGFR 117 mL/min/1.73m2 1 115 mL/min/1.73m2 2 116 mL/min/1.73m2 3 *NA* *NA* *NA* (08/20/18 4:39 AM) (08/19/18 5:09 AM) (08/18/18 4:30 AM) BUN [7-22 mg/dL] 18 mg/dL 20 mg/dL 19 mg/dL (08/20/18 4:39 AM) (08/19/18 5:09 AM) (08/18/18 4:30 AM) B/C Ratio [6-25] 24 (07/24/18 5:03 AM) Glucose Lvl [70-99 mg/dL] 52 mg/dL 80 mg/dL 50 mg/dL 4 *LOW* (08/19/18 5:09 AM) *CRIT* (08/20/18 4:39 AM) (08/18/18 4:30 AM) Total Protein [6.4-8.4 g/dL] 7.7 g/dL 8.0 g/dL (07/24/18 5:03 AM) (07/23/18 6:41 PM) Albumin Lvl [3.5-5.0 g/dL] 3.7 g/dL 4.0 g/dL (07/24/18 5:03 AM) (07/23/18 6:41 PM) Globulin [2.7-4.2 g/dL] 4.0 g/dL 4.0 g/dL (07/24/18 5:03 AM) (07/23/18 6:41 PM) A/G Ratio [0.7-1.6] 0.9 1.0 (07/24/18 5:03 AM) (07/23/18 6:41 PM) Calcium Lvl [8.5-10.5 mg/dL] 8.6 mg/dL 8.6 mg/dL 8.7 mg/dL (08/20/18 4:39 AM) (08/19/18 5:09 AM) (08/18/18 4:30 AM) Phosphorus [2.5-4.5 mg/dL] 3.2 mg/dL 3.4 mg/dL 3.6 mg/dL (08/20/18 4:39 AM) (08/19/18 5:09 AM) (08/18/18 4:30 AM) Magnesium Lvl [1.8-2.4 mg/dL] 1.8 mg/dL 1.8 mg/dL 1.8 mg/dL (08/20/18 4:39 AM) (08/19/18 5:09 AM) (08/18/18 4:30 AM) ALT [0-65 unit/L] 51 unit/L 49 unit/L (07/24/18 5:03 AM) (07/23/18 6:41 PM) AST [0-37 unit/L] 28 unit/L 25 unit/L (07/24/18 5:03 AM) (07/23/18 6:41 PM) Alk Phos [39-136 unit/L] 70 unit/L 67 unit/L (07/24/18 5:03 AM) (07/23/18 6:41 PM) Bili Total [0.2-1.3 mg/dL] 0.4 mg/dL 0.3 mg/dL (07/24/18 5:03 AM) (07/23/18 6:41 PM) Bili Direct [0.0-0.3 mg/dL] 0.1 mg/dL (07/23/18 6:41 PM) Bili Indirect [0.0-1.0 mg/dL] 0.2 mg/dL (07/23/18 6:41 PM) Lactic Acid Lvl [0.5-2.2 1.6 mMol/L 1.3 mMol/L 2.5 mMol/L mMol/L] (08/16/18 1:47 PM) (08/13/18 10:52 PM) *HI* (08/13/18 5:44 PM) Osmolality [280-300 mOsm/kg] 280 mOsm/kg 289 mOsm/kg (08/02/18 5:05 AM) (07/30/18 2:57 AM) Procalcitonin Lvl [0.00-0.10 1.29 ng/mL ng/mL] *HI* (08/03/18 5:29 AM) 1Result Comment: The eGFR is calculated [...] estimated BMI.4Result Comment: Critical Result(s) called to Danita BrauliojesseeKathleen at 08/18/2018 06:31 byJP. Read back OK.DRUG SCREEN Most recent to oldest [Reference Range]: 1 2 3 U Amph Scr [Negative] Negative *NA* (07/23/18 9:17 PM) U Samira Scr [Negative] Negative *NA* (07/23/18 9:17 PM) U Benzodiaz Scr [Negative] Negative *NA* (07/23/18 9:17 PM) U Cannab Scr [Negative] Negative *NA* (07/23/18 9:17 PM) U Cocaine Scr [Negative] Positive *ABN* (07/23/18 9:17 PM) U Opiate Scr [Negative] Negative *NA* (07/23/18 9:17 PM) U Phencyclidine Scr [Negative] Negative *NA* (07/23/18 9:17 PM) UDS Note See Note (07/23/18 9:17 PM) TOXICOLOGY Most recent to oldest [Reference Range]: 1 2 3 Vanco Tr TND 0500 0500 *NA* *NA* (08/20/18 4:39 AM) (08/18/18 4:30 AM) Vanco Tr 17.7 ug/ml 11.4 ug/ml *NA* *NA* (08/20/18 4:39 AM) (08/18/18 4:30 AM) Acetaminoph Lvl [10-20] <2 (07/23/18 6:41 PM) Valproic Acid Lvl [50-100 ug/ml] 77 ug/ml (07/30/18 10:56 AM) Salicylate Lvl [0.0-30.0 mg/dL] <1.7 mg/dL (07/23/18 6:41 PM) Etoh (%) <0.003 % (07/23/18 6:41 PM) Ethanol Lvl <3.0 mg/dL (07/23/18 6:41 PM) URINE CHEM Most recent to oldest [Reference Range]: 1 2 3 U Sodium 5 mEq/L 40 mEq/L *NA* *NA* (08/01/18 9:26 PM) (07/30/18 1:05 AM) U Osmolality [300-800 mOsm/kg] 781 mOsm/kg 962 mOsm/kg (08/03/18 2:20 AM) *HI* (07/30/18 1:05 AM) URINE AND STOOL Most recent to oldest [Reference Range]: 1 2 3 UA Turbidity [Clear] Clear Slight (08/16/18 5:25 PM) *ABN* (08/05/18 5:54 PM) UA Color [Yellow] Light Yellow Yellow *NA* *NA* (08/16/18 5:25 PM) (08/05/18 5:54 PM) UA pH [5.0-8.0] 8.0 5.0 (08/16/18 5:25 PM) (08/05/18 5:54 PM) UA Spec Grav [<=1.030] 1.009 1.018 (08/16/18 5:25 PM) (08/05/18 5:54 PM) UA Glucose [Negative] Negative Negative *NA* *NA* (08/16/18 5:25 PM) (08/05/18 5:54 PM) UA Blood [Negative] Negative Moderate (08/16/18 5:25 PM) *ABN* (08/05/18 5:54 PM) UA Ketones [Negative] Negative Negative *NA* *NA* (08/16/18 5:25 PM) (08/05/18 5:54 PM) UA Protein [Negative] Negative (08/16/18 5:25 PM) UA Protein [Negative mg/dL] 30 mg/dL *ABN* (08/05/18 5:54 PM) UA Urobilinogen [0.1-1.0 mg/dL] <1.0 mg/dL <1.0 mg/dL (08/16/18 5:25 PM) (08/05/18 5:54 PM) UA Bili [Negative] Negative Negative *NA* *NA* (08/16/18 5:25 PM) (08/05/18 5:54 PM) UA Leuk Est [Negative] Negative Negative (08/16/18 5:25 PM) (08/05/18 5:54 PM) UA Nitrite [Negative] Negative Negative (08/16/18 5:25 PM) (08/05/18 5:54 PM) UA WBC [0-5 /HPF] 2 /HPF 11 /HPF (08/16/18 5:25 PM) *HI* (08/05/18 5:54 PM) UA RBC [0-2 /HPF] <1 /HPF 14 /HPF (08/16/18 5:25 PM) *HI* (08/05/18 5:54 PM) UA Sq Epi [Few /LPF] Occasional /LPF *NA* (08/16/18 5:25 PM) UA Hyal Cast [0-2 /LPF] 1 /LPF (08/05/18 5:54 PM) UA Mucus [None Seen /LPF] Few /LPF *NA* (08/05/18 5:54 PM) Micro? Performed (08/05/18 5:54 PM) IMMUNOLOGY Most recent to oldest [Reference Range]: 1 2 3 Prealbumin [18.0-45.0 mg/dL] 15.9 mg/dL *LOW* (07/30/18 2:57 AM) CRP [<=2.9 mg/L] 84.2 mg/L 97.6 mg/L *HI* *HI* (07/30/18 1:05 AM) (07/29/18 3:21 AM) HEMATOLOGY Most recent to oldest 1 2 3 [Reference Range]: WBC [3.7-10.4 K/CMM] 8.3 K/CMM 9.7 K/CMM 15.2 K/CMM (08/19/18 5:09 AM) (08/18/18 4:30 AM) *HI* (08/17/18 4:11 AM) RBC [4.70-6.10 M/CMM] 2.31 M/CMM 2.22 M/CMM 2.28 M/CMM *LOW* *LOW* *LOW* (08/19/18 5:09 AM) (08/18/18 4:30 AM) (08/17/18 4:11 AM) Hgb [14.0-18.0 g/dL] 7.0 g/dL 1 7.0 g/dL 2 7.0 g/dL 3 *CRIT* *CRIT* *CRIT* (08/19/18 5:09 AM) (08/18/18 4:30 AM) (08/17/18 4:11 AM) Hct [42.0-54.0 %] 20.8 % 20.1 % 20.9 % *LOW* *LOW* *LOW* (08/19/18 5:09 AM) (08/18/18 4:30 AM) (08/17/18 4:11 AM) MCV [80.0-94.0 fL] 90.1 fL 90.7 fL 91.3 fL (08/19/18 5:09 AM) (08/18/18 4:30 AM) (08/17/18 4:11 AM) MCH [27.0-31.0 pg] 30.2 pg 31.5 pg 30.6 pg (08/19/18 5:09 AM) *HI* (08/17/18 4:11 AM) (08/18/18 4:30 AM) MCHC [32.0-36.0 g/dL] 33.5 g/dL 34.7 g/dL 33.5 g/dL (08/19/18 5:09 AM) (08/18/18 4:30 AM) (08/17/18 4:11 AM) RDW [11.5-14.5 %] 17.0 % 17.4 % 17.1 % *HI* *HI* *HI* (08/19/18 5:09 AM) (08/18/18 4:30 AM) (08/17/18 4:11 AM) MPV [7.4-10.4 fL] 8.7 fL 8.6 fL 8.9 fL (08/19/18 5:09 AM) (08/18/18 4:30 AM) (08/17/18 4:11 AM) Platelet [133-450 K/CMM] 496 K/CMM 539 K/CMM 578 K/CMM *HI* *HI* *HI* (08/19/18 5:09 AM) (08/18/18 4:30 AM) (08/17/18 4:11 AM) Segs [45.0-75.0 %] 55.3 % 61.6 % 73.7 % (08/19/18 5:09 AM) (08/18/18 4:30 AM) (08/17/18 4:11 AM) Bands [0.0-11.0 %] 2.0 % (08/05/18 5:40 AM) Lymphocytes [20.0-40.0 %] 21.7 % 19.1 % 15.4 % (08/19/18 5:09 AM) *LOW* *LOW* (08/18/18 4:30 AM) (08/17/18 4:11 AM) Atypical Lymphs [<=0.0 %] 1.0 % *HI* (08/05/18 5:40 AM) Monocytes [2.0-12.0 %] 17.5 % 13.7 % 8.5 % *HI* *HI* (08/17/18 4:11 AM) (08/19/18 5:09 AM) (08/18/18 4:30 AM) Eosinophils [0.0-4.0 %] 3.8 % 3.8 % 1.4 % (08/19/18 5:09 AM) (08/18/18 4:30 AM) (08/17/18 4:11 AM) Basophils [0.0-1.0 %] 1.7 % 1.8 % 1.0 % *HI* *HI* (08/17/18 4:11 AM) (08/19/18 5:09 AM) (08/18/18 4:30 AM) Metamyelocytes [0.0-1.0 %] 1.0 % (08/05/18 5:40 AM) Neutrophils # [1.5-8.1 4.6 K/CMM 6.0 K/CMM 11.2 K/CMM K/CMM] (08/19/18 5:09 AM) (08/18/18 4:30 AM) *HI* (08/17/18 4:11 AM) Lymphocytes # [1.0-5.5 1.8 K/CMM 1.9 K/CMM 2.3 K/CMM K/CMM] (08/19/18 5:09 AM) (08/18/18 4:30 AM) (08/17/18 4:11 AM) Monocytes # [0.0-0.8 K/CMM] 1.4 K/CMM 1.3 K/CMM 1.3 K/CMM *HI* *HI* *HI* (08/19/18 5:09 AM) (08/18/18 4:30 AM) (08/17/18 4:11 AM) Eosinophils # [0.0-0.5 0.3 K/CMM 0.4 K/CMM 0.2 K/CMM K/CMM] (08/19/18 5:09 AM) (08/18/18 4:30 AM) (08/17/18 4:11 AM) Basophils # [0.0-0.2 K/CMM] 0.1 K/CMM 0.2 K/CMM 0.2 K/CMM (08/19/18 5:09 AM) (08/18/18 4:30 AM) (08/17/18 4:11 AM) PB Smear Path Peripheral blood smear shows hypochromic normocytic anemia with anisopoikilocytosis, mild polychromasia, leukocytosis with reactive PMNs, and marked thrombocytosis (platelet coint 1,059k) Impression: marked thrombocytosis, most consistent with transient (reactive) thrombocytosis in this 43 y/o male with candidemia. Platelet count on 08/06/2018 (7 days prior) was 556k CPT: 22281 *NA* (08/13/18 5:31 AM) 1Result Comment: Critical Result(s) called to Jacqui Winslow at 08/19/2018 05:42 by Le. Read back OK.2Result Comment: Critical Result(s) called to Taisha LOPEZ_ at 08/18/2018 06:07 by RM. Read back OK.3Result Comment: Critical Result(s) called to Nick Correa_ at 08/17/2018 06:17 by RM. Read back OK.MOLECULAR DIAGNOSTIC Most recent to oldest [Reference Range]: 1 2 3 S. aureus [Not Detected] Not Detected (08/17/18 10:12 AM) S. epidermidis [Not Detected] Not Detected (08/17/18 10:12 AM) S. lugdunensis [Not Detected] Not Detected (08/17/18 10:12 AM) S. anginosus grp [Not Detected] Not Detected (08/17/18 10:12 AM) S. agalactiae [Not Detected] Not Detected (08/17/18 10:12 AM) S. pneumoniae [Not Detected] Not Detected (08/17/18 10:12 AM) S. pyogenes [Not Detected] Not Detected (08/17/18 10:12 AM) E. faecalis [Not Detected] Not Detected (08/17/18 10:12 AM) E. faecium [Not Detected] Not Detected (08/17/18 10:12 AM) Staphylococcus spp. [Not Detected] Detected *ABN* (08/17/18 10:12 AM) Streptococcus spp. [Not Detected] Not Detected (08/17/18 10:12 AM) Listeria spp. 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 He presented on 07/23 after swallowing a razor blade that has since been removed per GI. Pt is currently TPN dependent as po intake is difficult for the patient due to persistent pain. However, his hospital course was c/b candide seble. He is currently on iv fluconazole which [...] to f/u with Dr. Aung Hercules at [facility] in 3-4 wks. can call [phone] for appointment. 3.Enterocutaneous fistula(K63.2) patient has been [...] outpatient ENT as needed. lovenox return to senior living pending set up. Extracted from: Title: Trauma Surgery Consult Author: Sara Berrios MD Date: 08/14/18 [facility] Trauma [facility] Trauma Surgery Consult Date: 08/14/18 Admitting Physician: Giovanni Chahal MD History of Present Illness: 43 Years old Male with history of multiple foreign body ingestions s/p multiple open surgeries for removal, most recently ex-lap for removal of scissors in 2017 presented after swallowing razor blades s/p endoscopic [...] 13 mEq/L (08/13/18 17:44:00) Basophils: 1 % (08/13/18 05:31:00) Basophils #: 0.1 K/CMM (08/13/18 05:31:00) BUN: 23 mg/dL High (08/13/18 17:44:00) Calcium Lvl: 8.8 mg/dL (08/13/18 17:44:00) Chloride Lvl: 102 mEq/L (08/13/18 17:44:00) CO2: 26 mEq/L (08/13/18 17:44:00) Creatinine Lvl: 1.37 mg/dL (08/13/18 17:44:00) eGFR: 64 mL/min/1.73m2 (08/13/18 17:44:00) Eosinophils: 0.4 % (08/13/18:31:00) Eosinophils #: 0.1 K/CMM (08/13/18:31:00) Glucose Lvl: 91 mg/dL (08/13/18 17:44:00) Hct: 27.4 % Low (08/13/18 17:44:00) Hgb: 9.2 g/dL Low (08/13/18:44:00) Lactic Acid Lvl: 1.3 mMol/L (08/13/18 22:52:00) Lymphocytes: 20.5 % (08/13/18:31:00) Lymphocytes #: 3 K/CMM (08/13/18:31:00) Magnesium Lvl: 2 mg/dL (08/13/18:31:00) MCH: 30.2 pg (08/13/18:44:00) MCHC: 33.5 g/dL (08/13/18:44:00) MCV: 90.2 fL (08/13/18:44:00) Monocytes: 8 % (08/13/18:31:00) Monocytes #: 1.1 K/CMM High (08/13/18:31:00) MPV: 8.3 fL (08/13/18:44:00) Neutrophils #: 10.1 K/CMM High (08/13/18 05:31:00) PB Smear Path: PB Smear Path (08/13/18:31:00) Phosphorus: 3.3 mg/dL (08/13/18:31:00) Platelet: 970 K/CMM High (08/13/18:44:00) Potassium Lvl: 4 mEq/L (08/13/18:44:00) RBC: 3.04 M/CMM Low (08/13/18:44:00) RDW: 16.6 % High (08/13/18 17:44:00) Segs: 70.1 % (08/13/18:31:00) Sodium Lvl: 137 mEq/L (08/13/18 17:44:00) WBC: 17.3 K/CMM High (03/14/19 17:44:00) Images: Imaging Studies (last 36 hours) [...] Sara Berrios PGY 3 Trauma [place] Extracted from: Title: History and Physical Author: Shan Muñoz MD Date: 07/23/18 1.Esophageal foreign body(T18.108A) 2.Esophageal tear(S11.21XA) S/p EGD and removal. NPO for now. Gastrografinstudy pending. IVF. 3.Depression(F32.9) 4.Suicide attempt(T14.91XA) Will need psych eval in AM. 5.Seizures(R56.9) Continue depakote. 6.Malnutrition(E46) Nutrition consult. 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 SCD TBD
--- OUTSIDE RECORDS SUMMARY | 2019-01-04 19:36 | XMS REPORT | Summary of Care ---
:1975 Author Organization [facility] Address [address] [place] [id number] Encounter HQ Encntr_alias(FIN) [id number] Date(s): 07/15/18 - 07/17/[address] Professional Services provided by [facility] [place] [address]- Discharge Disposition: Home or Self Care Attending Physician: Luis Velasquez MD Admitting Physician: Luis Velasquez MD Vital Signs Most recent to oldest 1 2 3 [Reference Range]: Height 162.56 cm 162.56 cm (07/15/18 10:28 PM) (07/15/18 12:56 PM) Temperature Oral [96.4-99.1 98 DegF 98 DegF 97.4 DegF DegF] (07/17/18 7:55 AM) (07/17/18 3:20 AM) (07/17/18 12:07 AM) Blood Pressure [90-140/60-90 102/64 mmHg 106/68 mmHg 101/64 mmHg mmHg] (07/17/18 7:55 AM) (07/17/18 3:20 AM) (07/17/18 12:07 AM) Respiratory Rate [14-20 18 BRMIN 18 BRMIN 18 BRMIN BRMIN] (07/17/18 7:55 AM) (07/17/18 3:20 AM) (07/17/18 12:07 AM) Peripheral Pulse Rate 81 bpm 73 bpm 79 bpm [60-100 bpm] (07/17/18 7:55 AM) (07/17/18 3:20 AM) (07/17/18 12:07 AM) Weight 54.545 kg 54.545 kg (07/15/18 10:28 PM) (07/15/18 12:56 PM) Body Mass Index 20.64 m2 20.64 m2 (07/15/18 10:28 PM) (07/15/18 12:56 PM) Problem List Condition Effective Dates Status [...] Substance Reaction Severity Status penicillins Active Medications cefdinir 300 mg oral capsule 300 mg=1 cap, PO, Q12H, X 7 day, # 14 cap, 0 Refill(s), Pharmacy: [id number] Start Date: 07/16/18 Stop Date: 07/23/18 Status: OrderedDepakote 500 mg oral enteric coated tablet 500 mg, 1 tab, Route: PO, Drug form: ECTAB, Bedtime, Dosing Weight 54.545, kg, Start date: 07/16/18 21:00:00 ELECTRONICS SUPERVISOR, Duration: 30 day, Stop date: 08/14/18 21:00: 00 CDT Notes: (Same as: Depakote Delayed Release) Do not confuse with the extended- release tablet. Delayed absorption enteric coated tablet. Start Date: 07/16/18 Stop Date: 07/17/18 Status: DiscontinuedDepakote 500 mg oral enteric coated tablet 500 mg, 1 tab, Route: PO, Drug form: ECTAB, Bedtime, Dosing Weight 54.545, kg, Start date: 07/16/18 0:00:00 ELECTRONICS SUPERVISOR, Duration: 30 day, Stop date: 08/14/18 21:00: 00 CDT Notes: (Same as: Depakote Delayed Release) Do not confuse with the extended- release tablet. Delayed absorption enteric coated tablet. Start Date: 07/16/18 Stop Date: 07/16/18 Status: DeletedDepakote 500 mg oral enteric coated tablet 500 mg=1 tab, PO, BID, Delayed Release tablet, # 60 tab, 0 Refill(s), Pharmacy: [id number] Start Date: 07/16/18 Stop Date: 08/15/18 Status: OrderedDextrose 50% Syringe 25 gm, 50 mL, Route: IVP, Drug Form: INJ, Dosing Weight 54.545, kg, PRN, PRN Blood Glucose Results, Start date: 07/15/18 23:01:00 ELECTRONICS SUPERVISOR, Duration: 30 day, Stop date: 08/15/18 0:00:00 CDT Start Date: 07/15/18 Stop Date: 07/17/18 Status: DiscontinuedDextrose 50% Syringe 12.5 gm, 25 mL, Route: IVP, Drug Form: INJ, Dosing Weight 54.545, kg, PRN, PRN Blood Glucose Results, Start date: 07/15/18 23:01:00 ELECTRONICS SUPERVISOR, Duration: 30 day, Stop date: 08/15/18 0:00:00 CDT Start Date: 07/15/18 Stop Date: 07/17/18 Status: DiscontinuedFLUoxetine 40 mg, 2 cap, Route: PO, Drug form: CAP, Daily, Dosing Weight 54.545, kg, Start date: 07/16/18 9:00:00 ELECTRONICS SUPERVISOR, Duration: 30 day, Stop date: 08/14/18 9:00:00 CDT Notes: (Same as: Garrett Lee) Start Date: 07/16/18 Stop Date: 07/17/18 Status: Discontinuedglucagon 1 mg, Route: IM, Drug form: PDR/INJ, PRN, Dosing Weight 54.545, kg, PRN Blood Glucose Results, Startdate: 07/15/18 23:01:00 ELECTRONICS SUPERVISOR, Duration: 30 day, Stop date: 08/15/18 0:00:00 CDT Start Date: 07/15/18 Stop Date: 07/17/18 Status: DiscontinuedIsolyte S PH 7.4 1,000 mL 1,000 mL, Rate: 100 ml/hr, Infuse over: 10 hr, Route: IV, Dosing Weight 54.545 kg, Total Volume: 1,000, Start date: 07/15/18 18:52:00 ELECTRONICS SUPERVISOR, Duration: 30 day, Stop date: 08/14/18 18:51:00 CDT, 1.58, m2 Notes: (Same as: Isolyte S PH 7.4) Start Date: 07/15/18 Stop Date: 07/17/18 Status: DiscontinuedIsolyte S PH-7.4 (Bolus) IV 1,000 mL, 1000 ml/hr, Infuse Over: 1 hr, Route: IV, 1,000, Drug form: SOLN, ONCE , Dosing Weight 54.545 kg, Start date: 07/15/18 18:25:00 ELECTRONICS SUPERVISOR, Stop date: 18:25:00 ELECTRONICS SUPERVISOR Notes: (Same as: Isolyte S PH 7.4) Start Date: 07/15/18 Stop Date: 07/15/18 Status: CompletedLR IV 1000 mL 1,000 mL, Rate: 125 ml/hr, Infuse over: 8 hr, Route: IV, Dosing Weight 54.545 kg , Total Volume: 1,000, Start date: 07/15/18 23:03:00 ELECTRONICS SUPERVISOR, Duration: 30 day, Stop date: 08/15/18 0:02:00 CDT, 1.58, m2 Start Date: 07/15/18 Stop Date: 07/15/18 Status: Discontinuedmorphine Sulfate 2 mg, 0.5 mL, Route: IVP, Drug form: SOLN, Q4H, Dosing Weight 54.545, kg, PRN Pain Score 7-10, Startdate: 07/15/18 23:05:00 ELECTRONICS SUPERVISOR, Duration: 30 day, Stop date: 08/14/18 23:04:00 CDT Notes: (Same as:MORPhine Sulfate) Start Date: 07/15/18 Stop Date: 07/17/18 Status: Discontinuedmorphine Sulfate 4 mg, 1 mL, Route: IVP, Drug form: SOLN, ONCE, Dosing Weight 54.545, kg, Start date: 07/15/18 23:05:00 ELECTRONICS SUPERVISOR, Stop date: 07/15/18 23:05:00 ELECTRONICS SUPERVISOR Notes: (Same as:MORPhine Sulfate) Start Date: 07/15/18 Stop Date: 07/15/18 Status: Completedmorphine Sulfate 2 mg, Route: IVP, ONCE, Dosing Weight 54.545, kg, Start date: 07/16/18 11:20:00 ELECTRONICS SUPERVISOR, Stop date: 07/16/18 11:20:00 ELECTRONICS SUPERVISOR Start Date: 07/16/18 Stop Date: 07/16/18 Status: Completedondansetron 4 mg, 2 mL, Route: IVP, Drug form: INJ, Q6H, Dosing Weight 54.545, kg, PRN Nausea & Vomiting, Start date: 07/15/18 23:01:00 ELECTRONICS SUPERVISOR, Duration: 30 day, Stop date: 08/14/18 23:00:00 CDT Notes: (Same as: Zofran) MEDICATION WASTE Product Size: 4 mgProduct Wasted: ___ mg Start Date: 07/15/18 Stop Date: 07/17/18 Status: DiscontinuedoxyCODONE 5 mg oral tablet 10 mg, 2 tab, Route: PO, Drug form: TAB, Q6H, Dosing Weight 54.545, kg, PRN Pain Score 7-10, Start date: 07/15/18 23:04:00 ELECTRONICS SUPERVISOR, Duration: 30 day, Stop date : 08/14/18 23:03:00 CDT Notes: (Same as: Roxicodone) Start Date: 07/15/18 Stop Date: 07/17/18 Status: DiscontinuedProtonix 40 mg, Route: IVP, Drug form: INJ, ONCE, Dosing Weight 54.545, kg, Start date: 07/15/18 23:05:00 ELECTRONICS SUPERVISOR, Stop date: 07/15/18 23:05:00 ELECTRONICS SUPERVISOR Notes: For IV push reconstitute with 10 ml 0.9% sodium chloride and push over 2 minutes. (Same as: Protonix) Start Date: 07/15/18 Stop Date: 07/15/18 Status: CompletedProtonix 40 mg, 1 tab, Route: PO, Drug form: ECTAB, Daily, Dosing Weight 54.545, kg, Start date: 07/16/18 9:00:00 ELECTRONICS SUPERVISOR, Duration: 30 day, Stop date: 08/14/18 9:00:00 CDT Notes: Tablet should not be chewed or crushed.(Same as: Protonix) Start Date: 07/16/18 Stop Date: 07/17/18 Status: DiscontinuedRocephin 1 gm, Route: IVPB, Drug form: PDR/INJ, [id number], Dosing Weight 54.545, kg, Start date: 07/16/18 12:00:00 ELECTRONICS SUPERVISOR, Duration: 1 day, Stop date: 07/16/18 12:00:00 ELECTRONICS SUPERVISOR, ABX Indication: Urinary Tract Infection Notes: (Same As: Rocephin).Use with 100 mL NS and infuse over 30 min MEDICATION WASTE Product Size: 1000 mgProduct Wasted: ___ mg Start Date: 07/16/18 Stop Date: 07/16/18 Status: Completedvalproic acid 100 mg/mL intravenous solution + Sodium Chloride 0.9% IV 50 mL 1,000 mg, 10 mL, Route: IV, ONCE, Dosing Weight 54.545, kg, Start date: 21:10:00 ELECTRONICS SUPERVISOR, Stop date: 07/15/18 21:10:00 ELECTRONICS SUPERVISOR Notes: Dilute in at least 50ml D5W or NS. Infusion rate=20 mg/min(Same As: Depacon) Start Date: 07/15/18 Stop Date: 07/15/18 Status: Completed Results ELECTROLYTES Most recent to oldest 1 2 3 [Reference Range]: Sodium Lvl [135-145 mEq/L] 138 mEq/L 139 mEq/L 140 mEq/L (07/17/18 7:30 AM) (07/16/18 3:34 AM) (07/15/18 5:46 PM) Potassium Lvl [3.5-5.1 3.9 mEq/L 4.0 mEq/L 3.7 mEq/L mEq/L] (07/17/18 7:30 AM) (07/16/18 3:34 AM) (07/15/18 5:46 PM) Chloride Lvl [95-109 mEq/L] 105 mEq/L 104 mEq/L 102 mEq/L (07/17/18 7:30 AM) (07/16/18 3:34 AM) (07/15/18 5:46 PM) CO2 [24-32 mEq/L] 25 mEq/L 26 mEq/L 25 mEq/L (07/17/18 7:30 AM) (07/16/18 3:34 AM) (07/15/18 5:46 PM) AGAP [10.0-20.0 mEq/L] 11.9 mEq/L 13.0 mEq/L 16.7 mEq/L (07/17/18 7:30 AM) (07/16/18 3:34 AM) (07/15/18 5:46 PM) CHEM PANEL Most recent to oldest 1 2 3 [Reference Range]: Creatinine Lvl [0.50-1.40 0.88 mg/dL 1.12 mg/dL 1.05 mg/dL mg/dL] (07/17/18 7:30 AM) (07/16/18 3:34 AM) (07/15/18 5:46 PM) eGFR 107 mL/min/1.73m2 1 81 mL/min/1.73m2 2 88 mL/min/1.73m2 3 *NA* *NA* *NA* (07/17/18 7:30 AM) (07/16/18 3:34 AM) (07/15/18 5:46 PM) BUN [7-22 mg/dL] 23 mg/dL 27 mg/dL 27 mg/dL *HI* *HI* *HI* (07/17/18 7:30 AM) (07/16/18 3:34 AM) (07/15/18 5:46 PM) Glucose Lvl [70-99 mg/dL] 60 mg/dL 75 mg/dL 89 mg/dL *LOW* (07/16/18 3:34 AM) (07/15/18 5:46 PM) (07/17/18 7:30 AM) Total Protein [6.4-8.4 8.1 g/dL g/dL] (07/15/18 5:46 PM) Albumin Lvl [3.5-5.0 g/dL] 3.9 g/dL (07/15/18 5:46 PM) Globulin [2.7-4.2 g/dL] 4.2 g/dL (07/15/18 5:46 PM) A/G Ratio [0.7-1.6] 0.9 (07/15/18 5:46 PM) Calcium Lvl [8.5-10.5 7.9 mg/dL 8.5 mg/dL 9.6 mg/dL mg/dL] *LOW* (07/16/18 3:34 AM) (07/15/18 5:46 PM) (07/17/18 7:30 AM) Phosphorus [2.5-4.5 mg/dL] 3.5 mg/dL 4.6 mg/dL 3.8 mg/dL (07/17/18 7:30 AM) *HI* (07/15/18 5:46 PM) (07/16/18 3:34 AM) Magnesium Lvl [1.8-2.4 2.4 mg/dL 2.5 mg/dL 2.3 mg/dL mg/dL] (07/17/18 7:30 AM) *HI* (07/15/18 5:46 PM) (07/16/18 3:34 AM) ALT [0-65 unit/L] 22 unit/L (07/15/18 5:46 PM) AST [0-37 unit/L] 17 unit/L (07/15/18 5:46 PM) Alk Phos [39-136 unit/L] 63 unit/L (07/15/18 5:46 PM) Bili Total [0.2-1.3 mg/dL] 0.3 mg/dL (07/15/18 5:46 PM) Bili Direct [0.0-0.3 mg/dL] 0.1 mg/dL (07/15/18 5:46 PM) Bili Indirect [0.0-1.0 0.2 mg/dL mg/dL] (07/15/18 5:46 PM) Lipase Lvl [73-393 unit/L] 108 unit/L (07/15/18 5:46 PM) Ammonia [<=45.0 uMol/L] <10.0 uMol/L (07/15/18 9:27 PM) Lactic Acid Lvl [0.5-2.2 1.0 mMol/L mMol/L] (07/15/18 9:27 PM) Lactic Acid WB [0.5-2.2 2.7 mmol/L mmol/L] *HI* (07/15/18 5:46 PM) 1Result Comment: The eGFR is calculated [...] 1 2 3 Total CK [12-191 unit/L] 54 unit/L (07/15/18 5:46 PM) ANEMIA STUDY Most recent to oldest [Reference Range]: 1 2 3 Iron [45-160 ug/dl] 33 ug/dl *LOW* (07/16/18 3:34 AM) Ferritin Lvl [22-275 ng/mL] 9 ng/mL *LOW* (07/16/18 3:34 AM) % Satur Fe [12-57 %] 9 % *LOW* (07/16/18 3:34 AM) UIBC [110-370 ug/dl] 355 ug/dl (07/16/18 3:34 AM) Vitamin B12 Lvl [254-1320 pg/mL] 603 pg/mL (07/16/18 3:34 AM) Folate Lvl [>=3.0 ng/mL] 28.9 ng/mL (07/16/18 3:34 AM) TIBC [228-428 ug/dl] 388 ug/dl (07/16/18 3:34 AM) DRUG SCREEN Most recent to oldest [Reference Range]: 1 2 3 U Amph Scr [Negative] Positive *ABN* (07/15/18 10:32 PM) U Samira Scr [Negative] Negative *NA* (07/15/18 10:32 PM) U Benzodiaz Scr [Negative] Negative *NA* (07/15/18 10:32 PM) U Cannab Scr [Negative] Negative *NA* (07/15/18 10:32 PM) U Cocaine Scr [Negative] Negative *NA* (07/15/18 10:32 PM) U Opiate Scr [Negative] Positive *ABN* (07/15/18 10:32 PM) U Phencyclidine Scr [Negative] Negative *NA* (07/15/18 10:32 PM) UDS Note See Note (07/15/18 10:32 PM) TOXICOLOGY Most recent to oldest [Reference Range]: 1 2 3 Acetaminoph Lvl [10-20] <2 (07/15/18 5:46 PM) Valproic Acid Lvl [50-100 ug/ml] 44 ug/ml *LOW* (07/15/18 5:46 PM) Salicylate Lvl [0.0-30.0 mg/dL] <1.7 mg/dL (07/15/18 5:46 PM) Etoh (%) <0.003 % (07/15/18 5:46 PM) Ethanol Lvl <3.0 mg/dL (07/15/18 5:46 PM) URINE AND STOOL Most recent to oldest [Reference Range]: 1 2 3 UA Turbidity [Clear] Slight Cloudy (07/15/18 9:55 PM) UA Color [Yellow] Dark Yellow (07/15/18 9:55 PM) UA pH [5.0-8.0] 6.0 (07/15/18 9:55 PM) UA Spec Grav [<=1.030] >=1.030 *ABN* (07/15/18 9:55 PM) UA Glucose [Negative] Negative (07/15/18 9:55 PM) UA Blood [Negative] Negative (07/15/18 9:55 PM) UA Ketones [Negative] Negative *NA* (07/15/18 9:55 PM) UA Protein [Negative] Trace *ABN* (07/15/18 9:55 PM) UA Urobilinogen [0.1-1.0 EU/dL] 0.2 EU/dL (07/15/18 9:55 PM) UA Bili [Negative] Negative *NA* (07/15/18 9:55 PM) UA Leuk Est [Negative] Trace *ABN* (07/15/18 9:55 PM) UA Nitrite [Negative] Positive *ABN* (07/15/18 9:55 PM) UA WBC [None Seen /HPF] 21-50 /HPF *ABN* (07/15/18 9:55 PM) UA RBC [0-2 /HPF] 0-2 /HPF (07/15/18 9:55 PM) UA Bacteria [None Seen /HPF] Many /HPF (07/15/18 9:55 PM) UA Sq Epi [Few /LPF] Rare /LPF (07/15/18 9:55 PM) UA Mucus [None Seen /LPF] Few /LPF (07/15/18 9:55 PM) Micro? Performed (07/15/18 9:55 PM) HEMATOLOGY Most recent to oldest 1 2 3 [Reference Range]: WBC [3.7-10.4 K/CMM] 8.4 K/CMM 11.3 K/CMM 11.2 K/CMM (07/17/18 7:30 AM) *HI* *HI* (07/16/18 3:34 AM) (07/15/18 5:46 PM) RBC [4.70-6.10 M/CMM] 2.74 M/CMM 3.00 M/CMM 3.27 M/CMM *LOW* *LOW* *LOW* (07/17/18 7:30 AM) (07/16/18 3:34 AM) (07/15/18 5:46 PM) Hgb [14.0-18.0 g/dL] 8.4 g/dL 9.3 g/dL 9.9 g/dL *LOW* *LOW* *LOW* (07/17/18 7:30 AM) (07/16/18 3:34 AM) (07/15/18 5:46 PM) Hct [42.0-54.0 %] 24.9 % 27.5 % 29.7 % *LOW* *LOW* *LOW* (07/17/18 7:30 AM) (07/16/18 3:34 AM) (07/15/18 5:46 PM) MCV [80.0-94.0 fL] 91.2 fL 91.4 fL 90.8 fL (07/17/18 7:30 AM) (07/16/18 3:34 AM) (07/15/18 5:46 PM) MCH [27.0-31.0 pg] 30.6 pg 30.8 pg 30.3 pg (07/17/18 7:30 AM) (07/16/18 3:34 AM) (07/15/18 5:46 PM) MCHC [32.0-36.0 g/dL] 33.6 g/dL 33.7 g/dL 33.3 g/dL (07/17/18 7:30 AM) (07/16/18 3:34 AM) (07/15/18 5:46 PM) RDW [11.5-14.5 %] 16.2 % 16.6 % 16.8 % *HI* *HI* *HI* (07/17/18 7:30 AM) (07/16/18 3:34 AM) (07/15/18 5:46 PM) MPV [7.4-10.4 fL] 7.9 fL 8.3 fL 8.2 fL (07/17/18 7:30 AM) (07/16/18 3:34 AM) (07/15/18 5:46 PM) Platelet [133-450 K/CMM] 572 K/CMM 651 K/CMM 680 K/CMM *HI* *HI* *HI* (07/17/18 7:30 AM) (07/16/18 3:34 AM) (07/15/18 5:46 PM) Segs [45.0-75.0 %] 64.7 % 58.9 % 70.0 % (07/17/18 7:30 AM) (07/16/18 3:34 AM) (07/15/18 5:46 PM) Lymphocytes [20.0-40.0 %] 21.7 % 28.9 % 20.3 % (07/17/18 7:30 AM) (07/16/18 3:34 AM) (07/15/18 5:46 PM) Monocytes [2.0-12.0 %] 11.6 % 11.7 % 8.8 % (07/17/18 7:30 AM) (07/16/18 3:34 AM) (07/15/18 5:46 PM) Eosinophils [0.0-4.0 %] 0.4 % (07/17/18 7:30 AM) Basophils [0.0-1.0 %] 1.6 % 0.5 % 0.9 % *HI* (07/16/18 3:34 AM) (07/15/18 5:46 PM) (07/17/18 7:30 AM) Neutrophils # [1.5-8.1 5.4 K/CMM 6.7 K/CMM 7.9 K/CMM K/CMM] (07/17/18 7:30 AM) (07/16/18 3:34 AM) (07/15/18 5:46 PM) Lymphocytes # [1.0-5.5 1.8 K/CMM 3.3 K/CMM 2.3 K/CMM K/CMM] (07/17/18 7:30 AM) (07/16/18 3:34 AM) (07/15/18 5:46 PM) Monocytes # [0.0-0.8 K/CMM] 1.0 K/CMM 1.3 K/CMM 1.0 K/CMM *HI* *HI* *HI* (07/17/18 7:30 AM) (07/16/18 3:34 AM) (07/15/18 5:46 PM) Basophils # [0.0-0.2 K/CMM] 0.1 K/CMM 0.1 K/CMM 0.1 K/CMM (07/17/18 7:30 AM) (07/16/18 3:34 AM) (07/15/18 5:46 PM) Immunizations Given and Recorded Vaccine Date [...] Reg Smoking Cessation Counseling Yes entered on: 07/15/18 Assessment and Plan Extracted from: Title: Progress Note Author: Luis Velasquez MD Date: 07/16/18 43-year-old male history of depression seizure disorder PTSD and malnutritionas well as multiple abdominal surgeries who presents with abdominal pain and increased fistula output as well as difficulty with fistula care 1.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 Continue local wound care for now. Ostomy nurse consult placed. Ordered: Admit/Condition, 07/15/18 23:01:00 ELECTRONICS SUPERVISOR, Status: Out Patient with Observation Services, Acute, Location: COU, Expected LOS: 1 Midnight, Luis Velasquez MD, Admit Review/Approve Yes, Isolation: No Isolation/Standard Precautions, Enterocutaneous fistula | High-... 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 StartIVFs and resume TPN tomorrow.Started Protonix per EGS recs. Consider adding Lomotil or Loperamide if output remains high. Ordered: Admit/Condition, 07/15/18 23:01:00 ELECTRONICS SUPERVISOR, Status: Out Patient with Observation Services, Acute, Location: COU, Expected LOS: 1 Midnight, Luis Velasquez MD, it Review/Approve Yes, Isolation: No Isolation/Standard Precautions, Enterocutaneous fistula | High-... 3.Seizure secondary to subtherapeutic anticonvulsant medication(R56.9) Breakthrough seizrues secondary to subtherapetuc valproic acid levels due to high output EC fistula. Neurology consulted and patient to received 1 g of IV valproic acid.Continue PO divalproex and f/u neurology recs. Ordered: Admit/Condition, 07/15/18 23:01:00 ELECTRONICS SUPERVISOR, Status: Out Patient with Observation Services, Acute, Location: COU, Expected LOS: 1 Midnight, Luis Velasquez MD, Admit Review/Approve Yes, Isolation: No Isolation/Standard Precautions, Enterocutaneous fistula | High-... 4.Moderate malnutrition(E46) Continue TPN tomorrow. Nutrition reconsulted this admission to help with TPN orders. Ordered: Admit/Condition, 07/15/18 23:01:00 ELECTRONICS SUPERVISOR, Status: Out Patient with Observation Services, Acute, Location: COU, Expected LOS: 1 Midnight, Luis Velasquez MD, [address] Review/Approve Yes, Isolation: No Isolation/Standard Precautions, Enterocutaneous fistula | High-... 5.Depression(F32.9) Continue Prozac. Stop Buproprion given breakthrough seizures. Consider psychiatry consult to help in selecting anothercomplimentary antidepressant. Ordered: Admit/Condition, 07/15/18 23:01:00 ELECTRONICS SUPERVISOR, Status: Out Patient with Observation Services, Acute, Location: COU, Expected LOS: 1 Midnight, Luis Velasquez MD, [address] Review/Approve Yes, Isolation: No Isolation/Standard Precautions, Enterocutaneous fistula | High-... 6.PTSD (post-traumatic stress disorder)(F43.10) Continue Prozac. Ordered: Admit/Condition, 07/15/18 23:01:00 ELECTRONICS SUPERVISOR, Status: Out Patient with Observation Services, Acute, [...] Home when medically and surgically cleared. Extracted from: Title: Neurology Consult Note Author: Tomasa Velez MD [...] with any questions. Jennifer Lynn MD PGY3 IM MSO#[id number] History of present illness: 43 year old male with PMH of history of depression with multiple suicide attempts, enterocutaneous fistula secondary to multiple abdominal surgeries status post colostomy, and seizure disorder that p resents to ED from retirement due to two seizure episodes over the [...] lives in a mental health facility, [facility]. Medications: Lamictal 25mg daily Risperidone [...] (Last four charted values) WBC H 11.3 (B ) H 11.2 (B ) Hgb L 9.3 (B 14) L 9.9 (B 13) Hct L 27.5 (JUL 16) L 29.7 (B ) Plt H 651 (B ) H 680 (B 13) Na 139 (B 14) 140 (B 13) K 4.0 (B 14) 3.7 (B 13) CO2 26 (JUL 16) 25 (JUL 13) Cl 104 (JUL 16) 102 (B 13) Cr 1.12 (B 14) 1.05 (B 13) BUN H 27 (JUL 14) H 27 (B 13) Glucose Random 75 (B ) 89 (B 13) Mg H 2.5 (JUL 16) 2.3 (B 13) Phos H 4.6 (B 14) 3.8 (B 13) Ca 8.5 (B 14) 9.6 (B 13) Total CK 54 (B ) EKG: Imaging: CT Head 06/22): IMPRESSION: No [...] BID THE FOLLOWING WERE PRESENT ON ADMISSION: [employer]- seizure, depression, anemia, enterocutaneous fistula, CKD The case was discussed with the microeconomics professor General Neurology attending. Tomasa Velez MD PGY2 Neurology Neurology staff Teaching physician statement I reviewed the residents note, personally reviewed all the patient s labs and imaging studies and personally performed a complete neurological exam. I discussed the assessment and plan of care and agr ee with the plan as outlined in the resident's note. Driss Pinto DO [facility], Neurohospitalist Manager Transportation Planning of Neurology"
--- OUTSIDE RECORDS SUMMARY | 2019-01-04 19:36 | XMS REPORT ---
:1975 [facility] Address [address] [place] [address] Dr. Monzon [address] [place] [id number] Care Team Providers Name Role Phone Unavailable Unavailable Unavailable Problems This patient has no known problems. Allergies, Adverse Reactions, Alerts This patient has no known allergies or adverse reactions. Medications This patient has no known medications.
--- NOTE | 2019-01-04 20:45 | ER ---
Nurse's Notes [facility] Name: Raheel Rae Age: 43 yrs Sex: Male : 1975 Arrival Date: 01/04/2019 Time: 19:04 Bed Waiting Private MD: Diagnosis: Presentation: 01/04 19:07 Presenting complaint: Patient states: abd pain and nausea from abd sx 1.5 months ago to ak1 retrieve razor blades. pt sx was done a Gigi Barrientos. Transition of care: patient was not received from another setting of care. Onset of symptoms was January 04, 2019. Risk Assessment: Do you want to hurt yourself or someone else? Patient reports no desire to harm self or others. Initial Sepsis Screen: Does the patient meet any 2 criteria? No. Patient's initial sepsis screen is negative. Does the patient have a suspected source of infection? No. Patient's initial sepsis screen is negative. Care prior to arrival: None. 19:07 Method Of Arrival: Ambulatory ak1 19:07 Acuity: RADHA 3 ak1 Triage Assessment: 19:10 General: Appears in no apparent distress. Behavior is calm, cooperative, anxious. Pain: ak1 Complains of pain in abdomen. Historical: - Allergies: 19:10 pcn; ak1 - Home Meds: 19:10 None [Active]; ak1 - PMHx: 19:10 Chronic pain; Depression; PTSD; Shoulder issues; ak1 - PSHx: 19:10 FOREIGN BODY REMOVAL X3; ak1 - Immunization history:: Adult Immunizations up to date. - Social history:: Smoking status: Patient uses tobacco products, smokes one pack cigarettes per day. - Ebola Screening: : No symptoms or risks identified at this time. Screenin:10 Abuse screen: Denies threats or abuse. Denies injuries from another. Nutritional ak1 screening: No deficits noted. Tuberculosis screening: No symptoms or risk factors identified. Fall Risk None identified. Vital Signs: 19:10 BP 141 / 94; Pulse 96; Resp 16; Temp 97.7; Pulse Ox 97% on R/A; Weight 58.97 kg (R); ak1 Height 5 ft. 4 in. (162.56 cm) (R); Pain 10/10; 19:10 Body Mass Index 22.31 (58.97 kg, 162.56 cm) ak1 ED Course: 19:04 Patient arrived in ED. mr 19:08 Triage completed. ak1 19:10 Arm band placed on Patient placed in waiting room, Patient notified of wait time. ak1 19:10 Patient has correct armband on for positive identification. ak1 20:07 Patient's name was called from ER lobby. No response. bb 20:43 Patient's name was called from ER lobby. No response. Unable to locate patient. Will bb disposition as left without being seen by a provider. Administered Medications: No medications were administered Outcome: 20:44 Patient left the ED. bb Signatures: Viviana James mr Nan Lewis, RN RN bb Laura Davila, RN RN ak1
[2019-01-04 22:18] VITALS: BP 141/94; TEMP 97.7; O2SAT 97
== END 2019-01-04 20:44 | disposition left against medical advice (07) ==
LOC: ER 19:00
DX: Z53.21 Procedure and treatment not carried out due to patient leaving prior to being seen by health care provider (principal)
CPT/HCPCS: 99281